=== PATIENT | male | born 1955 | race Caucasian/White ===

== ENCOUNTER → 2018-10-06 | Outpatient (CLI) | payer BC ==
--- NOTE | 2018-10-08 13:00 | PE ---
EXAMINATION TYPE: PET CT fusion skull to thigh DATE OF EXAM: 10/06/2018 COMPARISON: CT abdomen pelvis 09/27/2013 Prior PET/CT: None HISTORY: Solitary pulmonary nodule TECHNIQUE: Following the intravenous administration of 11.68 mCi of F-18 FDG, whole body images are performed from the skull base to the midthigh. Images are reviewed on the computer in the coronal, a xial, and sagittal planes. Reconstructed rotating images are created on independent workstation and reviewed on the computer. A localization and attenuation correction CT is performed in conjunction with the PET scan. DLP: 488.75 mGycm SCAN: Initial Blood glucose: 111 mg/dL Average Mediastinum SUV: 1.28 Average Liver SUV: 1.9 FINDINGS: NECK: There is some mild uptake within a suspected lymph node within the right parotid gland. This h as an SUV value of 2.19. This is nonspecific. Remainder the neck has normal radiotracer distribution. THORAX: No suspicious uptake. No discrete nodules are identified. Emphysematous changes are evident. Uptake throughout the thyroid appears normal ABDOMEN: No abnormal uptake. No suspicious uptake within the liver hypodense lesions. PELVIS: No abnormal uptake OSSEOUS STRUCTURES: No suspicious uptake LOCALIZATION CT: Degenerative changes with some foraminal narrowing and endplate spurring to the cerv ical spine are present. On the left lobe thyroid is prominent. This could be further evaluated with u ltrasound. This may has some tracheal deviation towards the right. The ascending thoracic aorta at th e level the main pulmonary artery measures 3.9 cm. The main pulmonary bifurcation measures 3.1 cm. Th ere is a 1.2 cm hypodensity at the superior right lobe liver not identified previously. COMPARISON: Abnormality within the liver is not identified previously. IMPRESSION: 1. There is some increased signal within the right parotid gland could be a abnormal lymph node. Cons ider MRI neck with contrast for additional evaluation. 2. Suspicious uptake within the chest is not identified. 3. Emphysema. 4. Enlarged left lobe thyroid may have mass effect on the trachea. No abnormal uptake within the thyr oid.
== END | disposition home or self-care (01) ==
LOC: RADPETMAIN 07:24
PROVIDERS: ATTEND Nurse Practitioner
DX: J43.9 Emphysema, unspecified (principal); E04.9 Nontoxic goiter, unspecified; K11.8 Other diseases of salivary glands
CPT/HCPCS: 78815; A9552

== ENCOUNTER → 2018-10-16 | Outpatient (CLI) | payer BC | END | disposition home or self-care (01) | LOC: RADMRIMAIN 19:59 | PROVIDERS: ATTEND Family Medicine | DX: Z53.9 Procedure and treatment not carried out, unspecified reason (principal) ==

== ENCOUNTER → 2018-10-19 | Outpatient (CLI) | payer BC ==
--- NOTE | 2018-10-22 03:07 | MR ---
MR scan of the neck. History abnormal PET scan. Abnormal right parotid gland on PET CT scan October 06, 2018. TECHNIQUE: Multiplanar multiecho imaging of the neck was performed without and with IV contrast. The contrast wa s linear and 7.5 mL. FINDINGS: There is fairly uniform signal pattern of the parotid glands bilaterally. I see no discrete parotid m ass. I see no significant enlarged cervical lymph nodes. The submandibular salivary glands are symmet philip. There is no evidence of pharyngeal mass. I see no pathologic enhancement. There is asymmetric en largement of the left thyroid lobe compared to the right. No discrete thyroid mass seen. I see no sup erior mediastinal adenopathy. IMPRESSION: Asymmetric goiter. This appears unchanged compared to recent PET CT scan. No demonstrated abnormality of the parotid glands. There is increased uptake in the inferior right pa rotid gland on the recent PET/CT scan that shows no focal abnormality on the MR scan.
== END ==
LOC: RADMRIMAIN 20:07
PROVIDERS: ATTEND Family Medicine
DX: E04.9 Nontoxic goiter, unspecified (principal); D11.0 Benign neoplasm of parotid gland
CPT/HCPCS: 70543; A9585

== ENCOUNTER → 2018-10-22 | Outpatient (CLI) | payer BC ==
--- NOTE | 2018-10-22 22:28 | US ---
EXAMINATION TYPE: US thyroid st tissue head/neck DATE OF EXAM: 10/22/2018 COMPARISON: MR of the neck from 3 days ago. PET/CT from 2 weeks ago. CLINICAL HISTORY: E07.9 Disorder of thyroid Z13.29 Screening for end. Enlarged thyroid GLAND SIZE: Right Lobe: 6.3 x 1.6 x 2.1 cm Overall Parenchyma: heterogenous Left Lobe: 6.3 x 3.0 x 3.5 cm Overall Parenchyma: heterogeneous Isthmus Thickness: 0.4 cm NODULES RIGHT: # of nodules measured on right: 3 1. 1.3 X 1.1 x 1.1 cm hypoechoic mixed nodule at the lower pole with well-defined margins; present with microcalcifications. This nodule is wider than tall and shows intranodular vascularity. Prior size: no previous 2. 1.1 X 1.1 x 0.8 cm hypoechoic solid nodule at the mid pole with well-defined margins. This nodule is taller than wide and shows intranodular vascularity. Prior size: no previous 3. 1.0 X 0.9 x 1.0 cm hypoechoic solid nodule at the mid pole with well-defined margins. This nodule is wider than tall and shows intranodular vascularity. Prior size: no previous LEFT: # of nodules measured on left: 1 1. 4.8 X 2.9 x 3.8 cm hypoechoic mixed nodule at the mid pole with well-defined margins. This nodul e is wider than tall and shows intranodular vascularity. Prior size: no previous ISTHMUS: # of nodules measured in the isthmus: 0 Bilateral neck scanned, no evidence of lymphadenopathy. There is heterogeneous enlarged thyroid gland, left greater than right, with multiple scattered nodul es identified including large dominant nodule occupying left thyroid lobe. IMPRESSION: Heterogeneous enlarged thyroid with large mixed left-sided nodule. Findings correlated with recent MR I and PET/CT.
== END ==
LOC: RADUSWWP 16:05
PROVIDERS: ATTEND Family Medicine
DX: E04.1 Nontoxic single thyroid nodule (principal)
CPT/HCPCS: 76536

== ENCOUNTER 2018-11-09 09:19 | Day surgery (SDC) | payer BC ==
[~2018-11-09 09:19] MED LIST: ALPRAZolam 0.5 MG TAB PO STA
[2018-11-09 10:29] VITALS: RESP 16; TEMP 97.7
[2018-11-09 10:36] LABS: Mean Platelet Volume 7.2; Platelet Count 128 k/uL (150-450)
[2018-11-09 10:44] LABS: INR 1.1 (<1.2); Prothrombin Time 11.7 sec (9.0-12.0)
[2018-11-09 11:15] LABS: Ionized Calcium 5.1 mg/dL (4.5-5.3)
[2018-11-09 11:30] VITALS: BP 140/83; PULSE 67
[2018-11-09 11:43] LABS: T4, Free (Free Thyroxine) 1.29 ng/dL (0.78-2.19)
--- NOTE | 2018-11-09 13:13 | US ---
ULTRASOUND GUIDED FNA THYROID BIOPSY: CLINICAL HISTORY: 3 right-sided thyroid nodules and one large left-sided thyroid nodule requested for biopsy FINDINGS: The procedure was explained to the patient. The risks, complications, benefits and alternatives were discussed and any questions were answered. Informed consent was obtained. Patient was placed supin e on the ultrasound table and prepped and draped in the usual sterile fashion. Utilizing a 25 gauge needle, five passes were made into the four requested thyroid nodules. Patient was stable throughout the procedure. Pathology is pending. All elements of maximal barrier technique were utilized. IMPRESSION: 1. Successful ultrasound guided FNA thyroid biopsy.
== END 2018-11-09 11:35 | disposition home or self-care (01) ==
LOC: RADPROMAIN 09:19
PROVIDERS: ATTEND Otolaryngology
DX: E04.1 Nontoxic single thyroid nodule (principal)
CPT/HCPCS: 10005; 10006; 36415; 76942; 82330; 84439; 84443; 85049; 85610; 86376; 88173; 88305

== ENCOUNTER → 2019-08-05 | Outpatient (CLI) | payer BC ==
--- NOTE | 2019-08-05 15:55 | US ---
EXAMINATION TYPE: US thyroid st tissue head/neck DATE OF EXAM: 08/05/2019 COMPARISON: 11/09/2018 and 10/22/2018 CLINICAL HISTORY: E04.1 thyroid nodule. GLAND SIZE: Right Lobe: 5.0 x 1.7 x 2.1 cm Overall Parenchyma: heterogenous Left Lobe: 5.8 x 3.0 x 3.1 cm Overall Parenchyma: heterogeneous Isthmus Thickness: 0.3 cm NODULES RIGHT: # of nodules measured on right: 3 1. 1.0 X 0.7 x 0.9 cm hypoechoic solid nodule at the mid pole with well-defined margins . This nod ule is wider than tall and shows intranodular vascularity. Prior size: 1.3 x 1.1 x 1.1 cm 2. 1.2 X 0.9 x 0.8 cm hypoechoic solid nodule at the med pole with well-defined margins . This nodu le is wider than tall and shows intranodular vascularity. Prior size: 1.1 x 1.1 x 0.8 cm 3. 0.9 X 0.7 x 1.1 cm hypoechoic solid nodule at the mid pole with well-defined margins. This nodul e is wider than tall and shows intranodular vascularity. Prior size: 1.0 x 0.9 x 1.0 cm LEFT: # of nodules measured on left: 1. 4.1 X 2.7 x 3.6 cm isoechoic solid nodule at the mid pole with well-defined margins . This nodu le is wider than tall and shows intranodular vascularity. Prior size: 4.8 x 2.9 x 3.8 cm ISTHMUS: # of nodules measured in the isthmus: 0 Bilateral neck scanned, no evidence of lymphadenopathy. IMPRESSION: Thyromegaly and multinodular goiter. Bilateral thyroid ultrasounds are similar size to th e prior. Fine-needle aspiration has been performed to for thyroid nodules on 11/09/2018.
== END ==
LOC: RADUSWWP 14:12
PROVIDERS: ATTEND Otolaryngology
DX: E04.2 Nontoxic multinodular goiter (principal)
CPT/HCPCS: 76536

== ENCOUNTER → 2020-09-18 | Outpatient (CLI) | payer BC ==
--- NOTE | 2020-09-18 11:03 | US ---
EXAMINATION TYPE: US thyroid st tissue head/neck DATE OF EXAM: 09/18/2020 COMPARISON: NONE CLINICAL HISTORY: E04.1 thyroid nodule. GLAND SIZE: Right Lobe: 6.0 x 1.7 x 2.2 cm Overall Parenchyma: heterogenous Left Lobe: 6.5 x 3.2 x 2.5 cm Overall Parenchyma: heterogeneous Isthmus Thickness: 0.4 cm NODULES RIGHT: # of nodules measured on right: 3 1. 1.0 X 0.7 x 0.8 cm solid or almost completely solid, anechoic nodule, which is wider than tall, with smooth margins, without echogenic foci. Prior size:1.0 X 0.7 x 0.9 cm 2. 1.1 X 0.9 x 0.7 cm solid or almost completely solid, hypoechoic nodule, which is taller than wid e, with smooth margins, without echogenic foci. Prior size: 1.2 X 0.9 x 0.8cm 3. 1.1 X 0.9 x 1.1 cm spongiform, hypoechoic nodule, which is wider than tall, with smooth margins , with echogenic foci. Prior size: 0.9 X 0.7 x 1.1cm LEFT: # of nodules measured on left: 1. 4.3 x 3.2 x 4.1 cm solid or almost completely solid, isoechoic nodule, which is wider than tall, with lobulated or irregular margins, without echogenic foci. Prior size: 4.1 X 2.7 x 3.6cm ISTHMUS: # of nodules measured in the isthmus: 0 Bilateral neck scanned, no evidence of lymphadenopathy. IMPRESSION: Bilateral thyroid nodules are stable. Characteristics of the right thyroid nodule measuring 1.1 cm me et the criteria for FNA. Correlate with prior biopsy pathology. 2017 ACR TI-RADS LEVEL: TI-RADS 5 - Highly Suspicious: Follow if > 0.5 cm, FNA if > 1.0 cm *Highest TI-RADS level nodule reported
== END | disposition home or self-care (01) ==
LOC: RADUSWWP 09:57
PROVIDERS: ATTEND Otolaryngology
DX: E04.2 Nontoxic multinodular goiter (principal)
CPT/HCPCS: 76536

== ENCOUNTER 2020-10-15 12:15 | Day surgery (SDC) | payer BC ==
[2020-10-15 12:46] LABS: Platelet Count 145 k/uL (150-450)
[2020-10-15 12:51] VITALS: RESP 16; TEMP 98
[2020-10-15] MEDS ORDERED: ALPRAZolam 0.5 MG TAB PO STA (12:51)
[2020-10-15 12:53] LABS: INR 1.1 (<1.2); Prothrombin Time 11.8 sec (9.0-12.0)
[2020-10-15 14:43] VITALS: BP 117/73; PULSE 68
--- NOTE | 2020-10-15 21:59 | US ---
ULTRASOUND GUIDED FNA THYROID BIOPSY: CLINICAL HISTORY: Request for biopsy of 4 thyroid nodules FINDINGS: The procedure was explained to the patient. The risks, complications, benefits and alternatives were discussed and any questions were answered. Informed consent was obtained. Patient was placed supin e on the ultrasound table and prepped and draped in the usual sterile fashion. Utilizing a 25 gauge needle, five passes were made into the requested 3 right-sided and a single left-sided thyroid nodule . Patient was stable throughout the procedure. Pathology is pending. All elements of maximal barrier technique were utilized. IMPRESSION: 1. Successful ultrasound guided FNA thyroid biopsy.
== END 2020-10-15 14:35 | disposition home or self-care (01) ==
LOC: RADPROMAIN 12:15
PROVIDERS: ATTEND Otolaryngology
DX: E04.1 Nontoxic single thyroid nodule (principal); Z79.01 Long term (current) use of anticoagulants
CPT/HCPCS: 10005; 10006; 85049; 85610; 88173; 88305

== ENCOUNTER 2021-01-08 16:09 | Emergency (ER) | payer MEDICARE, BC ==
[2021-01-08 16:30] VITALS: RESP 18; TEMP 98.6
[2021-01-08] MEDS ORDERED: LIDOCAINE 1% INJ 10MG/ML (20 ML MDV) SQ ONE (16:47)
[2021-01-08] MEDS ORDERED: DIPH,PERTUS(ACELL)TETVAC-LF 0.5 ML VIAL IM ONE (16:47)
[2021-01-08] MEDS ORDERED: MORPHINE SULFATE 2 MG/ML SYRINGE IM STA (16:48)
--- NOTE | 2021-01-08 17:10 | XR ---
EXAMINATION TYPE: XR hand complete LT DATE OF EXAM: 01/08/2021 COMPARISON: NONE HISTORY: Pain TECHNIQUE: 3 views FINDINGS: There is some soft tissue swelling on the dorsum of the hand. Metacarpals are intact. I see no fracture nor dislocation. There is some narrowing of the third MP joint space. IMPRESSION: No fracture. Soft tissue swelling.
--- NOTE | 2021-01-08 17:18 | ED ---
Animal Bite HPI - General Chief Complaint: Animal Bite Stated Complaint: Dog bite Time Seen by Provider: 01/08/21 16:32 Source: patient Mode of arrival: ambulatory Limitations: no limitations - History of Present Illness Initial Comments: Patient is a 65-year-old male presenting to the emergency Department with complaints of a dog bite to his left hand. Patient states a neighbor was walking his dog when he put out his hand for the dog to sniff it and the dog bit down on his left hand. He has a few puncture wounds and lacerations to his left hand. He states the product owner stated that the dog's rabies vaccine is up-to-date, his other vaccines are also up-to-date. Patient states his tetanus vaccine is not up-to-date. He is on a blood thinner, he takes Coumadin for clotting disorder. There are no further complaints at this time. - Related Data Home Medications Medication Instructions Recorded Confirmed Ascorbic Acid [Vitamin C] 1,000 mg PO DAILY 11/01/18 10/15/20 Atorvastatin [Lipitor] 40 mg PO DAILY 11/01/18 10/15/20 Clopidogrel [Plavix] 75 mg PO DAILY 11/01/18 10/15/20 Multivitamins, Thera [Multivitamin 1 tab PO DAILY 11/01/18 10/15/20 (formulary)] Warfarin [Coumadin] 7 mg PO DAILY 11/01/18 10/15/20 Enoxaparin [Lovenox] 100 mg SQ Q12H 11/02/18 10/15/20 Cholecalciferol [Vitamin D3 (25 25 mcg PO DAILY 09/29/20 10/15/20 Mcg = 1000 Iu)] Non Formulary Drug 1 each PO ONCE 09/29/20 10/15/20 Previous Rx's Medication Instructions Recorded Amoxicillin/Potassium Clav 1 tab PO BID 7 Days #14 tab 01/08/21 [Augmentin 875-125 Tablet] Allergies Allergy/AdvReac Type Severity Reaction Status Date / Time No Known Allergies Allergy Verified 01/08/21 16:27 Review of Systems ROS Statement: Those systems with pertinent positive or pertinent negative responses have been documented in the HPI. ROS Other: All systems not noted in ROS Statement are negative. Past Medical History Past Medical History: Deep Vein Thrombosis (DVT), Hyperlipidemia, Vascular Disorder Additional Past Medical History / Comment(s): states "doesn't have the proteins in my blood to prevent it from clotting is why I am taking warfarin"managed by Dr Angel Sanchez Physician [phone], (Factor V Leiden mutation) thyroid nodules History of Any Multi-Drug Resistant Organisms: None Reported Additional Past Surgical History / Comment(s): stent rt groin Aug 2018,aortogram, thyroid biopsy 2019 Past Anesthesia/Blood Transfusion Reactions: No Reported Reaction Past Psychological History: No Psychological Hx Reported Smoking Status: Current every day smoker Past Alcohol Use History: None Reported Past Drug Use History: None Reported - Past Family History Mother Family Medical History: No Reported History Sister(s) Family Medical History: Deep Vein Thrombosis (DVT) Father Family Medical History: Deep Vein Thrombosis (DVT) General Exam - General Exam Comments Initial Comments: GENERAL: Patient is well-developed and well-nourished. Patient is nontoxic and in mild distress. HEAD: Atraumatic, normocephalic. EYES: Pupils equal round and reactive to light, extraocular movements intact, sclera anicteric, conjunctiva are normal. Eyelids were unremarkable. ENT: Nares patent, oropharynx clear without exudates. Moist mucous membranes. NECK: Normal range of motion, supple without lymphadenopathy or JVD. LUNGS: Unlabored respirations. Breath sounds clear to auscultation bilaterally and equal. No wheezes rales or rhonchi. HEART: Regular rate and rhythm without murmurs, rubs or gallops. ABDOMEN: Soft, nontender, normoactive bowel sounds. No guarding, no rebound. No masses appreciated. : Deferred MUSCULOSKELETAL: Patient has multiple dog bite wounds to the left hand, is get some mild swelling noted to the dorsal aspect of the hand. He is able to fully extend and flex all his fingers. He has neurovascular intact. NEUROLOGICAL: Patient is alert and oriented x 3. Motor and sensory are also intact. Cranial nerves II through XII grossly intact. Symmetrical smile. Normal speech, normal gait. PSYCH: Normal mood, normal affect. SKIN: Warm, Dry, normal turgor, no rashes. Patient has multiple small puncture wounds noted to the dorsal aspect of the left hand. He has a larger laceration, 1cm, noted to the dorsal aspect of the left hand over the second metacarpal area. Patient also has an L-shaped, 1cm, laceration to the proximal portion of the left middle finger, dorsal aspect. All bleeding is controlled at this time. Limitations: no limitations Course Vital Signs 01/08/21 01/08/21 16:28 19:12 Temperature 98.6 F Pulse Rate 91 88 Respiratory 18 18 Rate Blood Pressure 152/81 142/88 O2 Sat by Pulse 95 99 Oximetry Procedures - Laceration Laceration #1 Consent Obtained: verbal consent Indication: laceration Site: hand (Left hand dorsal aspect) Size (cm): 1 Description: irregular Anesthetic Used: lidocaine 1% Anesthesia Technique: local infiltration Amount (mls): 2 Pre-repair: irrigated extensively Type of Sutures: nylon Size of Sutures: 5-0 Number of Sutures: 2 Technique: simple, interrupted Patient Tolerated Procedure: well Laceration #2 Consent Obtained: verbal consent Indication: laceration Site: hand (Left hand dorsal aspect, near proximal portion of left middle finger) Size (cm): 1 Description: flap, irregular Depth: simple, single layer Anesthetic Used: lidocaine 1% Anesthesia Technique: local infiltration Amount (mls): 2 Pre-repair: irrigated extensively Type of Sutures: nylon Size of Sutures: 5-0 Number of Sutures: 4 Technique: simple, interrupted Patient Tolerated Procedure: well Medical Decision Making - Medical Decision Making Patient is 65-year-old male here for Doppler wounds to his left hand. He had multiple small puncture wounds, he also had 2 larger 1 cm lacerations to the hand as well. The dog was up-to-date with its vaccines including rabies. The patient's tetanus vaccine was updated today. Hand x-ray reveals no acute bony abnormalities. Patient's wounds were cleaned, the 2 larger lacerations were loosely closed, wrapped in bandages. Patient will be started on antibiotics. Of note, patient was worried about being late on his Coumadin, did order that for him today. He is stable for discharge. He will keep wounds clean and dry, take antibiotic as directed. He'll sutures removed in 7-10 days. Case discussed with Dr. Brown. Disposition Clinical Impression: Dog bite of left hand Disposition: HOME SELF-CARE Condition: Stable Instructions (If sedation given, give patient instructions): Animal Bite (ED) Additional Instructions: Please return to the Emergency Department if symptoms worsen or any other concerns. Take antibiotics as prescribed. Your tetanus vaccine was updated today. Apply ice to the area, keep wounds clean and dry. Stitches need to be removed in 7-10 days. Prescriptions: Amoxicillin/Potassium Clav [Augmentin 875-125 Tablet] 1 tab PO BID 7 Days #14 tab Is patient prescribed a controlled substance at d/c from ED?: No Referrals: Genia Bartlett MD [Primary Care Provider] - 1-2 days Time of Disposition: 19:06
[2021-01-08] MEDS ORDERED: WARFARIN 3 MG TAB PO STA (18:16)
[2021-01-08] MEDS ORDERED: WARFARIN 1 MG TAB PO STA (18:17)
[2021-01-08] MEDS ORDERED: ACET/COD 300 MG/30 MG STARTER PACK 6 TAB BTL PO STA (19:06)
[2021-01-08 19:12] VITALS: BP 142/88; PULSE 88
== END 2021-01-08 19:12 | disposition home or self-care (01) ==
LOC: EC 16:09
DX: S61.452A Open bite of left hand, initial encounter (principal); E78.5 Hyperlipidemia, unspecified; D68.51 Activated protein C resistance; F17.200 Nicotine dependence, unspecified, uncomplicated; Z86.718 Personal history of other venous thrombosis and embolism; Z79.01 Long term (current) use of anticoagulants; Z79.02 Long term (current) use of antithrombotics/antiplatelets; W54.0XXA Bitten by dog, initial encounter
CPT/HCPCS: 73130; 90715; 99283; 96372; 90471; 12001; J2001; J2270

== ENCOUNTER 2021-01-15 12:18 | Emergency (ER) | payer MEDICARE, BC ==
[2021-01-15 12:37] VITALS: BP 122/78; PULSE 79; RESP 18; TEMP 98.2
--- NOTE | 2021-01-15 14:25 | ED ---
Recheck HPI - General Chief Complaint: Recheck/Abnormal Lab/Rx Stated Complaint: revisit dog bite/swelling hand/stitches removal Time Seen by Provider: 01/15/21 13:09 Source: patient Mode of arrival: ambulatory Limitations: no limitations - History of Present Illness Initial Comments: Patient is a 65-year-old male presenting to the emergency department for a recheck of a wound on his left hand. The patient was seen here one week ago for a dog bite, received some sutures. He states he wanted somebody to look at it as he felt like the swelling was still present and there was a tiny bit of redness around one of the wounds, he also needs his sutures removed. Patient denies any fevers or chills. He has been taking his antibiotics as prescribed, he has one day left. His tetanus vaccine was updated last week. He denies any nausea or vomiting. He states the redness has not increased. He has no further complaints at this time. - Related Data Home Medications Medication Instructions Recorded Confirmed Ascorbic Acid [Vitamin C] 1,000 mg PO DAILY 11/01/18 10/15/20 Atorvastatin [Lipitor] 40 mg PO DAILY 11/01/18 10/15/20 Clopidogrel [Plavix] 75 mg PO DAILY 11/01/18 10/15/20 Multivitamins, Thera [Multivitamin 1 tab PO DAILY 11/01/18 10/15/20 (formulary)] Warfarin [Coumadin] 7 mg PO DAILY 11/01/18 10/15/20 Enoxaparin [Lovenox] 100 mg SQ Q12H 11/02/18 10/15/20 Cholecalciferol [Vitamin D3 (25 25 mcg PO DAILY 09/29/20 10/15/20 Mcg = 1000 Iu)] Non Formulary Drug 1 each PO ONCE 09/29/20 10/15/20 Previous Rx's Medication Instructions Recorded Amoxicillin/Potassium Clav 1 tab PO BID 7 Days #14 tab 01/08/21 [Augmentin 875-125 Tablet] Amoxicillin/Potassium Clav 1 tab PO BID 3 Days #6 tab 01/15/21 [Augmentin 875-125 Tablet] Allergies Allergy/AdvReac Type Severity Reaction Status Date / Time No Known Allergies Allergy Verified 01/15/21 12:37 Review of Systems ROS Statement: Those systems with pertinent positive or pertinent negative responses have been documented in the HPI. ROS Other: All systems not noted in ROS Statement are negative. Past Medical History Past Medical History: Deep Vein Thrombosis (DVT), Hyperlipidemia, Vascular Disorder Additional Past Medical History / Comment(s): states "doesn't have the proteins in my blood to prevent it from clotting is why I am taking warfarin"managed by Dr Angel Sanchez Physician [phone], (Factor V Leiden mutation) thyroid nodules History of Any Multi-Drug Resistant Organisms: None Reported Additional Past Surgical History / Comment(s): stent rt groin Aug 2018,aortogram, thyroid biopsy 2019 Past Anesthesia/Blood Transfusion Reactions: No Reported Reaction Past Psychological History: No Psychological Hx Reported Smoking Status: Current every day smoker Past Alcohol Use History: None Reported Past Drug Use History: None Reported - Past Family History Mother Family Medical History: No Reported History Sister(s) Family Medical History: Deep Vein Thrombosis (DVT) Father Family Medical History: Deep Vein Thrombosis (DVT) General Exam - General Exam Comments Initial Comments: GENERAL: Patient is well-developed and well-nourished. Patient is nontoxic and in no acute distress. HEAD: Atraumatic, normocephalic. EYES: Pupils equal round and reactive to light, extraocular movements intact, sclera anicteric, conjunctiva are normal. Eyelids were unremarkable. ENT: Nares patent, oropharynx clear without exudates. Moist mucous membranes. NECK: Normal range of motion, supple without lymphadenopathy or JVD. LUNGS: Unlabored respirations. Breath sounds clear to auscultation bilaterally and equal. No wheezes rales or rhonchi. HEART: Regular rate and rhythm without murmurs, rubs or gallops. ABDOMEN: Soft, nontender, normoactive bowel sounds. No guarding, no rebound. No masses appreciated. : Deferred MUSCULOSKELETAL: Patient has some mild swelling of his left hand, he has normal range of motion of his hand and fingers, neurovascular intact. No clubbing or cyanosis. NEUROLOGICAL: Patient is alert and oriented x 3. Motor and sensory are also intact. Cranial nerves II through XII grossly intact. Symmetrical smile. Normal speech, normal gait. PSYCH: Normal mood, normal affect. SKIN: Warm, Dry, normal turgor, no rashes. Patient has healing wounds on his left hand from a dog bite injury last week. Sutures were removed today, the wounds look clean, dry and intact, no signs of infection. There is some very mild erythema of the wound near his thumb but it is not spreading, there is no warmth or drainage. Limitations: no limitations Course Vital Signs 01/15/21 12:34 Temperature 98.2 F Pulse Rate 79 Respiratory 18 Rate Blood Pressure 122/78 O2 Sat by Pulse 96 Oximetry Procedures - Procedures Initial comment: I removed 6 sutures from his left hand, patient tolerated procedure well. Medical Decision Making - Medical Decision Making Patient is a 65-year-old male here for recheck of wounds on his left hand he sustained from a dog bite last week. He is also needing his sutures removed. He has had no fevers. He is on day 6 of Augmentin. Patient does have some mild swelling present of his left hand but no increase in pain. I did remove all 6 sutures without difficulty. The wound next to his thumb appears to be very mildly erythematous, it is not worsening, no drainage. I will extend his antibiotic for another 3 days, for a total of 10 days. Patient states he has not been cleaning his wounds very good since he is worried about washing his hand. We discuss washing his hands with mild soap and water twice daily. He will elevate his hand above his heart level to help with the swelling. He can follow up with his PCP. He is in agreement with this plan of care and is stable for discharge. Disposition Clinical Impression: Encounter for removal of sutures, Encounter for re-check of laceration wound, Swelling of left hand Disposition: HOME SELF-CARE Condition: Stable Instructions (If sedation given, give patient instructions): Acute Wound Care (ED) Additional Instructions: Please return to the Emergency Department if symptoms worsen or any other concerns. These wash hands with mild soap and water twice daily. Elevate the hand above the heart level, may use ice on it for swelling. Finish antibiotics as discussed. Prescriptions: Amoxicillin/Potassium Clav [Augmentin 875-125 Tablet] 1 tab PO BID 3 Days #6 tab Is patient prescribed a controlled substance at d/c from ED?: No Referrals: Genia Bartlett MD [Primary Care Provider] - 1-2 days Time of Disposition: 14:24
== END 2021-01-15 14:39 | disposition home or self-care (01) ==
LOC: EC 12:18
DX: Z48.02 Encounter for removal of sutures (principal); M79.89 Other specified soft tissue disorders; E78.5 Hyperlipidemia, unspecified; F17.200 Nicotine dependence, unspecified, uncomplicated; Z86.718 Personal history of other venous thrombosis and embolism; Z79.01 Long term (current) use of anticoagulants; Z79.02 Long term (current) use of antithrombotics/antiplatelets
CPT/HCPCS: 99281

== ENCOUNTER → 2022-09-29 | Outpatient (CLI) | payer MEDICARE, BC ==
--- NOTE | 2022-09-29 09:59 | CTL ---
EXAMINATION TYPE: CT Low Dose Lung DATE OF EXAM ORDERED: 09/29/2022 HISTORY: . Lung cancer screening CT DLP: 77.[address] CTDI: 2.0 mGy Automated exposure control for dose reduction was used. SCREENING VISIT: COMPARISON: 02/27/2019. TECHNIQUE: Low dose computed tomography scan was performed through the chest at 1 mm thick sections a nd reconstructed images in multiple planes at 1 mm and [address] DIAGNOSTIC QUALITY: Satisfactory FINDINGS: Diffuse emphysematous changes seen. No sizable pneumothorax. No interstitial edema or pleural effusio n. No focal pneumonia. Areas of subsegmental consolidation are seen which are most likely atelectasis scarring. 2 mm nodule axial image 231 right lower lobe. There are additional less than 5 mm subpleural nodule b ilateral lung apices. Have a benign appearance. Atherosclerotic change of the aorta. There is coronary artery calcification. No pathologic adenopathy . Heart size normal. Hypertrophic degenerative changes. Low density lesions involving the liver too s mall to characterize but likely related to a small simple cyst. Stable prior exam. Small hiatal herni a. Thyroid gland remains enlarged and heterogeneous with areas of calcification. IMPRESSION: 1. Diffuse COPD with multiple sub-5 mm pulmonary nodules which have a benign appearance. 2. Stable hepatic cyst. 3. Thyromegaly correlate for thyroid multi nodularity. 4. Coronary artery calcification. CT LUNG RAD AND CT CHEST RECOMMENDATION: Lung-Rad 2 Benign Appearance or Behavior: Continue annual sc reening with LDCT in 12 months. S Modifier (other clinically significant findings):
== END | disposition home or self-care (01) ==
LOC: RADCTMAIN 08:54
PROVIDERS: ATTEND Family Medicine
DX: Z12.2 Encounter for screening for malignant neoplasm of respiratory organs (principal); I25.10 Atherosclerotic heart disease of native coronary artery without angina pectoris; J44.9 Chronic obstructive pulmonary disease, unspecified; K76.89 Other specified diseases of liver; R91.8 Other nonspecific abnormal finding of lung field; Z87.891 Personal history of nicotine dependence
CPT/HCPCS: 71271

== ENCOUNTER 2023-10-04 11:14 | Emergency (ER) | payer MEDICARE, BC ==
[2023-10-04 11:44] VITALS: RESP 18; TEMP 98.2
[2023-10-04] MEDS: ONDANSETRON 4 MG/2 ML VIAL IVP STA (12:00)
[2023-10-04] MEDS: HYDROmorphone 0.5 MG/0.5 ML SYRINGE IVP STA ×2 (12:01→13:09)
[2023-10-04 12:07] LABS: Basophils % (A) 0 %; Eosinophils # (A) 0.1 k/uL (0-0.7); Eosinophils % (A) 2 %; HCT 40.8 % (39.0-53.0); HGB 13.8 gm/dL (13.0-17.5); Lymphocytes # (A) 0.7 k/uL (1.0-4.8); Lymphocytes % (A) 16 %; MCH 32.2 pg (25.0-35.0); MCHC 33.9 g/dL (31.0-37.0); MCV 95.2 fL (80.0-100.0); Mean Platelet Volume 8.1; Monocytes # (A) 0.2 k/uL (0-1.0); Monocytes % (A) 5 %; Neutrophils # (A) 3.3 k/uL (1.3-7.7); Neutrophils % (A) 75 %; Platelet Count 177 k/uL (150-450); RBC 4.29 m/uL (4.30-5.90); RDW 13.7 % (11.5-15.5); WBC 4.4 k/uL (3.8-10.6)
[2023-10-04 12:24] LABS: INR 2.5 (<1.2); Partial Thromboplastin Time 56.3 sec (22.0-30.0)
[2023-10-04 12:35] LABS: ALT 28 U/L (4-49); AST 29 U/L (17-59); African American GFR (CKD) >90 (>60 ml/min/1.73 sqM); Albumin 3.9 g/dL (3.5-5.0); Alkaline Phosphatase 84 U/L (38-126); Anion Gap 7 mmol/L; Blood Urea Nitrogen 13 mg/dL (9-20); Calcium 8.9 mg/dL (8.4-10.2); Carbon Dioxide 24 mmol/L (22-30); Chloride 107 mmol/L (98-107); Glucose 143 mg/dL (74-99); Non-African American GFR(CKD) >90 (>60 ml/min/1.73 sqM); Sodium 138 mmol/L (137-145); Total Bilirubin 0.6 mg/dL (0.2-1.3); Total Protein 6.9 g/dL (6.3-8.2)
--- NOTE | 2023-10-04 12:53 | XR ---
EXAMINATION TYPE: XR toes RT DATE OF EXAM: 10/04/2023 COMPARISON: NONE HISTORY: Pain TECHNIQUE: 3 views of the right sided toes are submitted. FINDINGS: There is amputation of the fifth toe. No evidence for acute fracture or dislocation. No bon y destructive process seen. IMPRESSION: As above
--- NOTE | 2023-10-04 13:31 | ED ---
Lower Extremity Injury HPI - General Chief Complaint: Extremity Injury, Lower Stated Complaint: Pain in right foot Time Seen by Provider: 10/04/23 11:31 Source: patient, RN notes reviewed Mode of arrival: ambulatory Limitations: no limitations - History of Present Illness Initial Comments: 67-year-old male presents emergency department complaint of toe pain. Patient states he has underlying vascular issue in which he is on Coumadin. Patient states that he had a prior amputation of his right foot fifth digit. Patient states that he bumped his toes 3 weeks ago and states he is having creasing pain, tissue color change. - Related Data Home Medications Medication Instructions Recorded Confirmed Ascorbic Acid [Vitamin C] 1,000 mg PO DAILY 11/01/18 10/15/20 Atorvastatin [Lipitor] 40 mg PO DAILY 11/01/18 10/15/20 Clopidogrel [Plavix] 75 mg PO DAILY 11/01/18 10/15/20 Multivitamins, Thera [Multivitamin 1 tab PO DAILY 11/01/18 10/15/20 (formulary)] Warfarin [Coumadin] 7 mg PO DAILY 11/01/18 10/15/20 Enoxaparin [Lovenox] 100 mg SQ Q12H 11/02/18 10/15/20 Cholecalciferol [Vitamin D3 (25 25 mcg PO DAILY 09/29/20 10/15/20 Mcg = 1000 Iu)] Non Formulary Drug 1 each PO ONCE 09/29/20 10/15/20 Previous Rx's Medication Instructions Recorded Amoxicillin/Potassium Clav 1 tab PO BID 7 Days #14 tab 01/08/21 [Augmentin 875-125 Tablet] Amoxicillin/Potassium Clav 1 tab PO BID 3 Days #6 tab 01/15/21 [Augmentin 875-125 Tablet] Cephalexin [Keflex] 500 mg PO Q6HR #40 cap 10/04/23 HYDROcodone/APAP 5-325MG [[place] 5] 1 each PO Q6HR PRN #12 tab 10/04/23 Allergies Allergy/AdvReac Type Severity Reaction Status Date / Time No Known Allergies Allergy Verified 10/04/23 11:28 Review of Systems ROS Statement: Those systems with pertinent positive or pertinent negative responses have been documented in the HPI. ROS Other: All systems not noted in ROS Statement are negative. Past Medical History Past Medical History: Deep Vein Thrombosis (DVT), Hyperlipidemia, Vascular Disorder Additional Past Medical History / Comment(s): states "doesn't have the proteins in my blood to prevent it from clotting is why I am taking warfarin"managed by Dr Angel Sanchez Physician [phone], (Factor V Leiden mutation) thyroid nodules History of Any Multi-Drug Resistant Organisms: None Reported Additional Past Surgical History / Comment(s): stent rt groin Aug 2018,aortogram, thyroid biopsy 2018 Past Anesthesia/Blood Transfusion Reactions: No Reported Reaction Past Psychological History: No Psychological Hx Reported Smoking Status: Former smoker Past Alcohol Use History: None Reported Past Drug Use History: None Reported - Past Family History Mother Family Medical History: No Reported History Sister(s) Family Medical History: Deep Vein Thrombosis (DVT) Father Family Medical History: Deep Vein Thrombosis (DVT) General Exam Limitations: no limitations General appearance: alert, in no apparent distress Head exam: Present: atraumatic, normocephalic, normal inspection Respiratory exam: Present: normal lung sounds bilaterally. Absent: respiratory distress, wheezes, rales, rhonchi, stridor Cardiovascular Exam: Present: regular rate, normal rhythm, normal heart sounds. Absent: systolic murmur, diastolic murmur, rubs, gallop, clicks Extremities exam: Present: other (Right foot fifth digit prior amputation, there is a dry gangrene changes of the third and fourth) Course Vital Signs 10/04/23 10/04/23 11:24 13:47 Temperature 98.2 F Pulse Rate 99 89 Respiratory 18 18 Rate Blood Pressure 144/80 134/85 O2 Sat by Pulse 96 97 Oximetry Medical Decision Making - Medical Decision Making Was pt. sent in by a medical professional or institution (, PA, RN DISCHARGE, urgent care, hospital, or [facility]...) When possible be specific @ -No Did you speak to anyone other than the patient for history (EMS, parent, family, police, friend...)? What history was obtained from this source @ -No Did you review nursing and triage notes (agree or disagree)? Why? @ -I reviewed and agree with nursing and triage notes Were old charts reviewed (outside hosp., previous admission, EMS record, old EKG, old radiological studies, urgent care reports/EKG's, [facility] records)? Report findings @ -No old charts were reviewed Differential Diagnosis (chest pain, altered mental status, abdominal pain women, abdominal pain men, vaginal bleeding, weakness, fever, dyspnea, syncope, headache, dizziness, GI bleed, back pain, seizure, CVA, palpatations, mental health, musculoskeletal)? @ -Cellulitis, gangrene, osteomyelitis EKG interpreted by me (3pts min.). @ -[None X-rays interpreted by me (1pt min.). @ -X-ray right toes no acute osteomyelitis CT interpreted by me (1pt min.). @ -[None done U/S interpreted by me (1pt. min.). @ -None done What testing was considered but not performed or refused? (CT, X-rays, U/S, labs)? Why? @ -None What meds were considered but not given or refused? Why? @ -None Did you discuss the management of the patient with other professionals (professionals i.e. , PA, RN DISCHARGE, lab, RT, psych nurse, social service agency director, concrete block plant supervisor, teacher, police officer booking, casey saw operator)? Give summary @ -No Was smoking cessation discussed for >3mins.? @ -No Was critical care preformed (if so, how long)? @ -No Were there social determinants of health that impacted care today? How? (Homelessness, low income, unemployed, alcoholism, drug addiction, transportation, low edu. Level, literacy, decrease access to med. care, nursing home, rehab)? @ -No Was there de-escalation of care discussed even if they declined (Discuss DNR or withdrawal of care, Hospice)? DNR status @ -No What co-morbidities impacted this encounter? (DM, HTN, Smoking, COPD, CAD, Cancer, CVA, ARF, Chemo, Hep., AIDS, mental health diagnosis, sleep apnea, m orbid obesity)? @ -[Smoking, vascular disease Was patient admitted / discharged? Hospital course, mention meds given and route, prescriptions, significant lab abnormalities, going to OR and other pert inent info. @ -Discharge patient presented for right foot toe pain there is notable dry gangrene, cellulitic changes. There is no evidence of osteomyelitis laboratory studies unremarkable patient provided analgesics. He does have pulses which are faint. He is advised he needs to have close follow-up with vascular surgery or podiatry for debridement patient understands Undiagnosed new problem with uncertain prognosis? @ -[No Drug Therapy requiring intensive monitoring for toxicity (Heparin, Nitro, Insulin, Cardizem)? @ -No Were any procedures done? @ -No Diagnosis/symptom? @ -Cellulitis dry gangrene Acute, or Chronic, or Acute on Chronic? @ -[acute Uncomplicated (without systemic symptoms) or Complicated (systemic symptoms)? @ -Uncomplicated Side effects of treatment? @ -[No Exacerbation, Progression, or Severe Exacerbation? @ -No Poses a threat to life or bodily function? How? (Chest pain, [place], [place], pneumonia, PE, COPD, DKA, ARF, appy, cholecystitis, CVA, Diverticulitis, Homicidal, S uicidal, threat to staff... and all critical care pts) @ -No - Lab Data Result diagrams: 10/04/23 11:56 10/04/23 11:56 Lab Results 10/04/23 10/04/23 10/04/23 Range/Units 11:56 11:56 11:56 WBC 4.4 (3.8-10.6) k/uL RBC 4.29 L (4.30-5.90) m/uL Hgb 13.8 (13.0-17.5) gm/dL Hct 40.8 (39.0-53.0) % MCV 95.2 (80.0-100.0) fL MCH 32.2 (25.0-35.0) pg MCHC 33.9 (31.0-37.0) g/dL RDW 13.7 (11.5-15.5) % Plt Count 177 (150-450) k/uL MPV 8.1 Neutrophils % 75 % Lymphocytes % 16 % Monocytes % 5 % Eosinophils % 2 % Basophils % 0 % Neutrophils # 3.3 (1.3-7.7) k/uL Lymphocytes # 0.7 L (1.0-4.8) k/uL Monocytes # 0.2 (0-1.0) k/uL Eosinophils # 0.1 (0-0.7) k/uL Basophils # 0.0 (0-0.2) k/uL PT 25.0 H (10.0-12.5) sec INR 2.5 H (<1.2) APTT 56.3 H (22.0-30.0) sec Sodium 138 (137-145) mmol/L Potassium 4.0 (3.5-5.1) mmol/L Chloride 107 (98-107) mmol/L Carbon Dioxide 24 (22-30) mmol/L Anion Gap 7 mmol/L BUN 13 (9-20) mg/dL Creatinine 0.77 (0.66-1.25) mg/dL Est GFR (CKD-EPI)AfAm >90 (>60 ml/min/1.73 sqM) Est GFR (CKD-EPI)NonAf >90 (>60 ml/min/1.73 sqM) Glucose 143 H (74-99) mg/dL Plasma Lactic Acid Cesar (0.7-2.0) mmol/L Calcium 8.9 (8.4-10.2) mg/dL Total Bilirubin 0.6 (0.2-1.3) mg/dL AST 29 (17-59) U/L ALT 28 (4-49) U/L Alkaline Phosphatase 84 (38-126) U/L C-Reactive Protein 1.0 H (<1.0) mg/dL Total Protein 6.9 (6.3-8.2) g/dL Albumin 3.9 (3.5-5.0) g/dL 10/04/23 Range/Units 11:56 WBC (3.8-10.6) k/uL RBC (4.30-5.90) m/uL Hgb (13.0-17.5) gm/dL Hct (39.0-53.0) % MCV (80.0-100.0) fL MCH (25.0-35.0) pg MCHC (31.0-37.0) g/dL RDW (11.5-15.5) % Plt Count (150-450) k/uL MPV Neutrophils % % Lymphocytes % % Monocytes % % Eosinophils % % Basophils % % Neutrophils # (1.3-7.7) k/uL Lymphocytes # (1.0-4.8) k/uL Monocytes # (0-1.0) k/uL Eosinophils # (0-0.7) k/uL Basophils # (0-0.2) k/uL PT (10.0-12.5) sec INR (<1.2) APTT (22.0-30.0) sec Sodium (137-145) mmol/L Potassium (3.5-5.1) mmol/L Chloride (98-107) mmol/L Carbon Dioxide (22-30) mmol/L Anion Gap mmol/L BUN (9-20) mg/dL Creatinine (0.66-1.25) mg/dL Est GFR (CKD-EPI)AfAm (>60 ml/min/1.73 sqM) Est GFR (CKD-EPI)NonAf (>60 ml/min/1.73 sqM) Glucose (74-99) mg/dL Plasma Lactic Acid Cesar 1.1 (0.7-2.0) mmol/L Calcium (8.4-10.2) mg/dL Total Bilirubin (0.2-1.3) mg/dL AST (17-59) U/L ALT (4-49) U/L Alkaline Phosphatase (38-126) U/L C-Reactive Protein (<1.0) mg/dL Total Protein (6.3-8.2) g/dL Albumin (3.5-5.0) g/dL Disposition Clinical Impression: Dry gangrene, Toe pain, Vascular disorder, Cellulitis Disposition: HOME SELF-CARE Condition: Stable Instructions (If sedation given, give patient instructions): Cellulitis (ED) Additional Instructions: Please return to the Emergency Department if symptoms worsen or any other concerns. Prescriptions: Cephalexin [Keflex] 500 mg PO Q6HR #40 cap HYDROcodone/APAP 5-325MG [[place] 5] 1 each PO Q6HR PRN #12 tab PRN Reason: Pain Is patient prescribed a controlled substance at d/c from ED?: No Referrals: Genia Bartlett MD [Primary Care Provider] - 1-2 days Time of Disposition: 13:31
[2023-10-04 14:14] VITALS: BP 134/85; PULSE 89
[2023-10-04 15:57] LABS: Erythrocyte Sedimentation Rate 31 mm/Hr (0-20)
== END 2023-10-04 13:51 | disposition home or self-care (01) ==
LOC: EC 11:14
DX: L03.115 Cellulitis of right lower limb (principal); I96 Gangrene, not elsewhere classified; I73.9 Peripheral vascular disease, unspecified; Z87.891 Personal history of nicotine dependence
CPT/HCPCS: 36415; 80053; 85652; 83605; 85025; 85610; 85730; 86140; 73660; 99284; 96374; 96375; 96376; J2405; J1170

== ENCOUNTER 2023-10-14 10:35 | Inpatient (IN) | payer MEDICARE, BC ==
--- NOTE | 2023-10-14 11:26 | ED ---
General Adult HPI - General Chief complaint: Recheck/Abnormal Lab/Rx Stated complaint: R foot infection Time Seen by Provider: 10/14/23 11:02 Source: patient, RN notes reviewed Mode of arrival: wheelchair Limitations: no limitations - History of Present Illness Initial comments: Patient is a pleasant 67-year-old male present to the emergency department with concern for right foot infection. Symptoms have been present for several weeks. Patient did strike his toes while on vacation around a month ago. Patient was here around 10 days ago and prescribed antibiotics and recommended follow-up. Symptoms have worsened. Patient is having some redness of the distal foot now. Patient states discomfort is increasing. No fever. Patient does have history of previous fifth toe amputation on the same foot secondary to vascular problems. Patient is on anticoagulation orally. - Related Data Home Medications Medication Instructions Recorded Confirmed Ascorbic Acid [Vitamin C] 1,000 mg PO DAILY 11/01/18 10/15/20 Atorvastatin [Lipitor] 40 mg PO DAILY 11/01/18 10/15/20 Clopidogrel [Plavix] 75 mg PO DAILY 11/01/18 10/15/20 Multivitamins, Thera [Multivitamin 1 tab PO DAILY 11/01/18 10/15/20 (formulary)] Warfarin [Coumadin] 7 mg PO DAILY 11/01/18 10/15/20 Enoxaparin [Lovenox] 100 mg SQ Q12H 11/02/18 10/15/20 Cholecalciferol [Vitamin D3 (25 25 mcg PO DAILY 09/29/20 10/15/20 Mcg = 1000 Iu)] Non Formulary Drug 1 each PO ONCE 09/29/20 10/15/20 Previous Rx's Medication Instructions Recorded Amoxicillin/Potassium Clav 1 tab PO BID 7 Days #14 tab 01/08/21 [Augmentin 875-125 Tablet] Amoxicillin/Potassium Clav 1 tab PO BID 3 Days #6 tab 01/15/21 [Augmentin 875-125 Tablet] Cephalexin [Keflex] 500 mg PO Q6HR #40 cap 10/04/23 HYDROcodone/APAP 5-325MG [[place] 5] 1 each PO Q6HR PRN #12 tab 10/04/23 Allergies Allergy/AdvReac Type Severity Reaction Status Date / Time No Known Allergies Allergy Verified 10/14/23 10:41 Review of Systems ROS Statement: Those systems with pertinent positive or pertinent negative responses have been documented in the HPI. ROS Other: All systems not noted in ROS Statement are negative. Constitutional: Denies: fever Eyes: Denies: eye pain ENT: Denies: ear pain Skin: Reports: as per HPI, change in color Past Medical History Past Medical History: Deep Vein Thrombosis (DVT), Hyperlipidemia, Vascular Disorder Additional Past Medical History / Comment(s): states "doesn't have the proteins in my blood to prevent it from clotting is why I am taking warfarin"managed by Dr Angel Sanchez Physician [phone], (Factor V Leiden mutation) thyroid nodules History of Any Multi-Drug Resistant Organisms: None Reported Additional Past Surgical History / Comment(s): stent rt groin Aug 2018,aortogram , thyroid biopsy 2018 Past Anesthesia/Blood Transfusion Reactions: No Reported Reaction Past Psychological History: No Psychological Hx Reported Smoking Status: Former smoker Past Alcohol Use History: None Reported Past Drug Use History: None Reported - Past Family History Mother Family Medical History: No Reported History Sister(s) Family Medical History: Deep Vein Thrombosis (DVT) Father Family Medical History: Deep Vein Thrombosis (DVT) General Exam Limitations: no limitations General appearance: alert Head exam: Present: atraumatic Eye exam: Present: normal appearance Respiratory exam: Present: normal lung sounds bilaterally Cardiovascular Exam: Present: regular rate, normal rhythm Expanded Peripheral pulses: 2+: Posterior Tibialis (R), Dorsalis Pedis (R) GI/Abdominal exam: Present: soft. Absent: tenderness Extremities exam: Present: other (Right third toe with black discoloration. Distal right fourth toe with black discoloration. Fifth toe absent. There is swelling of the foot and some mild erythema of the distal foot) Neurological exam: Present: alert Psychiatric exam: Present: normal affect, normal mood Skin exam: Present: erythema Course Vital Signs 10/14/23 10:38 Temperature 98.7 F Pulse Rate 92 Respiratory 22 Rate Blood Pressure 159/79 O2 Sat by Pulse 99 Oximetry EKG Findings - EKG Results: EKG: interpreted by ERMD (Left axis), sinus rhythm, normal QRS, normal ST/T Medical Decision Making - Medical Decision Making Was pt. sent in by a medical professional or institution (, PA, INTERNATIONAL NURSE, urgent care, hospital, or usp...) When possible be specific @ -No Did you speak to anyone other than the patient for history (EMS, parent, family, police, friend...)? What history was obtained from this source @ - is present and helps confirm history including onset Did you review nursing and triage notes (agree or disagree)? Why? @ -I reviewed and agree with nursing and triage notes Were old charts reviewed (outside hosp., previous admission, EMS record, old EKG, old radiological studies, urgent care reports/EKG's, usp records)? Report findings @ -Previous chart and x-ray and labs reviewed Differential Diagnosis (chest pain, altered mental status, abdominal pain women, abdominal pain men, vaginal bleeding, weakness, fever, dyspnea, syncope, headache, dizziness, GI bleed, back pain, seizure, CVA, palpatations, mental health, musculoskeletal)? @ -Differential Fever: Pneumonia, viral URI, endocarditis, myocarditis, pericarditis, otitis, sinusitis, peritonsillar Abscess, retropharyngeal Abscess, epiglottitis, peritonitis, appendicitis, Pam cystitis, diverticulitis, hepatitis, colitis, UTI, PID, TOA, pyelonephritis, prostatitis, epididymitis, meningitis, encephalitis, pulmonary embolism, CVA, thyroid storm, pancreatitis, adrenal crisis, cavernous sinus thrombosis, this is not meant to be an all-inclusive list. EKG interpreted by me (3pts min.). @ -As above X-rays interpreted by me (1pt min.). @ -X-ray right foot shows no evidence of osteomyelitis CT interpreted by me (1pt min.). @ -None done U/S interpreted by me (1pt. min.). @ -None done What testing was considered but not performed or refused? (CT, X-rays, U/S, labs)? Why? @ -None What meds were considered but not given or refused? Why? @ -None Did you discuss the management of the patient with other professionals (professionals i.e. , PA, INTERNATIONAL NURSE, lab, RT, psych nurse, high school social science teacher, advertising consultant, teacher, licensed loan officer, case filler)? Give summary @ -Case was discussed with Dr. Tubbs who will admit covering Dr. Calzada with consults with vascular and infectious disease Was smoking cessation discussed for >3mins.? @ -No Was critical care preformed (if so, how long)? @ -No Were there social determinants of health that impacted care today? How? (Homelessness, low income, unemployed, alcoholism, drug addiction, transportation, low edu. Level, literacy, decrease access to med. care, long-term, rehab)? @ -No Was there de-escalation of care discussed even if they declined (Discuss DNR or withdrawal of care, Hospice)? DNR status @ -No What co-morbidities impacted this encounter? (DM, HTN, Smoking, COPD, CAD, Cancer, CVA, ARF, Chemo, Hep., AIDS, mental health diagnosis, sleep apnea, morbid obesity)? @ -None Was patient admitted / discharged? Hospital course, mention meds given and route, prescriptions, significant lab abnormalities, going to OR and other pertinent info. @ -Patient and family are made aware of plan. Patient will be admitted with consults and IV antibiotics. Admission orders written. Undiagnosed new problem with uncertain prognosis? @ -No Drug Therapy requiring intensive monitoring for toxicity (Heparin, Nitro, Insulin, Cardizem)? @ -No Were any procedures done? @ -No Diagnosis/symptom? @ -Gangrene right third and fourth toe Acute, or Chronic, or Acute on Chronic? @ -Acute Uncomplicated (without systemic symptoms) or Complicated (systemic symptoms)? @ -Complicated with early cellulitis t Side effects of treatment? @ -No Exacerbation, Progression, or Severe Exacerbation? @ -No Poses a threat to life or bodily function? How? (Chest pain, [place], [place], pneumonia, PE, COPD, DKA, ARF, appy, cholecystitis, CVA, Diverticulitis, Homicidal, Suicidal, threat to staff... and all critical care pts) @ -No - Lab Data Result diagrams: 10/14/23 11:27 10/14/23 11:27 Lab Results 10/14/23 10/14/23 10/14/23 Range/Units 11:27 11: 11: WBC 5.6 (3.8-10.6) k/uL RBC 4.50 (4.30-5.90) m/uL Hgb 13.9 (13.0-17.5) gm/dL Hct 43.2 (39.0-53.0) % MCV 96.0 (80.0-100.0) fL MCH 31.0 (25.0-35.0) pg MCHC 32.3 (31.0-37.0) g/dL RDW 13.6 (11.5-15.5) % Plt Count 154 (150-450) k/uL MPV 7.8 Neutrophils % 80 % Lymphocytes % 12 % Monocytes % 5 % Eosinophils % 2 % Basophils % 0 % Neutrophils # 4.5 (1.3-7.7) k/uL Lymphocytes # 0.7 L (1.0-4.8) k/uL Monocytes # 0.3 (0-1.0) k/uL Eosinophils # 0.1 (0-0.7) k/uL Basophils # 0.0 (0-0.2) k/uL PT 36.8 H (10.0-12.5) sec INR 3.8 H (<1.2) APTT 64.7 H (22.0-30.0) sec Sodium 137 (137-145) mmol/L Potassium 4.2 (3.5-5.1) mmol/L Chloride 105 (98-107) mmol/L Carbon Dioxide 24 (22-30) mmol/L Anion Gap 8 mmol/L BUN 14 (9-20) mg/dL Creatinine 0.69 (0.66-1.25) mg/dL Est GFR (CKD-EPI)AfAm >90 (>60 ml/min/1.73 sqM) Est GFR (CKD-EPI)NonAf >90 (>60 ml/min/1.73 sqM) Glucose 150 H (74-99) mg/dL Plasma Lactic Acid Cesar (0.7-2.0) mmol/L Calcium 9.4 (8.4-10.2) mg/dL Total Bilirubin 0.7 (0.2-1.3) mg/dL AST 34 (17-59) U/L ALT 44 (4-49) U/L Alkaline Phosphatase 79 (38-126) U/L Total Protein 7.4 (6.3-8.2) g/dL Albumin 4.2 (3.5-5.0) g/dL 10/14/23 Range/Units 11:27 WBC (3.8-10.6) k/uL RBC (4.30-5.90) m/uL Hgb (13.0-17.5) gm/dL Hct (39.0-53.0) % MCV (80.0-100.0) fL MCH (25.0-35.0) pg MCHC (31.0-37.0) g/dL RDW (11.5-15.5) % Plt Count (150-450) k/uL MPV Neutrophils % % Lymphocytes % % Monocytes % % Eosinophils % % Basophils % % Neutrophils # (1.3-7.7) k/uL Lymphocytes # (1.0-4.8) k/uL Monocytes # (0-1.0) k/uL Eosinophils # (0-0.7) k/uL Basophils # (0-0.2) k/uL PT (10.0-12.5) sec INR (<1.2) APTT (22.0-30.0) sec Sodium (137-145) mmol/L Potassium (3.5-5.1) mmol/L Chloride (98-107) mmol/L Carbon Dioxide (22-30) mmol/L Anion Gap mmol/L BUN (9-20) mg/dL Creatinine (0.66-1.25) mg/dL Est GFR (CKD-EPI)AfAm (>60 ml/min/1.73 sqM) Est GFR (CKD-EPI)NonAf (>60 ml/min/1.73 sqM) Glucose (74-99) mg/dL Plasma Lactic Acid Cesar 1.8 (0.7-2.0) mmol/L Calcium (8.4-10.2) mg/dL Total Bilirubin (0.2-1.3) mg/dL AST (17-59) U/L ALT (4-49) U/L Alkaline Phosphatase (38-126) U/L Total Protein (6.3-8.2) g/dL Albumin (3.5-5.0) g/dL Disposition Clinical Impression: Gangrene of toe of right foot Disposition: ADMITTED IP TO THIS HOSP Is patient prescribed a controlled substance at d/c from ED?: No Referrals: Genia Bartlett MD [Primary Care Provider] - 1-2 days Time of Disposition: 13:25
--- NOTE | 2023-10-14 11:42 | XR ---
EXAMINATION TYPE: XR foot complete RT DATE OF EXAM: 10/14/2023 CLINICAL HISTORY: infection TECHNIQUE: Frontal, lateral, and oblique images of the right foot are obtained. COMPARISON: Right toe x-ray 10 days earlier FINDINGS: Osseous structures redemonstrated demineralized. Amputation defect in the fifth toe is agai n seen. No new bony destruction is evident. No acute displaced fracture. Joint spaces are preserved. Overlying soft tissue is unremarkable. IMPRESSION: There is no convincing radiographic evidence for acute osteomyelitis.
[2023-10-14 11:47] LABS: Basophils % (A) 0 %; Eosinophils # (A) 0.1 k/uL (0-0.7); Eosinophils % (A) 2 %; HCT 43.2 % (39.0-53.0); HGB 13.9 gm/dL (13.0-17.5); Lymphocytes # (A) 0.7 k/uL (1.0-4.8); Lymphocytes % (A) 12 %; MCHC 32.3 g/dL (31.0-37.0); Mean Platelet Volume 7.8; Monocytes # (A) 0.3 k/uL (0-1.0); Monocytes % (A) 5 %; Neutrophils # (A) 4.5 k/uL (1.3-7.7); Neutrophils % (A) 80 %; Platelet Count 154 k/uL (150-450); RDW 13.6 % (11.5-15.5); WBC 5.6 k/uL (3.8-10.6)
[2023-10-14] MEDS: CLINDAMYCIN 600 MG in DEXTROSE 5% IN WATER 50 ML IVPB SCH (11:51)
[2023-10-14] MEDS: HYDROmorphone 1 MG/ML 1 ML SYRINGE IVP STA ×2 (12:06→13:45)
[2023-10-14 12:10] LABS: ALT 44 U/L (4-49); AST 34 U/L (17-59); African American GFR (CKD) >90 (>60 ml/min/1.73 sqM); Albumin 4.2 g/dL (3.5-5.0); Alkaline Phosphatase 79 U/L (38-126); Anion Gap 8 mmol/L; Blood Urea Nitrogen 14 mg/dL (9-20); Calcium 9.4 mg/dL (8.4-10.2); Carbon Dioxide 24 mmol/L (22-30); Chloride 105 mmol/L (98-107); Glucose 150 mg/dL (74-99); Non-African American GFR(CKD) >90 (>60 ml/min/1.73 sqM); Potassium 4.2 mmol/L (3.5-5.1); Sodium 137 mmol/L (137-145); Total Bilirubin 0.7 mg/dL (0.2-1.3); Total Protein 7.4 g/dL (6.3-8.2)
[2023-10-14 12:18] LABS: INR 3.8 (<1.2); Prothrombin Time 36.8 sec (10.0-12.5)
[2023-10-14 12:41] LABS: Partial Thromboplastin Time 64.7 sec (22.0-30.0)
[2023-10-14] MEDS ORDERED: ACETAMINOPHEN TAB 325 MG TAB PO PRN (13:26)
[2023-10-14] MEDS ORDERED: NALOXONE 0.4 MG/ML 1 ML VIAL IV PRN (13:26)
[2023-10-14] MEDS: SODIUM CHLORIDE 0.9% 1,000 ML IV SCH (13:46)
[2023-10-14] MEDS: HYDROcodone/APAP 5-325MG 1 EACH TAB PO PRN (16:35)
[2023-10-14] MEDS: HYDROmorphone 0.5 MG/0.5 ML SYRINGE IVP PRN (18:44)
[2023-10-14] MEDS: HYDROmorphone 1 MG/ML 1 ML SYRINGE IVP PRN (22:10)
[2023-10-15] MEDS: ATORVASTATIN 40 MG TAB PO SCH (01:17)
[2023-10-15] MEDS: Acetaminophen-Codeine 300-30mg TAB PO PRN (01:21)
[2023-10-15] MEDS: CHOLECALCIFEROL 25 MCG (1000 IU) TABLET PO SCH (08:44)
[2023-10-15] MEDS: CLOPIDOGREL 75 MG TAB PO SCH (08:44)
[2023-10-15] MEDS: MULTIVITAMINS, THERA 1 EACH TAB PO SCH (08:44)
[2023-10-15] MEDS: ASCORBIC ACID 500 MG TAB PO SCH (08:44)
--- NOTE | 2023-10-15 09:31 | P.HPIM ---
History of Present Illness H&P Date: 10/15/23 This is a 67-year-old male patient of Dr. Bartlett who presented with worsening infection to right toes after injury approximately 1 month ago. Patient had been started on outpatient by mouth antibiotics without improvement was instructed to come the ER if symptoms worse. 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 Patient also is required previous amputation approximately 14 years ago to right pinky toe. Patient does have a history including DVT, hyperlipidemia and ex- smoker. Foot x-ray was completed showing no convincing radiographic evidence of acute osteomyelitis. Lab work revealing white blood cell 5.6, lactic acid 1.8. INR supratherapeutic at 3.8 Upon exam significant gangrene noted to 4 toe on right foot moderate amount of gangrene noted to third toe. At this time infectious disease and vascular service is consulted patient has been started on clindamycin. At this time patient is complaining of pain to right right foot. Patient is maintained on pain medications Dilaudid and [place]. Patient denies chest pain or shortness of breath. Patient denies nausea vomiting or diarrhea. Patient may denies any urinary burning or frequency. Current vital signs temp 97.6, heart rate 67, respiratory rate 18, blood pressure 149/74 and pulse ox 93% on room air Review of Systems Please refer to HPI otherwise unremarkable Past Medical History Past Medical History: Deep Vein Thrombosis (DVT), Hyperlipidemia, Vascular Disorder Additional Past Medical History / Comment(s): states "doesn't have the proteins in my blood to prevent it from clotting is why I am taking warfarin"[facility] [phone], (Factor V Leiden mutation) thyroid nodules History of Any Multi-Drug Resistant Organisms: None Reported Additional Past Surgical History / Comment(s): stent rt groin Aug 2018,aortogram, thyroid biopsy 2018 Past Anesthesia/Blood Transfusion Reactions: No Reported Reaction Past Psychological History: No Psychological Hx Reported Smoking Status: Former smoker Past Alcohol Use History: None Reported Additional Past Alcohol Use History / Comment(s): quit smoking Aug 2023,smoked since age 18,1ppd, smoking 1/2 pack a day 09/2020 Past Drug Use History: None Reported - Past Family History Mother Family Medical History: No Reported History Sister(s) Family Medical History: Deep Vein Thrombosis (DVT) Father Family Medical History: Deep Vein Thrombosis (DVT) Medications and Allergies Home Medications Medication Instructions Recorded Confirmed Type Ascorbic Acid [Vitamin C] 1,000 mg PO DAILY 11/01/18 10/14/23 History Atorvastatin [Lipitor] 40 mg PO HS 11/01/18 10/14/23 History Clopidogrel [Plavix] 75 mg PO DAILY 11/01/18 10/14/23 History Multivitamins, Thera [Multivitamin 1 tab PO DAILY 11/01/18 10/14/23 History (formulary)] Cholecalciferol [Vitamin D3 (25 25 mcg PO DAILY 09/29/20 10/14/23 History Mcg = 1000 Iu)] Amoxicillin/Potassium Clav 1 tab PO BID 3 Days #6 tab 01/15/21 10/14/23 Rx [Augmentin 875-125 Tablet] Acetaminophen-Codeine 300-30mg 1 tab PO BID PRN 10/14/23 10/14/23 History [Tylenol w/codeine #3] Sildenafil Citrate [Viagra] 100 mg PO DAILY PRN 10/14/23 10/14/23 History Warfarin [Coumadin] 2 mg PO DAILY@1700 10/14/23 10/14/23 History Warfarin [Coumadin] 5 mg PO DAILY@1700 10/14/23 10/14/23 History Allergies Allergy/AdvReac Type Severity Reaction Status Date / Time No Known Allergies Allergy Verified 10/14/23 16:10 Physical Exam Vitals: Vital Signs Temp Pulse Pulse Resp BP BP Pulse Ox 10/15/23 07:25 97.6 F 67 16 149/74 93 L 10/15/23 01:25 97.4 F L 66 20 157/66 10/14/23 20:03 98.0 F 67 18 142/73 92 L 10/14/23 17:05 97.6 F 77 18 140/74 97 10/14/23 16:29 68 18 138/83 94 L 10/14/23 13:42 71 18 142/89 95 10/14/23 10:38 98.7 F 92 22 159/79 99 Intake and Output 10/14/23 10/15/23 10/15/23 22:59 06:59 14:59 Intake Total 130 Balance 130 Intake: Intake, IV Titration 130 Amount Sodium Chloride 0.9% 1, 130 000 ml @ 130 mls/hr IV . Q7H42M [facility] Rx#:[id number] Other: # Voids 1 Head normocephalic Neck supple Lungs clear to auscultation bilaterally no wheezing or crackles Heart regular rate and rhythm S1-S2, no rub or gallop Abdomen is soft nontender nondistended positive bowel sounds no hepatosplenomegaly Extremities gangrenous blackened to third toe on right foot and fourth toe right foot Neuro alert and orientated to 3 Results CBC & Chem 7: 10/14/23 11:27 10/14/23 11:27 Labs: Abnormal Lab Results - Last 24 Hours (Table) 10/14/23 10/14/23 10/14/23 Range/Units 11: 11: 11: Lymphocytes # 0.7 L (1.0-4.8) k/uL PT 36.8 H (10.0-12.5) sec INR 3.8 H (<1.2) APTT 64.7 H (22.0-30.0) sec Glucose 150 H (74-99) mg/dL Assessment and Plan Assessment: 1. Gangrene to right toes with failed outpatient management 2. History of factor V disorder maintained on Coumadin 3. History of peripheral vascular disease with previous amputation of right pinky toe 4. Ex-smoker patient quit in August 2023 5. History of hyperlipidemia DVT prophylaxis Coumadin. GI prophylaxis Protonix started on IV clindamycin Infectious disease and vascular surgery consulted Repeat labs ordered Time with Patient: Greater than 30 (Greater than 60% of the total time spent in counseling and coordination of care)
[2023-10-15 13:17] LABS: INR 3.09 sec (0.93-1.11)
[2023-10-15] MEDS ORDERED: WARFARIN 5 MG TAB PO SCH (17:00)
[2023-10-15] MEDS ORDERED: WARFARIN 1 MG TAB PO SCH (17:00)
[2023-10-15] MEDS: WARFARIN 1 MG TAB PO SCH (17:30)
--- NOTE | 2023-10-15 22:30 | P.CONS ---
History of Present Illness - Reason for Consult Consult date: 10/15/23 Gangrene right toes Requesting physician: Spike Singer - Chief Complaint Right foot toe discoloration swelling and pain x days - History of Present Illness Patient is a 67-year-old male with a past medical history significant for hyperlipidemia DVT previous history of right fifth toe amputation presenting to the hospital for evaluation of discoloration of the right third and fourth toe apparently patient did strike the toes 1 on vacation about a month ago in [facility] and apparently patient was seen in the ER 10 days ago before this admission with the patient was prescribed some oral antibiotic however the patient is presenting back to the hospital with discoloration of his right third and fourth toe with associated swelling redness and pain patient describing the pain to be more of a dull aching to throbbing mild to moderate intensity without any radiation with associated swelling and some redness but denies having any drainage and no high-grade fever with the symptoms the patient has been evaluated on presentation to the hospital the patient was afebrile and no fever have recorded subsequently patient did have white count of 5.6 creatinine 0.69 electrolytes are normal liver enzymes are normal patient did have a x-ray of the foot no convincing radiographic evidence for acute osteomyelitis patient was started on clindamycin infectious disease was consulted for further management of antibiotic therapy Review of Systems Positive point and negatives has been mentioned in the HPI, complete review of systems was performed and all other systems are negative Past Medical History Past Medical History: Deep Vein Thrombosis (DVT), Hyperlipidemia, Vascular Disorder Additional Past Medical History / Comment(s): states "doesn't have the proteins in my blood to prevent it from clotting is why I am taking warfarin"[facility] [phone], (Factor V Leiden mutation) thyroid nodules History of Any Multi-Drug Resistant Organisms: None Reported Additional Past Surgical History / Comment(s): stent rt groin Aug 2018,aortogram, thyroid biopsy 2018 Past Anesthesia/Blood Transfusion Reactions: No Reported Reaction Past Psychological History: No Psychological Hx Reported Smoking Status: Former smoker Past Alcohol Use History: None Reported Additional Past Alcohol Use History / Comment(s): quit smoking Aug 2023,smoked since age 18,1ppd, smoking 1/2 pack a day 09/2020 Past Drug Use History: None Reported - Past Family History Mother Family Medical History: No Reported History Sister(s) Family Medical History: Deep Vein Thrombosis (DVT) Father Family Medical History: Deep Vein Thrombosis (DVT) Medications and Allergies Home Medications Medication Instructions Recorded Confirmed Type Ascorbic Acid [Vitamin C] 1,000 mg PO DAILY 11/01/18 10/14/23 History Clopidogrel [Plavix] 75 mg PO DAILY 11/01/18 10/14/23 History Multivitamins, Thera [Multivitamin 1 tab PO DAILY 11/01/18 10/14/23 History (formulary)] Cholecalciferol [Vitamin D3 (25 25 mcg PO DAILY 09/29/20 10/14/23 History Mcg = 1000 Iu)] Acetaminophen-Codeine 300-30mg 1 tab PO BID PRN 10/14/23 10/14/23 History [Tylenol w/codeine #3] Sildenafil Citrate [Viagra] 100 mg PO DAILY PRN 10/14/23 10/14/23 History Warfarin [Coumadin] 2 mg PO DAILY@1700 10/14/23 10/14/23 History Warfarin [Coumadin] 5 mg PO DAILY@1700 10/14/23 10/14/23 History Amoxic-Pot Clav 875-125Mg 1 tab PO Q12HR 10 Days #20 tab 10/18/23 Rx [Augmentin 875-125] Allergies Allergy/AdvReac Type Severity Reaction Status Date / Time No Known Allergies Allergy Verified 10/14/23 16:10 Physical Exam Vitals: Vital Signs Temp Pulse Pulse Resp BP BP Pulse Ox 10/15/23 07:25 97.6 F 67 16 149/74 93 L 10/15/23 01:25 97.4 F L 66 20 157/66 10/14/23 20:03 98.0 F 67 18 142/73 92 L 10/14/23 17:05 97.6 F 77 18 140/74 97 10/14/23 16:29 68 18 138/83 94 L 10/14/23 13:42 71 18 142/89 95 Intake and Output 10/14/23 10/15/23 10/15/23 22:59 06:59 14:59 Intake Total 130 Balance 130 Intake: Intake, IV Titration 130 Amount Sodium Chloride 0.9% 1, 130 000 ml @ 130 mls/hr IV . Q7H42M [facility] Rx#:[id number] Other: # Voids 1 GENERAL DESCRIPTION: Elderly male lying in bed, no distress. No tachypnea or accessory muscle of respiration use. HEENT: Shows Pallor , no scleral icterus. Oral mucous membrane is dry. No pharyngeal erythema or thrush NECK: Trachea central, no thyromegaly. LUNGS: Unlabored breathing. Clear to auscultation anteriorly. No wheeze or crackle. HEART: S1, S2, regular rate and rhythm. No loud murmur ABDOMEN: Soft, no tenderness , guarding or rigidity, no organomegaly EXTREMITIES: Discoloration of the right third and fourth toe with some swelling redness on the dorsum aspect of the right foot SKIN: No rash, no masses palpable. NEUROLOGICAL: The patient is awake, alert, oriented x3, mood and affect normal. Results CBC & Chem 7: 10/18/23 06:55 10/18/23 06:55 Labs: Abnormal Lab Results - Last 24 Hours (Table) 10/14/23 10/14/23 10/14/23 Range/Units 11:27 11:27 11:27 Lymphocytes # 0.7 L (1.0-4.8) k/uL PT 36.8 H (10.0-12.5) sec INR 3.8 H (<1.2) APTT 64.7 H (22.0-30.0) sec Glucose 150 H (74-99) mg/dL Assessment and Plan (1) Cellulitis of right foot Status: Acute Code(s): L03.115 - CELLULITIS OF RIGHT LOWER LIMB SNOMED Code(s): 07121351500197669 (2) Gangrene of toe of right foot Status: Acute Code(s): I96 - GANGRENE, NOT ELSEWHERE CLASSIFIED SNOMED Code(s): 91646339854149896 Plan: 1patient presented to hospital with discoloration of right third and the fourth toe with concerning for gangrene especially involving the third toe and surrounding cellulitis failing outpatient oral antibiotic therapy concern is mostly for underlying ischemia 2-discontinue clindamycin 3-await vascular surgery evaluation for possible amputation and deep culture 4-we will empirically start patient on Unasyn 3 g every 6 hours We will follow on clinical condition and cultures to further adjust medication if needed Thank you for this consultation we will follow the patient along with you Dictation was produced using dragon dictation software. please excuse any grammatical, word or spelling errors. Time with Patient: Greater than 30
[2023-10-16] MEDS: AMPICILLIN-SULBACTAM 3 GM in SODIUM CHLORIDE 0.9% 100 ML IVPB SCH (00:49)
--- NOTE | 2023-10-16 07:26 | P.GSCN ---
History of Present Illness Consult date: 10/16/23 Reason for Consult: right 3rd and 4th toe ischemia History of present illness: 67 year old gentleman with history of factor V Leiden on Coumadin for 14 years, previous right lower extremity revascularization with stenting in his "groin", and previous fifth toe amputation due to trauma presented to the hospital secondary to worsening infection in his right third and fourth toes. He states roughly a month ago he injured his toe in [place] and has noticed increased discoloration at the distal tip. He also has been experiencing some swelling in the right foot which is more than normal. He does usually wear compression stockings and over the last couple weeks he has been seen by his terra cotta mold maker who has been wrapping his toes. He does follow with a windows software developer down in [facility] who placed his stent but has not seen him in roughly 1 year. He has had some arterial Dopplers at Dr. Palmer's office with the most recent in June which he thinks was normal. Over the last week or 2 he has not been able to ambulate normally. He states prior to injuring his toe he could walk without pain for an extended period of time without stopping. He denies any fevers, chills, chest pain or shortness of breath. He has been started on clindamycin per infectious disease. Review of Systems All systems: negative (What is mentioned in the HPI or past medical history) Past Medical History Past Medical History: Deep Vein Thrombosis (DVT), Hyperlipidemia, Vascular Disorder Additional Past Medical History / Comment(s): states "doesn't have the proteins in my blood to prevent it from clotting is why I am taking warfarin"managed by Bulmaro Ortiz [facility] Physician [phone], (Factor V Leiden mutation) thyroid nodules History of Any Multi-Drug Resistant Organisms: None Reported Additional Past Surgical History / Comment(s): stent rt groin Aug 2018,aortogram, thyroid biopsy 2019 Past Anesthesia/Blood Transfusion Reactions: No Reported Reaction Past Psychological History: No Psychological Hx Reported Smoking Status: Former smoker Past Alcohol Use History: None Reported Additional Past Alcohol Use History / Comment(s): quit smoking Aug 2023,smoked since age 18,1ppd, smoking 1/2 pack a day 09/2020 Past Drug Use History: None Reported - Past Family History Mother Family Medical History: No Reported History Sister(s) Family Medical History: Deep Vein Thrombosis (DVT) Father Family Medical History: Deep Vein Thrombosis (DVT) Medications and Allergies Home Medications Medication Instructions Recorded Confirmed Type Ascorbic Acid [Vitamin C] 1,000 mg PO DAILY 11/01/18 10/14/23 History Atorvastatin [Lipitor] 40 mg PO HS 11/01/18 10/14/23 History Clopidogrel [Plavix] 75 mg PO DAILY 11/01/18 10/14/23 History Multivitamins, Thera [Multivitamin 1 tab PO DAILY 11/01/18 10/14/23 History (formulary)] Cholecalciferol [Vitamin D3 (25 25 mcg PO DAILY 09/29/20 10/14/23 History Mcg = 1000 Iu)] Amoxicillin/Potassium Clav 1 tab PO BID 3 Days #6 tab 01/15/21 10/14/23 Rx [Augmentin 875-125 Tablet] Acetaminophen-Codeine 300-30mg 1 tab PO BID PRN 10/14/23 10/14/23 History [Tylenol w/codeine #3] Sildenafil Citrate [Viagra] 100 mg PO DAILY PRN 10/14/23 10/14/23 History Warfarin [Coumadin] 2 mg PO DAILY@1700 10/14/23 10/14/23 History Warfarin [Coumadin] 5 mg PO DAILY@1700 10/14/23 10/14/23 History Allergies Allergy/AdvReac Type Severity Reaction Status Date / Time No Known Allergies Allergy Verified 10/14/23 16:10 Surgical - Exam Vital Signs Temp Pulse Resp BP Pulse Ox 98.7 F 92 22 159/79 99 10/14/23 10:38 10/14/23 10:38 10/14/23 10:38 10/14/23 10:38 10/14/23 10:38 Patient Seen Date: 10/16/23 Patient Seen Time: 07:00 - General well developed, well nourished, no distress - Eyes PERRL, normal ocular movement - ENT normal pinna, normal nares - Neck no masses - Respiratory normal expansion, normal respiratory effort - Cardiovascular Rhythm: regular - Abdomen Abdomen: soft, non tender - Integumentary no rash, no growths - Neurologic normal coordination, no normal sensation - Psychiatric oriented to time, oriented to person, oriented to place, speech is normal Palpable femoral, popliteal pulses bilaterally Nonpalpable DP pulses bilaterally Diminished PT pulse on the left and questionable PT pulse on the right Third and fourth toe with distal ischemic changes 2+ edema at the foot with tenderness to palpation at the toes. Results Foot x-ray demonstrates no evidence of osteomyelitis - Labs 10/14/23 11:27 10/14/23 11:27 Abnormal Lab Results - Last 24 Hours (Table) 10/15/23 Range/Units 05:27 PT 31.0 H (9.9-11.9) sec INR 3.09 H (0.93-1.11) sec Microbiology - Last 24 Hours (Table) 10/14/23 11:10 Blood Culture - Preliminary Blood 10/14/23 11:25 Blood Culture - Preliminary Blood Assessment and Plan Assessment: Right third and fourth toe distal ischemia secondary to trauma History of lower extremity peripheral arterial disease with previous right-sided stenting Factor V Leiden currently on Coumadin History of right fifth toe amputation Plan: Will obtain records from Dr. Palmer's office from recent arterial Doppler. Recommend lower extremity arterial Doppler with toe pressures to compare. No surgical intervention at this time. Will await further workup. Agree with current management, IV antibiotics and IV pain control. Thank you for the consultation. We will follow with you.
[2023-10-16 08:07] LABS: INR 3.7 (<1.2); Prothrombin Time 36.3 sec (10.0-12.5)
[2023-10-16] MEDS: PANTOPRAZOLE 40 MG TABLET PO SCH (08:25)
--- NOTE | 2023-10-16 08:42 | US ---
EXAMINATION TYPE: US arterial LE multi level DATE OF EXAM: 10/16/2023 8:21 AM CLINICAL INDICATION: Male, 67 years old with history of right toe ischemia; History of: Smoker: Previous Hypertension: no Diabetic: no Hyperlipidemia: no TIA/CVA: no Previous Vascular Surgery: yes CAD: no MO: no Vascular Ulcers: no Claudication: no Gangrene: no Doppler Waveforms: Right: Biphasic Left: Biphasic Ankle-Brachial Indices: Right: 0.91 Left: 1.18 Toe Brachial Indices: Right: 0.46 Left: 0.43 IMPRESSION: Ankle brachial indices within normal limits bilaterally. Toe brachial indices suggestive of severe disease.
[2023-10-16 10:58] LABS: Basophils # (A) 0.02 X 10*3/uL (0.00-0.10); Basophils % (A) 0.7 %; Eosinophils # (A) 0.13 X 10*3/uL (0.04-0.35); Eosinophils % (A) 4.4 %; HCT 38.1 % (39.6-50.0); HGB 12.2 g/dL (13.0-17.0); Immature Grans, Automated 0 %; Lymphocytes # (A) 0.62 X 10*3/uL (0.90-5.00); Lymphocytes % (A) 20.9 %; MCH 31.2 pg (27.0-32.0); MCV 97.4 FL (80.0-97.0); Mean Platelet Volume 10.4 FL (9.5-12.2); Monocytes % (A) 6.8 %; NRBC Per 100 WBC 0 X 10*3/uL (0.00-0.01); Neutrophils # (A) 1.99 X 10*3/uL (1.80-7.70); Neutrophils % (A) 67.2 %; Platelet Count 130 X 10*3/uL (140-440); RBC 3.91 X 10*6/uL (4.40-5.60); WBC 2.96 X 10*3/uL (4.50-10.00)
[2023-10-16 11:41] LABS: ALT 78 U/L (10-49); AST 54 U/L (14-35); Albumin 3.6 g/dL (3.8-4.9); Albumin/Globulin Ratio 1.57 Ratio (1.60-3.17); Alkaline Phosphatase 70 U/L (41-126); BUN/Creat Ratio 12.88 Ratio (12.00-20.00); Blood Urea Nitrogen 10.3 mg/dL (9.0-27.0); Calcium 8.6 mg/dL (8.7-10.3); Carbon Dioxide 26.4 mmol/L (21.6-31.8); Chloride 105 mmol/L (96-109); Globulin 2.3 g/dL (1.6-3.3); Glucose 93 mg/dL (70-110); Potassium 4.3 mmol/L (3.5-5.5); Sodium 140 mmol/L (135-145); Total Bilirubin 0.5 mg/dL (0.3-1.2); Total Protein 5.9 g/dL (6.2-8.2)
[2023-10-16] MEDS: WARFARIN 0.5 MG TAB PO ONE (17:48)
--- NOTE | 2023-10-16 17:55 | P.PN ---
Subjective Progress Note Date: 10/16/23 This is a 67-year-old male patient of Dr. Bartlett who presented with worsening infection to right toes after injury approximately 1 month ago. Patient had been started on outpatient by mouth antibiotics without improvement was instructed to come the ER if symptoms worse. 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 Patient also is required previous amputation approximately 14 years ago to right pinky toe. Patient does have a history including DVT, hyperlipidemia and ex- smoker. Foot x-ray was completed showing no convincing radiographic evidence of acute osteomyelitis. Lab work revealing white blood cell 5.6, lactic acid 1.8. INR supratherapeutic at 3.8 Upon exam significant gangrene noted to 4 toe on right foot moderate amount of gangrene noted to third toe. At this time infectious disease and vascular service is consulted patient has been started on clindamycin. At this time patient is complaining of pain to right right foot. Patient is maintained on pain medications Dilaudid and [place]. Patient denies chest pain or shortness of breath. Patient denies nausea vomiting or diarrhea. Patient may denies any urinary burning or frequency. Current vital signs temp 97.6, heart rate 67, respiratory rate 18, blood pressure 149/74 and pulse ox 93% on room air On 10/16/2023 patient was seen and examined on the medical floor he is alert and oriented 3 in no apparent distress he is complaining of pain in the right foot otherwise he denies any complaints there is no fever or chills no headache or dizziness no chest pain no shortness of breath no cough no nausea or vomiting no abdominal pain no diarrhea and no urinary symptoms antibiotics were adjusted by infectious disease input from vascular surgery and infectious disease reviewed. Will follow in a.m.. Objective - Vital Signs Vital signs: Vital Signs Temp 98.1 F 10/16/23 07:17 Pulse 79 10/16/23 07:17 Resp 18 10/16/23 07:17 BP 153/66 10/16/23 07:17 Pulse Ox 92 L 10/16/23 07:17 FiO2 Intake & Output 10/15/23 10/16/23 10/16/23 18:59 06:59 18:59 Other: Voiding Method Toilet # Voids 3 3 - Exam Head normocephalic Neck supple Lungs clear to auscultation bilaterally no wheezing or crackles Heart regular rate and rhythm S1-S2, no rub or gallop Abdomen is soft nontender nondistended positive bowel sounds no hepatosplenomegaly Extremities gangrenous blackened to third toe on right foot and fourth toe right foot Neuro alert and orientated to 3 - Labs CBC & Chem 7: 10/16/23 07:05 10/16/23 07:05 Labs: Abnormal Lab Results - Last 24 Hours (Table) 10/15/23 Range/Units 05:27 PT 31.0 H (9.9-11.9) sec INR 3.09 H (0.93-1.11) sec Microbiology - Last 24 Hours (Table) 10/14/23 11:10 Blood Culture - Preliminary Blood 10/14/23 11:25 Blood Culture - Preliminary Blood Assessment and Plan Plan: 1. Gangrene to right toes with failed outpatient management 2. History of factor V disorder maintained on Coumadin 3. History of peripheral vascular disease with previous amputation of right pinky toe 4. Ex-smoker patient quit in August 2023 5. History of hyperlipidemia DVT prophylaxis Coumadin. GI prophylaxis Protonix started on IV clindamycin Infectious disease and vascular surgery consulted Repeat labs ordered
[2023-10-17 05:17] LABS: INR 1.9 (<1.2); Prothrombin Time 19.2 sec (10.0-12.5)
[2023-10-17 08:44] LABS: Basophils # (A) 0.03 X 10*3/uL (0.00-0.10); Basophils % (A) 0.8 %; Eosinophils # (A) 0.15 X 10*3/uL (0.04-0.35); HCT 36.3 % (39.6-50.0); HGB 11.6 g/dL (13.0-17.0); Lymphocytes # (A) 0.89 X 10*3/uL (0.90-5.00); Lymphocytes % (A) 23.7 %; MCH 30.9 pg (27.0-32.0); MCV 96.5 FL (80.0-97.0); Mean Platelet Volume 10.4 FL (9.5-12.2); Monocytes # (A) 0.35 X 10*3/uL (0.20-1.00); Monocytes % (A) 9.3 %; NRBC Per 100 WBC 0 X 10*3/uL (0.00-0.01); Neutrophils # (A) 2.32 X 10*3/uL (1.80-7.70); Neutrophils % (A) 61.9 %; Platelet Count 144 X 10*3/uL (140-440); RBC 3.76 X 10*6/uL (4.40-5.60); RDW 13.8 % (11.5-14.5); WBC 3.75 X 10*3/uL (4.50-10.00)
--- NOTE | 2023-10-17 08:54 | P.PN ---
Subjective Progress Note Date: 10/17/23 Principal diagnosis: Right third and fourth toe ischemia Patient was seen and examined today as a follow-up. States he does have some pain in the toes. No fevers or chills. No drainage. Does have some right foot swelling. Underwent ABIs yesterday which were normal bilaterally, toe brachial indices suggestive of severe disease. Objective - Vital Signs Vital signs: Vital Signs Temp 98.1 F 10/17/23 02:00 Pulse 54 L 10/17/23 02:00 Resp 16 10/17/23 02:00 BP 128/73 10/17/23 02:00 Pulse Ox 94 L 10/17/23 02:00 FiO2 Intake & Output 10/16/23 10/17/23 10/17/23 18:59 06:59 18:59 Other: Voiding Method Toilet # Voids 2 3 - Exam General appearance: The patient is alert, oriented, appears in no acute distress. HET: Head is normocephalic and atraumatic. Pupils are equal and reactive. Neck: Supple. Abdomen: Soft, nondistended. Extremities: Right foot previous fifth toe amputation. Third and fourth toe with distal ischemic changes. +2 edema right foot tenderness to palpation at the toes. Neurological: No focal deficits. Strength and sensation are grossly intact. - Labs CBC & Chem 7: 10/16/23 07:05 10/16/23 07:05 Labs: Abnormal Lab Results - Last 24 Hours (Table) 10/16/23 10/16/23 10/16/23 Range/Units 07:05 07:05 07:05 WBC 2.96 L (4.50-10.00) X 10*3/uL RBC 3.91 L (4.40-5.60) X 10*6/uL Hgb 12.2 L (13.0-17.0) g/dL Hct 38.1 L (39.6-50.0) % MCV 97.4 H (80.0-97.0) FL Plt Count 130 L (140-440) X 10*3/uL Lymphocytes # 0.62 L (0.90-5.00) X 10*3/uL PT 36.3 H (10.0-12.5) sec INR 3.7 H (<1.2) Calcium 8.6 L (8.7-10.3) mg/dL AST 54 H (14-35) U/L ALT 78 H (10-49) U/L Total Protein 5.9 L (6.2-8.2) g/dL Albumin 3.6 L (3.8-4.9) g/dL Albumin/Globulin Ratio 1.57 L (1.60-3.17) Ratio 10/17/23 Range/Units 04:14 WBC (4.50-10.00) X 10*3/uL RBC (4.40-5.60) X 10*6/uL Hgb (13.0-17.0) g/dL Hct (39.6-50.0) % MCV (80.0-97.0) FL Plt Count (140-440) X 10*3/uL Lymphocytes # (0.90-5.00) X 10*3/uL PT 19.2 H (10.0-12.5) sec INR 1.9 H (<1.2) Calcium (8.7-10.3) mg/dL AST (14-35) U/L ALT (10-49) U/L Total Protein (6.2-8.2) g/dL Albumin (3.8-4.9) g/dL Albumin/Globulin Ratio (1.60-3.17) Ratio Microbiology - Last 24 Hours (Table) 10/14/23 11:10 Blood Culture - Preliminary Blood 10/14/23 11:25 Blood Culture - Preliminary Blood Assessment and Plan Assessment: 1. Right third and fourth toe distal ischemia secondary to trauma 2. History of lower extremity peripheral arterial disease with previous right- sided stenting 3. 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 History of right fifth toe amputation Plan: 1. Arterial duplex ordered and reviewed, ABIs normal with toe brachial indices suggestive of severe disease 2. No surgical intervention at this time. Will allow for further demarcation and have patient follow-up in the office. 3. Continue current management 4. Knee-high SUNDEEP hose to right lower extremity Thank you for this consultation, patient is cleared from vascular surgery for discharge. The impression and plan of care has been dictated as directed. I performed a history and examination of this patient, discussed the same with the dictator. I agree with the dictator's note ,documented as a scribe. Any additional findings or plans will be noted.
[2023-10-17 08:59] LABS: ALT 147 U/L (10-49); AST 79 U/L (14-35); Albumin 3.6 g/dL (3.8-4.9); Albumin/Globulin Ratio 1.71 Ratio (1.60-3.17); Alkaline Phosphatase 68 U/L (41-126); BUN/Creat Ratio 14.78 Ratio (12.00-20.00); Blood Urea Nitrogen 13.3 mg/dL (9.0-27.0); Calcium 8.7 mg/dL (8.7-10.3); Carbon Dioxide 27.9 mmol/L (21.6-31.8); Chloride 106 mmol/L (96-109); Globulin 2.1 g/dL (1.6-3.3); Glucose 101 mg/dL (70-110); Potassium 4.6 mmol/L (3.5-5.5); Sodium 141 mmol/L (135-145); Total Bilirubin 0.5 mg/dL (0.3-1.2); Total Protein 5.7 g/dL (6.2-8.2)
--- NOTE | 2023-10-17 09:18 | P.PN ---
Subjective Progress Note Date: 10/17/23 This is a 67-year-old male patient of Dr. Bartlett who presented with worsening infection to right toes after injury approximately 1 month ago. Patient had been started on outpatient by mouth antibiotics without improvement was instructed to come the ER if symptoms worse. 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 Patient also is required previous amputation approximately 14 years ago to right pinky toe. Patient does have a history including DVT, hyperlipidemia and ex- smoker. Foot x-ray was completed showing no convincing radiographic evidence of acute osteomyelitis. Lab work revealing white blood cell 5.6, lactic acid 1.8. INR supratherapeutic at 3.8 Upon exam significant gangrene noted to 4 toe on right foot moderate amount of gangrene noted to third toe. At this time infectious disease and vascular service is consulted patient has been started on clindamycin. At this time patient is complaining of pain to right right foot. Patient is maintained on pain medications Dilaudid and [place]. Patient denies chest pain or shortness of breath. Patient denies nausea vomiting or diarrhea. Patient may denies any urinary burning or frequency. Current vital signs temp 97.6, heart rate 67, respiratory rate 18, blood pressure 149/74 and pulse ox 93% on room air On 10/16/2023 patient was seen and examined on the medical floor he is alert and oriented 3 in no apparent distress he is complaining of pain in the right foot otherwise he denies any complaints there is no fever or chills no headache or dizziness no chest pain no shortness of breath no cough no nausea or vomiting no abdominal pain no diarrhea and no urinary symptoms antibiotics were adjusted by infectious disease input from vascular surgery and infectious disease reviewed. Will follow in a.m.. On 10/17/2023 patient is alert and oriented 3. Patient reports improvement with right foot pain. Patient remains on IV Unasyn. Per vascular surgery no surgical intervention at this time. Current vital signs temp 98.1, heart rate 54, respiratory rate 16 blood pressure 173 with a pulse ox of 95% on room air Objective - Vital Signs Vital signs: Vital Signs Temp 98.3 F 10/17/23 07:59 Pulse 52 L 10/17/23 07:59 Resp 16 10/17/23 07:59 BP 162/79 10/17/23 07:59 Pulse Ox 95 10/17/23 07:59 FiO2 Intake & Output 10/16/23 10/17/23 10/17/23 18:59 06:59 18:59 Other: Voiding Method Toilet # Voids 2 3 - Exam Head normocephalic Neck supple Lungs clear to auscultation bilaterally no wheezing or crackles Heart regular rate and rhythm S1-S2, no rub or gallop Abdomen is soft nontender nondistended positive bowel sounds no hepatosplenomegaly Extremities gangrenous blackened to third toe on right foot and fourth toe right foot Neuro alert and orientated to 3 - Labs CBC & Chem 7: 10/17/23 04:14 10/17/23 04:14 Labs: Abnormal Lab Results - Last 24 Hours (Table) 10/16/23 10/16/23 10/17/23 Range/Units 07:05 07:05 04:14 WBC 2.96 L 3.75 L (4.50-10.00) X 10*3/uL RBC 3.91 L 3.76 L (4.40-5.60) X 10*6/uL Hgb 12.2 L 11.6 L (13.0-17.0) g/dL Hct 38.1 L 36.3 L (39.6-50.0) % MCV 97.4 H (80.0-97.0) FL Plt Count 130 L (140-440) X 10*3/uL Lymphocytes # 0.62 L 0.89 L (0.90-5.00) X 10*3/uL PT (10.0-12.5) sec INR (<1.2) Calcium 8.6 L (8.7-10.3) mg/dL AST 54 H (14-35) U/L ALT 78 H (10-49) U/L Total Protein 5.9 L (6.2-8.2) g/dL Albumin 3.6 L (3.8-4.9) g/dL Albumin/Globulin Ratio 1.57 L (1.60-3.17) Ratio 10/17/23 10/17/23 Range/Units 04:14 04:14 WBC (4.50-10.00) X 10*3/uL RBC (4.40-5.60) X 10*6/uL Hgb (13.0-17.0) g/dL Hct (39.6-50.0) % MCV (80.0-97.0) FL Plt Count (140-440) X 10*3/uL Lymphocytes # (0.90-5.00) X 10*3/uL PT 19.2 H (10.0-12.5) sec INR 1.9 H (<1.2) Calcium (8.7-10.3) mg/dL AST 79 H (14-35) U/L ALT 147 H (10-49) U/L Total Protein 5.7 L (6.2-8.2) g/dL Albumin 3.6 L (3.8-4.9) g/dL Albumin/Globulin Ratio (1.60-3.17) Ratio Microbiology - Last 24 Hours (Table) 10/14/23 11:10 Blood Culture - Preliminary Blood 10/14/23 11:25 Blood Culture - Preliminary Blood Assessment and Plan Plan: 1. Gangrene to right toes with failed outpatient management 2. History of factor V disorder maintained on Coumadin 3. History of peripheral vascular disease with previous amputation of right pinky toe 4. Ex-smoker patient quit in August 2023 5. History of hyperlipidemia DVT prophylaxis Coumadin. GI prophylaxis Protonix Maintained on IV Unasyn per infectious disease Infectious disease and vascular surgery consulted No surgical intervention planned per vascular surgery Repeat labs ordered
--- NOTE | 2023-10-17 12:25 | P.PN ---
Subjective Progress Note Date: 10/16/23 Principal diagnosis: Reason for follow-up is right third and fourth toe gangrene with cellulitis Patient is a 67-year-old male with a past medical history significant for hyperlipidemia DVT previous history of right fifth toe amputation presenting to the hospital for evaluation of discoloration of the right third and fourth toe that started with an injury about a month ago. On today's evaluation that is 10/16/2023,the patient remains to be afebrile, patient is on room air not requiring supplemental oxygen and denies any shortness of breath no chest pain or cough.Patient denies having any nausea or vomiting, no abdominal pain and no diarrhea has been reported, patient mention slight decrease in the pain and redness to the right foot dorsum area. Patient white count is 2.96, creatinine 0.8 liver enzymes mildly elevated blood cultures pending Objective - Vital Signs Vital signs: Vital Signs Temp 98.1 F 10/16/23 07:17 Pulse 79 10/16/23 07:17 Resp 18 10/16/23 07:17 BP 153/66 10/16/23 07:17 Pulse Ox 92 L 10/16/23 07:17 FiO2 Intake & Output 10/15/23 10/16/23 10/16/23 18:59 06:59 18:59 Other: Voiding Method Toilet # Voids 3 1 # Bowel Movements 1 - Exam GENERAL DESCRIPTION: An elderly male up in the chair in no distress RESPIRATORY SYSTEM: Unlabored breathing , decreased breath sounds at bases HEART: S1 S2 regular rate and rhythm , ABDOMEN: Soft , no tenderness EXTREMITIES: Patient did have a blackish discoloration of his right third toe and some discoloration of the fourth toe with redness on the dorsum of the foot - Labs CBC & Chem 7: 10/17/23 04:14 10/17/23 04:14 Labs: Abnormal Lab Results - Last 24 Hours (Table) 10/15/23 10/16/23 10/16/23 Range/Units 05:27 07:05 07:05 WBC 2.96 L (4.50-10.00) X 10*3/uL RBC 3.91 L (4.40-5.60) X 10*6/uL Hgb 12.2 L (13.0-17.0) g/dL Hct 38.1 L (39.6-50.0) % MCV 97.4 H (80.0-97.0) FL Plt Count 130 L (140-440) X 10*3/uL Lymphocytes # 0.62 L (0.90-5.00) X 10*3/uL PT 31.0 H 36.3 H (9.9-11.9) sec INR 3.09 H 3.7 H (0.93-1.11) sec Calcium (8.7-10.3) mg/dL AST (14-35) U/L ALT (10-49) U/L Total Protein (6.2-8.2) g/dL Albumin (3.8-4.9) g/dL Albumin/Globulin Ratio (1.60-3.17) Ratio 10/16/23 Range/Units 07:05 WBC (4.50-10.00) X 10*3/uL RBC (4.40-5.60) X 10*6/uL Hgb (13.0-17.0) g/dL Hct (39.6-50.0) % MCV (80.0-97.0) FL Plt Count (140-440) X 10*3/uL Lymphocytes # (0.90-5.00) X 10*3/uL PT (9.9-11.9) sec INR (0.93-1.11) sec Calcium 8.6 L (8.7-10.3) mg/dL AST 54 H (14-35) U/L ALT 78 H (10-49) U/L Total Protein 5.9 L (6.2-8.2) g/dL Albumin 3.6 L (3.8-4.9) g/dL Albumin/Globulin Ratio 1.57 L (1.60-3.17) Ratio Microbiology - Last 24 Hours (Table) 10/14/23 11:10 Blood Culture - Preliminary Blood 10/14/23 11:25 Blood Culture - Preliminary Blood Assessment and Plan (1) Gangrene of toe of right foot Current Visit: Yes Status: Acute Code(s): I96 - GANGRENE, NOT ELSEWHERE CLASSIFIED SNOMED Code(s): 99224127313529900 (2) Cellulitis Current Visit: No Status: Acute Code(s): L03.90 - CELLULITIS, UNSPECIFIED SNOMED Code(s): 748256461 Plan: 1patient presented to hospital with discoloration of right third and the fourth toe with concerning for gangrene especially involving the third toe and surrounding cellulitis failing outpatient oral antibiotic therapy concern is mostly for underlying ischemia 2-patient did have a lower extremity ultrasound JESSICA within normal limits bilaterally however toe brachial index is suggestive of severe disease 4-patient to continue with Unasyn 3 g every 6 hours for underlying cellulitis Dictation was produced using [employer] dictation software. please excuse any grammatical, word or spelling errors. Time with Patient: Less than 30
--- NOTE | 2023-10-17 12:29 | P.PN ---
Subjective Progress Note Date: 10/17/23 Principal diagnosis: Reason for follow-up is right third and fourth toe gangrene with cellulitis Patient is a 67-year-old male with a past medical history significant for hyperlipidemia DVT previous history of right fifth toe amputation presenting to the hospital for evaluation of discoloration of the right third and fourth toe that started with an injury about a month ago. On today's evaluation that is 10/17/2023, the patient continues to be afebrile, the patient is on room air and breathing comfortably, The patient denies having any chest pain or cough, the patient denies having any abdominal pain no vomiting or any diarrhea has been reported by the nursing staff, the patient pain and redness to the right foot dorsum area has slightly decreased in intensity. Patient white count is 3.75, creatinine 0.9 liver enzymes mildly elevated blood cultures pending Objective - Vital Signs Vital signs: Vital Signs Temp 98.3 F 10/17/23 07:59 Pulse 52 L 10/17/23 07:59 Resp 16 10/17/23 07:59 BP 162/79 10/17/23 07:59 Pulse Ox 95 10/17/23 07:59 FiO2 Intake & Output 10/16/23 10/17/23 10/17/23 18:59 06:59 18:59 Other: Voiding Method Toilet Toilet # Voids 2 3 - Exam GENERAL DESCRIPTION: An elderly male up in the chair in no distress RESPIRATORY SYSTEM: Unlabored breathing , decreased breath sounds at bases HEART: S1 S2 regular rate and rhythm , ABDOMEN: Soft , no tenderness EXTREMITIES: Patient did have a blackish discoloration of his right third toe and some discoloration of the fourth toe with redness on the dorsum of the foot - Labs CBC & Chem 7: 10/17/23 04:14 10/17/23 04:14 Labs: Abnormal Lab Results - Last 24 Hours (Table) 10/17/23 10/17/23 10/17/23 Range/Units 04:14 04:14 04:14 WBC 3.75 L (4.50-10.00) X 10*3/uL RBC 3.76 L (4.40-5.60) X 10*6/uL Hgb 11.6 L (13.0-17.0) g/dL Hct 36.3 L (39.6-50.0) % Lymphocytes # 0.89 L (0.90-5.00) X 10*3/uL PT 19.2 H (10.0-12.5) sec INR 1.9 H (<1.2) AST 79 H (14-35) U/L ALT 147 H (10-49) U/L Total Protein 5.7 L (6.2-8.2) g/dL Albumin 3.6 L (3.8-4.9) g/dL Microbiology - Last 24 Hours (Table) 10/14/23 11:10 Blood Culture - Preliminary Blood 10/14/23 11:25 Blood Culture - Preliminary Blood Assessment and Plan (1) Gangrene of toe of right foot Current Visit: Yes Status: Acute Code(s): I96 - GANGRENE, NOT ELSEWHERE CLASSIFIED SNOMED Code(s): 06578748746373948 (2) Cellulitis Current Visit: No Status: Acute Code(s): L03.90 - CELLULITIS, UNSPECIFIED SNOMED Code(s): 562946183 Plan: 1patient presented to hospital with discoloration of right third and the fourth toe with concerning for gangrene especially involving the third toe and surrounding cellulitis failing outpatient oral antibiotic therapy concern is mostly for underlying ischemia 2-patient did have a lower extremity ultrasound JESSICA within normal limits bilaterally however toe brachial index is suggestive of severe disease, vascular surgery following the patient waiting for demarcation before any amputation 4-patient currently treated with Unasyn 3 g every 6 hours for underlying cellulitis, patient noticed to have slight worsening of his liver enzymes questionably medication effect will be monitored closely for any further worsening we will adjust antibiotic for now continue with Unasyn will check hepatitis panel as well Dictation was produced using [employer] dictation software. please excuse any grammatical, word or spelling errors. Time with Patient: Less than 30
[2023-10-17] MEDS: WARFARIN 1 MG TAB PO ONE (17:40)
[2023-10-18 07:41] LABS: INR 1.8 (<1.2)
[2023-10-18 08:55] VITALS: RESP 16
[2023-10-18 11:00] LABS: Basophils # (A) 0.02 X 10*3/uL (0.00-0.10); Basophils % (A) 0.5 %; Eosinophils # (A) 0.13 X 10*3/uL (0.04-0.35); Eosinophils % (A) 3.2 %; HCT 41.1 % (39.6-50.0); HGB 13.2 g/dL (13.0-17.0); Lymphocytes % (A) 17.3 %; MCH 31.1 pg (27.0-32.0); MCHC 32.1 g/dL (32.0-37.0); MCV 96.9 FL (80.0-97.0); Mean Platelet Volume 10.2 FL (9.5-12.2); Monocytes % (A) 7.4 %; NRBC Per 100 WBC 0 X 10*3/uL (0.00-0.01); Neutrophils # (A) 2.88 X 10*3/uL (1.80-7.70); Neutrophils % (A) 71.4 %; Platelet Count 152 X 10*3/uL (140-440); RBC 4.24 X 10*6/uL (4.40-5.60); RDW 13.8 % (11.5-14.5); WBC 4.04 X 10*3/uL (4.50-10.00)
[2023-10-18 11:47] LABS: ALT 123 U/L (10-49); AST 48 U/L (14-35); Albumin 4.1 g/dL (3.8-4.9); Albumin/Globulin Ratio 1.58 Ratio (1.60-3.17); Alkaline Phosphatase 79 U/L (41-126); BUN/Creat Ratio 10.56 Ratio (12.00-20.00); Blood Urea Nitrogen 9.5 mg/dL (9.0-27.0); Calcium 9.4 mg/dL (8.7-10.3); Carbon Dioxide 27.6 mmol/L (21.6-31.8); Chloride 106 mmol/L (96-109); Globulin 2.6 g/dL (1.6-3.3); Glucose 100 mg/dL (70-110); Sodium 143 mmol/L (135-145); Total Bilirubin 0.8 mg/dL (0.3-1.2); Total Protein 6.7 g/dL (6.2-8.2)
[2023-10-18 12:21] LABS: Hepatitis A Antibody IgM Nonreactive; Hepatitis B Core IgM Nonreactive; Hepatitis B Surface Antigen Nonreactive; Hepatitis C IgG Antibody Nonreactive
--- NOTE | 2023-10-18 12:26 | P.PN ---
Subjective Progress Note Date: 10/18/23 Principal diagnosis: Reason for follow-up is right third and fourth toe gangrene with cellulitis Patient is a 67-year-old male with a past medical history significant for hyperlipidemia DVT previous history of right fifth toe amputation presenting to the hospital for evaluation of discoloration of the right third and fourth toe that started with an injury about a month ago. On today's evaluation that is 10/18/2023, Patient is afebrile patient is currently on room air and denies having any shortness of breath, the patient denies any chest pain or cough, the patient denies any nausea vomiting did not have any abdominal pain and no diarrheaPatient did have a white count of 4.04 , Pain to the right foot is currently controlled and has decreased in intensity Creatinine 0.9 liver enzymes mildly improved hepatitis panel negative Objective - Vital Signs Vital signs: Vital Signs Temp 97.4 F L 10/18/23 07:32 Pulse 94 10/18/23 07:32 Resp 16 10/18/23 07:32 BP 148/72 10/18/23 07:32 Pulse Ox 94 L 10/18/23 07:32 FiO2 Intake & Output 10/17/23 10/18/23 10/18/23 18:59 06:59 18:59 Intake Total 118 Balance 118 Intake: Oral 118 Other: Voiding Method Toilet Toilet # Voids 1 - Exam GENERAL DESCRIPTION: An elderly male up in the chair in no distress RESPIRATORY SYSTEM: Unlabored breathing , decreased breath sounds at bases HEART: S1 S2 regular rate and rhythm , ABDOMEN: Soft , no tenderness EXTREMITIES: Patient did have a blackish discoloration of his right third toe and some discoloration of the fourth toe with redness on the dorsum of the foot - Labs CBC & Chem 7: 10/18/23 06:55 10/18/23 06:55 Labs: Abnormal Lab Results - Last 24 Hours (Table) 10/18/23 Range/Units 06:55 PT 18.0 H (10.0-12.5) sec INR 1.8 H (<1.2) Microbiology - Last 24 Hours (Table) 10/14/23 11:10 Blood Culture - Preliminary Blood 10/14/23 11:25 Blood Culture - Preliminary Blood Assessment and Plan (1) Gangrene of toe of right foot Current Visit: Yes Status: Acute Code(s): I96 - GANGRENE, NOT ELSEWHERE CLASSIFIED SNOMED Code(s): 44646419219651007 (2) Cellulitis Current Visit: No Status: Acute Code(s): L03.90 - CELLULITIS, UNSPECIFIED SNOMED Code(s): 355668969 Plan: 1patient presented to hospital with discoloration of right third and the fourth toe with concerning for gangrene especially involving the third toe and surrounding cellulitis failing outpatient oral antibiotic therapy concern is mostly for underlying ischemia 2-patient did have a lower extremity ultrasound JESSICA within normal limits bilaterally however toe brachial index is suggestive of severe disease, vascular surgery following the patient waiting for demarcation before any amputation 4-patient to continue with Unasyn 3 g every 6 hours for underlying cellulitis,with a plan to finish therapy with oral Augmentin x 10 days discussed with the GENERAL DISTILLERY WORKER for admitting team 5-liver enzymes are trending down hepatitis panel negative Dictation was produced using [employer] dictation software. please excuse any grammatical, word or spelling errors. Time with Patient: Less than 30
[2023-10-18 13:08] VITALS: BP 146/74; PULSE 64; TEMP 97.7
--- NOTE | 2023-10-18 13:20 | P.DS ---
Providers Date of admission: 10/14/23 13:28 Expected date of discharge: 10/18/23 Attending physician: Linda Tubbs Consults: 10/14/23 13:26 Consult Physician Routine Consulting Provider: Alhaji Darden Consult Reason/Comments: gangrene r toes Do you want consulting provider notified?: Yes Consult Physician Routine Consulting Provider: Nora Saldivar Consult Reason/Comments: gangrene r toes Do you want consulting provider notified?: Yes Primary care physician: Genia Bartlett Hospital Course: Discharge diagnosis 1. Gangrene to right toes with failed outpatient management 2. History of factor V disorder maintained on Coumadin 3. History of peripheral vascular disease with previous amputation of right pinky toe 4. Ex-smoker patient quit in August 2023 5. History of hyperlipidemia 6. Elevated liver enzymes. These are trending down Lipitor held upon discharge patient to follow-up with his PCP for further management and initiation of Lipitor Hospital course This is a 67-year-old male patient of Dr. Bartlett who presented with worsening infection to right toes after injury approximately 1 month ago. Patient had been started on outpatient by mouth antibiotics without improvement was instructed to come the ER if symptoms worse. 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 Patient also is required previous amputation approximately 14 years ago to right pinky toe. Patient does have a history including DVT, hyperlipidemia and ex-s moker. Foot x-ray was completed showing no convincing radiographic evidence of acute osteomyelitis. Lab work revealing white blood cell 5.6, lactic acid 1.8. INR supratherapeutic at 3.8 Upon exam significant gangrene noted to 4 toe on right foot moderate amount of gangrene noted to third toe. At this time infectious disease and vascular service is consulted patient has been started on clindamycin. At this time patient is complaining of pain to right right foot. Patient is maintained on pain medications Dilaudid and [place]. Patient denies chest pain or shortness of breath. Patient denies nausea vomiting or diarrhea. Patient may denies any urinary burning or frequency. Current vital signs temp 97.6, heart rate 67, respiratory rate 18, blood pressure 149/74 and pulse ox 93% on room air On 10/16/2023 patient was seen and examined on the medical floor he is alert and oriented 3 in no apparent distress he is complaining of pain in the right foot otherwise he denies any complaints there is no fever or chills no headache or dizziness no chest pain no shortness of breath no cough no nausea or vomiting no abdominal pain no diarrhea and no urinary symptoms antibiotics were adjusted by infectious disease input from vascular surgery and infectious disease reviewed. Will follow in a.m.. On 10/17/2023 patient is alert and oriented 3. Patient reports improvement with right foot pain. Patient remains on IV Unasyn. Per vascular surgery no surgical intervention at this time. Current vital signs temp 98.1, heart rate 54, respiratory rate 16 blood pressure 173 with a pulse ox of 95% on room air On 221 09/16/2023 patient is alert and oriented x 3. Patient is eager to be DC'd home. Discussed case with infectious disease patient will be DC'd home on Augmentin for 10 days. Patient did have mildly elevated liver enzymes these are trending down but patient's Lipitor will be held upon discharge. Patient to follow-up with PCP for further management Patient Condition at Discharge: Stable Plan - Discharge Summary Discharge Rx Participant: Yes New Discharge Prescriptions: New Amoxic-Pot Clav 875-125Mg [Augmentin 875-125] 1 tab PO Q12HR 10 Days #20 tab Continue Multivitamins, Thera [Multivitamin (formulary)] 1 tab PO DAILY Clopidogrel [Plavix] 75 mg PO DAILY Ascorbic Acid [Vitamin C] 1,000 mg PO DAILY Cholecalciferol [Vitamin D3 (25 Mcg = 1000 Iu)] 25 mcg PO DAILY Sildenafil Citrate [Viagra] 100 mg PO DAILY PRN PRN Reason: e.d. Acetaminophen-Codeine 300-30mg [Tylenol w/codeine #3] 1 tab PO BID PRN PRN Reason: Pain Warfarin [Coumadin] 5 mg PO DAILY@1700 Warfarin [Coumadin] 2 mg PO DAILY@1700 Discontinued Atorvastatin [Lipitor] 40 mg PO HS Amoxicillin/Potassium Clav [Augmentin 875-125 Tablet] 1 tab PO BID 3 Days #6 tab Discharge Medication List Ascorbic Acid [Vitamin C] 1,000 mg PO DAILY 11/01/18 [History] Clopidogrel [Plavix] 75 mg PO DAILY 11/01/18 [History] Multivitamins, Thera [Multivitamin (formulary)] 1 tab PO DAILY 03/07/19 [History] Cholecalciferol [Vitamin D3 (25 Mcg = 1000 Iu)] 25 mcg PO DAILY 09/29/20 [History] Acetaminophen-Codeine 300-30mg [Tylenol w/codeine #3] 1 tab PO BID PRN 10/14/23 [History] Sildenafil Citrate [Viagra] 100 mg PO DAILY PRN 10/14/23 [History] Warfarin [Coumadin] 2 mg PO DAILY@169910/14/23 [History] Warfarin [Coumadin] 5 mg PO DAILY@169910/14/23 [History] Amoxic-Pot Clav 875-125Mg [Augmentin 875-125] 1 tab PO Q12HR 10 Days #20 tab 10/18/23 [Rx] Follow up Appointment(s)/Referral(s): Genia Bartlett MD [Primary Care Provider] - 1-2 days Alhaji Darden DO [STAFF PHYSICIAN] - 1 Week
[2023-10-18] MEDS ORDERED: WARFARIN 1.5 MG TAB PO ONE (18:00)
== END 2023-10-18 15:12 | disposition home or self-care (01) | DRG 300 ==
LOC: EC 10:35 → 5NMEDONC 13:28
PROVIDERS: ADMIT Internal Medicine; ATTEND Internal Medicine
DX: I70.268 Atherosclerosis of native arteries of extremities with gangrene, other extremity (principal); D68.51 Activated protein C resistance; L03.115 Cellulitis of right lower limb; E78.5 Hyperlipidemia, unspecified; M79.89 Other specified soft tissue disorders; Z89.421 Acquired absence of other right toe(s); Z95.820 Peripheral vascular angioplasty status with implants and grafts; Z79.01 Long term (current) use of anticoagulants; Z87.891 Personal history of nicotine dependence; Z28.311 Partially vaccinated for COVID-19; Z79.899 Other long term (current) drug therapy; Z79.02 Long term (current) use of antithrombotics/antiplatelets; Z86.718 Personal history of other venous thrombosis and embolism
CPT/HCPCS: 36415; 80053; 80074; 83605; 85025; 85610; 85730; 86140; 87040; 93005; 93923; 96365; 96366; 96375; 96376; 99285

== ENCOUNTER 2023-10-27 08:13 | Inpatient (IN) | payer MEDICARE, BC ==
[2023-10-27] MEDS ORDERED: VANCOMYCIN IV PER PHARMACY 1 EACH MISC MISCELLANE PRN (08:35)
[2023-10-27] MEDS: PIPERACILLIN-TAZOBACTAM 3.375 GM in SODIUM CHLORIDE 0.9% 100 ML IVPB SCH (09:10)
[2023-10-27] MEDS: HYDROmorphone 0.5 MG/0.5 ML SYRINGE IVP STA ×2 (09:17→10:39)
[2023-10-27] MEDS: ONDANSETRON 4 MG/2 ML VIAL IVP STA (09:17)
[2023-10-27 09:22] LABS: Basophils % (A) 0 %; Eosinophils # (A) 0.1 k/uL (0-0.7); Eosinophils % (A) 2 %; HCT 42.2 % (39.0-53.0); HGB 14.4 gm/dL (13.0-17.5); Lymphocytes # (A) 0.6 k/uL (1.0-4.8); Lymphocytes % (A) 9 %; MCH 32.8 pg (25.0-35.0); MCV 96.3 fL (80.0-100.0); Mean Platelet Volume 8.5; Monocytes # (A) 0.4 k/uL (0-1.0); Monocytes % (A) 6 %; Neutrophils # (A) 5.2 k/uL (1.3-7.7); Neutrophils % (A) 81 %; Platelet Count 173 k/uL (150-450); RBC 4.38 m/uL (4.30-5.90); RDW 14.1 % (11.5-15.5); WBC 6.5 k/uL (3.8-10.6)
[2023-10-27 09:51] LABS: ALT 41 U/L (4-49); AST 30 U/L (17-59); African American GFR (CKD) >90 (>60 ml/min/1.73 sqM); Albumin 4.1 g/dL (3.5-5.0); Alkaline Phosphatase 79 U/L (38-126); Anion Gap 5 mmol/L; Blood Urea Nitrogen 12 mg/dL (9-20); C Reactive Protein 0.7 mg/dL (<1.0); Calcium 9.2 mg/dL (8.4-10.2); Carbon Dioxide 26 mmol/L (22-30); Chloride 107 mmol/L (98-107); Glucose 119 mg/dL (74-99); Non-African American GFR(CKD) >90 (>60 ml/min/1.73 sqM); Sodium 138 mmol/L (137-145); Total Bilirubin 0.5 mg/dL (0.2-1.3); Total Protein 7.1 g/dL (6.3-8.2)
--- NOTE | 2023-10-27 11:07 | XR ---
EXAMINATION TYPE: XR foot complete RT DATE OF EXAM: 10/27/2023 COMPARISON: NONE HISTORY: 67-year-old male pain, swelling, infection and right foot TECHNIQUE: 3 views FINDINGS: Generalized soft tissue swelling. Previous amputation of the fifth toe. Soft tissue swellin g has increased from prior exam. No discrete lytic destruction is identified. Vascular calcifications . IMPRESSION: Increasing generalized soft tissue swelling. Correlate for cellulitis. Previous fifth toe amputation. No radiographic evidence for osteomyelitis at this time.
[2023-10-27] MEDS ORDERED: ONDANSETRON 4 MG/2 ML VIAL IVP PRN (11:10)
[2023-10-27] MEDS ORDERED: NALOXONE 0.4 MG/ML 1 ML VIAL IV PRN (11:10)
--- NOTE | 2023-10-27 11:10 | ED ---
Lower Extremity Injury HPI - General Chief Complaint: Extremity Injury, Lower Stated Complaint: Pain in right foot Time Seen by Provider: 10/27/23 08:24 Source: patient, RN notes reviewed Mode of arrival: ambulatory Limitations: no limitations - History of Present Illness Initial Comments: 67-year-old male presents emergency department chief complaint of right foot pain. Patient states that he has gangrene of his third and fourth digit. Patient states that he is his vascular surgeon Dr. Darden recently was told to come emergency room to worsen. Patient states pain is worsening, worsening discoloration. Patient states he has underlying vascular she had a prior amputation. Patient states he cannot tolerate the pain. - Related Data Home Medications Medication Instructions Recorded Confirmed Ascorbic Acid [Vitamin C] 1,000 mg PO DAILY 11/01/18 10/14/23 Clopidogrel [Plavix] 75 mg PO DAILY 11/01/18 10/14/23 Multivitamins, Thera [Multivitamin 1 tab PO DAILY 11/01/18 10/14/23 (formulary)] Cholecalciferol [Vitamin D3 (25 25 mcg PO DAILY 09/29/20 10/14/23 Mcg = 1000 Iu)] Acetaminophen-Codeine 300-30mg 1 tab PO BID PRN 10/14/23 10/14/23 [Tylenol w/codeine #3] Sildenafil Citrate [Viagra] 100 mg PO DAILY PRN 10/14/23 10/14/23 Warfarin [Coumadin] 2 mg PO DAILY@1700 10/14/23 10/14/23 Warfarin [Coumadin] 5 mg PO DAILY@1700 10/14/23 10/14/23 Previous Rx's Medication Instructions Recorded Amoxic-Pot Clav 875-125Mg 1 tab PO Q12HR 10 Days #20 tab 10/18/23 [Augmentin 875-125] Allergies Allergy/AdvReac Type Severity Reaction Status Date / Time No Known Allergies Allergy Verified 10/27/23 08:23 Review of Systems ROS Statement: Those systems with pertinent positive or pertinent negative responses have been documented in the HPI. ROS Other: All systems not noted in ROS Statement are negative. Past Medical History Past Medical History: Deep Vein Thrombosis (DVT), Hyperlipidemia, Vascular Disorder Additional Past Medical History / Comment(s): states "doesn't have the proteins in my blood to prevent it from clotting is why I am taking warfarin"managed by Dr Angel Sanchez Physician [phone], (Factor V Leiden mutation) thyroid nodules History of Any Multi-Drug Resistant Organisms: None Reported Additional Past Surgical History / Comment(s): stent rt groin Aug 2018,aortogram, thyroid biopsy 2018 Past Anesthesia/Blood Transfusion Reactions: No Reported Reaction Past Psychological History: No Psychological Hx Reported Smoking Status: Former smoker Past Alcohol Use History: None Reported Past Drug Use History: None Reported - Past Family History Mother Family Medical History: No Reported History Sister(s) Family Medical History: Deep Vein Thrombosis (DVT) Father Family Medical History: Deep Vein Thrombosis (DVT) General Exam Limitations: no limitations General appearance: alert, in no apparent distress Head exam: Present: atraumatic, normocephalic, normal inspection Respiratory exam: Present: normal lung sounds bilaterally. Absent: respiratory distress, wheezes, rales, rhonchi, stridor Cardiovascular Exam: Present: regular rate, normal rhythm, normal heart sounds. Absent: systolic murmur, diastolic murmur, rubs, gallop, clicks Extremities exam: Present: other (Right foot significant swelling there is gangrene changes of the third and fourth digit there is no calf tenderness there is mild surrounding distal foot erythema) Course Vital Signs 10/27/23 08:21 Temperature 98.5 F Pulse Rate 83 Respiratory 20 Rate Blood Pressure 129/75 O2 Sat by Pulse 96 Oximetry Medical Decision Making - Medical Decision Making Was pt. sent in by a medical professional or institution (, PA, MAINTAINER [employer]TRAL [employer], urgent care, hospital, or correction...) When possible be specific @ -Vascular surgeon Did you speak to anyone other than the patient for history (EMS, parent, family, police, friend...)? What history was obtained from this source @ -No Did you review nursing and triage notes (agree or disagree)? Why? @ -I reviewed and agree with nursing and triage notes Were old charts reviewed (outside hosp., previous admission, EMS record, old EKG, old radiological studies, urgent care reports/EKG's, correction records)? Report findings @ -No old charts were reviewed Differential Diagnosis (chest pain, altered mental status, abdominal pain women, abdominal pain men, vaginal bleeding, weakness, fever, dyspnea, syncope, headache, dizziness, GI bleed, back pain, seizure, CVA, palpatations, mental health, musculoskeletal)? @ -[Osteomyelitis, cellulitis, gangrene EKG interpreted by me (3pts min.). @ -None X-rays interpreted by me (1pt min.). @ -[X-ray right foot shows no evidence of osteomyelitis CT interpreted by me (1pt min.). @ -[None done U/S interpreted by me (1pt. min.). @ -None done What testing was considered but not performed or refused? (CT, X-rays, U/S, labs)? Why? @ -None What meds were considered but not given or refused? Why? @ -None Did you discuss the management of the patient with other professionals (professionals i.e. , PA, MAINTAINER [employer] OFF[employer], lab, RT, psych nurse, social insurance administrator, ornamental iron erector, teacher, artillery officer, immigration case worker)? Give summary @ -[I did discuss the case with Dr. Tubbs for admission and Mallorie on-call for vascular surgery who came and evaluate the patient discussed with Dr. Darden Was smoking cessation discussed for >3mins.? @ -No Was critical care preformed (if so, how long)? @ -No Were there social determinants of health that impacted care today? How? (Homelessness, low income, unemployed, alcoholism, drug addiction, transportatio n, low edu. Level, literacy, decrease access to med. care, [facility], rehab)? @ -No Was there de-escalation of care discussed even if they declined (Discuss DNR or withdrawal of care, Hospice)? DNR status @ -No What co-morbidities impacted this encounter? (DM, HTN, Smoking, COPD, CAD, Cancer, CVA, ARF, Chemo, Hep., AIDS, mental health diagnosis, sleep apnea, morbid obesity)? @ -Vascular disease Was patient admitted / discharged? Hospital course, mention meds given and route, prescriptions, significant lab abnormalities, going to OR and other pertinent info. @ -[Admitted patient will be admitted for gangrene, cellulitis of the right foot will be evaluated by vascular surgery was started on Zosyn, and Comycin. Undiagnosed new problem with uncertain prognosis? @ -No Drug Therapy requiring intensive monitoring for toxicity (Heparin, Nitro, Insulin, Cardizem)? @ -No Were any procedures done? @ -No Diagnosis/symptom? @ -[Gangrene right foot, cellulitis Acute, or Chronic, or Acute on Chronic? @ -Acute Uncomplicated (without systemic symptoms) or Complicated (systemic symptoms)? @ -[Complicated Side effects of treatment? @ -[No Exacerbation, Progression, or Severe Exacerbation? @ -No Poses a threat to life or bodily function? How? (Chest pain, [place], [place], pneumonia, PE, COPD, DKA, ARF, appy, cholecystitis, CVA, Diverticulitis, Homicidal, Suicidal, threat to staff... and all critical care pts) @ -[Yes possible sepsis - Lab Data Result diagrams: 10/27/23 08:58 10/27/23 08:58 Lab Results 10/27/23 10/27/23 10/27/23 Range/Units 08:58 08:58 08:58 WBC 6.5 (3.8-10.6) k/uL RBC 4.38 (4.30-5.90) m/uL Hgb 14.4 (13.0-17.5) gm/dL Hct 42.2 (39.0-53.0) % MCV 96.3 (80.0-100.0) fL MCH 32.8 (25.0-35.0) pg MCHC 34.0 (31.0-37.0) g/dL RDW 14.1 (11.5-15.5) % Plt Count 173 (150-450) k/uL MPV 8.5 Neutrophils % 81 % Lymphocytes % 9 % Monocytes % 6 % Eosinophils % 2 % Basophils % 0 % Neutrophils # 5.2 (1.3-7.7) k/uL Lymphocytes # 0.6 L (1.0-4.8) k/uL Monocytes # 0.4 (0-1.0) k/uL Eosinophils # 0.1 (0-0.7) k/uL Basophils # 0.0 (0-0.2) k/uL Sodium 138 (137-145) mmol/L Potassium 4.0 (3.5-5.1) mmol/L Chloride 107 (98-107) mmol/L Carbon Dioxide 26 (22-30) mmol/L Anion Gap 5 mmol/L BUN 12 (9-20) mg/dL Creatinine 0.72 (0.66-1.25) mg/dL Est GFR (CKD-EPI)AfAm >90 (>60 ml/min/1.73 sqM) Est GFR (CKD-EPI)NonAf >90 (>60 ml/min/1.73 sqM) Glucose 119 H (74-99) mg/dL Plasma Lactic Acid Cesar 1.1 (0.7-2.0) mmol/L Calcium 9.2 (8.4-10.2) mg/dL Total Bilirubin 0.5 (0.2-1.3) mg/dL AST 30 (17-59) U/L ALT 41 (4-49) U/L Alkaline Phosphatase 79 (38-126) U/L C-Reactive Protein 0.7 (<1.0) mg/dL Total Protein 7.1 (6.3-8.2) g/dL Albumin 4.1 (3.5-5.0) g/dL Disposition Clinical Impression: Gangrene of toe of right foot, Cellulitis of right foot, Vascular disorder Disposition: ADMITTED IP TO THIS HOSP Condition: Fair Referrals: Genia Bartlett MD [Primary Care Provider] - 1-2 days Time of Disposition: 10:45
--- NOTE | 2023-10-27 11:49 | P.GSCN ---
History of Present Illness Consult date: 10/27/23 Reason for Consult: Gangrene toes Requesting physician: Bunny Farias History of present illness: 67-year-old male with a history of factor V Leyden on Coumadin for 14 years, deep vein thrombosis, hyperlipidemia and previous right lower extremity revascularization with stenting in his groin and previous fifth toe amputation due to trauma came into the hospital for concerns of gangrene toes. Patient was seen here in the hospital last week for third and fourth toe ischemia. He was sent home for dry gangrene and told to follow-up in the office. He was seen by Dr. Darden on Monday in the office and was told if symptoms worsened he was to come to the emergency department. Patient presented today to the emergency department for concerns of worsening pain and concerns for infected toes. He states he did not take his Coumadin yesterday or today, he is on Plavix but did not take it today. Patient currently denies any shortness of breath, chest pain, abdominal pain, nausea or vomiting. No fevers or chills. He does state worsening pain in the right foot difficult to walk. Review of Systems A 14 point review systems was completed all pertinent positives and negatives as stated in the HPI. Past Medical History Past Medical History: Deep Vein Thrombosis (DVT), Hyperlipidemia, Vascular Disorder Additional Past Medical History / Comment(s): states "doesn't have the proteins in my blood to prevent it from clotting is why I am taking warfarin"managed by Dr Angel Sanchez Physician [phone], (Factor V Leiden mutation) thyroid nodules History of Any Multi-Drug Resistant Organisms: None Reported Additional Past Surgical History / Comment(s): stent rt groin Aug 2018,aortogram, thyroid biopsy 2019 Past Anesthesia/Blood Transfusion Reactions: No Reported Reaction Past Psychological History: No Psychological Hx Reported Smoking Status: Former smoker Past Alcohol Use History: None Reported Past Drug Use History: None Reported - Past Family History Mother Family Medical History: No Reported History Sister(s) Family Medical History: Deep Vein Thrombosis (DVT) Father Family Medical History: Deep Vein Thrombosis (DVT) Medications and Allergies Home Medications Medication Instructions Recorded Confirmed Type Ascorbic Acid [Vitamin C] 1,000 mg PO DAILY 11/01/18 10/14/23 History Clopidogrel [Plavix] 75 mg PO DAILY 11/01/18 10/14/23 History Multivitamins, Thera [Multivitamin 1 tab PO DAILY 11/01/18 10/14/23 History (formulary)] Cholecalciferol [Vitamin D3 (25 25 mcg PO DAILY 09/29/20 10/14/23 History Mcg = 1000 Iu)] Acetaminophen-Codeine 300-30mg 1 tab PO BID PRN 10/14/23 10/14/23 History [Tylenol w/codeine #3] Sildenafil Citrate [Viagra] 100 mg PO DAILY PRN 10/14/23 10/14/23 History Warfarin [Coumadin] 2 mg PO DAILY@1700 10/14/23 10/14/23 History Warfarin [Coumadin] 5 mg PO DAILY@1700 10/14/23 10/14/23 History Amoxic-Pot Clav 875-125Mg 1 tab PO Q12HR 10 Days #20 tab 10/18/23 Rx [Augmentin 875-125] Allergies Allergy/AdvReac Type Severity Reaction Status Date / Time No Known Allergies Allergy Verified 10/27/23 08:23 Surgical - Exam Vital Signs Temp Pulse Resp BP Pulse Ox 98.5 F 83 20 129/75 96 10/27/23 08:21 10/27/23 08:21 10/27/23 08:21 10/27/23 08:21 10/27/23 08:21 General appearance: The patient is alert, oriented, appears in no acute distress. HET: Head is normocephalic and atraumatic. Pupils are equal and reactive. Neck: Supple. Heart: Regular. Lungs: Equal expansion, normal respiratory effort. Abdomen: Soft, nontender, nondistended. Extremities: Right foot with swelling, erythema on dorsal aspect. Previous fifth toe amputation. Gangrene third and fourth toes. Neurological: No focal deficits. Strength and sensation are grossly intact. Results - Labs 10/27/23 08:58 10/27/23 08:58 Abnormal Lab Results - Last 24 Hours (Table) 10/27/23 10/27/23 Range/Units 08:58 08:58 Lymphocytes # 0.6 L (1.0-4.8) k/uL Glucose 119 H (74-99) mg/dL Diabetes panel 10/27/23 Range/Units 08:58 Sodium 138 (137-145) mmol/L Potassium 4.0 (3.5-5.1) mmol/L Chloride 107 (98-107) mmol/L Carbon Dioxide 26 (22-30) mmol/L BUN 12 (9-20) mg/dL Creatinine 0.72 (0.66-1.25) mg/dL Glucose 119 H (74-99) mg/dL Calcium 9.2 (8.4-10.2) mg/dL AST 30 (17-59) U/L ALT 41 (4-49) U/L Alkaline Phosphatase 79 (38-126) U/L Total Protein 7.1 (6.3-8.2) g/dL Albumin 4.1 (3.5-5.0) g/dL Calcium panel 10/27/23 Range/Units 08:58 Calcium 9.2 (8.4-10.2) mg/dL Albumin 4.1 (3.5-5.0) g/dL Pituitary panel 10/27/23 Range/Units 08:58 Sodium 138 (137-145) mmol/L Potassium 4.0 (3.5-5.1) mmol/L Chloride 107 (98-107) mmol/L Carbon Dioxide 26 (22-30) mmol/L BUN 12 (9-20) mg/dL Creatinine 0.72 (0.66-1.25) mg/dL Glucose 119 H (74-99) mg/dL Calcium 9.2 (8.4-10.2) mg/dL Adrenal panel 10/27/23 Range/Units 08:58 Sodium 138 (137-145) mmol/L Potassium 4.0 (3.5-5.1) mmol/L Chloride 107 (98-107) mmol/L Carbon Dioxide 26 (22-30) mmol/L BUN 12 (9-20) mg/dL Creatinine 0.72 (0.66-1.25) mg/dL Glucose 119 H (74-99) mg/dL Calcium 9.2 (8.4-10.2) mg/dL Total Bilirubin 0.5 (0.2-1.3) mg/dL AST 30 (17-59) U/L ALT 41 (4-49) U/L Alkaline Phosphatase 79 (38-126) U/L Total Protein 7.1 (6.3-8.2) g/dL Albumin 4.1 (3.5-5.0) g/dL - Imaging Comments: Right foot x-ray: Increasing generalized soft tissue swelling. Correlate for cellulitis. Previous fifth toe amputation. No radiographic evidence for osteomyelitis at this time. Assessment and Plan Assessment: 1. Gangrene right third and fourth toes 2. History of factor V Leiden on Coumadin 3. Previous fifth toe amputation Plan: 1. Hold Coumadin and Plavix 2. Keep n.p.o. 3. Stat INR 4. Tentative plan for right third and fourth toe amputation today Thank you for this consultation, we will continue to follow. The impression and plan of care has been dictated as directed. I performed a history and examination of this patient, discussed the same with the dictator. I agree with the dictator's note ,documented as a scribe. Any additional findings or plans will be noted.
[2023-10-27] MEDS: HYDROmorphone 1 MG/ML 1 ML SYRINGE IVP PRN (12:41)
[2023-10-27 12:53] LABS: INR 3.4 (<1.2); Partial Thromboplastin Time 66.4 sec (22.0-30.0); Prothrombin Time 33.4 sec (10.0-12.5)
[2023-10-27] MEDS: VANCOMYCIN 1,500 MG in SODIUM CHLORIDE 0.9% 500 ML 500 ML IVPB STA (12:54)
[2023-10-27] MEDS: SODIUM CHLORIDE 0.9% 1,000 ML IV SCH (12:59)
[2023-10-27] MEDS ORDERED: NON FORMULARY DRUG (Sildenafil Citrate [Viagra] 100 MG Tablet) PO PRN (13:29)
[2023-10-27] MEDS: PHYTONADIONE ORAL 5 MG/5 ML ORAL.SYRG PO STA (14:24)
[2023-10-27] MEDS: HYDROcodone/APAP 5-325MG 1 EACH TAB PO PRN (14:29)
--- NOTE | 2023-10-27 14:35 | P.HPIM ---
History of Present Illness H&P Date: 10/27/23 Femi Case, is a 67-year-old male who presented to [facility] emergency room with a chief complaint of right foot swelling pain and erythema patient was recently discharged from [facility], he was admitted with similar symptoms and what was diagnosed with gangrene to the right dose, patient received IV antibiotic and was discharged home however he continued to have worsening pain, and swelling he was reevaluated by vascular surgery and decision was made to proceed with toe amputation, he was sent to emergency room for admission. 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 On review of systems patient is complaining of severe pain in the right foot otherwise he denies any complaints there is no fever or chills no headache or dizziness no chest pain no shortness of breath no cough no nausea or vomiting no abdominal pain no diarrhea and no urinary symptoms. Past Medical History Past Medical History: Deep Vein Thrombosis (DVT), Hyperlipidemia, Vascular Disorder Additional Past Medical History / Comment(s): states "doesn't have the proteins in my blood to prevent it from clotting is why I am taking warfarin"[facility] [phone], (Factor V Leiden mutation) thyroid nodules History of Any Multi-Drug Resistant Organisms: None Reported Additional Past Surgical History / Comment(s): stent rt groin Aug 2018,aortogram, thyroid biopsy 2018 Past Anesthesia/Blood Transfusion Reactions: No Reported Reaction Past Psychological History: No Psychological Hx Reported Smoking Status: Former smoker Past Alcohol Use History: None Reported Past Drug Use History: None Reported - Past Family History Mother Family Medical History: No Reported History Sister(s) Family Medical History: Deep Vein Thrombosis (DVT) Father Family Medical History: Deep Vein Thrombosis (DVT) Medications and Allergies Home Medications Medication Instructions Recorded Confirmed Type Ascorbic Acid [Vitamin C] 1,000 mg PO DAILY 11/01/18 10/27/23 History Clopidogrel [Plavix] 75 mg PO DAILY 11/01/18 10/27/23 History Multivitamins, Thera [Multivitamin 1 tab PO DAILY 11/01/18 10/27/23 History (formulary)] Cholecalciferol [Vitamin D3 (25 25 mcg PO DAILY 09/29/20 10/27/23 History Mcg = 1000 Iu)] Acetaminophen-Codeine 300-30mg 1 tab PO BID PRN 10/14/23 10/27/23 History [Tylenol w/codeine #3] Sildenafil Citrate [Viagra] 100 mg PO DAILY PRN 10/14/23 10/27/23 History Warfarin [Coumadin] 2 mg PO DAILY@1700 10/14/23 10/27/23 History Warfarin [Coumadin] 5 mg PO DAILY@1700 10/14/23 10/27/23 History Amoxic-Pot Clav 875-125Mg 1 tab PO Q12HR 10 Days #20 tab 10/18/23 10/27/23 Rx [Augmentin 875-125] HYDROcodone/APAP 5-325MG [[place] 1 tab PO Q4H PRN 10/27/23 10/27/23 History 5-325] Allergies Allergy/AdvReac Type Severity Reaction Status Date / Time No Known Allergies Allergy Verified 10/27/23 12:46 Physical Exam Vitals: Vital Signs Temp Pulse Resp BP Pulse Ox 10/27/23 08:21 98.5 F 83 20 129/75 96 Intake and Output 10/26/23 10/27/23 10/27/23 22:59 06:59 14:59 Other: Weight 75.296 kg In general patient is alert and oriented x 3 in no distress HEENT head normocephalic and atraumatic Neck is supple no JVD no goiter no lymphadenopathy no carotid bruit Chest examination is clear to auscultation no crackles no wheezing Cardiac exam reveals regular heart sounds S1 and S2 no gallops no murmurs Abdomen is soft nontender no organomegaly with normal bowel sounds Extremity exam reveals no edema no cyanosis or clubbing Neurological examination reveals no gross focal deficits Results CBC & Chem 7: 10/27/23 08:58 10/27/23 08:58 Labs: Abnormal Lab Results - Last 24 Hours (Table) 10/27/23 10/27/23 Range/Units 08:58 08:58 Lymphocytes # 0.6 L (1.0-4.8) k/uL Glucose 119 H (74-99) mg/dL Assessment and Plan Plan: Right foot gangrene Underlying history of peripheral vascular disease Underlying 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
[2023-10-27 16:17] LABS: Erythrocyte Sedimentation Rate 28 mm/Hr (0-20)
[2023-10-27] MEDS: Acetaminophen-Codeine 300-30mg TAB PO PRN (16:29)
[2023-10-27] MEDS: VANCOMYCIN 1,500 MG in SODIUM CHLORIDE 0.9% 500 ML 500 ML IVPB SCH (23:23)
[2023-10-28] MEDS: AMPICILLIN-SULBACTAM 3 GM in SODIUM CHLORIDE 0.9% 100 ML IVPB SCH (00:12)
[2023-10-28 06:30] LABS: African American GFR (CKD) >90 (>60 ml/min/1.73 sqM); Non-African American GFR(CKD) >90 (>60 ml/min/1.73 sqM)
[2023-10-28] MEDS: ASCORBIC ACID 500 MG TAB PO SCH (08:13)
[2023-10-28] MEDS: MULTIVITAMINS, THERA 1 EACH TAB PO SCH (08:13)
[2023-10-28] MEDS: CHOLECALCIFEROL 25 MCG (1000 IU) TABLET PO SCH (08:13)
--- NOTE | 2023-10-28 08:14 | P.CONS ---
History of Present Illness - Reason for Consult Consult date: 10/27/23 - History of Present Illness Patient is a 67-year-old male with a past medical history significant for DVT hyperlipidemia, history of previous right fifth toe amputation because of trauma patient was recently admitted at this facility with the right third and fourth toe ischemia and concerning for secondary cellulitis patient was treated with IV antibiotics obtain discharged on oral Augmentin and the patient was to follow-up with vascular surgeon with possible vascular revascularization patient presenting to the ER concerning for increasing pain swelling and redness to the right third and fourth toe patient denies any history of any trauma describing the pain to be sharp moderate to severe intensity without any radiation with associated swelling and redness denies any foul-smelling drainage or high-grade fever on presentation to the hospital patient was afebrile and no fever has been called subsequently patient was not tachycardic hypotensive or hypoxic patient did have white count 6.5 creatinine 0.79 electrolytes are normal liver enzymes are normal patient did have x-ray of the foot increase generalized soft tissue swelling correlate for cellulitis patient was started on vancomycin and Zosyn infectious disease consulted for further management of antibiotic therapy patient has been evaluated by vascular surgery planning for amputation of the toes in the a.m. Past Medical History Past Medical History: Deep Vein Thrombosis (DVT), Hyperlipidemia, Vascular Disorder Additional Past Medical History / Comment(s): states "doesn't have the proteins in my blood to prevent it from clotting is why I am taking warfarin"managed by Dr Angel Sanchez Physician [phone], (Factor V Leiden mutation) thyroid nodules History of Any Multi-Drug Resistant Organisms: None Reported Additional Past Surgical History / Comment(s): stent rt groin Aug 2018,aortogram, thyroid biopsy 2019 Past Anesthesia/Blood Transfusion Reactions: No Reported Reaction Past Psychological History: No Psychological Hx Reported Smoking Status: Former smoker Past Alcohol Use History: None Reported Past Drug Use History: None Reported - Past Family History Mother Family Medical History: No Reported History Sister(s) Family Medical History: Deep Vein Thrombosis (DVT) Father Family Medical History: Deep Vein Thrombosis (DVT) Medications and Allergies Home Medications Medication Instructions Recorded Confirmed Type Ascorbic Acid [Vitamin C] 1,000 mg PO DAILY 11/01/18 10/27/23 History Clopidogrel [Plavix] 75 mg PO DAILY 11/01/18 10/27/23 History Multivitamins, Thera [Multivitamin 1 tab PO DAILY 11/01/18 10/27/23 History (formulary)] Cholecalciferol [Vitamin D3 (25 25 mcg PO DAILY 09/29/20 10/27/23 History Mcg = 1000 Iu)] Acetaminophen-Codeine 300-30mg 1 tab PO BID PRN 10/14/23 10/27/23 History [Tylenol w/codeine #3] Sildenafil Citrate [Viagra] 100 mg PO DAILY PRN 10/14/23 10/27/23 History Warfarin [Coumadin] 2 mg PO DAILY@1700 10/14/23 10/27/23 History Warfarin [Coumadin] 5 mg PO DAILY@1700 10/14/23 10/27/23 History Amoxic-Pot Clav 875-125Mg 1 tab PO Q12HR 10 Days #20 tab 10/18/23 10/27/23 Rx [Augmentin 875-125] HYDROcodone/APAP 5-325MG [[place] 1 tab PO Q4H PRN 10/27/23 10/27/23 History 5-325] Allergies Allergy/AdvReac Type Severity Reaction Status Date / Time No Known Allergies Allergy Verified 10/27/23 12:46 Physical Exam Vitals: Vital Signs Temp Pulse Resp BP Pulse Ox 10/27/23 12:41 97.8 F 65 18 114/76 96 10/27/23 08:21 98.5 F 83 20 129/75 96 Intake and Output 10/26/23 10/27/23 10/27/23 22:59 06:59 14:59 Other: Weight 75.296 kg Results CBC & Chem 7: 10/27/23 08:58 10/28/23 05:47 Labs: Abnormal Lab Results - Last 24 Hours (Table) 10/27/23 10/27/23 10/27/23 Range/Units 08:58 08:58 12:35 Lymphocytes # 0.6 L (1.0-4.8) k/uL PT 33.4 H (10.0-12.5) sec INR 3.4 H (<1.2) APTT 66.4 H (22.0-30.0) sec Glucose 119 H (74-99) mg/dL Assessment and Plan Plan: 1patient presented to hospital with increasing pain swelling redness and some discoloration to the right third and fourth toe concerning for gangrene and cellulitis, recently has been on oral Augmentin failing outpatient oral antibiotic therapy 2patient to continue the vancomycin however switch Zosyn to Unasyn to decrease risk of nephrotoxicity We will follow on clinical condition and cultures to further adjust medication if needed Thank you for this consultation we will follow the patient along with you Dictation was produced using [employer] dictation software. please excuse any gr ammatical, word or spelling errors.
--- NOTE | 2023-10-28 12:34 | P.PN ---
Subjective Progress Note Date: 10/28/23 Femi Case, is a 67-year-old male who presented to [facility] emergency room with a chief complaint of right foot swelling pain and erythema patient was recently discharged from [facility], he was admitted with similar symptoms and what was diagnosed with gangrene to the right dose, patient received IV antibiotic and was discharged home however he continued to have worsening pain, and swelling he was reevaluated by vascular surgery and decision was made to proceed with toe amputation, he was sent to emergency room for admission. 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 On review of systems patient is complaining of severe pain in the right foot otherwise he denies any complaints there is no fever or chills no headache or dizziness no chest pain no shortness of breath no cough no nausea or vomiting no abdominal pain no diarrhea and no urinary symptoms. On 10/28/2023 patient was seen and examined on the medical floor he is alert and oriented 3 in no apparent distress he is still complaining of pain in his right foot otherwise he denies any complaints he is scheduled for toe amputation this morning. Patient denies any fever or chills no headache or dizziness no chest pain no shortness of breath no cough no nausea or vomiting no abdominal pain no diarrhea and no urinary symptoms Objective - Vital Signs Vital signs: Vital Signs Temp 97.7 F 10/28/23 06:50 Pulse 70 10/28/23 06:50 Resp 17 10/28/23 06:50 BP 143/63 10/28/23 06:50 Pulse Ox 96 10/28/23 06:50 FiO2 Intake & Output 10/27/23 10/28/23 10/28/23 18:59 06:59 18:59 Weight 75.296 kg 75.296 kg Other: # Voids 2 - Exam In general patient is alert and oriented x 3 in no distress HEENT head normocephalic and atraumatic Neck is supple no JVD no goiter no lymphadenopathy no carotid bruit Chest examination is clear to auscultation no crackles no wheezing Cardiac exam reveals regular heart sounds S1 and S2 no gallops no murmurs Abdomen is soft nontender no organomegaly with normal bowel sounds Extremity exam reveals no edema no cyanosis or clubbing Neurological examination reveals no gross focal deficits - Labs CBC & Chem 7: 10/27/23 08:58 10/28/23 05:47 Labs: Abnormal Lab Results - Last 24 Hours (Table) 10/27/23 10/27/23 Range/Units 08:58 12:35 ESR 28 H (0-20) mm/Hr PT 33.4 H (10.0-12.5) sec INR 3.4 H (<1.2) APTT 66.4 H (22.0-30.0) sec Assessment and Plan Plan: Right foot gangrene Underlying history of peripheral vascular disease Underlying 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
[2023-10-28 12:55] VITALS: BMI 23.8
--- NOTE | 2023-10-28 13:47 | P.PN ---
Subjective Progress Note Date: 10/28/23 Principal diagnosis: Right second and third toe gangrene and cellulitis Patient is a 67-year-old male with a past medical history significant for DVT hyperlipidemia, history of previous right fifth toe amputation because of trauma, presenting to the hospital with worsening pain and discomfort to his right second and third toe ischemia with cellulitis. On today's visit that is 10/28/2023,the patient remains to be afebrile, patient is on room air not requiring supplemental oxygen and denies any shortness of breath no chest pain or cough.Patient denies having any nausea or vomiting, no abdominal pain and no diarrhea has been reported, still complaining of pain to the right second and third toe minimally decreased no drainage. Patient did have a creatinine 0.79 Objective - Vital Signs Vital signs: Vital Signs Temp 97.7 F 10/28/23 06:50 Pulse 70 10/28/23 06:50 Resp 17 10/28/23 06:50 BP 143/63 10/28/23 06:50 Pulse Ox 96 10/28/23 06:50 FiO2 Intake & Output 10/27/23 10/28/23 10/28/23 18:59 06:59 18:59 Weight 75.296 kg 75.296 kg 75.296 kg Other: # Voids 2 - Exam GENERAL DESCRIPTION: An elderly male lying in bed in no distress RESPIRATORY SYSTEM: Unlabored breathing , decreased breath sounds at bases HEART: S1 S2 regular rate and rhythm , ABDOMEN: Soft , no tenderness EXTREMITIES: Right second and third toe with necrotic changes redness to the foot slightly decreased no drainage - Labs CBC & Chem 7: 10/27/23 08:58 10/28/23 05:47 Labs: Abnormal Lab Results - Last 24 Hours (Table) 10/27/23 Range/Units 08:58 ESR 28 H (0-20) mm/Hr Assessment and Plan (1) Cellulitis of right foot Current Visit: Yes Status: Acute Code(s): L03.115 - CELLULITIS OF RIGHT LOWER LIMB SNOMED Code(s): 68567684282335169 (2) Gangrene of toe of right foot Current Visit: Yes Status: Acute Code(s): I96 - GANGRENE, NOT ELSEWHERE CLASSIFIED SNOMED Code(s): 50409520315795577 Plan: 1patient presented to hospital with increasing pain swelling redness and some discoloration to the right third and fourth toe concerning for gangrene and cellulitis, recently has been on oral Augmentin failing outpatient oral antibiotic therapy 2patient currently waiting for amputation of his right second and third toe, patient to continue the vancomycin and Unasyn, monitor clinical course closely Dictation was produced using [employer] dictation software. please excuse any grammatical, word or spelling errors. Time with Patient: Less than 30
--- NOTE | 2023-10-28 14:22 | P.PN ---
Subjective Progress Note Date: 10/28/23 Principal diagnosis: Gangrene fourth and third toes right foot. Patient was scheduled for surgery today Objective - Vital Signs Vital signs: Vital Signs Temp 97.7 F 10/28/23 06:50 Pulse 70 10/28/23 06:50 Resp 17 10/28/23 06:50 BP 143/63 10/28/23 06:50 Pulse Ox 96 10/28/23 06:50 FiO2 Intake & Output 10/27/23 10/28/23 10/28/23 18:59 06:59 18:59 Weight 75.296 kg 75.296 kg 75.296 kg Other: # Voids 2 - Labs CBC & Chem 7: 10/27/23 08:58 10/28/23 05:47 Labs: Abnormal Lab Results - Last 24 Hours (Table) 10/27/23 Range/Units 08:58 ESR 28 H (0-20) mm/Hr Assessment and Plan Assessment: Gangrene fourth and third toes right foot. Plan: Due to unavailability of the operating room patient's surgery has been postponed until tomorrow October 28. Patient and family informed. All questions were answered. Time with Patient: Less than 30
[2023-10-28 17:29] LABS: INR 1.57 sec (0.93-1.11); Prothrombin Time 16.5 sec (9.9-11.9)
[2023-10-29] MEDS ORDERED: ePHEDrine 50 MG/ML 1 ML VIAL ONE (07:00)
[2023-10-29] MEDS ORDERED: fentaNYL (PF) 50 MCG/ML 2 ML AMP ONE (07:00)
[2023-10-29] MEDS ORDERED: PROPOFOL 10 MG/ML 20 ML VIAL IV ONE (07:00)
[2023-10-29] MEDS ORDERED: ONDANSETRON 4 MG/2 ML VIAL ONE (07:00)
[2023-10-29] MEDS ORDERED: LIDOCAINE 1% INJ 10MG/ML (20 ML MDV) ONE (07:00)
[2023-10-29] MEDS: IV FLUID CONTINUATION 200 ML IV ONE (07:00)
[2023-10-29] MEDS: LIDOCAINE 1% INJ 10MG/ML (20 ML MDV) SQ ONE ×2 (07:20)
[2023-10-29] MEDS: LACTATED RINGERS 1,000 ML IV ONE (07:42)
--- NOTE | 2023-10-29 07:55 | P.OP ---
Date of Procedure: 10/29/23 Preoperative Diagnosis: Gangrene third and fourth toes right foot. Postoperative Diagnosis: Same. Procedure(s) Performed: Amputation third and fourth toes right foot. Anesthesia: GETA (VM LMA with 1% Xylocaine additionally administered at the surgical site.) Surgeon: Shaan York Estimated Blood Loss (ml): 2 Urine output (ml): 0 Pathology: other (Amputated third and fourth toes right foot) Condition: stable Disposition: no change Indications for Procedure: Patient is a 67-year-old male who presented with reversible ischemic changes of the third and fourth toe right foot. Patient has normal arterial perfusion of the right foot and is felt the wounds would heal without any need for revascularization. Description of Procedure: Patient was brought to the operating placed in the supine position administered general inhalational anesthesia administered by the department of anesthesiology. Patient's right foot was sterilely prepped and draped in usual manner. 1% Xylocaine was utilized for local anesthesia of the tissues about the base of the third and fourth toes of the right foot. A cup incision was made near the base of the fourth toe. Incision was deepened through the subcutaneous tissues. The bone was then transected with a bone cutter and a rongeur was utilized to take the bone more proximally. A similar procedure was performed on the third toe. Both wounds were then irrigated with saline solution and closed with 4-0 nylon placed in vertical mattress form. Appropriate dressing was then applied. Patient tolerated the procedure well and was taken to the recovery area in satisfactory and stable condition.
--- NOTE | 2023-10-29 09:27 | P.PN ---
Subjective Progress Note Date: 10/29/23 Femi Case, is a 67-year-old male who presented to [facility] emergency room with a chief complaint of right foot swelling pain and erythema patient was recently discharged from [facility], he was admitted with similar symptoms and what was diagnosed with gangrene to the right dose, patient received IV antibiotic and was discharged home however he continued to have worsening pain, and swelling he was reevaluated by vascular surgery and decision was made to proceed with toe amputation, he was sent to emergency room for admission. 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 On review of systems patient is complaining of severe pain in the right foot otherwise he denies any complaints there is no fever or chills no headache or dizziness no chest pain no shortness of breath no cough no nausea or vomiting no abdominal pain no diarrhea and no urinary symptoms. On 10/28/2023 patient was seen and examined on the medical floor he is alert and oriented 3 in no apparent distress he is still complaining of pain in his right foot otherwise he denies any complaints he is scheduled for toe amputation this morning. Patient denies any fever or chills no headache or dizziness no chest pain no shortness of breath no cough no nausea or vomiting no abdominal pain no diarrhea and no urinary symptoms On 10/29/2023 patient was seen and examined on the medical floor he is alert and oriented 3 in no apparent distress there is no fever or chills no headache or dizziness no chest pain no shortness of breath no cough no nausea or vomiting no abdominal pain no diarrhea and no urinary symptoms, patient is scheduled for surgery today, will resume Coumadin, and Plavix post surgery. Objective - Vital Signs Vital signs: Vital Signs Temp 98.4 F 10/29/23 02:42 Pulse 50 L 10/29/23 02:42 Resp 20 10/29/23 02:42 BP 128/64 10/29/23 02:42 Pulse Ox 94 L 10/29/23 02:42 FiO2 Intake & Output 10/28/23 10/29/23 10/29/23 18:59 06:59 18:59 Intake Total 900 Balance 900 Weight 75.296 kg Intake: Oral 900 Other: Voiding Method Toilet # Voids 3 4 - Exam In general patient is alert and oriented x 3 in no distress HEENT head normocephalic and atraumatic Neck is supple no JVD no goiter no lymphadenopathy no carotid bruit Chest examination is clear to auscultation no crackles no wheezing Cardiac exam reveals regular heart sounds S1 and S2 no gallops no murmurs Abdomen is soft nontender no organomegaly with normal bowel sounds Extremity exam reveals no edema no cyanosis or clubbing Neurological examination reveals no gross focal deficits - Labs CBC & Chem 7: 10/27/23 08:58 10/28/23 05:47 Labs: Abnormal Lab Results - Last 24 Hours (Table) 10/28/23 Range/Units 05:47 PT 16.5 H (9.9-11.9) sec INR 1.57 H (0.93-1.11) sec Microbiology - Last 24 Hours (Table) 10/27/23 08:50 Blood Culture - Preliminary Blood 10/27/23 09:05 Blood Culture - Preliminary Blood Assessment and Plan Plan: Right foot gangrene Underlying history of peripheral vascular disease Underlying 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
[2023-10-29] MEDS: ENOXAPARIN 40 MG/0.4 ML SYRINGE SQ STA (11:28)
[2023-10-29] MEDS: CLOPIDOGREL 75 MG TAB PO SCH (11:28)
--- NOTE | 2023-10-29 12:06 | P.PN ---
Subjective Progress Note Date: 10/29/23 Principal diagnosis: Right second and third toe gangrene and cellulitis Patient is a 67-year-old male with a past medical history significant for DVT hyperlipidemia, history of previous right fifth toe amputation because of trauma, presenting to the hospital with worsening pain and discomfort to his right second and third toe ischemia with cellulitis.Patient is status post amputation of the right third and fourth toe completed on 10/29/2023. On today's evaluation that is 10/29/2023, the patient continues to be afebrile, the patient is on room air and breathing comfortably, the Pt denies having any chest pain or cough, the patient denies having any abdominal pain no vomiting or any diarrhea has been reported by the nursing staff, pain to the right foot slightly decreased in intensity. No new labs has been repeated today blood cultures pending Objective - Vital Signs Vital signs: Vital Signs Temp 97.6 F 10/29/23 07:45 Pulse 76 10/29/23 08:15 Resp 16 10/29/23 08:15 BP 117/50 10/29/23 08:15 Pulse Ox 94 L 10/29/23 08:15 FiO2 Intake & Output 10/28/23 10/29/23 10/29/23 18:59 06:59 18:59 Intake Total 900 350 Output Total 5 Balance 900 345 Weight 75.296 kg Intake: IV 350 Oral 900 Output: Estimated Blood Loss 5 Other: Voiding Method Toilet # Voids 3 4 - Exam GENERAL DESCRIPTION: An elderly male lying in bed in no distress RESPIRATORY SYSTEM: Unlabored breathing , decreased breath sounds at bases HEART: S1 S2 regular rate and rhythm , ABDOMEN: Soft , no tenderness EXTREMITIES: Right foot is currently dressed in OR dressing - Labs CBC & Chem 7: 10/27/23 08:58 10/28/23 05:47 Labs: Abnormal Lab Results - Last 24 Hours (Table) 10/28/23 Range/Units 05:47 PT 16.5 H (9.9-11.9) sec INR 1.57 H (0.93-1.11) sec Microbiology - Last 24 Hours (Table) 10/27/23 08:50 Blood Culture - Preliminary Blood 10/27/23 09:05 Blood Culture - Preliminary Blood Assessment and Plan (1) Cellulitis of right foot Current Visit: Yes Status: Acute Code(s): L03.115 - CELLULITIS OF RIGHT LOWER LIMB SNOMED Code(s): 82072072358859973 (2) Gangrene of toe of right foot Current Visit: Yes Status: Acute Code(s): I96 - GANGRENE, NOT ELSEWHERE CLASSIFIED SNOMED Code(s): 06557015803662545 Plan: 1patient presented to hospital with increasing pain swelling redness and some discoloration to the right third and fourth toe concerning for gangrene and cellulitis, recently has been on oral Augmentin failing outpatient oral antibiotic therapy 2patient is status post amputation of his right second and third toe, patient to continue the vancomycin and Unasyn, and continue supportive care Dictation was produced using [employer] dictation software. please excuse any gr ammatical, word or spelling errors. Time with Patient: Less than 30
[2023-10-29 12:44] LABS: Basophils % (A) 0 %; Eosinophils # (A) 0.2 k/uL (0-0.7); Eosinophils % (A) 4 %; HCT 37.5 % (39.0-53.0); HGB 12.4 gm/dL (13.0-17.5); Lymphocytes # (A) 0.7 k/uL (1.0-4.8); Lymphocytes % (A) 14 %; MCH 32.6 pg (25.0-35.0); MCV 98.7 fL (80.0-100.0); Mean Platelet Volume 8.2; Monocytes # (A) 0.3 k/uL (0-1.0); Monocytes % (A) 5 %; Neutrophils # (A) 4.2 k/uL (1.3-7.7); Neutrophils % (A) 77 %; Platelet Count 147 k/uL (150-450); RDW 13.7 % (11.5-15.5); WBC 5.4 k/uL (3.8-10.6)
[2023-10-29] MEDS: VANCOMYCIN TROUGH DUE 1 EACH MISC MISCELLANE ONE (13:03)
[2023-10-29 13:11] LABS: ALT 31 U/L (4-49); AST 29 U/L (17-59); African American GFR (CKD) >90 (>60 ml/min/1.73 sqM); Albumin 3.2 g/dL (3.5-5.0); Albumin/Globulin Ratio 1.2; Alkaline Phosphatase 57 U/L (38-126); Anion Gap 2 mmol/L; Blood Urea Nitrogen 12 mg/dL (9-20); Calcium 8.4 mg/dL (8.4-10.2); Carbon Dioxide 26 mmol/L (22-30); Chloride 109 mmol/L (98-107); Globulin 2.6 g/dL; Glucose 104 mg/dL (74-99); Non-African American GFR(CKD) >90 (>60 ml/min/1.73 sqM); Potassium 4.2 mmol/L (3.5-5.1); Sodium 137 mmol/L (137-145); Total Bilirubin 0.5 mg/dL (0.2-1.3); Total Protein 5.8 g/dL (6.3-8.2)
[2023-10-29] MEDS: WARFARIN 2 MG TAB PO SCH (18:34)
[2023-10-29] MEDS: WARFARIN 5 MG TAB PO SCH (18:38)
[2023-10-30 07:48] LABS: INR 1.3 (<1.2); Prothrombin Time 13.9 sec (10.0-12.5)
[2023-10-30 08:05] LABS: African American GFR (CKD) >90 (>60 ml/min/1.73 sqM); Non-African American GFR(CKD) >90 (>60 ml/min/1.73 sqM)
[2023-10-30] MEDS: HYDROmorphone 0.5 MG/0.5 ML SYRINGE IVP PRN (09:33)
[2023-10-30] MEDS: ENOXAPARIN 80 MG/0.8 ML SYRINGE SQ SCH (11:28)
--- NOTE | 2023-10-30 11:57 | P.PN ---
Subjective Progress Note Date: 10/30/23 Principal diagnosis: Gangrene toes Patient is postop day #1 for amputation of third and fourth toes on right foot. Patient states pain has been well-managed. He denies any fevers or chills. Infectious disease was consulted by primary medical team and is currently on IV vancomycin. He has been afebrile. Objective - Vital Signs Vital signs: Vital Signs Temp 98.1 F 10/30/23 07:44 Pulse 68 10/30/23 07:44 Resp 18 10/30/23 07:44 BP 145/72 10/30/23 07:44 Pulse Ox 91 L 10/30/23 07:44 FiO2 Intake & Output 10/29/23 10/30/23 10/30/23 18:59 06:59 18:59 Intake Total 350 1200 Output Total 605 Balance -255 1200 Intake: IV 350 Oral 1200 Output: Urine 600 Estimated Blood Loss 5 Other: Voiding Method Toilet # Voids 3,500 - Exam General appearance: The patient is alert, oriented, appears in no acute distress. HET: Head is normocephalic and atraumatic. Pupils are equal and reactive. Neck: Supple. Heart: Regular. Lungs: Equal expansion, normal respiratory effort. Abdomen: Soft, nontender, nondistended. Extremities: Right foot cellulitis improved, third and fourth toe amputation site well-approximated with sutures. Dressings changed with Adaptic 4 x 4 and Kerlix. Neurological: No focal deficits. Strength and sensation are grossly intact. - Labs CBC & Chem 7: 10/29/23 12:22 10/30/23 06:36 Labs: Abnormal Lab Results - Last 24 Hours (Table) 10/29/23 10/29/23 10/30/23 Range/Units 12:22 12:22 06:36 RBC 3.80 L (4.30-5.90) m/uL Hgb 12.4 L (13.0-17.5) gm/dL Hct 37.5 L (39.0-53.0) % Plt Count 147 L (150-450) k/uL Lymphocytes # 0.7 L (1.0-4.8) k/uL PT 13.9 H (10.0-12.5) sec INR 1.3 H (<1.2) Chloride 109 H (98-107) mmol/L Glucose 104 H (74-99) mg/dL Total Protein 5.8 L (6.3-8.2) g/dL Albumin 3.2 L (3.5-5.0) g/dL Microbiology - Last 24 Hours (Table) 10/27/23 08:50 Blood Culture - Preliminary Blood 10/27/23 09:05 Blood Culture - Preliminary Blood Assessment and Plan Assessment: 1. Gangrene right third and fourth toes status post amputation 2. History of factor V Leiden on Coumadin 3. Previous fifth toe amputation Plan: 1. May resume Coumadin and Plavix 2. Daily dressing change with Adaptic, 4 x 4 and wrapped with Kerlix secured by tape 3. Postop shoe ordered, heel walk only on right foot. Offload weight to forefoot. 4. Physical therapy on consult 5. Patient is cleared from vascular surgery for discharge. Follow-up with Dr. York. Thank you for this consultation, we will continue to follow. The impression and plan of care has been dictated as directed. I performed a history and examination of this patient, discussed the same with the dictator. I agree with the dictator's note ,documented as a scribe. Any additional findings or plans will be noted.
--- NOTE | 2023-10-30 15:58 | P.PN ---
Subjective Progress Note Date: 10/30/23 Femi Case, is a 67-year-old male who presented to [facility] emergency room with a chief complaint of right foot swelling pain and erythema patient was recently discharged from [facility], he was admitted with similar symptoms and what was diagnosed with gangrene to the right dose, patient received IV antibiotic and was discharged home however he continued to have worsening pain, and swelling he was reevaluated by vascular surgery and decision was made to proceed with toe amputation, he was sent to emergency room for admission. 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 On review of systems patient is complaining of severe pain in the right foot otherwise he denies any complaints there is no fever or chills no headache or dizziness no chest pain no shortness of breath no cough no nausea or vomiting no abdominal pain no diarrhea and no urinary symptoms. On 10/28/2023 patient was seen and examined on the medical floor he is alert and oriented 3 in no apparent distress he is still complaining of pain in his right foot otherwise he denies any complaints he is scheduled for toe amputation this morning. Patient denies any fever or chills no headache or dizziness no chest pain no shortness of breath no cough no nausea or vomiting no abdominal pain no diarrhea and no urinary symptoms On 10/29/2023 patient was seen and examined on the medical floor he is alert and oriented 3 in no apparent distress there is no fever or chills no headache or dizziness no chest pain no shortness of breath no cough no nausea or vomiting no abdominal pain no diarrhea and no urinary symptoms, patient is scheduled for surgery today, will resume Coumadin, and Plavix post surgery. On 10/30/2023 patient was seen and examined on the medical floor, he is alert and oriented 3 in no apparent distress, he is still complaining of severe pain in his foot otherwise he denies any complaints, there is no fever or chills no headache or dizziness, no chest pain no shortness of breath no cough, no nausea or vomiting no abdominal pain no diarrhea and no urinary symptoms his INR is lower today at 1.3, he received Coumadin 7 mg yesterday, will continue was Coumadin 7 mg daily, will add Lovenox 80 mg subcu twice a day until his INR is therapeutic. Objective - Vital Signs Vital signs: Vital Signs Temp 97.9 F 10/30/23 02:46 Pulse 65 10/30/23 02:46 Resp 20 10/30/23 02:46 BP 122/59 10/30/23 02:46 Pulse Ox 96 10/30/23 02:46 FiO2 Intake & Output 10/29/23 10/30/23 10/30/23 18:59 06:59 18:59 Intake Total 350 1200 Output Total 605 Balance -255 1200 Intake: IV 350 Oral 1200 Output: Urine 600 Estimated Blood Loss 5 Other: Voiding Method Toilet # Voids 3,500 - Exam In general patient is alert and oriented x 3 in no distress HEENT head normocephalic and atraumatic Neck is supple no JVD no goiter no lymphadenopathy no carotid bruit Chest examination is clear to auscultation no crackles no wheezing Cardiac exam reveals regular heart sounds S1 and S2 no gallops no murmurs Abdomen is soft nontender no organomegaly with normal bowel sounds Extremity exam reveals no edema no cyanosis or clubbing Neurological examination reveals no gross focal deficits - Labs CBC & Chem 7: 10/29/23 12:22 10/30/23 06:36 Labs: Abnormal Lab Results - Last 24 Hours (Table) 10/29/23 10/29/23 Range/Units 12:22 12:22 RBC 3.80 L (4.30-5.90) m/uL Hgb 12.4 L (13.0-17.5) gm/dL Hct 37.5 L (39.0-53.0) % Plt Count 147 L (150-450) k/uL Lymphocytes # 0.7 L (1.0-4.8) k/uL Chloride 109 H (98-107) mmol/L Glucose 104 H (74-99) mg/dL Total Protein 5.8 L (6.3-8.2) g/dL Albumin 3.2 L (3.5-5.0) g/dL Microbiology - Last 24 Hours (Table) 10/27/23 08:50 Blood Culture - Preliminary Blood 10/27/23 09:05 Blood Culture - Preliminary Blood Assessment and Plan Plan: Right foot gangrene Underlying history of peripheral vascular disease Underlying 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
[2023-10-31 06:38] LABS: INR 1.3 (<1.2); Prothrombin Time 13.6 sec (10.0-12.5)
[2023-10-31 08:47] LABS: HCT 36.8 % (39.6-50.0); HGB 12.1 g/dL (13.0-17.0); MCH 31.7 pg (27.0-32.0); MCHC 32.9 g/dL (32.0-37.0); MCV 96.3 FL (80.0-97.0); Mean Platelet Volume 10.9 FL (9.5-12.2); NRBC Per 100 WBC 0 X 10*3/uL (0.00-0.01); Platelet Count 150 X 10*3/uL (140-440); RBC 3.82 X 10*6/uL (4.40-5.60); RDW 13.8 % (11.5-14.5); WBC 3.31 X 10*3/uL (4.50-10.00)
[2023-10-31 08:48] LABS: Basophils # (A) 0.02 X 10*3/uL (0.00-0.10); Basophils % (A) 0.6 %; Eosinophils # (A) 0.27 X 10*3/uL (0.04-0.35); Eosinophils % (A) 8.2 %; Lymphocytes % (A) 24.2 %; Monocytes # (A) 0.27 X 10*3/uL (0.20-1.00); Monocytes % (A) 8.2 %; Neutrophils # (A) 1.94 X 10*3/uL (1.80-7.70); Neutrophils % (A) 58.5 %
[2023-10-31 09:09] LABS: ALT 25 U/L (10-49); AST 20 U/L (14-35); Albumin 3.6 g/dL (3.8-4.9); Albumin/Globulin Ratio 1.57 Ratio (1.60-3.17); Alkaline Phosphatase 62 U/L (41-126); Blood Urea Nitrogen 8.4 mg/dL (9.0-27.0); Calcium 8.5 mg/dL (8.7-10.3); Carbon Dioxide 24.9 mmol/L (21.6-31.8); Chloride 108 mmol/L (96-109); Globulin 2.3 g/dL (1.6-3.3); Glucose 101 mg/dL (70-110); Potassium 3.6 mmol/L (3.5-5.5); Sodium 142 mmol/L (135-145); Total Bilirubin 0.4 mg/dL (0.3-1.2); Total Protein 5.9 g/dL (6.2-8.2)
--- NOTE | 2023-10-31 09:25 | P.PN ---
Subjective Progress Note Date: 10/31/23 Principal diagnosis: Gangrene toes Patient is seen and examined today as a follow-up. States still has pain in his foot and toes, comes and goes. It is well-controlled with pain medication. He has been up and ambulating. Postop shoe was ordered yesterday along with physical therapy. No acute changes through the night. He is afebrile. Blood cultures with no growth. Objective - Vital Signs Vital signs: Vital Signs Temp 98.0 F 10/30/23 21:10 Pulse 60 10/31/23 02:29 Resp 13 10/30/23 21:10 BP 135/65 10/31/23 02:29 Pulse Ox 98 10/31/23 02:29 FiO2 Intake & Output 10/30/23 10/31/23 10/31/23 18:59 06:59 18:59 Other: # Voids 7 4 # Bowel Movements 1 - Exam General appearance: The patient is alert, oriented, appears in no acute distress. HET: Head is normocephalic and atraumatic. Pupils are equal and reactive. Neck: Supple. Extremities: Right foot with dressing clean dry and intact. Neurological: No focal deficits. Strength and sensation are grossly intact. - Labs CBC & Chem 7: 10/31/23 05:16 10/31/23 05:16 Labs: Abnormal Lab Results - Last 24 Hours (Table) 10/31/23 Range/Units 05:16 PT 13.6 H (10.0-12.5) sec INR 1.3 H (<1.2) Microbiology - Last 24 Hours (Table) 10/27/23 08:50 Blood Culture - Preliminary Blood 10/27/23 09:05 Blood Culture - Preliminary Blood Assessment and Plan Assessment: 1. Gangrene right third and fourth toes status post amputation 2. History of factor V Leiden on Coumadin 3. Previous fifth toe amputation Plan: 1. May resume Coumadin and Plavix 2. Daily dressing change with Adaptic, 4 x 4 and wrapped with Kerlix secured by tape 3. Postop shoe ordered, heel walk only on right foot. Offload weight to forefoot. 4. Physical therapy on consult 5. Patient is cleared from vascular surgery for discharge. Follow-up with Dr. York. Thank you for this consultation, we will sign off at this time. The impression and plan of care has been dictated as directed. I performed a history and examination of this patient, discussed the same with the dictator. I agree with the dictator's note ,documented as a scribe. Any additional findings or plans will be noted.
--- NOTE | 2023-10-31 09:26 | P.PN ---
Subjective Progress Note Date: 10/31/23 Femi Case, is a 67-year-old male who presented to [facility] emergency room with a chief complaint of right foot swelling pain and erythema patient was recently discharged from [facility], he was admitted with similar symptoms and what was diagnosed with gangrene to the right dose, patient received IV antibiotic and was discharged home however he continued to have worsening pain, and swelling he was reevaluated by vascular surgery and decision was made to proceed with toe amputation, he was sent to emergency room for admission. 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 On review of systems patient is complaining of severe pain in the right foot otherwise he denies any complaints there is no fever or chills no headache or dizziness no chest pain no shortness of breath no cough no nausea or vomiting no abdominal pain no diarrhea and no urinary symptoms. On 10/28/2023 patient was seen and examined on the medical floor he is alert and oriented 3 in no apparent distress he is still complaining of pain in his right foot otherwise he denies any complaints he is scheduled for toe amputation this morning. Patient denies any fever or chills no headache or dizziness no chest pain no shortness of breath no cough no nausea or vomiting no abdominal pain no diarrhea and no urinary symptoms On 10/29/2023 patient was seen and examined on the medical floor he is alert and oriented 3 in no apparent distress there is no fever or chills no headache or dizziness no chest pain no shortness of breath no cough no nausea or vomiting no abdominal pain no diarrhea and no urinary symptoms, patient is scheduled for surgery today, will resume Coumadin, and Plavix post surgery. On 10/30/2023 patient was seen and examined on the medical floor, he is alert and oriented 3 in no apparent distress, he is still complaining of severe pain in his foot otherwise he denies any complaints, there is no fever or chills no headache or dizziness, no chest pain no shortness of breath no cough, no nausea or vomiting no abdominal pain no diarrhea and no urinary symptoms his INR is lower today at 1.3, he received Coumadin 7 mg yesterday, will continue was Coumadin 7 mg daily, will add Lovenox 80 mg subcu twice a day until his INR is therapeutic. On 10/31/2023 patient's alert and oriented 3. Patient has been complaining of some nerve discomfort to right foot. INR remains low at 1.3 patient remains on bridging Lovenox. Patient remains on IV antibiotics vancomycin and Unasyn. Current vital signs temp 97.9, heart rate 60, blood pressure 135/65 pulse is 90% on room air Objective - Vital Signs Vital signs: Vital Signs Temp 97.9 F 10/31/23 08:00 Pulse 50 L 10/31/23 08:00 Resp 16 10/31/23 08:00 BP 162/68 10/31/23 08:00 Pulse Ox 96 10/31/23 08:00 FiO2 Intake & Output 10/30/23 10/31/23 10/31/23 18:59 06:59 18:59 Other: # Voids 7 4 # Bowel Movements 1 - Exam In general patient is alert and oriented x 3 in no distress HEENT head normocephalic and atraumatic Neck is supple no JVD no goiter no lymphadenopathy no carotid bruit Chest examination is clear to auscultation no crackles no wheezing Cardiac exam reveals regular heart sounds S1 and S2 no gallops no murmurs Abdomen is soft nontender no organomegaly with normal bowel sounds Extremity exam reveals no edema no cyanosis or clubbing Neurological examination reveals no gross focal deficits - Labs CBC & Chem 7: 10/31/23 05:16 10/31/23 05:16 Labs: Abnormal Lab Results - Last 24 Hours (Table) 10/31/23 10/31/23 10/31/23 Range/Units 05:16 05:16 05:16 WBC 3.31 L (4.50-10.00) X 10*3/uL RBC 3.82 L (4.40-5.60) X 10*6/uL Hgb 12.1 L (13.0-17.0) g/dL Hct 36.8 L (39.6-50.0) % Lymphocytes # 0.80 L (0.90-5.00) X 10*3/uL PT 13.6 H (10.0-12.5) sec INR 1.3 H (<1.2) BUN 8.4 L (9.0-27.0) mg/dL Calcium 8.5 L (8.7-10.3) mg/dL Total Protein 5.9 L (6.2-8.2) g/dL Albumin 3.6 L (3.8-4.9) g/dL Albumin/Globulin Ratio 1.57 L (1.60-3.17) Ratio Microbiology - Last 24 Hours (Table) 10/27/23 08:50 Blood Culture - Preliminary Blood 10/27/23 09:05 Blood Culture - Preliminary Blood Assessment and Plan Plan: Right foot gangrene Underlying history of peripheral vascular disease Underlying 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
[2023-10-31] MEDS: VANCOMYCIN TROUGH DUE 1 EACH MISC MISCELLANE ONE (11:59)
--- NOTE | 2023-10-31 15:08 | P.PN ---
Subjective Progress Note Date: 10/30/23 Principal diagnosis: Right second and third toe gangrene and cellulitis Patient is a 67-year-old male with a past medical history significant for DVT hyperlipidemia, history of previous right fifth toe amputation because of trauma, presenting to the hospital with worsening pain and discomfort to his right second and third toe ischemia with cellulitis.Patient is status post amputation of the right third and fourth toe completed on 10/29/2023. On today's evaluation that is 10/30/2023, Patient is afebrile patient is currently on room air and denies having any shortness of breath, the patient denies any chest pain or cough, the patient denies any nausea vomiting did not have any abdominal pain and no diarrhea, pain to the right foot to amputation site controlled with the pain medication. Patient did have INR 1.3, creatinine 0.68 blood culture negative Objective - Vital Signs Vital signs: Vital Signs Temp 98.1 F 10/30/23 07:44 Pulse 68 10/30/23 07:44 Resp 18 10/30/23 07:44 BP 145/72 10/30/23 07:44 Pulse Ox 91 L 10/30/23 07:44 FiO2 Intake & Output 10/29/23 10/30/23 10/30/23 18:59 06:59 18:59 Intake Total 350 1200 Output Total 605 Balance -255 1200 Intake: IV 350 Oral 1200 Output: Urine 600 Estimated Blood Loss 5 Other: Voiding Method Toilet # Voids 3,500 - Exam GENERAL DESCRIPTION: An elderly male lying in bed in no distress RESPIRATORY SYSTEM: Unlabored breathing , decreased breath sounds at bases HEART: S1 S2 regular rate and rhythm , ABDOMEN: Soft , no tenderness EXTREMITIES: Right foot is currently dressed in OR dressing - Labs CBC & Chem 7: 10/31/23 05:16 10/31/23 05:16 Labs: Abnormal Lab Results - Last 24 Hours (Table) 10/29/23 10/29/23 10/30/23 Range/Units 12:22 12:22 06:36 RBC 3.80 L (4.30-5.90) m/uL Hgb 12.4 L (13.0-17.5) gm/dL Hct 37.5 L (39.0-53.0) % Plt Count 147 L (150-450) k/uL Lymphocytes # 0.7 L (1.0-4.8) k/uL PT 13.9 H (10.0-12.5) sec INR 1.3 H (<1.2) Chloride 109 H (98-107) mmol/L Glucose 104 H (74-99) mg/dL Total Protein 5.8 L (6.3-8.2) g/dL Albumin 3.2 L (3.5-5.0) g/dL Microbiology - Last 24 Hours (Table) 10/27/23 08:50 Blood Culture - Preliminary Blood 10/27/23 09:05 Blood Culture - Preliminary Blood Assessment and Plan (1) Cellulitis of right foot Current Visit: Yes Status: Acute Code(s): L03.115 - CELLULITIS OF RIGHT LOWER LIMB SNOMED Code(s): 16028881006849679 (2) Gangrene of toe of right foot Current Visit: Yes Status: Acute Code(s): I96 - GANGRENE, NOT ELSEWHERE CLASSIFIED SNOMED Code(s): 06970581895677961 Plan: 1patient presented to hospital with increasing pain swelling redness and some discoloration to the right third and fourth toe concerning for gangrene and cellulitis, recently has been on oral Augmentin failing outpatient oral antibiotic therapy 2patient is status post amputation of his right second and third toe, patient to continue the vancomycin and Unasyn, and plan is for oral antibiotics on discharge Dictation was produced using [employer] dictation software. please excuse any grammatical, word or spelling errors. Time with Patient: Less than 30
--- NOTE | 2023-10-31 15:09 | P.PN ---
Subjective Progress Note Date: 10/31/23 Principal diagnosis: Right second and third toe gangrene and cellulitis Patient is a 67-year-old male with a past medical history significant for DVT hyperlipidemia, history of previous right fifth toe amputation because of trauma, presenting to the hospital with worsening pain and discomfort to his right second and third toe ischemia with cellulitis.Patient is status post amputation of the right third and fourth toe completed on 10/29/2023. On today's evaluation that is 10/31/2023,the patient denies any fever or any chills, patient is breathing comfortably on room air, the patient denies chest pain shortness of breath and no significant cough, patient denies abdominal pain, no nausea vomiting or diarrhea, the patient pain to the right foot to amputation site has decreased in intensity. Patient did have white count of 3.31, INR is 1.3 creatinine 0.7 Vanco trough low at 11.8 Objective - Vital Signs Vital signs: Vital Signs Temp 97.6 F 10/31/23 13:59 Pulse 67 10/31/23 13:59 Resp 18 10/31/23 13:59 BP 158/62 10/31/23 13:59 Pulse Ox 97 10/31/23 13:59 FiO2 Intake & Output 10/30/23 10/31/23 10/31/23 18:59 06:59 18:59 Other: # Voids 7 4 # Bowel Movements 1 - Exam GENERAL DESCRIPTION: An elderly male lying in bed in no distress RESPIRATORY SYSTEM: Unlabored breathing , decreased breath sounds at bases HEART: S1 S2 regular rate and rhythm , ABDOMEN: Soft , no tenderness EXTREMITIES: Right foot is currently dressed in OR dressing - Labs CBC & Chem 7: 10/31/23 05:16 10/31/23 05:16 Labs: Abnormal Lab Results - Last 24 Hours (Table) 10/31/23 10/31/23 10/31/23 Range/Units 05:16 05:16 05:16 WBC 3.31 L (4.50-10.00) X 10*3/uL RBC 3.82 L (4.40-5.60) X 10*6/uL Hgb 12.1 L (13.0-17.0) g/dL Hct 36.8 L (39.6-50.0) % Lymphocytes # 0.80 L (0.90-5.00) X 10*3/uL PT 13.6 H (10.0-12.5) sec INR 1.3 H (<1.2) BUN 8.4 L (9.0-27.0) mg/dL Calcium 8.5 L (8.7-10.3) mg/dL Total Protein 5.9 L (6.2-8.2) g/dL Albumin 3.6 L (3.8-4.9) g/dL Albumin/Globulin Ratio 1.57 L (1.60-3.17) Ratio Microbiology - Last 24 Hours (Table) 10/27/23 08:50 Blood Culture - Preliminary Blood 10/27/23 09:05 Blood Culture - Preliminary Blood Assessment and Plan (1) Cellulitis of right foot Current Visit: Yes Status: Acute Code(s): L03.115 - CELLULITIS OF RIGHT LOWER LIMB SNOMED Code(s): 03750822399558240 (2) Gangrene of toe of right foot Current Visit: Yes Status: Acute Code(s): I96 - GANGRENE, NOT ELSEWHERE CLASSIFIED SNOMED Code(s): 17523024374987582 Plan: 1patient presented to hospital with increasing pain swelling redness and some discoloration to the right third and fourth toe concerning for gangrene and cellulitis, recently has been on oral Augmentin failing outpatient oral antibiotic therapy 2patient is status post amputation of his right second and third toe, no local cultures were done and blood culture negative 3- we will continue patient on Unasyn however discontinue vancomycin as her trough has been low and will consider oral Augmentin on discharge Dictation was produced using [employer] dictation software. please excuse any grammatical, word or spelling errors. Time with Patient: Less than 30
[2023-10-31] MEDS: WARFARIN 10 MG TAB PO ONE (17:00)
[2023-10-31] MEDS ORDERED: WARFARIN 7.5 MG TAB PO SCH (18:00)
[2023-11-01 06:08] LABS: INR 1.8 (<1.2); Prothrombin Time 18.2 sec (10.0-12.5)
[2023-11-01 08:04] VITALS: BP 145/69; PULSE 56; RESP 17; TEMP 98
[2023-11-01 08:33] LABS: Basophils # (A) 0.02 X 10*3/uL (0.00-0.10); Basophils % (A) 0.5 %; Eosinophils # (A) 0.25 X 10*3/uL (0.04-0.35); Eosinophils % (A) 6.3 %; HCT 36.9 % (39.6-50.0); HGB 12.1 g/dL (13.0-17.0); Lymphocytes # (A) 0.74 X 10*3/uL (0.90-5.00); Lymphocytes % (A) 18.7 %; MCH 31.4 pg (27.0-32.0); MCHC 32.8 g/dL (32.0-37.0); MCV 95.8 FL (80.0-97.0); Mean Platelet Volume 10.7 FL (9.5-12.2); Monocytes # (A) 0.31 X 10*3/uL (0.20-1.00); Monocytes % (A) 7.8 %; NRBC Per 100 WBC 0 X 10*3/uL (0.00-0.01); Neutrophils # (A) 2.63 X 10*3/uL (1.80-7.70); Neutrophils % (A) 66.4 %; Platelet Count 151 X 10*3/uL (140-440); RBC 3.85 X 10*6/uL (4.40-5.60); RDW 13.5 % (11.5-14.5); WBC 3.96 X 10*3/uL (4.50-10.00)
[2023-11-01 08:56] LABS: ALT 25 U/L (10-49); AST 19 U/L (14-35); Albumin 3.5 g/dL (3.8-4.9); Albumin/Globulin Ratio 1.59 Ratio (1.60-3.17); Alkaline Phosphatase 60 U/L (41-126); BUN/Creat Ratio 14.38 Ratio (12.00-20.00); Blood Urea Nitrogen 11.5 mg/dL (9.0-27.0); Calcium 8.8 mg/dL (8.7-10.3); Carbon Dioxide 25.4 mmol/L (21.6-31.8); Chloride 105 mmol/L (96-109); Globulin 2.2 g/dL (1.6-3.3); Glucose 105 mg/dL (70-110); Potassium 3.7 mmol/L (3.5-5.5); Sodium 140 mmol/L (135-145); Total Bilirubin 0.4 mg/dL (0.3-1.2); Total Protein 5.7 g/dL (6.2-8.2)
[2023-11-01] MEDS: GABAPENTIN 300 MG CAP PO SCH (10:45)
--- NOTE | 2023-11-01 10:53 | P.DS ---
Providers Date of admission: 10/27/23 11:14 Expected date of discharge: 11/01/23 Attending physician: Linda Tubbs Consults: 10/27/23 10:21 Consult Physician Urgent Consulting Provider: Alhaji Darden Consult Reason/Comments: Gangrene right foot Do you want consulting provider notified?: Yes 10/27/23 13:32 Consult Physician Routine Consulting Provider: Nora Saldivar Consult Reason/Comments: toe gangrene Do you want consulting provider notified?: Yes Primary care physician: Genia Bartlett [place] Course: Discharge diagnosis Right foot gangrene Underlying history of peripheral vascular disease Underlying 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 Underlying history of hyperlipidemia Previous history of smoking Hospital course Femi Case, is a 67-year-old male who presented to [facility] emergency room with a chief complaint of right foot swelling pain and erythema patient was recently discharged from [facility], he was admitted with similar symptoms and what was diagnosed with gangrene to the right dose, patient received IV antibiotic and was discharged home however he continued to have worsening pain, and swelling he was reevaluated by vascular surgery and decision was made to proceed with toe amputation, he was sent to emergency room for admission. 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 On review of systems patient is complaining of severe pain in the right foot otherwise he denies any complaints there is no fever or chills no headache or dizziness no chest pain no shortness of breath no cough no nausea or vomiting no abdominal pain no diarrhea and no urinary symptoms. On 10/28/2023 patient was seen and examined on the medical floor he is alert and oriented 3 in no apparent distress he is still complaining of pain in his right foot otherwise he denies any complaints he is scheduled for toe amputation this morning. Patient denies any fever or chills no headache or dizziness no chest p ain no shortness of breath no cough no nausea or vomiting no abdominal pain no diarrhea and no urinary symptoms On 10/29/2023 patient was seen and examined on the medical floor he is alert and oriented 3 in no apparent distress there is no fever or chills no headache or dizziness no chest pain no shortness of breath no cough no nausea or vomiting no abdominal pain no diarrhea and no urinary symptoms, patient is scheduled for surgery today, will resume Coumadin, and Plavix post surgery. On 10/30/2023 patient was seen and examined on the medical floor, he is alert and oriented 3 in no apparent distress, he is still complaining of severe pain in his foot otherwise he denies any complaints, there is no fever or chills no headache or dizziness, no chest pain no shortness of breath no cough, no nausea or vomiting no abdominal pain no diarrhea and no urinary symptoms his INR is lower today at 1.3, he received Coumadin 7 mg yesterday, will continue was Coumadin 7 mg daily, will add Lovenox 80 mg subcu twice a day until his INR is therapeutic. On 10/31/2023 patient's alert and oriented 3. Patient has been complaining of some nerve discomfort to right foot. INR remains low at 1.3 patient remains on bridging Lovenox. Patient remains on IV antibiotics vancomycin and Unasyn. Current vital signs temp 97.9, heart rate 60, blood pressure 135/65 pulse is 90% on room air On 11/01/2023 patient's alert and oriented 3. Patient has been cleared for discharge from vascular and infectious disease standpoint. Patient will be DC'd on Tamiflu for 10 days. Patient's INR today 1.8. Patient to get dose of Coumadin 10 mg prior to discharge and bridging Lovenox. Then patient can resume home Coumadin dose no need for bridging Lovenox at home patient self monitors INR will check tomorrow. At this time patient denies chest pain or shortness of breath. Patient denies nausea vomiting or diarrhea. Patient denies any urinary burning or frequency Patient Condition at Discharge: Stable Plan - Discharge Summary Discharge Rx Participant: Yes New Discharge Prescriptions: New HYDROcodone/APAP 5-325MG [[place] 5-325] 1 each PO Q6H PRN 3 Days #12 tab PRN Reason: Pain Gabapentin [Neurontin] 300 mg PO TID 14 Days #42 cap Amoxic-Pot Clav 875-125Mg [Augmentin 875-125] 1 tab PO Q12HR 10 Days #20 tab Continue Multivitamins, Thera [Multivitamin (formulary)] 1 tab PO DAILY Clopidogrel [Plavix] 75 mg PO DAILY Ascorbic Acid [Vitamin C] 1,000 mg PO DAILY Cholecalciferol [Vitamin D3 (25 Mcg = 1000 Iu)] 25 mcg PO DAILY Sildenafil Citrate [Viagra] 100 mg PO DAILY PRN PRN Reason: e.d. Warfarin [Coumadin] 5 mg PO DAILY@1700 Warfarin [Coumadin] 2 mg PO DAILY@1700 Discontinued Acetaminophen-Codeine 300-30mg [Tylenol w/codeine #3] 1 tab PO BID PRN PRN Reason: Pain Amoxic-Pot Clav 875-125Mg [Augmentin 875-125] 1 tab PO Q12HR 10 Days #20 tab HYDROcodone/APAP 5-325MG [[place] 5-325] 1 tab PO Q4H PRN PRN Reason: Pain Discharge Medication List Ascorbic Acid [Vitamin C] 1,000 mg PO DAILY 11/01/18 [History] Clopidogrel [Plavix] 75 mg PO DAILY 11/01/18 [History] Multivitamins, Thera [Multivitamin (formulary)] 1 tab PO DAILY 11/01/18 [History] Cholecalciferol [Vitamin D3 (25 Mcg = 1000 Iu)] 25 mcg PO DAILY 09/29/20 [History] Sildenafil Citrate [Viagra] 100 mg PO DAILY PRN 10/14/23 [History] Warfarin [Coumadin] 2 mg PO DAILY@169910/14/23 [History] Warfarin [Coumadin] 5 mg PO DAILY@169910/14/23 [History] HYDROcodone/APAP 5-325MG [[place] 5-325] 1 each PO Q6H PRN 3 Days #12 tab 10/31/23 [Rx] Amoxic-Pot Clav 875-125Mg [Augmentin 875-125] 1 tab PO Q12HR 10 Days #20 tab 11/01/23 [Rx] Gabapentin [Neurontin] 300 mg PO TID 14 Days #42 cap 11/01/23 [Rx] Follow up Appointment(s)/Referral(s): Genia Bartlett MD [Primary Care Provider] - 1-2 days Shaan York DO [Doctor of Osteopathic Medicine] - 11/09/23 9:30 am (post op appointment toe amputation) Activity/Diet/Wound Care/Special Instructions: Offload weight to right forefoot, heel walk only. Wear postop shoe when ambulating Dressing change daily or as needed Adaptic, 4 x 4 and Kerlix. Discharge Disposition: HOME SELF-CARE
--- NOTE | 2023-11-01 11:25 | P.PN ---
Subjective Progress Note Date: 11/01/23 Principal diagnosis: Gangrene toes Patient seen and examined today as a follow-up. No acute changes through the night. Pain has been well-managed. Medical team following INR. Patient is eager to be discharged. Objective - Vital Signs Vital signs: Vital Signs Temp 98.0 F 11/01/23 07:47 Pulse 56 L 11/01/23 07:47 Resp 17 11/01/23 07:47 BP 145/69 11/01/23 07:47 Pulse Ox 95 11/01/23 07:47 FiO2 Intake & Output 10/31/23 11/01/23 11/01/23 18:59 06:59 18:59 Other: Voiding Method Toilet Urinal # Voids 5 4 - Exam General appearance: The patient is alert, oriented, appears in no acute distress. HET: Head is normocephalic and atraumatic. Pupils are equal and reactive. Neck: Supple. Extremities: Right foot with dressing clean dry and intact. No swelling, warm to the touch with good capillary refill. Neurological: No focal deficits. Strength and sensation are grossly intact. - Labs CBC & Chem 7: 11/01/23 05:30 11/01/23 05:30 Labs: Abnormal Lab Results - Last 24 Hours (Table) 11/01/23 11/01/23 11/01/23 Range/Units 05:30 05:30 05:30 WBC 3.96 L (4.50-10.00) X 10*3/uL RBC 3.85 L (4.40-5.60) X 10*6/uL Hgb 12.1 L (13.0-17.0) g/dL Hct 36.9 L (39.6-50.0) % Lymphocytes # 0.74 L (0.90-5.00) X 10*3/uL PT 18.2 H (10.0-12.5) sec INR 1.8 H (<1.2) Total Protein 5.7 L (6.2-8.2) g/dL Albumin 3.5 L (3.8-4.9) g/dL Albumin/Globulin Ratio 1.59 L (1.60-3.17) Ratio Assessment and Plan Assessment: 1. Gangrene right third and fourth toes status post amputation 2. History of factor V Leiden on Coumadin 3. Previous fifth toe amputation Plan: 1. May resume Coumadin and Plavix 2. Daily dressing change with Adaptic, 4 x 4 and wrapped with Kerlix secured by tape 3. Postop shoe ordered, heel walk only on right foot. Offload weight to forefoot. 4. Physical therapy on consult 5. Gabapentin added 6. Patient is cleared from vascular surgery for discharge. Follow-up with Dr. York. Thank you for this consultation, we will sign off at this time. The impression and plan of care has been dictated as directed. Dr. Smith I performed a history and examination of this patient, discussed the same with the dictator. I agree with the dictator's note ,documented as a scribe. Any additional findings or plans will be noted.
[2023-11-01] MEDS: WARFARIN 10 MG TAB PO ONE (11:37)
[2023-11-01] MEDS ORDERED: WARFARIN 3 MG TAB PO ONE (18:00)
[2023-11-01] MEDS ORDERED: WARFARIN 5 MG TAB PO ONE (18:00)
--- NOTE | 2023-11-02 16:11 | P.PN ---
Subjective Progress Note Date: 11/01/23 Principal diagnosis: Right second and third toe gangrene and cellulitis Patient is a 67-year-old male with a past medical history significant for DVT hyperlipidemia, history of previous right fifth toe amputation because of trauma, presenting to the hospital with worsening pain and discomfort to his right second and third toe ischemia with cellulitis.Patient is status post amputation of the right third and fourth toe completed on 10/29/2023. On today's evaluation that is 11/01/2023,the patient remains to be afebrile, patient is on room air not requiring supplemental oxygen and denies any shortness of breath no chest pain or cough.Patient denies having any nausea or vomiting, no abdominal pain and no diarrhea has been reported, the patient pain to the right foot toes amputation site decreased in intensity Patient did have white count of 3.96, creatinine 0.8 Objective - Vital Signs Vital signs: Vital Signs Temp 98.0 F 11/01/23 07:47 Pulse 56 L 11/01/23 07:47 Resp 17 11/01/23 07:47 BP 145/69 11/01/23 07:47 Pulse Ox 95 11/01/23 07:47 FiO2 Intake & Output 10/31/23 11/01/23 11/01/23 18:59 06:59 18:59 Other: Voiding Method Toilet Urinal # Voids 5 4 - Exam GENERAL DESCRIPTION: An elderly male lying in bed in no distress RESPIRATORY SYSTEM: Unlabored breathing , decreased breath sounds at bases HEART: S1 S2 regular rate and rhythm , ABDOMEN: Soft , no tenderness EXTREMITIES: Right foot is currently dressed in OR dressing - Labs CBC & Chem 7: 11/01/23 05:30 11/01/23 05:30 Labs: Abnormal Lab Results - Last 24 Hours (Table) 11/01/23 11/01/23 11/01/23 Range/Units 05:30 05:30 05:30 WBC 3.96 L (4.50-10.00) X 10*3/uL RBC 3.85 L (4.40-5.60) X 10*6/uL Hgb 12.1 L (13.0-17.0) g/dL Hct 36.9 L (39.6-50.0) % Lymphocytes # 0.74 L (0.90-5.00) X 10*3/uL PT 18.2 H (10.0-12.5) sec INR 1.8 H (<1.2) Total Protein 5.7 L (6.2-8.2) g/dL Albumin 3.5 L (3.8-4.9) g/dL Albumin/Globulin Ratio 1.59 L (1.60-3.17) Ratio Assessment and Plan (1) Cellulitis of right foot Status: Acute Code(s): L03.115 - CELLULITIS OF RIGHT LOWER LIMB SNOMED Code(s): 96456497444793669 (2) Gangrene of toe of right foot Status: Acute Code(s): I96 - GANGRENE, NOT ELSEWHERE CLASSIFIED SNOMED Code(s): 02094634738170701 Plan: 1patient presented to hospital with increasing pain swelling redness and some discoloration to the right third and fourth toe concerning for gangrene and cellulitis, recently has been on oral Augmentin failing outpatient oral antibiotic therapy 2patient is status post amputation of his right second and third toe, no local cultures were done and blood culture negative 3-patient slowly clinical improving and he will be able to finish therapy with a short course of oral Augmentin on discharge, discussed with [facility]OVAL[facility] for admitting team Dictation was produced using [employer] dictation software. please excuse any grammatical, word or spelling errors. Time with Patient: Less than 30
== END 2023-11-01 12:25 | disposition home or self-care (01) | DRG 256 ==
LOC: EC 08:13 → 4SSUR 11:14
PROVIDERS: ADMIT Internal Medicine; ATTEND Internal Medicine
PROC: 0Y6V0Z0 Detachment at Right 4th Toe, Complete, Open Approach (ICD-10-PCS; 2023-10-29)
PROC: 0Y6T0Z0 Detachment at Right 3rd Toe, Complete, Open Approach (ICD-10-PCS; principal; 2023-10-29 07:00)
DX: E11.52 Type 2 diabetes mellitus with diabetic peripheral angiopathy with gangrene (principal); D68.51 Activated protein C resistance; L03.115 Cellulitis of right lower limb; E78.5 Hyperlipidemia, unspecified; I10 Essential (primary) hypertension; I25.10 Atherosclerotic heart disease of native coronary artery without angina pectoris; Z79.02 Long term (current) use of antithrombotics/antiplatelets; Z79.01 Long term (current) use of anticoagulants; Z86.718 Personal history of other venous thrombosis and embolism; Z87.891 Personal history of nicotine dependence; Z89.421 Acquired absence of other right toe(s)
CPT/HCPCS: 36415; 80053; 80202; 82565; 83605; 85025; 85610; 85652; 85730; 86140; 87040; 88305; 96365; 96366; 96367; 96375; 96376; 99285

== ENCOUNTER → 2023-12-11 | Outpatient (CLI) | payer MEDICARE, BC ==
[2023-12-11 15:54] LABS: African American GFR (CKD) >90 (>60 ml/min/1.73 sqM); Blood Urea Nitrogen 16 mg/dL (9-20); Non-African American GFR(CKD) >90 (>60 ml/min/1.73 sqM)
--- NOTE | 2023-12-11 18:02 | CT ---
EXAMINATION TYPE: CT angio tho/abd W Run Off CT DLP: 2508.4 mGycm, Automated exposure control for dose reduction was used. DATE OF EXAM: 12/11/2023 5:28 PM COMPARISON: 09/29/2022. CLINICAL INDICATION:Male, 67 years old with history of I71.0 ATHEROSCLEROSIS OF AORTA; PHH, Aortic at herosclerosis, abdominal aortic repair x 3 years ago. 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 H istory of emboli. TECHNIQUE: Dissection protocol: Multiple axial CT images of the chest, abdomen, and pelvis were obtai mayank prior and to the administration of IV contrast. 3-D reformats and maximum intensity projection fo rmat were performed on a separate workstation. Contrast used:100 mL of Isovue 370 without and with IV Contrast, Oral contrast used: 1 FINDINGS: ARTERIAL VASCULATURE: Ascending thoracic aorta and descending thoracic aorta are within normal limits for size. There is no evidence for intramural hematoma within the aorta on noncontrast imaging. Ther e is scattered atherosclerotic plaque throughout the arterial vasculature. Postcontrast imaging demon strates no evidence for dissection. The major vessels of the aortic arch are patent. There are 2 mauricio l arteries bilaterally. The major vessels of the abdominal aorta are patent. Infrarenal abdominal aor tic fusiform aneurysm measuring up to 35 x 30 mm extending approximately 6.2 cm in length. Right comm on iliac artery stent graft appears patent. Saccular dilation of the internal/external iliac artery o n the left measuring up to 13 mm. PULMONARY ARTERIAL VASCULATURE: Normal caliber. No evidence of filling defect to suggest pulmonary em bolus. VENOUS SYSTEM: Unremarkable. CTA Lower extremities: Right: The common femoral and superficial femoral arteries are patent. The popliteal artery is patent . Anterior and posterior tibial arteries as well as the peroneal artery are patent. Anterior and post erior tibial arteries cross the ankle. Left: The common femoral and superficial femoral arteries are patent. The popliteal artery is patent. Anterior and posterior tibial arteries as well as the peroneal artery are patent. Anterior and poste rior tibial arteries cross the ankle. Lungs/pleura: No evidence for focal consolidation, pneumothorax or pleural effusion. There is moderat e paraseptal and centrilobular emphysema changes. Heart: Within normal limits. Mediastinum: No gross evidence of adenopathy. Lower Neck: Heterogenous multinodular goiter in the left thyroid gland. Abdomen: Liver: Simple appearing low density probable cyst. Suspected shunt phenomenon versus/filling hemangio ma near the dome in the subcapsular region of series 6 image 147. Segment 8. Gallbladder and Bile ducts: Unremarkable. Pancreas: Unremarkable. Spleen: Unremarkable. Adrenal glands: Unremarkable. Kidneys and Ureters: Bilateral simple appearing renal cysts. No hydronephrosis. Bladder: Unremarkable. Reproductive: Unremarkable. Stomach and Bowel: No evidence of bowel obstruction. Peritoneum: No evidence of pneumoperitoneum, free fluid, or adenopathy. Musculoskeletal: The osseous structures appear intact. Lymph nodes: No evidence of lymphadenopathy. Abdominal wall/soft tissues: Unremarkable. IMPRESSION: 1. No evidence for thoracic aortic dissection or occlusion. 2. Infrarenal abdominal aortic fusiform aneurysm measuring up to 35 x 30 mm extending approximately 6.2 cm in length. 3. Saccular dilation of the bifurcation of the internal and external iliac artery on the left. 4. The anterior posterior tibial arteries cross the ankle bilaterally. 5. Moderate scattered atherosclerotic disease.
== END | disposition home or self-care (01) ==
LOC: RADCTMAIN 15:03
PROVIDERS: ATTEND Internal Medicine Interventional Cardiology
DX: I71.43 Infrarenal abdominal aortic aneurysm, without rupture (principal); I70.0 Atherosclerosis of aorta; I72.3 Aneurysm of iliac artery; I70.213 Atherosclerosis of native arteries of extremities with intermittent claudication, bilateral legs; Z89.429 Acquired absence of other toe(s), unspecified side; Z98.890 Other specified postprocedural states
CPT/HCPCS: 82565; 84520; 75635; 71275; 36415; Q9967

== ENCOUNTER 2024-01-31 12:34 | Emergency (ER) | payer MEDICARE, BC ==
[2024-01-31 13:36] VITALS: RESP 18; TEMP 98.8
--- NOTE | 2024-01-31 14:02 | ED ---
Extremity Problem HPI - General Source: patient, RN notes reviewed, old records reviewed Mode of arrival: ambulatory Limitations: no limitations <Bowen Cox - Last Filed: 01/31/24 14:00> - General Source: RN notes reviewed <Melissa Jacome - Last Filed: 01/31/24 18:50> - General Chief complaint: Extremity Problem,Nontraumatic Stated complaint: Infection in R foot Time Seen by Provider: 01/31/24 17:30 - History of Present Illness Initial comments: 68 male to the ED sent by his PCP for evaluation of right foot pain and gangrene, paint and decreased blood flow. Patient has prior surgery by Dr moore, and sent by manager document Dr French. (Bowen Cox) 68-year-old male presenting to the ER with chief complaint of right foot pain. Reports he was sent by his manager document Dr. French today for concern of infection and gangrene of right foot. States he has toe 2 months ago and increasing pain right second digit since then. He reports his toe is discolored and he does not have sensation. States 4 months ago he had 2 toes amputated from same foot due to gangrene. 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 He takes warfarin 6 mg daily. Denies fever or chills (Melissa Jacome) - Related Data Home Medications Medication Instructions Recorded Confirmed Ascorbic Acid [Vitamin C] 1,000 mg PO DAILY 11/01/18 10/27/23 Clopidogrel [Plavix] 75 mg PO DAILY 11/01/18 10/27/23 Multivitamins, Thera [Multivitamin 1 tab PO DAILY 11/01/18 10/27/23 (formulary)] Cholecalciferol [Vitamin D3 (25 25 mcg PO DAILY 09/29/20 10/27/23 Mcg = 1000 Iu)] Sildenafil Citrate [Viagra] 100 mg PO DAILY PRN 10/14/23 10/27/23 Warfarin [Coumadin] 2 mg PO DAILY@1700 10/14/23 10/27/23 Warfarin [Coumadin] 5 mg PO DAILY@1700 10/14/23 10/27/23 Previous Rx's Medication Instructions Recorded HYDROcodone/APAP 5-325MG [P[place] 1 each PO Q6H PRN 3 Days #12 tab 10/31/23 5-325] Amoxic-Pot Clav 875-125Mg 1 tab PO Q12HR 10 Days #20 tab 11/01/23 [Augmentin 875-125] Gabapentin [Neurontin] 300 mg PO TID 14 Days #42 cap 11/01/23 Cephalexin [Keflex] 500 mg PO Q12HR 7 Days #14 cap 01/31/24 Allergies Allergy/AdvReac Type Severity Reaction Status Date / Time No Known Allergies Allergy Verified 10/27/23 12:46 Review of Systems ROS Other: All systems not noted in ROS Statement are negative. <Bowen Cox - Last Filed: 01/31/24 14:00> ROS Other: All systems not noted in ROS Statement are negative. <Melissa Jacome - Last Filed: 01/31/24 18:50> ROS Statement: Those systems with pertinent positive or pertinent negative responses have been documented in the HPI. Past Medical History Past Medical History: Deep Vein Thrombosis (DVT), Hyperlipidemia, Vascular Disorder Additional Past Medical History / Comment(s): states "doesn't have the proteins in my blood to prevent it from clotting is why I am taking warfarin"managed by Dr Angel Sanchez Physician [phone], (Factor V Leiden mutation) thyroid nodules History of Any Multi-Drug Resistant Organisms: None Reported Additional Past Surgical History / Comment(s): stent rt groin Aug 2018, aortogram, thyroid biopsy 2018 Past Anesthesia/Blood Transfusion Reactions: No Reported Reaction Past Psychological History: No Psychological Hx Reported Smoking Status: Former smoker Past Alcohol Use History: None Reported Past Drug Use History: None Reported - Past Family History Mother Family Medical History: No Reported History Sister(s) Family Medical History: Deep Vein Thrombosis (DVT) Father Family Medical History: Deep Vein Thrombosis (DVT) <Bowen Cox - Last Filed: 01/31/24 14:00> General Exam General appearance: alert, in no apparent distress Head exam: Present: atraumatic, normocephalic, normal inspection Eye exam: Present: normal appearance, PERRL, EOMI. Absent: scleral icterus, conjunctival injection, periorbital swelling ENT exam: Present: normal exam, mucous membranes moist Neck exam: Present: normal inspection. Absent: tenderness, meningismus, lymphad enopathy Respiratory exam: Present: normal lung sounds bilaterally. Absent: respiratory distress, wheezes, rales, rhonchi, stridor Cardiovascular Exam: Present: regular rate, normal rhythm, normal heart sounds. Absent: systolic murmur, diastolic murmur, rubs, gallop, clicks GI/Abdominal exam: Present: soft, normal bowel sounds. Absent: distended, tenderness, guarding, rebound, rigid Extremities exam: Present: normal inspection, full ROM, normal capillary refill. Absent: tenderness, pedal edema, joint swelling, calf tenderness Back exam: Present: normal inspection Neurological exam: Present: alert, oriented X3, CN II-XII intact Psychiatric exam: Present: normal affect, normal mood Skin exam: Present: warm, dry, intact, normal color. Absent: rash <Bowen Cox - Last Filed: 01/31/24 14:00> General appearance: alert, in no apparent distress Head exam: Present: atraumatic, normocephalic, normal inspection Eye exam: Present: normal appearance, PERRL, EOMI. Absent: scleral icterus, conjunctival injection, periorbital swelling ENT exam: Present: normal exam, mucous membranes moist Respiratory exam: Present: normal lung sounds bilaterally. Absent: respiratory distress, wheezes, rales, rhonchi, stridor Cardiovascular Exam: Present: regular rate, normal rhythm, normal heart sounds. Absent: systolic murmur, diastolic murmur, rubs, gallop, clicks Right Lower Leg exam: Present: full ROM, tenderness, swelling. Absent: normal inspection (Lower leg and ankle diffusely erythematous, warm, and ttp. mild edema present. ) Ankle exam: Present: full ROM, tenderness, swelling. Absent: normal inspection Foot/Toe exam: Present: full ROM, tenderness, swelling. Absent: normal inspection (Right second digit is necrotic with purulent drainage. sensation is not intact. Minimal range of motion. Right great toe is ttp and minimally nec rotic on distal aspect. sensation intact on great toe), deformity Neurovascular tendon exam: Present: sensory deficit. Absent: no vascular compromise Psychiatric exam: Present: normal affect, normal mood Skin exam: Present: warm, dry, intact, normal color <Melissa Jacome - Last Filed: 01/31/24 18:50> Course <Bowen Cox - Last Filed: 01/31/24 14:00> Vital Signs 01/31/24 13:30 Temperature 98.8 F Pulse Rate 84 Respiratory 18 Rate Blood Pressure 124/74 O2 Sat by Pulse 92 L Oximetry - Reevaluation(s) Reevaluation #1: 01/31/24 14:02 QN completed by myself Dr Cox (Bowen Cox) Medical Decision Making - Lab Data Result diagrams: 01/31/24 17:42 01/31/24 17:42 <Melissa Jacome - Last Filed: 01/31/24 18:50> - Medical Decision Making Was pt. sent in by a medical professional or institution (, PA, COLD HEADER, urgent ca re, hospital, or custodial...) When possible be specific @ -No Did you speak to anyone other than the patient for history (EMS, parent, family, police, friend...)? What history was obtained from this source @ -No Did you review nursing and triage notes (agree or disagree)? Why? @ -I reviewed and agree with nursing and triage notes Were old charts reviewed (outside hosp., previous admission, EMS record, old EKG, old radiological studies, urgent care reports/EKG's, custodial records)? Report findings @ -No old charts were reviewed Differential Diagnosis (chest pain, altered mental status, abdominal pain women, abdominal pain men, vaginal bleeding, weakness, fever, dyspnea, syncope, he adache, dizziness, GI bleed, back pain, seizure, CVA, palpatations, mental health, musculoskeletal)? @ -Differential Musculoskeletal Gangrene necrotizing fasciitis, osteomyelitis , muscular strain, contusion, ligament sprain, fracture, arthritis, septic arthritis, bursitis, cellulitis, muscle spasm, nerve compression, DVT, arterial occlusion, herpes zoster, electrolyte abnormality, tumor.... This is not meant to be in all inclusive list EKG interpreted by me (3pts min.). @ -None X-rays interpreted by me (1pt min.). @ -X-ray of right foot reveals diffuse soft tissue swelling with postsurgical changes to third through fifth digits, edema limits evaluation for avulsion, however no obvious erosion visualized. Multifocal degenerative changes throughout joint CT interpreted by me (1pt min.). @ -None done U/S interpreted by me (1pt. min.). @ -None done What testing was considered but not performed or refused? (CT, X-rays, U/S, labs)? Why? @ -None What meds were considered but not given or refused? Why? @ -None Did you discuss the management of the patient with other professionals (marion warren i.e. , PA, COLD HEADER, lab, RT, psych nurse, social group worker, floor technician, teacher, fare enforcement officer, case making machine operator)? Give summary @ -Case discussed with Dr. Smith who recommended outpatient follow-up in her office tomorrow. Was smoking cessation discussed for >3mins.? @ -No Was critical care preformed (if so, how long)? @ -No Were there social determinants of health that impacted care today? How? (Homele ssness, low income, unemployed, alcoholism, drug addiction, transportation, low edu. Level, literacy, decrease access to med. care, group home, rehab)? @ -No Was there de-escalation of care discussed even if they declined (Discuss DNR or withdrawal of care, Hospice)? DNR status @ -No What co-morbidities impacted this encounter? (DM, HTN, Smoking, COPD, CAD, Cancer, CVA, ARF, Chemo, Hep., AIDS, mental health diagnosis, sleep apnea, morbid obesity)? @ -None Was patient admitted / discharged? Hospital course, mention meds given and route, prescriptions, significant lab abnormalities, going to OR and other pertinent info. @ -Patient was discharged. Patient was seen and evaluated for discoloration of right 2nd toe x 2 months. Patient is afebrile, vitals are stable. Physical examination remarkable for necrotic second toe with no sensation. Lab work remarkable for INR of 3.3. White blood cell count is normal. X-ray of right foot negative for osteomyelitis. Discussed case with Dr. Smiht who recommended outpatient follow-up in her office tomorrow. Prescribed Keflex for antibiotic prophylaxis. Instructed patient to hold warfarin dose today, follow-up with PCP in 1 to 3 days. Given Tylenol threes for pain. Advised strict return/alarm symptoms with patient and he shows understanding and agrees with plan. Case discussed with my ER attending Dr. Gay. Patient discharged in stable co ndition Undiagnosed new problem with uncertain prognosis? @ -No Drug Therapy requiring intensive monitoring for toxicity (Heparin, Nitro, Insulin, Cardizem)? @ -No Were any procedures done? @ -No Diagnosis/symptom? @ -Gangrene of right second digit of foot Acute, or Chronic, or Acute on Chronic? @ -Acute Uncomplicated (without systemic symptoms) or Complicated (systemic symptoms)? @ -Uncomplicated Side effects of treatment? @ -No Exacerbation, Progression, or Severe Exacerbation? @ -No Poses a threat to life or bodily function? How? (Chest pain, USA, IA, pneumonia, PE, COPD, DKA, ARF, appy, cholecystitis, CVA, Diverticulitis, Homicidal, Suicidal, threat to staff... and all critical care pts) @ -Low likelihood (Melissa Jacome) - Lab Data Lab Results 01/31/24 01/31/24 01/31/24 Range/Units 17:42 17:42 17:42 WBC 5.6 (3.8-10.6) k/uL RBC 4.55 (4.30-5.90) m/uL Hgb 14.2 (13.0-17.5) gm/dL Hct 43.3 (39.0-53.0) % MCV 95.1 (80.0-100.0) fL MCH 31.3 (25.0-35.0) pg MCHC 32.9 (31.0-37.0) g/dL RDW 13.6 (11.5-15.5) % Plt Count 168 (150-450) k/uL MPV 8.3 Neutrophils % 78 % Lymphocytes % 11 % Monocytes % 7 % Eosinophils % 2 % Basophils % 1 % Neutrophils # 4.3 (1.3-7.7) k/uL Lymphocytes # 0.6 L (1.0-4.8) k/uL Monocytes # 0.4 (0-1.0) k/uL Eosinophils # 0.1 (0-0.7) k/uL Basophils # 0.0 (0-0.2) k/uL PT 32.6 H (10.0-12.5) sec INR 3.3 H (<1.2) APTT 74.6 H (22.0-30.0) sec Sodium 136 L (137-145) mmol/L Potassium 3.9 (3.5-5.1) mmol/L Chloride 103 (98-107) mmol/L Carbon Dioxide 26 (22-30) mmol/L Anion Gap 7 mmol/L BUN 12 (9-20) mg/dL Creatinine 0.67 (0.66-1.25) mg/dL Est GFR (CKD-EPI)AfAm >90 (>60 ml/min/1.73 sqM) Est GFR (CKD-EPI)NonAf >90 (>60 ml/min/1.73 sqM) Glucose 86 (74-99) mg/dL Plasma Lactic Acid Cesar (0.7-2.0) mmol/L Calcium 9.1 (8.4-10.2) mg/dL Total Bilirubin 1.0 (0.2-1.3) mg/dL AST 32 (17-59) U/L ALT 37 (4-49) U/L Alkaline Phosphatase 84 (38-126) U/L Total Protein 8.0 (6.3-8.2) g/dL Albumin 4.5 (3.5-5.0) g/dL 01/31/24 Range/Units 17:42 WBC (3.8-10.6) k/uL RBC (4.30-5.90) m/uL Hgb (13.0-17.5) gm/dL Hct (39.0-53.0) % MCV (80.0-100.0) fL MCH (25.0-35.0) pg MCHC (31.0-37.0) g/dL RDW (11.5-15.5) % Plt Count (150-450) k/uL MPV Neutrophils % % Lymphocytes % % Monocytes % % Eosinophils % % Basophils % % Neutrophils # (1.3-7.7) k/uL Lymphocytes # (1.0-4.8) k/uL Monocytes # (0-1.0) k/uL Eosinophils # (0-0.7) k/uL Basophils # (0-0.2) k/uL PT (10.0-12.5) sec INR (<1.2) APTT (22.0-30.0) sec Sodium (137-145) mmol/L Potassium (3.5-5.1) mmol/L Chloride (98-107) mmol/L Carbon Dioxide (22-30) mmol/L Anion Gap mmol/L BUN (9-20) mg/dL Creatinine (0.66-1.25) mg/dL Est GFR (CKD-EPI)AfAm (>60 ml/min/1.73 sqM) Est GFR (CKD-EPI)NonAf (>60 ml/min/1.73 sqM) Glucose (74-99) mg/dL Plasma Lactic Acid Cesar 0.8 (0.7-2.0) mmol/L Calcium (8.4-10.2) mg/dL Total Bilirubin (0.2-1.3) mg/dL AST (17-59) U/L ALT (4-49) U/L Alkaline Phosphatase (38-126) U/L Total Protein (6.3-8.2) g/dL Albumin (3.5-5.0) g/dL Disposition <Bowen Cox - Last Filed: 01/31/24 14:00> Is patient prescribed a controlled substance at d/c from ED?: No Time of Disposition: 18:43 <Melissa Jacome - Last Filed: 01/31/24 18:50> Clinical Impression: Gangrene of toe of right foot Disposition: HOME SELF-CARE Condition: Stable Instructions (If sedation given, give patient instructions): Gangrene (DC) Additional Instructions: Please follow-up with Dr. Smith tomorrow. Please return to the Emergency Department if symptoms worsen or any other concerns. Prescriptions: Cephalexin [Keflex] 500 mg PO Q12HR 7 Days #14 cap Referrals: Genia Bartlett MD [Primary Care Provider] - 1-2 days Lexi Smith DO [STAFF PHYSICIAN] - 1-2 days
[2024-01-31 17:53] LABS: Basophils % (A) 1 %; Eosinophils # (A) 0.1 k/uL (0-0.7); Eosinophils % (A) 2 %; HCT 43.3 % (39.0-53.0); HGB 14.2 gm/dL (13.0-17.5); Lymphocytes # (A) 0.6 k/uL (1.0-4.8); Lymphocytes % (A) 11 %; MCH 31.3 pg (25.0-35.0); MCHC 32.9 g/dL (31.0-37.0); MCV 95.1 fL (80.0-100.0); Mean Platelet Volume 8.3; Monocytes # (A) 0.4 k/uL (0-1.0); Monocytes % (A) 7 %; Neutrophils # (A) 4.3 k/uL (1.3-7.7); Neutrophils % (A) 78 %; Platelet Count 168 k/uL (150-450); RBC 4.55 m/uL (4.30-5.90); RDW 13.6 % (11.5-15.5); WBC 5.6 k/uL (3.8-10.6)
[2024-01-31 18:02] LABS: ALT 37 U/L (4-49); AST 32 U/L (17-59); African American GFR (CKD) >90 (>60 ml/min/1.73 sqM); Albumin 4.5 g/dL (3.5-5.0); Alkaline Phosphatase 84 U/L (38-126); Anion Gap 7 mmol/L; Blood Urea Nitrogen 12 mg/dL (9-20); Calcium 9.1 mg/dL (8.4-10.2); Carbon Dioxide 26 mmol/L (22-30); Chloride 103 mmol/L (98-107); Glucose 86 mg/dL (74-99); Non-African American GFR(CKD) >90 (>60 ml/min/1.73 sqM); Potassium 3.9 mmol/L (3.5-5.1); Sodium 136 mmol/L (137-145)
--- NOTE | 2024-01-31 18:05 | XR ---
EXAMINATION TYPE: XR foot complete RT DATE OF EXAM: 01/31/2024 5:52 PM CLINICAL INDICATION:Male, 68 years old with history of right foot pain; [facility] COMPARISON: 10/27/2023 TECHNIQUE: XR foot complete RT examined in the AP, oblique, and lateral projections. FINDINGS/IMPRESSION: * Diffuse soft tissue swelling with postsurgical changes to the third through fifth digits. Edema li mits evaluation for erosion no obvious erosion visualized. Consider evaluation MRIs are concerning fo r a osteomyelitis. * Interval postsurgical changes to the third fourth digits with proximal phalanx amputation. There r emains amputation of the fifth digit at the metatarsophalangeal joint. * Multifocal degeneration changes throughout the joints of the foot.
[2024-01-31 18:07] LABS: INR 3.3 (<1.2); Prothrombin Time 32.6 sec (10.0-12.5)
[2024-01-31 18:23] LABS: Partial Thromboplastin Time 74.6 sec (22.0-30.0)
[2024-01-31] MEDS: ACET/COD 300 MG/30 MG STARTER PACK 6 TAB BTL PO STA (18:50)
[2024-01-31 19:02] VITALS: BP 127/84; PULSE 82
== END 2024-01-31 19:01 | disposition home or self-care (01) ==
LOC: EC 12:34
DX: I70.261 Atherosclerosis of native arteries of extremities with gangrene, right leg (principal); Z87.891 Personal history of nicotine dependence
CPT/HCPCS: 36415; 80053; 83605; 85025; 85610; 85730; 87040; 99283

== ENCOUNTER 2024-02-09 13:06 | Inpatient (IN) | payer MEDICARE, BC ==
--- NOTE | 2024-02-09 15:25 | ED ---
General Adult HPI - General Chief complaint: Extremity Problem,Nontraumatic Stated complaint: Foot pain Time Seen by Provider: 02/09/24 14:44 Source: patient, RN notes reviewed Mode of arrival: ambulatory Limitations: no limitations - History of Present Illness Initial comments: Patient is a 68-year-old male present to the emergency department with concerns of foot pain. Patient does have history of chronic problems. Patient has had previous amputation of the fifth toe and partial imitation to the third and fourth toes. Patient over the past several weeks has had increased discomfort of the distal toes, more laterally. There is dark discoloration and odor associated with this. Patient stopped his Coumadin yesterday in anticipation for surgery on Monday - Related Data Home Medications Medication Instructions Recorded Confirmed Ascorbic Acid [Vitamin C] 1,000 mg PO DAILY 11/01/18 02/09/24 Clopidogrel [Plavix] 75 mg PO DAILY 11/01/18 02/09/24 Multivitamins, Thera [Multivitamin 1 tab PO DAILY 11/01/18 02/09/24 (formulary)] Cholecalciferol [Vitamin D3 (25 25 mcg PO DAILY 09/29/20 02/09/24 Mcg = 1000 Iu)] Warfarin [Coumadin] 1 mg PO HS@1700 10/14/23 02/09/24 Warfarin [Coumadin] 5 mg PO HS@1700 10/14/23 02/09/24 Atorvastatin [Lipitor] 40 mg PO HS 02/09/24 02/09/24 Enoxaparin [Lovenox] 80 mg SQ DIRECTED 02/09/24 02/09/24 Gabapentin [Neurontin] 300 mg PO TID PRN 02/09/24 02/09/24 HYDROcodone/APAP 7.5-325MG [[place] 1 tab PO DIRECTED PRN 02/09/24 02/09/24 7.5-325] Allergies Allergy/AdvReac Type Severity Reaction Status Date / Time No Known Allergies Allergy Verified 02/09/24 16:16 Review of Systems ROS Statement: Those systems with pertinent positive or pertinent negative responses have been documented in the HPI. ROS Other: All systems not noted in ROS Statement are negative. Constitutional: Denies: fever Eyes: Denies: eye pain ENT: Denies: ear pain Respiratory: Denies: cough Cardiovascular: Denies: chest pain Endocrine: Denies: fatigue Gastrointestinal: Denies: abdominal pain Genitourinary: Denies: dysuria Musculoskeletal: Denies: back pain Skin: Reports: as per HPI Past Medical History Past Medical History: Deep Vein Thrombosis (DVT), Hyperlipidemia, Vascular Disorder Additional Past Medical History / Comment(s): states "doesn't have the proteins in my blood to prevent it from clotting is why I am taking warfarin"managed by Dr Angel Sanchez Physician [phone], (Factor V Leiden mutation) thyroid nodules History of Any Multi-Drug Resistant Organisms: None Reported Additional Past Surgical History / Comment(s): stent rt groin Aug 2018,aortogram, thyroid biopsy 2018 Past Anesthesia/Blood Transfusion Reactions: No Reported Reaction Past Psychological History: No Psychological Hx Reported Smoking Status: Former smoker Past Alcohol Use History: None Reported Past Drug Use History: None Reported - Past Family History Mother Family Medical History: No Reported History Sister(s) Family Medical History: Deep Vein Thrombosis (DVT) Father Family Medical History: Deep Vein Thrombosis (DVT) General Exam Limitations: no limitations General appearance: alert Head exam: Present: normocephalic Eye exam: Present: normal appearance Neck exam: Present: normal inspection Respiratory exam: Present: normal lung sounds bilaterally Cardiovascular Exam: Present: regular rate, normal rhythm, other (Unable to obtain pedal pulses bilateral) GI/Abdominal exam: Present: soft. Absent: tenderness Extremities exam: Present: other (Right foot with partial amputation of lateral toes. There is gangrenous changes of the toes, more laterally. Cap refill proximal to the gangrenous region 2 to 3 seconds. Unable to obtain pedal pulses. Bilateral. There is foul odor associated) Neurological exam: Present: alert Psychiatric exam: Present: normal affect, normal mood Skin exam: Present: other (Dry gangrene right foot) Course Vital Signs 02/09/24 02/09/24 02/09/24 13:39 15:23 17:13 Temperature 97.5 F L 98.6 F Pulse Rate 96 86 75 Respiratory 16 20 18 Rate Blood Pressure 124/64 129/79 153/88 O2 Sat by Pulse 92 L 96 96 Oximetry - Reevaluation(s) Reevaluation #1: 02/09/24 17:56 There is concern for possible sepsis diagnosed at 1745. Blood culture lactic acid and IV antibiotics have all been ordered EKG Findings - EKG Results: EKG: interpreted by ERMD (Left axis.), sinus rhythm, normal QRS, normal ST/T Medical Decision Making - Medical Decision Making Was pt. sent in by a medical professional or institution ([facility], CONTACT CENTER PROFESSIONAL, urgent care, hospital, or halfway...) When possible be specific @ -Patient was sent in by his podiatry Did you speak to anyone other than the patient for history (EMS, parent, family, police, friend...)? What history was obtained from this source @ -[No] Did you review nursing and triage notes (agree or disagree)? Why? @ -[I reviewed and agree with nursing and triage notes] Were old charts reviewed (outside hosp., previous admission, EMS record, old EKG, old radiological studies, urgent care reports/EKG's, halfway records)? Report findings @ -Ultrasound report reviewed. Previous angiogram reviewed Differential Diagnosis (chest pain, altered mental status, abdominal pain women, abdominal pain men, vaginal bleeding, weakness, fever, dyspnea, syncope, headache, dizziness, GI bleed, back pain, seizure, CVA, palpatations, mental health, musculoskeletal)? @ -Differential Musculoskeletal Muscular strain, contusion, ligament sprain, fracture, arthritis, septic arthritis, bursitis, cellulitis, muscle spasm, nerve compression, DVT, arterial occlusion, herpes zoster, electrolyte abnormality, tumor.... This is not meant to be in all inclusive list EKG interpreted by me (3pts min.). @ -[As above] X-rays interpreted by me (1pt min.). @ -X-ray shows soft tissue changes, previous amputation CT interpreted by me (1pt min.). @ -[None done] U/S interpreted by me (1pt. min.). @ -[None done] What testing was considered but not performed or refused? (CT, X-rays, U/S, labs)? Why? @ -[None] What meds were considered but not given or refused? Why? @ -[None] Did you discuss the management of the patient with other professionals (pro fessionals i.e. CANDIDA Fernandez, CONTACT CENTER PROFESSIONAL, lab, RT, psych nurse, criminal justice social worker, primary special educator, teacher, foreign service officer, rn case manager hospice)? Give summary @ -Discussed case with Dr. Tubbs who will admit covering Dr. Chapin. I did also discuss case with Dr. moore who has previously seen the patient and does not feel he needs to see the patient again. He states patient has chosen to go with podiatry. He is aware of patient's vascular status. Was smoking cessation discussed for >3mins.? @ -[No] Was critical care preformed (if so, how long)? @ -[No] Were there social determinants of health that impacted care today? How? (Homelessness, low income, unemployed, alcoholism, drug addiction, transportation, low edu. Level, literacy, decrease access to med. care, [facility], rehab)? @ -[No] Was there de-escalation of care discussed even if they declined (Discuss DNR or withdrawal of care, Hospice)? DNR status @ -[No] What co-morbidities impacted this encounter? (DM, HTN, Smoking, COPD, CAD, Cancer, CVA, ARF, Chemo, Hep., AIDS, mental health diagnosis, sleep apnea, morbid obesity)? @ -[None] Was patient admitted / discharged? Hospital course, mention meds given and route, prescriptions, significant lab abnormalities, going to OR and other pertinent info. @ -Patient reevaluated and updated. Patient will be admitted with orthopedic consultation. Admission orders written Undiagnosed new problem with uncertain prognosis? @ -[No] Drug Therapy requiring intensive monitoring for toxicity (Heparin, Nitro, Insu tono, Cardizem)? @ -[No] Were any procedures done? @ -[No] Diagnosis/symptom? @ -Gangrene right foot Acute, or Chronic, or Acute on Chronic? @ -Acute Uncomplicated (without systemic symptoms) or Complicated (systemic symptoms)? @ -[default] Side effects of treatment? @ -[No] Exacerbation, Progression, or Severe Exacerbation? @ -[No] Poses a threat to life or bodily function? How? (Chest pain, [place], [place], pneumonia, PE, COPD, DKA, ARF, appy, cholecystitis, CVA, Diverticulitis, Homicidal, Suici christ, threat to staff... and all critical care pts) @ -[No] - Lab Data Result diagrams: 02/09/24 14:54 02/09/24 14:54 Lab Results 02/09/24 02/09/2424 Range/Units 14:54 14:54 14:54 WBC 13.0 H (3.8-10.6) k/uL RBC 3.96 L (4.30-5.90) m/uL Hgb 12.1 L (13.0-17.5) gm/dL Hct 37.2 L (39.0-53.0) % MCV 93.9 (80.0-100.0) fL MCH 30.5 (25.0-35.0) pg MCHC 32.5 (31.0-37.0) g/dL RDW 13.5 (11.5-15.5) % Plt Count 155 (150-450) k/uL MPV 8.4 Neutrophils % 87 % Lymphocytes % 6 % Monocytes % 5 % Eosinophils % 1 % Basophils % 0 % Neutrophils # 11.3 H (1.3-7.7) k/uL Lymphocytes # 0.8 L (1.0-4.8) k/uL Monocytes # 0.6 (0-1.0) k/uL Eosinophils # 0.1 (0-0.7) k/uL Basophils # 0.0 (0-0.2) k/uL Poikilocytosis Slight PT 41.3 H (10.0-12.5) sec INR 4.2 H (<1.2) APTT 63.7 H (22.0-30.0) sec Sodium 133 L (137-145) mmol/L Potassium 4.3 (3.5-5.1) mmol/L Chloride 105 (98-107) mmol/L Carbon Dioxide 23 (22-30) mmol/L Anion Gap 5 mmol/L BUN 11 (9-20) mg/dL Creatinine 0.59 L (0.66-1.25) mg/dL Est GFR (CKD-EPI)AfAm >90 (>60 ml/min/1.73 sqM) Est GFR (CKD-EPI)NonAf >90 (>60 ml/min/1.73 sqM) Glucose 103 H (74-99) mg/dL Plasma Lactic Acid Cesar (0.7-2.0) mmol/L Calcium 8.8 (8.4-10.2) mg/dL Total Bilirubin 0.9 (0.2-1.3) mg/dL AST 55 (17-59) U/L ALT 56 H (4-49) U/L Alkaline Phosphatase 79 (38-126) U/L Total Protein 6.5 (6.3-8.2) g/dL Albumin 3.6 (3.5-5.0) g/dL 02/09/24 Range/Units 14:54 WBC (3.8-10.6) k/uL RBC (4.30-5.90) m/uL Hgb (13.0-17.5) gm/dL Hct (39.0-53.0) % MCV (80.0-100.0) fL MCH (25.0-35.0) pg MCHC (31.0-37.0) g/dL RDW (11.5-15.5) % Plt Count (150-450) k/uL MPV Neutrophils % % Lymphocytes % % Monocytes % % Eosinophils % % Basophils % % Neutrophils # (1.3-7.7) k/uL Lymphocytes # (1.0-4.8) k/uL Monocytes # (0-1.0) k/uL Eosinophils # (0-0.7) k/uL Basophils # (0-0.2) k/uL Poikilocytosis PT (10.0-12.5) sec INR (<1.2) APTT (22.0-30.0) sec Sodium (137-145) mmol/L Potassium (3.5-5.1) mmol/L Chloride (98-107) mmol/L Carbon Dioxide (22-30) mmol/L Anion Gap mmol/L BUN (9-20) mg/dL Creatinine (0.66-1.25) mg/dL Est GFR (CKD-EPI)AfAm (>60 ml/min/1.73 sqM) Est GFR (CKD-EPI)NonAf (>60 ml/min/1.73 sqM) Glucose (74-99) mg/dL Plasma Lactic Acid Cesar 1.0 (0.7-2.0) mmol/L Calcium (8.4-10.2) mg/dL Total Bilirubin (0.2-1.3) mg/dL AST (17-59) U/L ALT (4-49) U/L Alkaline Phosphatase (38-126) U/L Total Protein (6.3-8.2) g/dL Albumin (3.5-5.0) g/dL Disposition Clinical Impression: Gangrene of toe of right foot Disposition: ADMITTED IP TO THIS [facility] Condition: Serious Is patient prescribed a controlled substance at d/c from ED?: No Referrals: Elpidio French DPM [REFERRING] - 1-2 days Time of Disposition: 17:56
[2024-02-09] MEDS: SODIUM CHLORIDE 0.9% 1,000 ML IV SCH ×2 (15:37→18:14)
[2024-02-09] MEDS: HYDROmorphone 1 MG/ML 1 ML SYRINGE IVP STA ×2 (15:37→16:09)
[2024-02-09 15:59] LABS: Basophils % (A) 0 %; Eosinophils # (A) 0.1 k/uL (0-0.7); Eosinophils % (A) 1 %; HCT 37.2 % (39.0-53.0); HGB 12.1 gm/dL (13.0-17.5); INR 4.2 (<1.2); Lymphocytes # (A) 0.8 k/uL (1.0-4.8); Lymphocytes % (A) 6 %; MCH 30.5 pg (25.0-35.0); MCHC 32.5 g/dL (31.0-37.0); MCV 93.9 fL (80.0-100.0); Mean Platelet Volume 8.4; Monocytes # (A) 0.6 k/uL (0-1.0); Monocytes % (A) 5 %; Neutrophils # (A) 11.3 k/uL (1.3-7.7); Neutrophils % (A) 87 %; Platelet Count 155 k/uL (150-450); Poikilocytosis Slight; Prothrombin Time 41.3 sec (10.0-12.5); RBC 3.96 m/uL (4.30-5.90); RDW 13.5 % (11.5-15.5)
[2024-02-09 16:06] LABS: Partial Thromboplastin Time 63.7 sec (22.0-30.0)
[2024-02-09 16:39] LABS: ALT 56 U/L (4-49); AST 55 U/L (17-59); African American GFR (CKD) >90 (>60 ml/min/1.73 sqM); Albumin 3.6 g/dL (3.5-5.0); Alkaline Phosphatase 79 U/L (38-126); Anion Gap 5 mmol/L; Blood Urea Nitrogen 11 mg/dL (9-20); Calcium 8.8 mg/dL (8.4-10.2); Carbon Dioxide 23 mmol/L (22-30); Chloride 105 mmol/L (98-107); Glucose 103 mg/dL (74-99); Non-African American GFR(CKD) >90 (>60 ml/min/1.73 sqM); Potassium 4.3 mmol/L (3.5-5.1); Sodium 133 mmol/L (137-145); Total Bilirubin 0.9 mg/dL (0.2-1.3); Total Protein 6.5 g/dL (6.3-8.2)
--- NOTE | 2024-02-09 17:06 | XR ---
EXAMINATION TYPE: XR foot complete RT DATE OF EXAM: 02/09/2024 3:21 PM CLINICAL INDICATION:Male, 68 years old with history of Gangrene; [facility] COMPARISON: X-ray 01/31/2024 TECHNIQUE: Three views left foot were obtained. FINDINGS: * There is generalized osteopenia again noted. * Stable postoperative appearance of the foot with the remaining truncated stumps of the third and f ourth proximal phalanges and the distal end of the fifth of metatarsal remaining stable. * No clear evidence of osseous destructive process to suggest osteomyelitis. * There is soft tissue irregularity overlying the distal ends of the third and fourth digits which m ay represent postoperative changes and/or superimposed infection/gangrene. I see no acute fracture, d islocation, or osseous erosion. IMPRESSION: No significant interval change, with findings as above.
[2024-02-09] MEDS ORDERED: NALOXONE 0.4 MG/ML 1 ML VIAL IV PRN (18:05)
[2024-02-09] MEDS: CLINDAMYCIN 600 MG in DEXTROSE 5% IN WATER 50 ML IVPB SCH (18:37)
[2024-02-09] MEDS: HYDROmorphone 1 MG/ML 1 ML SYRINGE IVP PRN (19:57)
--- NOTE | 2024-02-09 21:09 | P.CNOR ---
History of Present Illness - [facility] Consult date: 02/09/24 History of present illness: the patient is a very pleasant 60-year-old male with multiple medical problems was admitted to internal medicine with gangrenous changes in his foot. Briefly the patient is well-known to the vascular surgery service at this facility. He previously underwent amputation of his right third, fourth, and fifth toes by Dr. Solano in October of this year. He was also recently seen at the beginning of this month with a foot infection. Per the ER note the patient was staffed with Dr. Smith who agreed to see the patient in the office. The patient also follows with a local wildland fire operations specialist, Dr. French who is been also assisting in the care of his foot. The patient states that he was scheduled to have a procedure this coming week but due to a blood clot had to be postponed. He had worsening pain and drainage from his foot so he presented to the emergency department and was admitted to internal medicine. Past Medical History Past Medical History: Deep Vein Thrombosis (DVT), Hyperlipidemia, Vascular Disorder Additional Past Medical History / Comment(s): states "doesn't have the proteins in my blood to prevent it from clotting is why I am taking warfarin"managed by Dr Angel Sanchez Physician [phone], (Factor V Leiden mutation) thyroid nodules History of Any Multi-Drug Resistant Organisms: None Reported Additional Past Surgical History / Comment(s): stent rt groin Aug 2018,aortogram , thyroid biopsy 2018 Past Anesthesia/Blood Transfusion Reactions: No Reported Reaction Past Psychological History: No Psychological Hx Reported Smoking Status: Former smoker Past Alcohol Use History: None Reported Past Drug Use History: None Reported - Past Family History Mother Family Medical History: No Reported History Sister(s) Family Medical History: Deep Vein Thrombosis (DVT) Father Family Medical History: Deep Vein Thrombosis (DVT) Medications and Allergies Home Medications Medication Instructions Recorded Confirmed Type Ascorbic Acid [Vitamin C] 1,000 mg PO DAILY 11/01/18 02/09/24 History Clopidogrel [Plavix] 75 mg PO DAILY 11/01/18 02/09/24 History Multivitamins, Thera [Multivitamin 1 tab PO DAILY 11/01/18 02/09/24 History (formulary)] Cholecalciferol [Vitamin D3 (25 25 mcg PO DAILY 09/29/20 02/09/24 History Mcg = 1000 Iu)] Warfarin [Coumadin] 1 mg PO HS@1700 10/14/23 02/09/24 History Warfarin [Coumadin] 5 mg PO HS@1700 10/14/23 02/09/24 History Atorvastatin [Lipitor] 40 mg PO HS 02/09/24 02/09/24 History Enoxaparin [Lovenox] 80 mg SQ DIRECTED 02/09/24 02/09/24 History Gabapentin [Neurontin] 300 mg PO TID PRN 02/09/24 02/09/24 History HYDROcodone/APAP 7.5-325MG [[place] 1 tab PO DIRECTED PRN 02/09/24 02/09/24 History 7.5-325] Allergies Allergy/AdvReac Type Severity Reaction Status Date / Time No Known Allergies Allergy Verified 02/09/24 16:16 Physical Examination the patient is alert and able to answer questions. He is in no apparent distress. A focused exam of the right foot was conducted. On inspection of her been prior amputations of the second, third, and fourth toes. There are gangrenous changes throughout the forefoot and open draining wound. The foot is diffusely swollen. Results x-rays of the right foot show prior amputations of the second, third, and fourth toes. - Labs Labs: Abnormal Lab Results - Last 24 Hours (Table) 02/09/24 02/09/24 02/09/24 Range/Units 14:54 14:54 14:54 WBC 13.0 H (3.8-10.6) k/uL RBC 3.96 L (4.30-5.90) m/uL Hgb 12.1 L (13.0-17.5) gm/dL Hct 37.2 L (39.0-53.0) % Neutrophils # 11.3 H (1.3-7.7) k/uL Lymphocytes # 0.8 L (1.0-4.8) k/uL PT 41.3 H (10.0-12.5) sec INR 4.2 H (<1.2) APTT 63.7 H (22.0-30.0) sec Sodium 133 L (137-145) mmol/L Creatinine 0.59 L (0.66-1.25) mg/dL Glucose 103 H (74-99) mg/dL ALT 56 H (4-49) U/L H & H 02/09/24 Range/Units 14:54 Hgb 12.1 L (13.0-17.5) gm/dL Hct 37.2 L (39.0-53.0) % Coagulation 02/09/24 Range/Units 14:54 INR 4.2 H (<1.2) Result Diagrams: 02/09/24 14:54 02/09/24 14:54 Assessment and Plan Assessment: left foot wound Prior left 3rd, 4th and 5th toes by Dr. Solano Left leg DVT Plan: The patient does not appear to have any acute orthopedic issues. I discussed with the patient and his nurse that both vascular and diabetic foot wounds and amputations are managed by the vascular service at this facility. Since the patient is an established patient and well known to the vascular surgery service (Dr. Solano performed surgery on the affected foot in October of this year) I recommend a formal vascular surgery consultation for further management. I have no plans for intervention will sign off at this time.
[2024-02-09] MEDS: FAMOTIDINE 20 MG TAB PO SCH (22:54)
[2024-02-10] MEDS: HYDROcodone/APAP 10-325MG 1 EACH TAB PO PRN (00:26)
[2024-02-10 07:59] LABS: INR 4.2 (<1.2); Prothrombin Time 41.4 sec (10.0-12.5)
[2024-02-10] MEDS: CLOPIDOGREL 75 MG TAB PO SCH (09:24)
[2024-02-10] MEDS: MULTIVITAMINS, THERA 1 EACH TAB PO SCH (09:25)
[2024-02-10] MEDS: ASCORBIC ACID 500 MG TAB PO SCH (09:25)
[2024-02-10] MEDS: CHOLECALCIFEROL 25 MCG (1000 IU) TABLET PO SCH (09:26)
[2024-02-10 10:34] LABS: Basophils # (A) 0.02 X 10*3/uL (0.00-0.10); Basophils % (A) 0.2 %; Eosinophils # (A) 0.16 X 10*3/uL (0.04-0.35); Eosinophils % (A) 1.6 %; HGB 10.8 g/dL (13.0-17.0); Lymphocytes # (A) 0.87 X 10*3/uL (0.90-5.00); Lymphocytes % (A) 8.6 %; MCH 31.2 pg (27.0-32.0); MCHC 32.7 g/dL (32.0-37.0); MCV 95.4 FL (80.0-97.0); Mean Platelet Volume 10.4 FL (9.5-12.2); Monocytes # (A) 0.88 X 10*3/uL (0.20-1.00); Monocytes % (A) 8.7 %; NRBC Per 100 WBC 0 X 10*3/uL (0.00-0.01); Neutrophils # (A) 8.18 X 10*3/uL (1.80-7.70); Neutrophils % (A) 80.4 %; Platelet Count 114 X 10*3/uL (140-440); RBC 3.46 X 10*6/uL (4.40-5.60); RDW 13.6 % (11.5-14.5); WBC 10.16 X 10*3/uL (4.50-10.00)
[2024-02-10 10:38] LABS: ALT 57 U/L (10-49); AST 47 U/L (14-35); Albumin 3.6 g/dL (3.8-4.9); Alkaline Phosphatase 63 U/L (41-126); BUN/Creat Ratio 15.71 Ratio (12.00-20.00); Calcium 8.2 mg/dL (8.7-10.3); Carbon Dioxide 21.1 mmol/L (21.6-31.8); Chloride 102 mmol/L (96-109); Globulin 2.4 g/dL (1.6-3.3); Glucose 91 mg/dL (70-110); Potassium 4.2 mmol/L (3.5-5.5); Sodium 135 mmol/L (135-145); Total Bilirubin 0.5 mg/dL (0.3-1.2)
--- NOTE | 2024-02-10 10:39 | P.HPIM ---
History of Present Illness H&P Date: 02/10/24 This is a 68-year-old male patient who presented with concerns of increased pain to right foot. Patient has a past medical history of gangrene and has been following with vascular services. Patient previously underwent amputation of his right third fourth and fifth toe by Dr. Solano in October. Patient also follows with podiatry. Patient also has a past medical history of recent DVT and vascular disorder. patient also ex-smoker. foot x-ray completed showing no significant interval change. Laboratory feeling wBC 13.0, Hemoglobin 12.1, creatinine 0.59, bun 11. Current vital signs temp 98.2, heart rate 76, respiratory rate 18, blood pressure 123/46 pulse ox of 91% on 2 L. Patient admitted patient started on IV clindamycin. Patient also on Lovenox 80 mg twice a day while Coumadin on hold. Patient also requiring increased oxygen. Will order chest x-ray and consult pulmonary services Review of Systems Please refer to HPI otherwise unremarkable Past Medical History Past Medical History: Deep Vein Thrombosis (DVT), Hyperlipidemia, Vascular Disorder Additional Past Medical History / Comment(s): states "doesn't have the proteins in my blood to prevent it from clotting is why I am taking warfarin"managed by Dr Ortiz [facility] Physician [phone], (Factor V Leiden mutation) thyroid nodules History of Any Multi-Drug Resistant Organisms: None Reported Additional Past Surgical History / Comment(s): stent rt groin Aug 2018,aortogram, thyroid biopsy 2018 Past Anesthesia/Blood Transfusion Reactions: No Reported Reaction Past Psychological History: No Psychological Hx Reported Smoking Status: Former smoker Past Alcohol Use History: None Reported Past Drug Use History: None Reported - Past Family History Mother Family Medical History: No Reported History Sister(s) Family Medical History: Deep Vein Thrombosis (DVT) Father Family Medical History: Deep Vein Thrombosis (DVT) Medications and Allergies Home Medications Medication Instructions Recorded Confirmed Type Ascorbic Acid [Vitamin C] 1,000 mg PO DAILY 11/01/18 02/09/24 History Clopidogrel [Plavix] 75 mg PO DAILY 11/01/18 02/09/24 History Multivitamins, Thera [Multivitamin 1 tab PO DAILY 11/01/18 02/09/24 History (formulary)] Cholecalciferol [Vitamin D3 (25 25 mcg PO DAILY 09/29/20 02/09/24 History Mcg = 1000 Iu)] Warfarin [Coumadin] 1 mg PO HS@1700 10/14/23 02/09/24 History Warfarin [Coumadin] 5 mg PO HS@1700 10/14/23 02/09/24 History Atorvastatin [Lipitor] 40 mg PO HS 02/09/24 02/09/24 History Enoxaparin [Lovenox] 80 mg SQ DIRECTED 02/09/24 02/09/24 History Gabapentin [Neurontin] 300 mg PO TID PRN 02/09/24 02/09/24 History HYDROcodone/APAP 7.5-325MG [[place] 1 tab PO DIRECTED PRN 02/09/24 02/09/24 History 7.5-325] Allergies Allergy/AdvReac Type Severity Reaction Status Date / Time No Known Allergies Allergy Verified 02/09/24 16:16 Physical Exam Vitals: Vital Signs Temp Pulse Pulse Resp BP BP Pulse Ox 02/10/24 07:20 98.2 F 76 18 123/46 91 L 02/10/24 02:34 98.1 F 96 19 149/71 92 L 02/09/24 21:00 73 17 02/09/24 20:42 97.9 F 73 17 137/57 94 L 02/09/24 19:52 80 18 143/75 95 02/09/24 17:13 75 18 153/88 96 02/09/24 15:23 98.6 F 86 20 129/79 96 02/09/24 13:39 97.5 F L 96 16 124/64 92 L Intake and Output 02/09/24 02/10/24 02/10/24 22:59 06:59 14:59 Intake Total 540 Balance 540 Intake: Oral 540 Other: # Voids 2 Weight 74.3 kg Head normocephalic Neck supple Lungs clear to auscultation bilaterally no wheezing or crackles Heart regular rate and rhythm S1-S2, no rub or gallop Abdomen is soft nontender nondistended positive bowel sounds no hepatosplenomegaly Extremities Previous amputation of right second third and fourth toes open wound with drainage and diffuse swelling Neuro alert and orientated to 3 Results CBC & Chem 7: 02/09/24 14:54 02/09/24 14:54 Labs: Abnormal Lab Results - Last 24 Hours (Table) 02/09/24 02/09/24 02/09/24 Range/Units 14:54 14:54 14:54 WBC 13.0 H (3.8-10.6) k/uL RBC 3.96 L (4.30-5.90) m/uL Hgb 12.1 L (13.0-17.5) gm/dL Hct 37.2 L (39.0-53.0) % Neutrophils # 11.3 H (1.3-7.7) k/uL Lymphocytes # 0.8 L (1.0-4.8) k/uL PT 41.3 H (10.0-12.5) sec INR 4.2 H (<1.2) APTT 63.7 H (22.0-30.0) sec Sodium 133 L (137-145) mmol/L Creatinine 0.59 L (0.66-1.25) mg/dL Glucose 103 H (74-99) mg/dL ALT 56 H (4-49) U/L 02/10/24 Range/Units 07:19 WBC (3.8-10.6) k/uL RBC (4.30-5.90) m/uL Hgb (13.0-17.5) gm/dL Hct (39.0-53.0) % Neutrophils # (1.3-7.7) k/uL Lymphocytes # (1.0-4.8) k/uL PT 41.4 H (10.0-12.5) sec INR 4.2 H (<1.2) APTT (22.0-30.0) sec Sodium (137-145) mmol/L Creatinine (0.66-1.25) mg/dL Glucose (74-99) mg/dL ALT (4-49) U/L Thrombosis Risk Factor Assmnt - Choose All That Apply Any of the Below Risk Factors Present?: Yes Other Risk Factors: Yes Each Risk Factor Represents 2 Points: Age 61-74 years Each Risk Factor Represents 3 Points: Positive Factor V Leiden, Family history of DVT/PE, History of DVT/PE Thrombosis Risk Factor Assessment Total Risk Factor Score: 11 Thrombosis Risk Factor Assessment Level: High Risk Assessment and Plan Assessment: Right foot gangrene. Patient started on IV clindamycin vascular service is consulted Acute hypoxic respiratory failure. Chest x-ray ordered pulmonary service is consulted history of DVT. Patient currently on Lovenox 80 mg twice a day History of peripheral vascular disease History of factor V disorder maintained on Coumadin History of hyperlipidemia History of ex-smoker At this time patient will be admitted Vascular service is consulted Pulmonary service is consulted Chest x-ray ordered Patient started on IV antibiotics Blood culture ordered Repeat labs ordered Time with Patient: Greater than 30 (Greater than 60% of the total time spent in counseling and coordination of care)
--- NOTE | 2024-02-10 13:54 | XR ---
EXAMINATION TYPE: XR chest 2V DATE OF EXAM: 02/10/2024 COMPARISON: 09/29/2022 TECHNIQUE: PA and lateral views submitted. HISTORY: Hypoxia FINDINGS: Coarsened interstitial pattern with the pleural thickening or tiny right pleural effusion. No pneumot horax.. Heart size normal and no overt failure. Osseous structures demonstrate hypertrophic and dege nerative changes of the spine. Emphysematous changes. IMPRESSION: 1. Coarsened interstitial pattern most typical of chronic interstitial lung disease and pulmonary fib rosis. Superimposed pneumonitis not excluded.
[2024-02-10] MEDS: WARFARIN 0.5 MG TAB PO ONE (16:41)
[2024-02-10] MEDS ORDERED: WARFARIN 5 MG TAB PO SCH (17:00)
[2024-02-10] MEDS ORDERED: WARFARIN 1 MG TAB PO SCH (17:00)
[2024-02-10] MEDS: ATORVASTATIN 40 MG TAB PO SCH (20:58)
[2024-02-10] MEDS: GABAPENTIN 300 MG CAP PO PRN (22:21)
[2024-02-11 06:17] LABS: Prothrombin Time 29.1 sec (10.0-12.5)
[2024-02-11] MEDS: ENOXAPARIN 80 MG/0.8 ML SYRINGE SQ SCH (08:46)
--- NOTE | 2024-02-11 09:17 | P.GSCN ---
History of Present Illness Consult date: 02/11/24 Reason for Consult: Arterial insufficiency of the right lower extremity. History of present illness: Patient is a 68-year-old male who I originally had seen in hospital consultation in late September of this year. He was status post right fifth toe amputation and developed ischemic changes of the fourth and third toes of the right foot. At that time a transmetatarsal amputation was recommended however the patient insisted on amputation of only the third and fourth toes. This wound healed and the patient was to be seen on an outpatient/as needed basis. He apparently had begun experiencing additional issues. He was seen by a canceling and cutting control clerk in [facility] who performed an angiogram. I was able to review these images. This demonstrated normal arterial perfusion to the distal foot/digit level and the patient was referred to his speeder frame tender. He was seen twice in my office in the past 2 weeks with ischemic changes of the remaining 2 toes. Because of his previous relationship and recent referral to his speeder frame tender he was referred back to his speeder frame tender for a toe amputation. The patient was referred for a venous duplex over concern of deep venous thrombosis. The patient does have a documented history of deep venous thrombosis and venous duplex imaging demonstrated deep venous thrombosis of "indeterminate age". The speeder frame tender then canceled any surgical plans and the patient presented to the hospital and was subsequently admitted. Patient has a history of factor V Leyden. He was maintained on oral anticoagulation. Review of Systems - Integumentary Reports darkening of skin (First and second toes right foot) - Hematologic/Lymphatic Reports thrombophilia (Patient has a history of factor V Leyden deficiency.) Past Medical History Past Medical History: Deep Vein Thrombosis (DVT), Hyperlipidemia, Vascular Disorder Additional Past Medical History / Comment(s): states "doesn't have the proteins in my blood to prevent it from clotting is why I am taking warfarin"managed by Dr Angel Sanchez Physician [phone], (Factor V Leiden mutation) thyroid nodules History of Any Multi-Drug Resistant Organisms: None Reported Additional Past Surgical History / Comment(s): stent rt groin Aug 2018,aortogram, thyroid biopsy 2018 Past Anesthesia/Blood Transfusion Reactions: No Reported Reaction Past Psychological History: No Psychological Hx Reported Smoking Status: Former smoker Past Alcohol Use History: None Reported Past Drug Use History: None Reported - Past Family History Mother Family Medical History: No Reported History Sister(s) Family Medical History: Deep Vein Thrombosis (DVT) Father Family Medical History: Deep Vein Thrombosis (DVT) Medications and Allergies Home Medications Medication Instructions Recorded Confirmed Type Ascorbic Acid [Vitamin C] 1,000 mg PO DAILY 11/01/18 02/09/24 History Clopidogrel [Plavix] 75 mg PO DAILY 11/01/18 02/09/24 History Multivitamins, Thera [Multivitamin 1 tab PO DAILY 11/01/18 02/09/24 History (formulary)] Cholecalciferol [Vitamin D3 (25 25 mcg PO DAILY 09/29/20 02/09/24 History Mcg = 1000 Iu)] Warfarin [Coumadin] 1 mg PO HS@1700 10/14/23 02/09/24 History Warfarin [Coumadin] 5 mg PO HS@1700 10/14/23 02/09/24 History Atorvastatin [Lipitor] 40 mg PO HS 02/09/24 02/09/24 History Enoxaparin [Lovenox] 80 mg SQ DIRECTED 02/09/24 02/09/24 History Gabapentin [Neurontin] 300 mg PO TID PRN 02/09/24 02/09/24 History HYDROcodone/APAP 7.5-325MG [[place] 1 tab PO DIRECTED PRN 02/09/24 02/09/24 History 7.5-325] Allergies Allergy/AdvReac Type Severity Reaction Status Date / Time No Known Allergies Allergy Verified 02/09/24 16:16 Surgical - Exam Osteopathic Statement: *. No significant issues noted on an osteopathic structural exam other than those noted in the History and Physical/Consult. Vital Signs Temp Pulse Resp BP Pulse Ox 97.5 F L 96 16 124/64 92 L 02/09/24 13:39 02/09/24 13:39 02/09/24 13:39 02/09/24 13:39 02/09/24 13:39 Patient Seen Date: 02/11/24 Patient Seen Time: 09:20 The right leg is somewhat edematous at the foot and ankle area. The patient is been constantly keeping his foot in dependent position. Ischemia of the first and second toe and now of the previously healed wound from the third and fourth toe amputation is now present. The plantar surface demonstrates splotchy areas of ischemia although this is not significantly tender for the patient. The dorsum of the foot appears well-perfused. I had a long discussion with the patient in reference to his current clinical situation. I expressed my concerns over the probability of wound healing from a transmetatarsal amputation and that I felt more comfortable offering a below the knee amputation as I believe this will heal. The patient indicates that he has "accepted" the need for a below the knee amputation. As such this will be scheduled to be performed during his hospital stay. Results - Labs 02/10/24 04:13 02/10/24 04:13 Abnormal Lab Results - Last 24 Hours (Table) 02/10/24 02/10/24 02/11/24 Range/Units 04:13 04:13 04:54 WBC 10.16 H (4.50-10.00) X 10*3/uL RBC 3.46 L (4.40-5.60) X 10*6/uL Hgb 10.8 L (13.0-17.0) g/dL Hct 33.0 L (39.6-50.0) % Plt Count 114 L (140-440) X 10*3/uL Immature Gran # 0.05 H (0.00-0.04) X 10*3/uL Neutrophils # 8.18 H (1.80-7.70) X 10*3/uL Lymphocytes # 0.87 L (0.90-5.00) X 10*3/uL PT 29.1 H (10.0-12.5) sec INR 3.0 H (<1.2) Carbon Dioxide 21.1 L (21.6-31.8) mmol/L Calcium 8.2 L (8.7-10.3) mg/dL AST 47 H (14-35) U/L ALT 57 H (10-49) U/L Total Protein 6.0 L (6.2-8.2) g/dL Albumin 3.6 L (3.8-4.9) g/dL Albumin/Globulin Ratio 1.50 L (1.60-3.17) Ratio Microbiology - Last 24 Hours (Table) 02/09/24 14:54 Blood Culture - Preliminary Blood 02/09/24 15:09 Blood Culture - Preliminary Blood Diabetes panel 02/10/24 Range/Units 04:13 Sodium 135 (135-145) mmol/L Potassium 4.2 (3.5-5.5) mmol/L Chloride 102 (96-109) mmol/L Carbon Dioxide 21.1 L (21.6-31.8) mmol/L BUN 11.0 (9.0-27.0) mg/dL Creatinine 0.7 (0.6-1.5) mg/dL Glucose 91 (70-110) mg/dL Calcium 8.2 L (8.7-10.3) mg/dL AST 47 H (14-35) U/L ALT 57 H (10-49) U/L Alkaline Phosphatase 63 (41-126) U/L Total Protein 6.0 L (6.2-8.2) g/dL Albumin 3.6 L (3.8-4.9) g/dL Calcium panel 02/10/24 Range/Units 04:13 Calcium 8.2 L (8.7-10.3) mg/dL Albumin 3.6 L (3.8-4.9) g/dL Pituitary panel 02/10/24 Range/Units 04:13 Sodium 135 (135-145) mmol/L Potassium 4.2 (3.5-5.5) mmol/L Chloride 102 (96-109) mmol/L Carbon Dioxide 21.1 L (21.6-31.8) mmol/L BUN 11.0 (9.0-27.0) mg/dL Creatinine 0.7 (0.6-1.5) mg/dL Glucose 91 (70-110) mg/dL Calcium 8.2 L (8.7-10.3) mg/dL Adrenal panel 02/10/24 Range/Units 04:13 Sodium 135 (135-145) mmol/L Potassium 4.2 (3.5-5.5) mmol/L Chloride 102 (96-109) mmol/L Carbon Dioxide 21.1 L (21.6-31.8) mmol/L BUN 11.0 (9.0-27.0) mg/dL Creatinine 0.7 (0.6-1.5) mg/dL Glucose 91 (70-110) mg/dL Calcium 8.2 L (8.7-10.3) mg/dL Total Bilirubin 0.5 (0.3-1.2) mg/dL AST 47 H (14-35) U/L ALT 57 H (10-49) U/L Alkaline Phosphatase 63 (41-126) U/L Total Protein 6.0 L (6.2-8.2) g/dL Albumin 3.6 L (3.8-4.9) g/dL - Imaging Additional studies: Previous angiogram from outside facility was reviewed. Venous duplex left lower extremity demonstrates chronic post thrombotic changes without evidence of acute change. Assessment and Plan Assessment: Hypercoagulable syndrome with ischemia of the forefoot right lower extremity with need for amputation. History of tobacco abuse although the patient did stop smoking 7 years prior. History of left lower extremity deep venous thrombosis in the past. Plan: Will schedule patient for right below the knee amputation. Time with Patient: Greater than 30
--- NOTE | 2024-02-11 12:44 | P.PN ---
Subjective Progress Note Date: 02/11/24 Femi Case, is a 68-year-old male patient who presented with concerns of increased pain to right foot. Patient has a past medical history of gangrene and has been following with vascular services. Patient previously underwent amputation of his right third fourth and fifth toe by Dr. Solano in October. Patient also follows with podiatry. Patient also has a past medical history of recent DVT and vascular disorder. patient also ex-smoker. foot x-ray completed showing no significant interval change. Laboratory feeling wBC 13.0, Hemoglobin 12.1, creatinine 0.59, bun 11. Current vital signs temp 98.2, heart rate 76, respiratory rate 18, blood pressure 123/46 pulse ox of 91% on 2 L. Patient ad mitted patient started on IV clindamycin. Patient also on Lovenox 80 mg twice a day while Coumadin on hold. Patient also requiring increased oxygen. Will order chest x-ray and consult pulmonary services On 02/11/2024 patient was seen and examined on the medical floor, he is alert and oriented x 3 in no apparent distress, there is no fever or chills no headache or dizziness no chest pain no shortness of breath no cough, no nausea or vomiting no abdominal pain no diarrhea and no urinary symptoms. He was evaluated by vascular surgery and is scheduled for right below-knee amputation. Objective - Vital Signs Vital signs: Vital Signs Temp 98.1 F 02/11/24 11:44 Pulse 69 02/11/24 11:44 Resp 18 02/11/24 11:44 BP 128/55 02/11/24 11:44 Pulse Ox 92 L 02/11/24 11:44 FiO2 Intake & Output 02/10/24 02/11/24 02/11/24 18:59 06:59 18:59 Intake Total 1480 Balance 1480 Weight 76 kg Intake: Intake, IV Titration 1480 Amount Clindamycin 600 mg In 50 Dextrose 5% in Water 50 ml @ 50 mls/hr IVPB Q8HR YOSSI Rx#:[id number] Sodium Chloride 0.9% 1, 1430 000 ml @ 130 mls/hr IV . [id number] YOSSI Rx#:[id number] Other: # Voids 1 - Exam Head normocephalic Neck supple Lungs clear to auscultation bilaterally no wheezing or crackles Heart regular rate and rhythm S1-S2, no rub or gallop Abdomen is soft nontender nondistended positive bowel sounds no hepatosplenomegaly Extremities Previous amputation of right second third and fourth toes open wound with drainage and diffuse swelling Neuro alert and orientated to 3 - Labs CBC & Chem 7: 02/10/24 04:13 02/10/24 04:13 Labs: Abnormal Lab Results - Last 24 Hours (Table) 02/11/24 Range/Units 04:54 PT 29.1 H (10.0-12.5) sec INR 3.0 H (<1.2) Microbiology - Last 24 Hours (Table) 02/09/24 14:54 Blood Culture - Preliminary Blood 02/09/24 15:09 Blood Culture - Preliminary Blood Assessment and Plan Assessment: Right foot gangrene. Patient started on IV clindamycin vascular service is consulted Acute hypoxic respiratory failure. Chest x-ray ordered pulmonary service is consulted history of DVT. Patient currently on Lovenox 80 mg twice a day History of peripheral vascular disease History of factor V disorder maintained on Coumadin History of hyperlipidemia History of ex-smoker At this time patient will be admitted Vascular service is consulted Pulmonary service is consulted Chest x-ray ordered Patient started on IV antibiotics Blood culture ordered Repeat labs ordered
--- NOTE | 2024-02-11 13:19 | P.CNPUL ---
History of Present Illness Consult date: 02/10/24 Reason for consult: COPD History of present illness: [address], [place] [address] Pulmonology - Consult Note Patient Name: Femi Case Date of : 1955 Patient Status: Clinical Attending Provider: Elpidio French Date: 02/10/24 20:33 Initialization Date: 02/10/24 20:33 History of Present Illness Consult date: 02/10/24 Reason for consult: COPD History of present illness: I was asked to evaluate this patient regarding COPD and some hypoxemia. The patient reports chronic exertional dyspnea. He has some chronic cough and congestion. He seems to have had a recent flulike illness and chest congestion that occurred approximately 2 to 3 weeks ago. His chest x-ray shows some coarse interstitial pattern bilaterally along with COPD and emphysematous changes. No hemoptysis. No pleurisy. No chest pain. The patient is currently in the hospital having difficulties with his right foot. The patient is currently under the care of vascular surgery in our facility. The patient has undergone previous amputation of the right third fourth and fifth toes by vascular surgery. He was hospitalized for right foot infection. The patient also has increased swelling in the right lower extremity and a Doppler of the right lower extremity that was done on 02/09/2024 also showed presence of a thrombus in the right popliteal vein. The patient is known to have a hypercoagulable state and he has had a previous right lower extremity DVT approximately 15 years ago. He is also known to have peripheral vascular disease. Recent angiography that was done in November 2023 showed no evidence of any thoracic aortic dissection or occlusion. There was infrarenal abdominal aortic fusiform aneurysm measuring 35 x 30 mm in size, secondary dilatation of the bifurcation of the internal and external iliac on the left, and there is moderate scattered atherosclerotic changes. At this point in time, the patient is on IV clindamycin. The x-ray of the foot that was obtained on 02/09/2024 showed no gas. There is generalized osteopenia. Stable postop changes involving the right foot without evidence of any osseous destruction or osteomyelitis. White cell count is at 10 hemoglobin is at 10.8 and a platelet count of 114. His current INR is at 4.20 patient has been anticoagulated with warfarin dose being adjusted by pharmacy. BUN 11 with a creatinine of 0.7 and sodium is at 135. No signs of any pulmonary embolism. No pleurisy or hemoptysis. No chest pain. He is known to have factor V Leiden mutation/hypercoagulability with a remote history of right lower extremity DVT. Review of Systems Constitutional: Denies chills, Denies fever Eyes: denies as per HPI, denies blurred vision, denies bulging eye, denies decreased vision, denies diplopia, denies discharge, denies dry eye, denies irritation, denies itching, denies pain, denies photophobia, denies loss of peripheral vision, denies loss of vision, denies tunnel vision/blind spots Ears: deny: decreased hearing, ear discharge, earache, tinnitus Ears, nose, mouth and throat: Reports as per HPI Breasts: absent: as per HPI, gynecomastia Cardiovascular: Reports claudication, Reports decreased exercise tolerance Respiratory: Reports dyspnea Gastrointestinal: Reports as per HPI Genitourinary: Reports as per HPI Musculoskeletal: Reports leg numbness/tingling, Reports shooting leg pain Musculoskeletal: right: ankle swelling, absent: ankle pain, ankle stiffness Integumentary: Reports wounds Neurological: Reports as per HPI Psychiatric: Reports as per HPI Endocrine: Reports as per HPI, Reports fatigue Hematologic/Lymphatic: Reports as per HPI Allergic/Immunologic: Reports as per HPI Past Medical History Past Medical History: Deep Vein Thrombosis (DVT), Hyperlipidemia, Vascular Disorder Additional Past Medical History / Comment(s): states "doesn't have the proteins in my blood to prevent it from clotting is why I am taking warfarin"[facility] [phone], (Factor V Leiden mutation) thyroid nodules History of Any Multi-Drug Resistant Organisms: None Reported Additional Past Surgical History / Comment(s): stent rt groin Aug 2018,aortogram, thyroid biopsy 2019 Past Anesthesia/Blood Transfusion Reactions: No Reported Reaction Past Psychological History: No Psychological Hx Reported Smoking Status: Former smoker Past Alcohol Use History: None Reported Past Drug Use History: None Reported - Past Family History Mother Family Medical History: No Reported History Sister(s) Family Medical History: Deep Vein Thrombosis (DVT) Father Family Medical History: Deep Vein Thrombosis (DVT) Medications and Allergies Home Medications Medication Instructions Recorded Confirmed Type Ascorbic Acid [Vitamin C] 1,000 mg PO DAILY 11/01/18 02/09/24 History Clopidogrel [Plavix] 75 mg PO DAILY 11/01/18 02/09/24 History Multivitamins, Thera [Multivitamin 1 tab PO DAILY 11/01/18 02/09/24 History (formulary)] Cholecalciferol [Vitamin D3 (25 25 mcg PO DAILY 09/29/20 02/09/24 History Mcg = 1000 Iu)] Warfarin [Coumadin] 1 mg PO HS@1700 10/14/23 02/09/24 History Warfarin [Coumadin] 5 mg PO HS@1700 10/14/23 02/09/24 History Atorvastatin [Lipitor] 40 mg PO HS 02/09/24 02/09/24 History Enoxaparin [Lovenox] 80 mg SQ DIRECTED 02/09/24 02/09/24 History Gabapentin [Neurontin] 300 mg PO TID PRN 02/09/24 02/09/24 History HYDROcodone/APAP 7.5-325MG [[place] 1 tab PO DIRECTED PRN 02/09/24 02/09/24 History 7.5-325] Allergies Allergy/AdvReac Type Severity Reaction Status Date / Time No Known Allergies Allergy Verified 02/09/24 16:16 Physical Exam Calm and comfortable, no acute distress Head exam was generally normal. There was no scleral icterus or corneal arcus. Mucous membranes were moist. Neck was supple and without jugular venous distension, thyromegaly, or carotid bruits. Carotids were easily palpable bilaterally. There was no adenopathy. Lungs Are showing diminished breath sounds bilaterally. Expiratory wheeze. Cardiac exam revealed the PMI to be normally situated and sized. The rhythm was regular and no extrasystoles were noted during several minutes of auscultation. The first and second heart sounds were normal and physiologic splitting of the second heart sound was noted. There were no murmurs, rubs, clicks, or gallops.. Abdominal exam revealed normal bowel sounds. The abdomen was soft, non-tender, and without masses, organomegaly, or appreciable enlargement of the abdominal aorta. Extremities reveal prior amputations of the second, third, and fourth toes. There are gangrenous changes throughout the forefoot and open draining wound. The foot is diffusely swollen. Right lower extremity is also swollen and tender. Neurologically, the patient is awake and alert and the patient does not have any focal neurological deficit. Cranial nerves are essentially intact. Results - Diagnostic Findings Chest x-ray: image reviewed Assessment and Plan Plan: Right foot infection/wound with a previous amputation involving the right third fourth and fifth toes by vascular surgery. Currently the patient is on IV clindamycin.. Noted the patient had traumatic injury to the right foot with secondary gangrenous toes requiring amputation that was completed on 10/29/2023. Right lower extremity popliteal DVT, recurrent last episode was more than 15 years ago Factor V Leiden/hypercoagulability the patient is maintained on long-term anticoagulation with warfarin and INR is currently at 4.2 COPD currently inactive and stable, no clear clinical manifestation of pulm embolism Peripheral vascular disease Hyperlipidemia Plan Pulmonary status is stable. Supplemental oxygen if needed. Put the patient on DuoNeb treatments [id number] Continue anticoagulation with warfarin on outpatient basis. The patient has been transitioned to Lovenox therapeutic doses. No clinical signs or symptoms to indicate pulmonary embolism at this point in time. ID consult Vascular surgery consult Orthopedic consult Continue IV clindamycin Pain control with Dilaudid IV fluids Will continue to follow. Past Medical History Past Medical History: Deep Vein Thrombosis (DVT), Hyperlipidemia, Vascular Disorder Additional Past Medical History / Comment(s): states "doesn't have the proteins in my blood to prevent it from clotting is why I am taking warfarin"managed by Dr Angel Sanchez Physician [phone], (Factor V Leiden mutation) thyroid nodules History of Any Multi-Drug Resistant Organisms: None Reported Additional Past Surgical History / Comment(s): stent rt groin Aug 2018,aortogram, thyroid biopsy 2019 Past Anesthesia/Blood Transfusion Reactions: No Reported Reaction Past Psychological History: No Psychological Hx Reported Smoking Status: Former smoker Past Alcohol Use History: None Reported Past Drug Use History: None Reported - Past Family History Mother Family Medical History: No Reported History Sister(s) Family Medical History: Deep Vein Thrombosis (DVT) Father Family Medical History: Deep Vein Thrombosis (DVT) Medications and Allergies Home Medications Medication Instructions Recorded Confirmed Type Ascorbic Acid [Vitamin C] 1,000 mg PO DAILY 11/01/18 02/09/24 History Clopidogrel [Plavix] 75 mg PO DAILY 11/01/18 02/09/24 History Multivitamins, Thera [Multivitamin 1 tab PO DAILY 11/01/18 02/09/24 History (formulary)] Cholecalciferol [Vitamin D3 (25 25 mcg PO DAILY 09/29/20 02/09/24 History Mcg = 1000 Iu)] Warfarin [Coumadin] 1 mg PO HS@1700 10/14/23 02/09/24 History Warfarin [Coumadin] 5 mg PO HS@1700 10/14/23 02/09/24 History Atorvastatin [Lipitor] 40 mg PO HS 02/09/24 02/09/24 History Enoxaparin [Lovenox] 80 mg SQ DIRECTED 02/09/24 02/09/24 History Gabapentin [Neurontin] 300 mg PO TID PRN 02/09/24 02/09/24 History HYDROcodone/APAP 7.5-325MG [[place] 1 tab PO DIRECTED PRN 02/09/24 02/09/24 History 7.5-325] Allergies Allergy/AdvReac Type Severity Reaction Status Date / Time No Known Allergies Allergy Verified 02/09/24 16:16 Physical Exam Vitals: Vital Signs Temp Pulse Resp BP Pulse Ox 02/11/24 11:44 98.1 F 69 18 128/55 92 L 02/11/24 08:00 78 18 02/11/24 07:05 97.9 F 78 18 134/62 93 L 02/11/24 00:52 98.1 F 81 18 149/71 94 L 02/10/24 20:07 98.0 F 76 16 127/64 95 02/10/24 20:00 81 18 Intake and Output 02/10/24 02/11/24 02/11/24 22:59 06:59 14:59 Intake Total 1480 Balance 1480 Intake: Intake, IV Titration 1480 Amount Clindamycin 600 mg In 50 Dextrose 5% in Water 50 ml @ 50 mls/hr IVPB Q8HR [facility] Rx#:[id number] Sodium Chloride 0.9% 1, 1430 000 ml @ 130 mls/hr IV . Q7H42M [facility] Rx#:[id number] Other: # Voids 1 Weight 76 kg Results - Laboratory Findings CBC and BMP: 02/10/24 04:13 02/10/24 04:13 PT/INR, D-dimer PT 29.1 sec (10.0-12.5) H 02/11/24 04:54 INR 3.0 (<1.2) H 02/11/24 04:54 Abnormal lab findings: Abnormal Labs 02/09/24 02/09/24 02/09/24 14:54 14:54 14:54 WBC 13.0 H RBC 3.96 L Hgb 12.1 L Hct 37.2 L Plt Count Immature Gran # Neutrophils # 11.3 H Lymphocytes # 0.8 L PT 41.3 H INR 4.2 H APTT 63.7 H Sodium 133 L Carbon Dioxide Creatinine 0.59 L Glucose 103 H Calcium AST ALT 56 H Total Protein Albumin Albumin/Globulin Ratio 02/10/24 02/10/24 02/10/24 04:13 04:13 07:19 WBC 10.16 H RBC 3.46 L Hgb 10.8 L Hct 33.0 L Plt Count 114 L Immature Gran # 0.05 H Neutrophils # 8.18 H Lymphocytes # 0.87 L PT 41.4 H INR 4.2 H APTT Sodium Carbon Dioxide 21.1 L Creatinine Glucose Calcium 8.2 L AST 47 H ALT 57 H Total Protein 6.0 L Albumin 3.6 L Albumin/Globulin Ratio 1.50 L 02/11/24 04:54 WBC RBC Hgb Hct Plt Count Immature Gran # Neutrophils # Lymphocytes # PT 29.1 H INR 3.0 H APTT Sodium Carbon Dioxide Creatinine Glucose Calcium AST ALT Total Protein Albumin Albumin/Globulin Ratio
--- NOTE | 2024-02-11 13:47 | P.PN ---
Subjective Progress Note Date: 02/11/24 I was asked to evaluate this patient regarding COPD and some hypoxemia. The patient reports chronic exertional dyspnea. He has some chronic cough and congestion. He seems to have had a recent flulike illness and chest congestion that occurred approximately 2 to 3 weeks ago. His chest x-ray shows some coarse interstitial pattern bilaterally along with COPD and emphysematous changes. No hemoptysis. No pleurisy. No chest pain. The patient is currently in the hospital having difficulties with his right foot. The patient is currently under the care of vascular surgery in our facility. The patient has undergone previous amputation of the right third fourth and fifth toes by vascular surgery . He was hospitalized for right foot infection. The patient also has increased swelling in the right lower extremity and a Doppler of the right lower extremity that was done on 02/09/2024 also showed presence of a thrombus in the right popliteal vein. The patient is known to have a hypercoagulable state and he has had a previous right lower extremity DVT approximately 15 years ago. He is also known to have peripheral vascular disease. Recent angiography that was done in November 2023 showed no evidence of any thoracic aortic dissection or occlusion. There was infrarenal abdominal aortic fusiform aneurysm measuring 35 x 30 mm in size, secondary dilatation of the bifurcation of the internal and external iliac on the left, and there is moderate scattered atherosclerotic changes. At this point in time, the patient is on IV clindamycin. The x-ray of the foot that was obtained on 02/09/2024 showed no gas. There is generalized osteopenia. Stable postop changes involving the right foot without evidence of any osseous destruction or osteomyelitis. White cell count is at 10 hemoglobin is at 10.8 and a platelet count of 114. His current INR is at 4.20 patient has been anticoagulated with warfarin dose being adjusted by pharmacy. BUN 11 with a creatinine of 0.7 and sodium is at 135. No signs of any pulmonary embolism. No pleurisy or hemoptysis. No chest pain. He is known to have factor V Leiden mutation/hypercoagulability with a remote history of right lower extremity DVT. On 02/11/2024, patient is being seen for a follow-up. No signs of respiratory distress. The patient is being evaluated vascular surgery, amputation being considered. He is currently on fluids of oxygen by nasal cannula with a pulse ox of 92%. Will be started on bronchodilators. Remains on therapeutic dose of Lovenox regarding the lower extremity DVT and currently on 80 mg of Lovenox every 12 hours. The INR today is at 3.0. Objective - Vital Signs Vital signs: Vital Signs Temp 98.1 F 02/11/24 11:44 Pulse 69 02/11/24 11:44 Resp 18 02/11/24 11:44 BP 128/55 02/11/24 11:44 Pulse Ox 92 L 02/11/24 11:44 FiO2 Intake & Output 02/10/24 02/11/24 02/11/24 18:59 06:59 18:59 Intake Total 1480 Balance 1480 Weight 76 kg Intake: Intake, IV Titration 1480 Amount Clindamycin 600 mg In 50 Dextrose 5% in Water 50 ml @ 50 mls/hr IVPB Q8HR [facility] Rx#:[id number] Sodium Chloride 0.9% 1, 1430 000 ml @ 130 mls/hr IV . Q7H42M [facility] Rx#:[id number] Other: # Voids 1 - Exam Calm and comfortable, no acute distress Head exam was generally normal. There was no scleral icterus or corneal arcus. Mucous membranes were moist. Neck was supple and without jugular venous distension, thyromegaly, or carotid bruits. Carotids were easily palpable bilaterally. There was no adenopathy. Lungs Are showing diminished breath sounds bilaterally. Expiratory wheeze. Cardiac exam revealed the PMI to be normally situated and sized. The rhythm was regular and no extrasystoles were noted during several minutes of auscultation. The first and second heart sounds were normal and physiologic splitting of the second heart sound was noted. There were no murmurs, rubs, clicks, or gallops.. Abdominal exam revealed normal bowel sounds. The abdomen was soft, non-tender, and without masses, organomegaly, or appreciable enlargement of the abdominal aorta. Extremities reveal prior amputations of the second, third, and fourth toes. There are gangrenous changes throughout the forefoot and open draining wound. The foot is diffusely swollen. Right lower extremity is also swollen and tender. Neurologically, the patient is awake and alert and the patient does not have any focal neurological deficit. Cranial nerves are essentially intact. - Labs CBC & Chem 7: 02/10/24 04:13 02/10/24 04:13 Labs: Abnormal Lab Results - Last 24 Hours (Table) 02/11/24 Range/Units 04:54 PT 29.1 H (10.0-12.5) sec INR 3.0 H (<1.2) Microbiology - Last 24 Hours (Table) 02/09/24 14:54 Blood Culture - Preliminary Blood 02/09/24 15:09 Blood Culture - Preliminary Blood Assessment and Plan Plan: Right foot infection/wound with a previous amputation involving the right third fourth and fifth toes by vascular surgery. Currently the patient is on IV clindamycin.. Noted the patient had traumatic injury to the right foot with secondary gangrenous toes requiring amputation that was completed on 10/29/2023. Right lower extremity popliteal DVT, recurrent last episode was more than 15 years ago Factor V Leiden/hypercoagulability the patient is maintained on long-term anticoagulation with warfarin and INR is currently at 4.2 COPD currently inactive and stable, no clear clinical manifestation of pulm embolism Peripheral vascular disease Hyperlipidemia Plan Pulmonary status is stable. Supplemental oxygen if needed. Put the patient on DuoNeb treatments [id number] Continue anticoagulation with warfarin on outpatient basis. The patient has been transitioned to Lovenox therapeutic doses. No clinical signs or symptoms to indicate pulmonary embolism at this point in time. ID consult Vascular surgery consult, possible amputation Orthopedic consult Continue IV clindamycin Pain control with Dilaudid IV fluids Will continue to follow.
[2024-02-11] MEDS: HYDROcodone/APAP 10-325MG 1 EACH TAB PO PRN (13:56)
[2024-02-11] MEDS: ALBUTEROL NEBULIZED 2.5 MG/3 ML INHALATION SCH (15:19)
[2024-02-11] MEDS ORDERED: VANCOMYCIN IV PER PHARMACY 1 EACH MISC MISCELLANE PRN (22:38)
[2024-02-12] MEDS: CEFEPIME 2 GM in SODIUM CHLORIDE 0.9% 100 ML IVPB SCH (00:34)
[2024-02-12] MEDS: VANCOMYCIN 1,500 MG in SODIUM CHLORIDE 0.9% 500 ML 500 ML IVPB ONE (00:37)
[2024-02-12 08:21] LABS: Basophils % (A) 0 %; Eosinophils # (A) 0.1 k/uL (0-0.7); Eosinophils % (A) 1 %; HCT 34.3 % (39.0-53.0); HGB 10.9 gm/dL (13.0-17.5); Hypochromasia Slight; INR 2.4 (<1.2); Lymphocytes # (A) 0.5 k/uL (1.0-4.8); Lymphocytes % (A) 5 %; MCH 30.9 pg (25.0-35.0); MCHC 31.7 g/dL (31.0-37.0); MCV 97.3 fL (80.0-100.0); Mean Platelet Volume 9.2; Monocytes # (A) 0.4 k/uL (0-1.0); Monocytes % (A) 4 %; Neutrophils # (A) 8.7 k/uL (1.3-7.7); Neutrophils % (A) 88 %; Platelet Count 120 k/uL (150-450); Poikilocytosis Slight; Prothrombin Time 23.5 sec (10.0-12.5); RBC 3.52 m/uL (4.30-5.90); RDW 13.5 % (11.5-15.5); WBC 9.9 k/uL (3.8-10.6)
[2024-02-12 08:33] LABS: ALT 52 U/L (4-49); AST 42 U/L (17-59); African American GFR (CKD) >90 (>60 ml/min/1.73 sqM); Albumin 3.2 g/dL (3.5-5.0); Albumin/Globulin Ratio 1.2; Alkaline Phosphatase 67 U/L (38-126); Anion Gap 5 mmol/L; Blood Urea Nitrogen 8 mg/dL (9-20); Calcium 8.4 mg/dL (8.4-10.2); Carbon Dioxide 25 mmol/L (22-30); Chloride 107 mmol/L (98-107); Globulin 2.7 g/dL; Glucose 100 mg/dL (74-99); Non-African American GFR(CKD) >90 (>60 ml/min/1.73 sqM); Sodium 137 mmol/L (137-145); Total Bilirubin 1.1 mg/dL (0.2-1.3); Total Protein 5.9 g/dL (6.3-8.2)
--- NOTE | 2024-02-12 08:41 | P.CONS ---
History of Present Illness - Reason for Consult Consult date: 02/11/24 Foot gangrene Requesting physician: Linda Tubbs - Chief Complaint Right foot pain and discoloration x days - History of Present Illness Patient is a 68-year-old male with a past medical history significant for hypertension DVT PAD in this patient who did have a previous history of right fifth toe gangrene in this patient who is status post right fourth and thi rd toe amputation subsequently noticed to having nonhealing of the wound to the right foot and also noticed to having some necrotic changes and increasing pain patient was describing the pain to be mostly dull aching to sharp moderate intensity without radiation with associated discoloration in order associated with it for the patient was brought into the hospital on arrival to the ER patient was afebrile and no fever have recorded subsequently patient was not tachycardic hypotensive or hypoxic he did have a white count of 13,000 on admission with a creatinine 0.59 patient was started on clindamycin infectious disease was consulted today for further management of antibiotic therapy patient did have x-ray of the foot no significant or will change reported by the radiologist chest x-ray coarse interstitial pattern typical of chronic interstitial lung disease Review of Systems Positive point and negatives has been mentioned in the HPI, complete review of systems was performed and all other systems are negative Past Medical History Past Medical History: Deep Vein Thrombosis (DVT), Hyperlipidemia, Vascular Disorder Additional Past Medical History / Comment(s): states "doesn't have the proteins in my blood to prevent it from clotting is why I am taking warfarin"managed by Dr Angel Sanchez Physician [phone], (Factor V Leiden mutation) thyroid nodules History of Any Multi-Drug Resistant Organisms: None Reported Additional Past Surgical History / Comment(s): stent rt groin Aug 2018,aortogram, thyroid biopsy 2018 Past Anesthesia/Blood Transfusion Reactions: No Reported Reaction Past Psychological History: No Psychological Hx Reported Smoking Status: Former smoker Past Alcohol Use History: None Reported Past Drug Use History: None Reported - Past Family History Mother Family Medical History: No Reported History Sister(s) Family Medical History: Deep Vein Thrombosis (DVT) Father Family Medical History: Deep Vein Thrombosis (DVT) Medications and Allergies Home Medications Medication Instructions Recorded Confirmed Type Ascorbic Acid [Vitamin C] 1,000 mg PO DAILY 11/01/18 02/09/24 History Clopidogrel [Plavix] 75 mg PO DAILY 11/01/18 02/09/24 History Multivitamins, Thera [Multivitamin 1 tab PO DAILY 11/01/18 02/09/24 History (formulary)] Cholecalciferol [Vitamin D3 (25 25 mcg PO DAILY 09/29/20 02/09/24 History Mcg = 1000 Iu)] Warfarin [Coumadin] 1 mg PO HS@1700 10/14/23 02/09/24 History Warfarin [Coumadin] 5 mg PO HS@1700 10/14/23 02/09/24 History Atorvastatin [Lipitor] 40 mg PO HS 02/09/24 02/09/24 History Enoxaparin [Lovenox] 80 mg SQ DIRECTED 02/09/24 02/09/24 History Gabapentin [Neurontin] 300 mg PO TID PRN 02/09/24 02/09/24 History HYDROcodone/APAP 7.5-325MG [[place] 1 tab PO DIRECTED PRN 02/09/24 02/09/24 History 7.5-325] Allergies Allergy/AdvReac Type Severity Reaction Status Date / Time No Known Allergies Allergy Verified 02/09/24 16:16 Physical Exam Vitals: Vital Signs Temp Pulse Resp BP Pulse Ox 02/11/24 07:05 97.9 F 78 18 134/62 93 L 02/11/24 00:52 98.1 F 81 18 149/71 94 L 02/10/24 20:07 98.0 F 76 16 127/64 95 02/10/24 20:00 81 18 02/10/24 11:54 97.8 F 67 16 123/61 93 L Intake and Output 02/10/24 02/11/24 02/11/24 22:59 06:59 14:59 Intake Total 1480 Balance 1480 Intake: Intake, IV Titration 1480 Amount Clindamycin 600 mg In 50 Dextrose 5% in Water 50 ml @ 50 mls/hr IVPB Q8HR [facility] Rx#:[id number] Sodium Chloride 0.9% 1, 1430 000 ml @ 130 mls/hr IV . Q7H42M [facility] Rx#:[id number] Other: # Voids 1 Weight 76 kg GENERAL DESCRIPTION: Elderly male lying in bed, no distress. No tachypnea or accessory muscle of respiration use. HEENT: Shows Pallor , no scleral icterus. Oral mucous membrane is dry. NECK: Trachea central, no thyromegaly. LUNGS: Unlabored breathing. Clear to auscultation anteriorly. No wheeze or crackle. HEART: S1, S2, regular rate and rhythm. No loud murmur ABDOMEN: Soft, no tenderness , guarding or rigidity, no organomegaly EXTREMITIES: Right foot close amputation site did have necrotic changes with associated swelling redness of the right foot and some drainage SKIN: No rash, no masses palpable. NEUROLOGICAL: The patient is awake, alert, oriented x3, mood and affect normal. Results CBC & Chem 7: 02/12/24 07:11 02/12/24 07:11 Labs: Abnormal Lab Results - Last 24 Hours (Table) 02/11/24 Range/Units 04:54 PT 29.1 H (10.0-12.5) sec INR 3.0 H (<1.2) Microbiology - Last 24 Hours (Table) 02/09/24 14:54 Blood Culture - Preliminary Blood 02/09/24 15:09 Blood Culture - Preliminary Blood Assessment and Plan (1) Gangrene of toe of right foot Current Visit: Yes Status: Acute Code(s): I96 - GANGRENE, NOT ELSEWHERE CLASSIFIED SNOMED Code(s): 28090112002914747 (2) Cellulitis of right foot Current Visit: No Status: Acute Code(s): L03.115 - CELLULITIS OF RIGHT LOWER LIMB SNOMED Code(s): 32275592294855637 Plan: 1patient presented to hospital with increasing pain discoloration to the right foot toes amputation site concerning for right gangrene with associated cellulitis of the right foot keeping in mind the patient has been around the hospital when you call for resistant gram-positive as well as gram-negative pathogen. 2discontinue clindamycin. 3we will start the patient on vancomycin pharmacy to dose and cefepime while waiting for the workup to be completed. We will follow on clinical condition and cultures to further adjust medication if needed Thank you for this consultation we will follow the patient along with you Dictation was produced using [employer] software. please excuse any grammatical, word or spelling errors. Time with Patient: Greater than 30
--- NOTE | 2024-02-12 12:51 | P.PN ---
Subjective Progress Note Date: 02/12/24 I was asked to evaluate this patient regarding COPD and some hypoxemia. The patient reports chronic exertional dyspnea. He has some chronic cough and congestion. He seems to have had a recent flulike illness and chest congestion that occurred approximately 2 to 3 weeks ago. His chest x-ray shows some coarse interstitial pattern bilaterally along with COPD and emphysematous changes. No hemoptysis. No pleurisy. No chest pain. The patient is currently in the hospital having difficulties with his right foot. The patient is currently under the care of vascular surgery in our facility. The patient has undergone previous amputation of the right third fourth and fifth toes by vascular surgery. He was hospitalized for right foot infection. The patient also has increased swelling in the right lower extremity and a Doppler of the right lower extremity that was done on 02/09/2024 also showed presence of a thrombus in the right popliteal vein. The patient is known to have a hypercoagulable state and he has had a previous right lower extremity DVT approximately 15 years ago. He is also known to have peripheral vascular disease. Recent angiography that was done in November 2023 showed no evidence of any thoracic aortic dissection or occlusion. There was infrarenal abdominal aortic fusiform aneurysm measuring 35 x 30 mm in size, secondary dilatation of the bifurcation of the internal and external iliac on the left, and there is moderate scattered atherosclerotic changes. At this point in time, the patient is on IV clindamycin. The x-ray of the foot that was obtained on 02/09/2024 showed no gas. There is generalized osteopenia. Stable postop changes involving the right foot without evidence of any osseous destruction or osteomyelitis. White cell count is at 10 hemoglobin is at 10.8 and a platelet count of 114. His current INR is at 4.20 patient has been anticoagulated with warfarin dose being adjusted by pharmacy. BUN 11 with a creatinine of 0.7 and sodium is at 135. No signs of any pulmonary embolism. No pleurisy or hemoptysis. No chest pain. He is known to have factor V Leiden mutation/hypercoagulability with a remote history of right lower extremity DVT. On 02/11/2024, patient is being seen for a follow-up. No signs of respiratory distress. The patient is being evaluated vascular surgery, amputation being considered. He is currently on fluids of oxygen by nasal cannula with a pulse ox of 92%. Will be started on bronchodilators. Remains on therapeutic dose of Lovenox regarding the lower extremity DVT and currently on 80 mg of Lovenox every 12 hours. The INR today is at 3.0. The patient is seen today February 12, 2024 in follow-up on the regular medical floor. He is currently up ambulating in his room. Awake and alert in no acute distress. Maintaining O2 saturations in the 90s on room air. He denies any worsening shortness of breath, cough or congestion. He is afebrile. Hemodynamically stable. He is still having ongoing issues with significant pain of his right foot. He previously had a right fifth toe amputation and subsequently a right third and fourth toe amputation. He has been followed by cardiology vascular surgery and the plan is for a right below the knee amputation possibly tomorrow. Blood cultures revealing no growth. White count 9.9. Hemoglobin 10.9. Platelets 120. INR 2.4. Sodium 137. Potassium 4.0. Bicarb 25. BUN 8. Creatinine 0.60. Glucose 100. He is continued on therapeutic Lovenox. Remains on antibiotics in the form of vancomycin and cefepime. Normal saline at KVO. Alternating Dilaudid and Geff for pain control. Objective - Vital Signs Vital signs: Vital Signs Temp 98 F 02/12/24 07:28 Pulse 72 02/12/24 12:35 Resp 18 02/12/24 07:28 BP 140/62 02/12/24 07:28 Pulse Ox 94 L 02/12/24 07:28 FiO2 Intake & Output 02/11/24 02/12/24 02/12/24 18:59 06:59 18:59 Intake Total 360 Balance 360 Weight 77.6 kg Intake: Oral 360 Other: # Voids 4 3 1 - Exam GENERAL EXAM: Alert, pleasant 68-year-old male, on room air, fairly comfortable in no apparent distress. HEAD: Normocephalic. EYES: Normal reaction of pupils, equal size. NOSE: Clear with pink turbinates. THROAT: No erythema or exudates. NECK: No masses, no JVD. CHEST: No chest wall deformity. LUNGS: Equal air entry with no crackles, wheeze, rhonchi or dullness. CVS: S1 and S2 normal with no audible murmur, regular rhythm. ABDOMEN: No hepatosplenomegaly, normal bowel sounds, no guarding or rigidity. SPINE: No scoliosis or deformity SKIN: No rashes CENTRAL NERVOUS SYSTEM: No focal deficits, tone is normal in all 4 extremities. EXTREMITIES: There are gangrenous changes of the right great and second toes. Previous amputations of the right third, fourth and fifth toes. - Labs CBC & Chem 7: 02/12/24 07:11 02/12/24 07:11 Labs: Abnormal Lab Results - Last 24 Hours (Table) 02/12/24 02/12/24 02/12/24 Range/Units 07:11 07:11 07:11 RBC 3.52 L (4.30-5.90) m/uL Hgb 10.9 L (13.0-17.5) gm/dL Hct 34.3 L (39.0-53.0) % Plt Count 120 L (150-450) k/uL Neutrophils # 8.7 H (1.3-7.7) k/uL Lymphocytes # 0.5 L (1.0-4.8) k/uL PT 23.5 H (10.0-12.5) sec INR 2.4 H (<1.2) BUN 8 L (9-20) mg/dL Creatinine 0.60 L (0.66-1.25) mg/dL Glucose 100 H (74-99) mg/dL ALT 52 H (4-49) U/L Total Protein 5.9 L (6.3-8.2) g/dL Albumin 3.2 L (3.5-5.0) g/dL Microbiology - Last 24 Hours (Table) 02/09/24 14:54 Blood Culture - Preliminary Blood 02/09/24 15:09 Blood Culture - Preliminary Blood Assessment and Plan Assessment: Right foot infection/wound with a previous amputation involving the right third fourth and fifth toes by vascular surgery. Currently the patient is on IV vancomycin and cefepime. Noted the patient had traumatic injury to the right foot with secondary gangrenous toes requiring amputation that was completed on . Plan is for right below the knee amputation on 02/13/2024. Warfarin on hold. Currently on therapeutic Lovenox. Right lower extremity popliteal DVT, recurrent last episode was more than 15 years ago Factor V Leiden/hypercoagulability the patient is maintained on long-term anticoagulation with warfarin and INR is currently at 2.4 COPD currently inactive and stable, no clear clinical manifestation of pulm embolism Peripheral vascular disease Hyperlipidemia Plan: The patient was seen and evaluated Labs and medications reviewed Remains on therapeutic Lovenox Plan is for possible right below the knee amputation tomorrow Currently stable and on room air Continue bronchodilators as needed This patient was seen independently by the pulmonary nurse practitioner addressing pulmonary issues I have personally seen and examined the patient, performed the documentation and the assessment and plan as written. Number of minutes spent on the visit: 24.
[2024-02-12] MEDS: VANCOMYCIN 1,250 MG in SODIUM CHLORIDE 0.9% 250 ML IVPB SCH (14:57)
--- NOTE | 2024-02-12 17:42 | P.PN ---
Subjective Progress Note Date: 02/12/24 Femi Case, is a 68-year-old male patient who presented with concerns of increased pain to right foot. Patient has a past medical history of gangrene and has been following with vascular services. Patient previously underwent amputation of his right third fourth and fifth toe by Dr. Solano in October. Patient also follows with podiatry. Patient also has a past medical history of recent DVT and vascular disorder. patient also ex-smoker. foot x-ray completed showing no significant interval change. Laboratory feeling wBC 13.0, Hemoglobin 12.1, creatinine 0.59, bun 11. Current vital signs temp 98.2, heart rate 76, respiratory rate 18, blood pressure 123/46 pulse ox of 91% on 2 L. Patient ad mitted patient started on IV clindamycin. Patient also on Lovenox 80 mg twice a day while Coumadin on hold. Patient also requiring increased oxygen. Will order chest x-ray and consult pulmonary services On 02/11/2024 patient was seen and examined on the medical floor, he is alert and oriented x 3 in no apparent distress, there is no fever or chills no headache or dizziness no chest pain no shortness of breath no cough, no nausea or vomiting no abdominal pain no diarrhea and no urinary symptoms. He was evaluated by vascular surgery and is scheduled for right below-knee amputation. On 02/12/2024 patient was seen and examined on the medical floor, he is alert and oriented x 3 in no apparent distress, he is complaining of severe pain in his right foot, and requesting increase in pain medications, although otherwise he denies any complaints there is no fever or chills no headache or dizziness no chest pain no shortness of breath no cough no nausea or vomiting no abdominal pain no diarrhea no urinary symptoms. Objective - Vital Signs Vital signs: Vital Signs Temp 97.4 F L 02/12/24 12:49 Pulse 68 02/12/24 12:49 Resp 18 02/12/24 12:49 BP 111/63 02/12/24 12:49 Pulse Ox 91 L 02/12/24 12:49 FiO2 Intake & Output 02/11/24 02/12/24 02/12/24 18:59 06:59 18:59 Intake Total 360 Balance 360 Weight 77.6 kg Intake: Oral 360 Other: # Voids 4 3 1 - Exam Head normocephalic Neck supple Lungs clear to auscultation bilaterally no wheezing or crackles Heart regular rate and rhythm S1-S2, no rub or gallop Abdomen is soft nontender nondistended positive bowel sounds no hepatosplenomegaly Extremities Previous amputation of right second third and fourth toes open wound with drainage and diffuse swelling Neuro alert and orientated to 3 - Labs CBC & Chem 7: 02/12/24 07:11 02/12/24 07:11 Labs: Abnormal Lab Results - Last 24 Hours (Table) 02/12/24 02/12/24 02/12/24 Range/Units 07:11 07:11 07:11 RBC 3.52 L (4.30-5.90) m/uL Hgb 10.9 L (13.0-17.5) gm/dL Hct 34.3 L (39.0-53.0) % Plt Count 120 L (150-450) k/uL Neutrophils # 8.7 H (1.3-7.7) k/uL Lymphocytes # 0.5 L (1.0-4.8) k/uL PT 23.5 H (10.0-12.5) sec INR 2.4 H (<1.2) BUN 8 L (9-20) mg/dL Creatinine 0.60 L (0.66-1.25) mg/dL Glucose 100 H (74-99) mg/dL ALT 52 H (4-49) U/L Total Protein 5.9 L (6.3-8.2) g/dL Albumin 3.2 L (3.5-5.0) g/dL Microbiology - Last 24 Hours (Table) 02/09/24 14:54 Blood Culture - Preliminary Blood 02/09/24 15:09 Blood Culture - Preliminary Blood Assessment and Plan Assessment: Right foot gangrene. Patient started on IV clindamycin vascular service is consulted Acute hypoxic respiratory failure. Chest x-ray ordered pulmonary service is consulted history of DVT. Patient currently on Lovenox 80 mg twice a day History of peripheral vascular disease History of factor V disorder maintained on Coumadin History of hyperlipidemia History of ex-smoker At this time patient will be admitted Vascular service is consulted Pulmonary service is consulted Chest x-ray ordered Patient started on IV antibiotics Blood culture ordered Repeat labs ordered
--- NOTE | 2024-02-12 17:50 | P.PN ---
Subjective Progress Note Date: 02/12/24 Principal diagnosis: Reason for follow-up is right foot gangrene and cellulitis Patient is a 68-year-old male with a past medical history significant for hypertension DVT PAD in this patient who did have a previous history of right fifth toe gangrene in this patient who is status post right fourth and third toe amputation subsequently noticed to having nonhealing of the wound to the right foot and also noticed to having some necrotic changes for the patient has been admitted to the hospital. On today's evaluation that is 02/12/2024, the patient continues to be afebrile, the patient is on room air and breathing comfortably, the Pt denies having any chest pain or cough, the patient denies having any abdominal pain no vomiting or any diarrhea, patient mention pain to the right foot is currently controlled with the pain medication and no worsening drainage. Patient white count normalized to 9.9, creatinine 0.60 blood cultures pending Objective - Vital Signs Vital signs: Vital Signs Temp 98 F 02/12/24 07:28 Pulse 72 02/12/24 12:35 Resp 18 02/12/24 07:28 BP 140/62 02/12/24 07:28 Pulse Ox 94 L 02/12/24 07:28 FiO2 Intake & Output 02/11/24 02/12/24 02/12/24 18:59 06:59 18:59 Intake Total 360 Balance 360 Weight 77.6 kg Intake: Oral 360 Other: # Voids 4 3 1 - Exam GENERAL DESCRIPTION: An elderly male up in the room in no distress RESPIRATORY SYSTEM: Unlabored breathing , decreased breath sounds at bases HEART: S1 S2 regular rate and rhythm , ABDOMEN: Soft , no tenderness EXTREMITIES: Right foot toes amputation site did have necrotic changes with some swelling redness foul-smelling drainage - Labs CBC & Chem 7: 02/12/24 07:11 02/12/24 07:11 Labs: Abnormal Lab Results - Last 24 Hours (Table) 02/12/24 02/12/24 02/12/24 Range/Units 07:11 07:11 07:11 RBC 3.52 L (4.30-5.90) m/uL Hgb 10.9 L (13.0-17.5) gm/dL Hct 34.3 L (39.0-53.0) % Plt Count 120 L (150-450) k/uL Neutrophils # 8.7 H (1.3-7.7) k/uL Lymphocytes # 0.5 L (1.0-4.8) k/uL PT 23.5 H (10.0-12.5) sec INR 2.4 H (<1.2) BUN 8 L (9-20) mg/dL Creatinine 0.60 L (0.66-1.25) mg/dL Glucose 100 H (74-99) mg/dL ALT 52 H (4-49) U/L Total Protein 5.9 L (6.3-8.2) g/dL Albumin 3.2 L (3.5-5.0) g/dL Microbiology - Last 24 Hours (Table) 02/09/24 14:54 Blood Culture - Preliminary Blood 02/09/24 15:09 Blood Culture - Preliminary Blood Assessment and Plan (1) Gangrene of toe of right foot Current Visit: Yes Status: Acute Code(s): I96 - GANGRENE, NOT ELSEWHERE CLASSIFIED SNOMED Code(s): 49577821140570648 (2) Cellulitis of right foot Current Visit: No Status: Acute Code(s): L03.115 - CELLULITIS OF RIGHT LOWER LIMB SNOMED Code(s): 16005797699396512 Plan: 1patient presented to hospital with increasing pain discoloration to the right foot toes amputation site concerning for right gangrene with associated cellulitis of the right foot keeping in mind the patient has been around the hospital when you call for resistant gram-positive as well as gram-negative pathogen. 2patient to continue with vancomycin pharmacy to dose and cefepime while waiting for the workup to be completed and monitor clinical course closely. Dictation was produced using resmioation software. please excuse any grammatical, word or spelling errors. Time with Patient: Less than 30
[2024-02-13 10:23] LABS: Basophils # (A) 0.03 X 10*3/uL (0.00-0.10); Basophils % (A) 0.4 %; Eosinophils # (A) 0.13 X 10*3/uL (0.04-0.35); Eosinophils % (A) 1.6 %; HCT 33.1 % (39.6-50.0); HGB 10.7 g/dL (13.0-17.0); Lymphocytes # (A) 0.46 X 10*3/uL (0.90-5.00); Lymphocytes % (A) 5.8 %; MCH 31.3 pg (27.0-32.0); MCHC 32.3 g/dL (32.0-37.0); MCV 96.8 FL (80.0-97.0); Mean Platelet Volume 10.6 FL (9.5-12.2); Monocytes # (A) 0.51 X 10*3/uL (0.20-1.00); Monocytes % (A) 6.4 %; NRBC Per 100 WBC 0 X 10*3/uL (0.00-0.01); Neutrophils # (A) 6.76 X 10*3/uL (1.80-7.70); Neutrophils % (A) 85.5 %; Platelet Count 111 X 10*3/uL (140-440); RBC 3.42 X 10*6/uL (4.40-5.60); RDW 13.4 % (11.5-14.5); WBC 7.91 X 10*3/uL (4.50-10.00)
[2024-02-13 10:45] LABS: ALT 47 U/L (10-49); AST 36 U/L (14-35); Albumin 3.5 g/dL (3.8-4.9); Alkaline Phosphatase 59 U/L (41-126); BUN/Creat Ratio 9.62 Ratio (12.00-20.00); Blood Urea Nitrogen 7.7 mg/dL (9.0-27.0); Calcium 8.7 mg/dL (8.7-10.3); Carbon Dioxide 23.8 mmol/L (21.6-31.8); Chloride 103 mmol/L (96-109); Globulin 2.5 g/dL (1.6-3.3); Glucose 100 mg/dL (70-110); Sodium 138 mmol/L (135-145)
[2024-02-13 10:51] LABS: INR 1.43 sec (0.93-1.11); Prothrombin Time 15.1 sec (9.9-11.9)
--- NOTE | 2024-02-13 10:53 | P.PN ---
Subjective Progress Note Date: 02/13/24 Femi Case, is a 68-year-old male patient who presented with concerns of increased pain to right foot. Patient has a past medical history of gangrene and has been following with vascular services. Patient previously underwent amputation of his right third fourth and fifth toe by Dr. Solano in October. Patient also follows with podiatry. Patient also has a past medical history of recent DVT and vascular disorder. patient also ex-smoker. foot x-ray completed showing no significant interval change. Laboratory feeling wBC 13.0, Hemoglobin 12.1, creatinine 0.59, bun 11. Current vital signs temp 98.2, heart rate 76, respiratory rate 18, blood pressure 123/46 pulse ox of 91% on 2 L. Patient ad mitted patient started on IV clindamycin. Patient also on Lovenox 80 mg twice a day while Coumadin on hold. Patient also requiring increased oxygen. Will order chest x-ray and consult pulmonary services On 02/11/2024 patient was seen and examined on the medical floor, he is alert and oriented x 3 in no apparent distress, there is no fever or chills no headache or dizziness no chest pain no shortness of breath no cough, no nausea or vomiting no abdominal pain no diarrhea and no urinary symptoms. He was evaluated by vascular surgery and is scheduled for right below-knee amputation. On 02/12/2024 patient was seen and examined on the medical floor, he is alert and oriented x 3 in no apparent distress, he is complaining of severe pain in his right foot, and requesting increase in pain medications, although otherwise he denies any complaints there is no fever or chills no headache or dizziness no chest pain no shortness of breath no cough no nausea or vomiting no abdominal pain no diarrhea no urinary symptoms. on 02/13/2024 patient is alert and oriented 3. Plans for amputation tomorrow 02/14/2024 patient remains on IV antibiotics infectious disease service is following. Current vital signs temp 98.1, heart rate 68, respiratory rate 20, blood pressure 133/52 with pulse ox of 1% on 2 L Objective - Vital Signs Vital signs: Vital Signs Temp 98.1 F 02/13/24 07:24 Pulse 68 02/13/24 07:24 Resp 20 02/13/24 07:24 BP 133/52 02/13/24 07:24 Pulse Ox 91 L 02/13/24 07:31 FiO2 Intake & Output 02/12/24 02/13/24 02/13/24 18:59 06:59 18:59 Weight 77.6 kg 78.9 kg Other: Voiding Method Toilet Urinal # Voids 1 3 - Exam Head normocephalic Neck supple Lungs clear to auscultation bilaterally no wheezing or crackles Heart regular rate and rhythm S1-S2, no rub or gallop Abdomen is soft nontender nondistended positive bowel sounds no hepatosplenomegaly Extremities Previous amputation of right second third and fourth toes open wound with drainage and diffuse swelling Neuro alert and orientated to 3 - Labs CBC & Chem 7: 02/13/24 07:28 02/13/24 07:28 Labs: Abnormal Lab Results - Last 24 Hours (Table) 02/13/24 02/13/24 02/13/24 Range/Units 07:28 07:28 07:28 RBC 3.42 L (4.40-5.60) X 10*6/uL Hgb 10.7 L (13.0-17.0) g/dL Hct 33.1 L (39.6-50.0) % Plt Count 111 L (140-440) X 10*3/uL Lymphocytes # 0.46 L (0.90-5.00) X 10*3/uL PT 15.1 H (9.9-11.9) sec INR 1.43 H (0.93-1.11) sec BUN 7.7 L (9.0-27.0) mg/dL BUN/Creatinine Ratio 9.62 L (12.00-20.00) Ratio AST 36 H (14-35) U/L Total Protein 6.0 L (6.2-8.2) g/dL Albumin 3.5 L (3.8-4.9) g/dL Albumin/Globulin Ratio 1.40 L (1.60-3.17) Ratio Microbiology - Last 24 Hours (Table) 02/09/24 15:09 Blood Culture - Preliminary Blood Assessment and Plan Assessment: Right foot gangrene. Patient started on IV clindamycin vascular service is consulted Acute hypoxic respiratory failure. Chest x-ray ordered pulmonary service is consulted history of DVT. 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
--- NOTE | 2024-02-13 11:02 | P.PN ---
Subjective Progress Note Date: 02/13/24 Principal diagnosis: Arterial insufficiency right lower extremity Patient is seen and examined today as a follow-up. Last INR was 2.4 and currently pending. Tentative plan was for her right BKA today however will be rescheduled for tomorrow. Patient continues to have pain in the right foot which she states is a burning sensation. It is been well controlled and managed with pain medications. He states however at bedtime pain is worse and keeps him up. He has been afebrile. Labs currently pending. Objective - Vital Signs Vital signs: Vital Signs Temp 98.1 F 02/13/24 07:24 Pulse 68 02/13/24 07:24 Resp 20 02/13/24 07:24 BP 133/52 02/13/24 07:24 Pulse Ox 91 L 02/13/24 07:31 FiO2 Intake & Output 02/12/24 02/13/24 02/13/24 18:59 06:59 18:59 Weight 77.6 kg 78.9 kg Other: Voiding Method Toilet Urinal # Voids 1 3 - Exam General appearance: The patient is alert, oriented, appears in no acute distress. HET: Head is normocephalic and atraumatic. Pupils are equal and reactive. Neck: Supple. Abdomen: Soft, nondistended. Extremities: Bilateral pedal edema, right foot with erythema. Ischemia of the first and second toe and now of the previously healed wound from the third and fourth toe amputation present. The plantar surface demonstrates splotchy areas of ischemia although this is not significantly tender for the patient. The dorsum of the foot appears well-perfused. Neurological: No focal deficits. Strength and sensation are grossly intact. - Labs CBC & Chem 7: 02/13/24 07:28 02/13/24 07:28 Labs: Microbiology - Last 24 Hours (Table) 02/09/24 15:09 Blood Culture - Preliminary Blood Assessment and Plan Assessment: 1. Hypercoagulable syndrome with ischemia of the forefoot right lower extremity with need for amputation. 2. History of tobacco abuse although the patient did stop smoking 7 years prior. 3. History of left lower extremity deep venous thrombosis in the past. Plan: 1. Daily PT/INR 2. Continue to hold Coumadin 3. Patient may have heart healthy diet, n.p.o. after midnight 4. Reschedule right lower extremity below the knee amputation for tomorrow 5. Will increase gabapentin to 600 mg at bedtime, continue with rest of pain medication as needed 6. Rest of medical management per primary medical team Thank you for this consultation, we will continue to follow. The impression and plan of care has been dictated as directed. I performed a history and examination of this patient, discussed the same with the dictator. I agree with the dictator's note ,documented as a scribe. Any additional findings or plans will be noted.
--- NOTE | 2024-02-13 11:39 | P.PN ---
Subjective Progress Note Date: 02/13/24 I was asked to evaluate this patient regarding COPD and some hypoxemia. The patient reports chronic exertional dyspnea. He has some chronic cough and congestion. He seems to have had a recent flulike illness and chest congestion that occurred approximately 2 to 3 weeks ago. His chest x-ray shows some coarse interstitial pattern bilaterally along with COPD and emphysematous changes. No hemoptysis. No pleurisy. No chest pain. The patient is currently in the hospital having difficulties with his right foot. The patient is currently under the care of vascular surgery in our facility. The patient has undergone previous amputation of the right third fourth and fifth toes by vascular surgery. He was hospitalized for right foot infection. The patient also has increased swelling in the right lower extremity and a Doppler of the right lower extremity that was done on 02/09/2024 also showed presence of a thrombus in the right popliteal vein. The patient is known to have a hypercoagulable state and he has had a previous right lower extremity DVT approximately 15 years ago. He is also known to have peripheral vascular disease. Recent angiography that was done in November 2023 showed no evidence of any thoracic aortic dissection or occlusion. There was infrarenal abdominal aortic fusiform aneurysm measuring 35 x 30 mm in size, secondary dilatation of the bifurcation of the internal and external iliac on the left, and there is moderate scattered atherosclerotic changes. At this point in time, the patient is on IV clindamycin. The x-ray of the foot that was obtained on 02/09/2024 showed no gas. There is generalized osteopenia. Stable postop changes involving the right foot without evidence of any osseous destruction or osteomyelitis. White cell count is at 10 hemoglobin is at 10.8 and a platelet count of 114. His current INR is at 4.20 patient has been anticoagulated with warfarin dose being adjusted by pharmacy. BUN 11 with a creatinine of 0.7 and sodium is at 135. No signs of any pulmonary embolism. No pleurisy or hemoptysis. No chest pain. He is known to have factor V Leiden mutation/hypercoagulability with a remote history of right lower extremity DVT. On 02/11/2024, patient is being seen for a follow-up. No signs of respiratory distress. The patient is being evaluated vascular surgery, amputation being considered. He is currently on fluids of oxygen by nasal cannula with a pulse ox of 92%. Will be started on bronchodilators. Remains on therapeutic dose of Lovenox regarding the lower extremity DVT and currently on 80 mg of Lovenox every 12 hours. The INR today is at 3.0. The patient is seen today February 12, 2024 in follow-up on the regular medical floor. He is currently up ambulating in his room. Awake and alert in no acute distress. Maintaining O2 saturations in the 90s on room air. He denies any worsening shortness of breath, cough or congestion. He is afebrile. Hemodynamically stable. He is still having ongoing issues with significant pain of his right foot. He previously had a right fifth toe amputation and subsequently a right third and fourth toe amputation. He has been followed by cardiology vascular surgery and the plan is for a right below the knee amputation possibly tomorrow. Blood cultures revealing no growth. White count 9.9. Hemoglobin 10.9. Platelets 120. INR 2.4. Sodium 137. Potassium 4.0. Bicarb 25. BUN 8. Creatinine 0.60. Glucose 100. He is continued on therapeutic Lovenox. Remains on antibiotics in the form of vancomycin and cefepime. Normal saline at KVO. Alternating Dilaudid and [place] for pain control. The patient is seen today February 13, 2024 in follow-up on the regular medical f rafiq. He is awake and alert in no acute distress. He is maintaining good O2 saturations in the 90s on 2 L/min per nasal cannula. He denies any worsening shortness of breath, cough or congestion. Remains on vancomycin and cefepime. The plan is for a right below the knee amputation today. He is continued on normal saline at 130 MLS per hour. White count 7.9. Hemoglobin 10.7. Platelets 111. INR 1.43. Sodium 138. Potassium 4.0. Bicarb 24. BUN 8. Creatinine 0.8. Glucose 100. Objective - Vital Signs Vital signs: Vital Signs Temp 98.1 F 02/13/24 07:24 Pulse 68 02/13/24 07:24 Resp 20 02/13/24 07:24 BP 133/52 02/13/24 07:24 Pulse Ox 91 L 02/13/24 07:31 FiO2 Intake & Output 02/12/24 02/13/24 02/13/24 18:59 06:59 18:59 Weight 77.6 kg 78.9 kg Other: Voiding Method Toilet Urinal # Voids 1 3 - Exam GENERAL EXAM: Alert, 68-year-old male, on 2 L nasal cannula, sitting up in a chair,, fairly comfortable in no apparent distress. HEAD: Normocephalic. EYES: Normal reaction of pupils, equal size. NOSE: Clear with pink turbinates. THROAT: No erythema or exudates. NECK: No masses, no JVD. CHEST: No chest wall deformity. LUNGS: Equal air entry with no crackles, wheeze, rhonchi or dullness. CVS: S1 and S2 normal with no audible murmur, regular rhythm. ABDOMEN: No hepatosplenomegaly, normal bowel sounds, no guarding or rigidity. SPINE: No scoliosis or deformity SKIN: No rashes CENTRAL NERVOUS SYSTEM: No focal deficits, tone is normal in all 4 extremities. EXTREMITIES: There are gangrenous changes of the right great and second toes. Previous amputations of the right third, fourth and fifth toes. - Labs CBC & Chem 7: 02/13/24 07:28 02/13/24 07:28 Labs: Abnormal Lab Results - Last 24 Hours (Table) 02/13/24 02/13/24 02/13/24 Range/Units 07:28 07:28 07:28 RBC 3.42 L (4.40-5.60) X 10*6/uL Hgb 10.7 L (13.0-17.0) g/dL Hct 33.1 L (39.6-50.0) % Plt Count 111 L (140-440) X 10*3/uL Lymphocytes # 0.46 L (0.90-5.00) X 10*3/uL PT 15.1 H (9.9-11.9) sec INR 1.43 H (0.93-1.11) sec BUN 7.7 L (9.0-27.0) mg/dL BUN/Creatinine Ratio 9.62 L (12.00-20.00) Ratio AST 36 H (14-35) U/L Total Protein 6.0 L (6.2-8.2) g/dL Albumin 3.5 L (3.8-4.9) g/dL Albumin/Globulin Ratio 1.40 L (1.60-3.17) Ratio Microbiology - Last 24 Hours (Table) 02/09/24 15:09 Blood Culture - Preliminary Blood Assessment and Plan Assessment: Right foot infection/wound with a previous amputation involving the right third fourth and fifth toes by vascular surgery. Currently the patient is on IV vancomycin and cefepime. Noted the patient had traumatic injury to the right foot with secondary gangrenous toes requiring amputation that was completed on 10/29/2023. Plan is for right below the knee amputation today 02/13/2024. Warfarin on hold. Right lower extremity popliteal DVT, recurrent last episode was more than 15 years ago Factor V Leiden/hypercoagulability the patient is maintained on long-term ant icoagulation with warfarin, currently on hold, INR is currently at 1.43 COPD currently inactive and stable, no clear clinical manifestation of pulmonary embolism Peripheral vascular disease Hyperlipidemia Plan: The patient was seen and evaluated Labs and medications reviewed Plan is for right below the knee amputation today His pulmonary status is stable currently Continue bronchodilators as needed Will follow-up postoperatively This patient was seen independently by the pulmonary nurse practitioner addressing pulmonary issues I have personally seen and examined the patient, performed the documentation and the assessment and plan as written. Number of minutes spent on the visit: 23.
[2024-02-13] MEDS: VANCOMYCIN TROUGH DUE 1 EACH MISC MISCELLANE ONE (12:08)
[2024-02-13] MEDS: GABAPENTIN 300 MG CAP PO SCH ×2 (17:23→21:28)
[2024-02-13] MEDS: ENOXAPARIN 80 MG/0.8 ML SYRINGE SQ STA (21:08)
[2024-02-14 06:42] LABS: ALT 45 U/L (4-49); AST 36 U/L (17-59); African American GFR (CKD) >90 (>60 ml/min/1.73 sqM); Albumin 3.1 g/dL (3.5-5.0); Albumin/Globulin Ratio 1.2; Alkaline Phosphatase 57 U/L (38-126); Anion Gap 6 mmol/L; Blood Urea Nitrogen 9 mg/dL (9-20); Calcium 8.3 mg/dL (8.4-10.2); Carbon Dioxide 24 mmol/L (22-30); Chloride 107 mmol/L (98-107); Globulin 2.6 g/dL; Glucose 95 mg/dL (74-99); Non-African American GFR(CKD) >90 (>60 ml/min/1.73 sqM); Sodium 137 mmol/L (137-145); Total Bilirubin 1.3 mg/dL (0.2-1.3); Total Protein 5.7 g/dL (6.3-8.2)
[2024-02-14 08:44] LABS: Basophils # (A) 0.02 X 10*3/uL (0.00-0.10); Basophils % (A) 0.3 %; Eosinophils # (A) 0.17 X 10*3/uL (0.04-0.35); Eosinophils % (A) 2.6 %; HCT 31.5 % (39.6-50.0); Lymphocytes # (A) 0.67 X 10*3/uL (0.90-5.00); Lymphocytes % (A) 10.3 %; MCH 30.3 pg (27.0-32.0); MCHC 31.7 g/dL (32.0-37.0); MCV 95.5 FL (80.0-97.0); Mean Platelet Volume 10.9 FL (9.5-12.2); Monocytes # (A) 0.49 X 10*3/uL (0.20-1.00); Monocytes % (A) 7.5 %; NRBC Per 100 WBC 0 X 10*3/uL (0.00-0.01); Neutrophils # (A) 5.14 X 10*3/uL (1.80-7.70); Platelet Count 103 X 10*3/uL (140-440); RDW 13.4 % (11.5-14.5); WBC 6.51 X 10*3/uL (4.50-10.00)
--- NOTE | 2024-02-14 09:58 | P.PN ---
Subjective Progress Note Date: 02/14/24 Femi Case, is a 68-year-old male patient who presented with concerns of increased pain to right foot. Patient has a past medical history of gangrene and has been following with vascular services. Patient previously underwent amputation of his right third fourth and fifth toe by Dr. Solano in October. Patient also follows with podiatry. Patient also has a past medical history of recent DVT and vascular disorder. patient also ex-smoker. foot x-ray completed showing no significant interval change. Laboratory feeling wBC 13.0, Hemoglobin 12.1, creatinine 0.59, bun 11. Current vital signs temp 98.2, heart rate 76, respiratory rate 18, blood pressure 123/46 pulse ox of 91% on 2 L. Patient ad mitted patient started on IV clindamycin. Patient also on Lovenox 80 mg twice a day while Coumadin on hold. Patient also requiring increased oxygen. Will order chest x-ray and consult pulmonary services On 02/11/2024 patient was seen and examined on the medical floor, he is alert and oriented x 3 in no apparent distress, there is no fever or chills no headache or dizziness no chest pain no shortness of breath no cough, no nausea or vomiting no abdominal pain no diarrhea and no urinary symptoms. He was evaluated by vascular surgery and is scheduled for right below-knee amputation. On 02/12/2024 patient was seen and examined on the medical floor, he is alert and oriented x 3 in no apparent distress, he is complaining of severe pain in his right foot, and requesting increase in pain medications, although otherwise he denies any complaints there is no fever or chills no headache or dizziness no chest pain no shortness of breath no cough no nausea or vomiting no abdominal pain no diarrhea no urinary symptoms. on 02/13/2024 patient is alert and oriented 3. Plans for amputation tomorrow 02/14/2024 patient remains on IV antibiotics infectious disease service is following. Current vital signs temp 98.1, heart rate 68, respiratory rate 20, blood pressure 133/52 with 02/14/2024 patient is alert and oriented 3. Patient to undergo right AKA today with vascular surgery. Patient shortness breath. Patient denies nausea vomiting or diarrhea. Denies any urinary burning or frequency. Current vital signs temp 98.5, respiratory rate 18, blood pressure 142/65Pulse ox 92% on 2 L Objective - Vital Signs Vital signs: Vital Signs Temp 98.5 F 02/14/24 07:03 Pulse 70 02/14/24 07:51 Resp 18 02/14/24 07:03 BP 142/65 02/14/24 07:03 Pulse Ox 92 L 02/14/24 02:05 FiO2 Intake & Output 02/13/24 02/14/24 02/14/24 18:59 06:59 18:59 Weight 79.8 kg Other: Voiding Method Toilet Urinal # Voids 4 - Exam Head normocephalic Neck supple Lungs clear to auscultation bilaterally no wheezing or crackles Heart regular rate and rhythm S1-S2, no rub or gallop Abdomen is soft nontender nondistended positive bowel sounds no hepatos plenomegaly Extremities Previous amputation of right second third and fourth toes open wound with drainage and diffuse swelling Neuro alert and orientated to 3 - Labs CBC & Chem 7: 02/14/24 05:59 02/14/24 05:59 Labs: Abnormal Lab Results - Last 24 Hours (Table) 02/13/24 02/13/24 02/13/24 Range/Units 07:28 07:28 07:28 RBC 3.42 L (4.40-5.60) X 10*6/uL Hgb 10.7 L (13.0-17.0) g/dL Hct 33.1 L (39.6-50.0) % MCHC (32.0-37.0) g/dL Plt Count 111 L (140-440) X 10*3/uL Lymphocytes # 0.46 L (0.90-5.00) X 10*3/uL PT 15.1 H (9.9-11.9) sec INR 1.43 H (0.93-1.11) sec BUN 7.7 L (9.0-27.0) mg/dL Creatinine (0.66-1.25) mg/dL BUN/Creatinine Ratio 9.62 L (12.00-20.00) Ratio Calcium (8.4-10.2) mg/dL AST 36 H (14-35) U/L Total Protein 6.0 L (6.2-8.2) g/dL Albumin 3.5 L (3.8-4.9) g/dL Albumin/Globulin Ratio 1.40 L (1.60-3.17) Ratio 02/14/24 02/14/24 Range/Units 05:59 05:59 RBC 3.30 L (4.40-5.60) X 10*6/uL Hgb 10.0 L (13.0-17.0) g/dL Hct 31.5 L (39.6-50.0) % MCHC 31.7 L (32.0-37.0) g/dL Plt Count 103 L (140-440) X 10*3/uL Lymphocytes # 0.67 L (0.90-5.00) X 10*3/uL PT (9.9-11.9) sec INR (0.93-1.11) sec BUN (9.0-27.0) mg/dL Creatinine 0.63 L (0.66-1.25) mg/dL BUN/Creatinine Ratio (12.00-20.00) Ratio Calcium 8.3 L (8.4-10.2) mg/dL AST (14-35) U/L Total Protein 5.7 L (6.2-8.2) g/dL Albumin 3.1 L (3.8-4.9) g/dL Albumin/Globulin Ratio (1.60-3.17) Ratio Assessment and Plan Assessment: Right foot gangrene. Patient started on IV clindamycin vascular service is con sulted Acute hypoxic respiratory failure. Chest x-ray ordered pulmonary service is consulted history of DVT. 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
--- NOTE | 2024-02-14 10:37 | P.PN ---
Subjective Progress Note Date: 02/14/24 I was asked to evaluate this patient regarding COPD and some hypoxemia. The patient reports chronic exertional dyspnea. He has some chronic cough and congestion. He seems to have had a recent flulike illness and chest congestion that occurred approximately 2 to 3 weeks ago. His chest x-ray shows some coarse interstitial pattern bilaterally along with COPD and emphysematous changes. No hemoptysis. No pleurisy. No chest pain. The patient is currently in the hospital having difficulties with his right foot. The patient is currently under the care of vascular surgery in our facility. The patient has undergone previous amputation of the right third fourth and fifth toes by vascular surgery. He was hospitalized for right foot infection. The patient also has increased swelling in the right lower extremity and a Doppler of the right lower extremity that was done on 02/09/2024 also showed presence of a thrombus in the right popliteal vein. The patient is known to have a hypercoagulable state and he has had a previous right lower extremity DVT approximately 15 years ago. He is also known to have peripheral vascular disease. Recent angiography that was done in November 2023 showed no evidence of any thoracic aortic dissection or occlusion. There was infrarenal abdominal aortic fusiform aneurysm measuring 35 x 30 mm in size, secondary dilatation of the bifurcation of the internal and external iliac on the left, and there is moderate scattered atherosclerotic changes. At this point in time, the patient is on IV clindamycin. The x-ray of the foot that was obtained on 02/09/2024 showed no gas. There is generalized osteopenia. Stable postop changes involving the right foot without evidence of any osseous destruction or osteomyelitis. White cell count is at 10 hemoglobin is at 10.8 and a platelet count of 114. His current INR is at 4.20 patient has been anticoagulated with warfarin dose being adjusted by pharmacy. BUN 11 with a creatinine of 0.7 and sodium is at 135. No signs of any pulmonary embolism. No pleurisy or hemoptysis. No chest pain. He is known to have factor V Leiden mutation/hypercoagulability with a remote history of right lower extremity DVT. On 02/11/2024, patient is being seen for a follow-up. No signs of respiratory distress. The patient is being evaluated vascular surgery, amputation being considered. He is currently on fluids of oxygen by nasal cannula with a pulse ox of 92%. Will be started on bronchodilators. Remains on therapeutic dose of Lovenox regarding the lower extremity DVT and currently on 80 mg of Lovenox every 12 hours. The INR today is at 3.0. The patient is seen today February 12, 2024 in follow-up on the regular medical floor. He is currently up ambulating in his room. Awake and alert in no acute distress. Maintaining O2 saturations in the 90s on room air. He denies any worsening shortness of breath, cough or congestion. He is afebrile. Hemodynamically stable. He is still having ongoing issues with significant pain of his right foot. He previously had a right fifth toe amputation and subsequently a right third and fourth toe amputation. He has been followed by cardiology vascular surgery and the plan is for a right below the knee amputation possibly tomorrow. Blood cultures revealing no growth. White count 9.9. Hemoglobin 10.9. Platelets 120. INR 2.4. Sodium 137. Potassium 4.0. Bicarb 25. BUN 8. Creatinine 0.60. Glucose 100. He is continued on therapeutic Lovenox. Remains on antibiotics in the form of vancomycin and cefepime. Normal saline at KVO. Alternating Dilaudid and [place] for pain control. The patient is seen today February 13, 2024 in follow-up on the regular medical f rafiq. He is awake and alert in no acute distress. He is maintaining good O2 saturations in the 90s on 2 L/min per nasal cannula. He denies any worsening shortness of breath, cough or congestion. Remains on vancomycin and cefepime. The plan is for a right below the knee amputation today. He is continued on normal saline at 130 MLS per hour. White count 7.9. Hemoglobin 10.7. Platelets 111. INR 1.43. Sodium 138. Potassium 4.0. Bicarb 24. BUN 8. Creatinine 0.8. Glucose 100. The patient is seen today February 14, 2024 in follow-up on the regular medical floor. He did not have his surgery yesterday. The plan is for a right below the knee amputation today. He remains awake and alert in no acute distress. He is continued on cefepime and vancomycin. His pain is well-managed. He is maintaining good O2 saturations in the 90s on 2 L/min per nasal cannula. He has been afebrile. Hemodynamically stable. White count 6.5. Hemoglobin 10.0. Platelets 103. Sodium 137. Potassium 4.0. Bicarb 24. BUN 9. Creatinine 0.63. AST 36. ALT 45. He remains on bronchodilators. Objective - Vital Signs Vital signs: Vital Signs Temp 98.5 F 02/14/24 07:03 Pulse 70 02/14/24 07:51 Resp 18 02/14/24 07:03 BP 142/65 02/14/24 07:03 Pulse Ox 92 L 02/14/24 02:05 FiO2 Intake & Output 02/13/24 02/14/24 02/14/24 18:59 06:59 18:59 Weight 79.8 kg Other: Voiding Method Toilet Urinal # Voids 4 - Exam GENERAL EXAM: Alert, pleasant 68-year-old male, resting in bed, on 2 L nasal cannula, fairly comfortable in no apparent distress. HEAD: Normocephalic. EYES: Normal reaction of pupils, equal size. NOSE: Clear with pink turbinates. THROAT: No erythema or exudates. NECK: No masses, no JVD. CHEST: No chest wall deformity. LUNGS: Equal air entry with no crackles, wheeze, rhonchi or dullness. CVS: S1 and S2 normal with no audible murmur, regular rhythm. ABDOMEN: No hepatosplenomegaly, normal bowel sounds, no guarding or rigidity. SPINE: No scoliosis or deformity SKIN: No rashes CENTRAL NERVOUS SYSTEM: No focal deficits, tone is normal in all 4 extremities. EXTREMITIES: There are gangrenous changes of the right great and second toes. Previous amputations of the right third, fourth and fifth toes. - Labs CBC & Chem 7: 02/14/24 05:59 02/14/24 05:59 Labs: Abnormal Lab Results - Last 24 Hours (Table) 02/13/24 02/13/24 02/14/24 Range/Units 07:28 07:28 05:59 RBC (4.40-5.60) X 10*6/uL Hgb (13.0-17.0) g/dL Hct (39.6-50.0) % MCHC (32.0-37.0) g/dL Plt Count (140-440) X 10*3/uL Lymphocytes # (0.90-5.00) X 10*3/uL PT 15.1 H (9.9-11.9) sec INR 1.43 H (0.93-1.11) sec BUN 7.7 L (9.0-27.0) mg/dL Creatinine 0.63 L (0.66-1.25) mg/dL BUN/Creatinine Ratio 9.62 L (12.00-20.00) Ratio Calcium 8.3 L (8.4-10.2) mg/dL AST 36 H (14-35) U/L Total Protein 6.0 L 5.7 L (6.2-8.2) g/dL Albumin 3.5 L 3.1 L (3.8-4.9) g/dL Albumin/Globulin Ratio 1.40 L (1.60-3.17) Ratio 02/14/24 Range/Units 05:59 RBC 3.30 L (4.40-5.60) X 10*6/uL Hgb 10.0 L (13.0-17.0) g/dL Hct 31.5 L (39.6-50.0) % MCHC 31.7 L (32.0-37.0) g/dL Plt Count 103 L (140-440) X 10*3/uL Lymphocytes # 0.67 L (0.90-5.00) X 10*3/uL PT (9.9-11.9) sec INR (0.93-1.11) sec BUN (9.0-27.0) mg/dL Creatinine (0.66-1.25) mg/dL BUN/Creatinine Ratio (12.00-20.00) Ratio Calcium (8.4-10.2) mg/dL AST (14-35) U/L Total Protein (6.2-8.2) g/dL Albumin (3.8-4.9) g/dL Albumin/Globulin Ratio (1.60-3.17) Ratio Assessment and Plan Assessment: Right foot infection/wound with a previous amputation involving the right third, fourth and fifth toes by vascular surgery. Currently the patient is on IV vancomycin and cefepime. Noted the patient had traumatic injury to the right fo ot with secondary gangrenous toes requiring amputation that was completed on 10/29/2023. Plan is for right below the knee amputation today 02/14/2024. Warfarin on hold. Right lower extremity popliteal DVT, recurrent last episode was more than 15 years ago Factor V Leiden/hypercoagulability the patient is maintained on long-term anticoagulation with warfarin, currently on hold, INR is currently at 1.43 COPD currently inactive and stable Peripheral vascular disease Hyperlipidemia Plan: The patient was seen and evaluated Labs and medications reviewed His surgery was not completed yesterday Plan is for right below the knee amputation today Stable on 2 L nasal cannula Continue bronchodilators Will follow-up postoperatively This patient was seen independently by the pulmonary nurse practitioner addressing pulmonary issues I have personally seen and examined the patient, performed the documentation and the assessment and plan as written. Number of minutes spent on the visit: 24.
[2024-02-14 11:39] LABS: INR 1.37 sec (0.93-1.11); Prothrombin Time 14.5 sec (9.9-11.9)
[2024-02-14] MEDS ORDERED: DEXAMETHASONE SOD PHOSPHATE 4 MG/ML 1 ML VIAL IV ONE (13:39)
[2024-02-14] MEDS ORDERED: HYDROmorphone 0.5 MG/0.5 ML SYRINGE IVP PRN (13:39)
[2024-02-14] MEDS ORDERED: LIDOCAINE 1% (10MG/ML) FOR IV START INTRADERMA PRN (13:39)
[2024-02-14] MEDS ORDERED: LACTATED RINGERS 1,000 ML IV SCH (13:39)
[2024-02-14] MEDS ORDERED: ONDANSETRON 4 MG/2 ML VIAL IVP ONE (13:39)
[2024-02-14] MEDS ORDERED: MIDAZOLAM 2 MG/2 ML VIAL IV PRN (13:39)
[2024-02-14] MEDS ORDERED: fentaNYL (PF) 50 MCG/ML 2 ML AMP IVP PRN (13:39)
[2024-02-14] MEDS: fentaNYL (PF) 50 MCG/ML 2 ML AMP IVP STA (13:43)
[2024-02-14] MEDS: ONDANSETRON 4 MG/2 ML VIAL IVP ONE (14:01)
[2024-02-14] MEDS: LACTATED RINGERS 1,000 ML IV SCH (14:01)
[2024-02-14] MEDS: DEXAMETHASONE SOD PHOSPHATE 4 MG/ML 1 ML VIAL IV ONE (14:01)
[2024-02-14] MEDS: fentaNYL (PF) 50 MCG/ML 2 ML AMP IVP ONE (14:03)
[2024-02-14] MEDS: IV FLUID CONTINUATION 1,000 ML IV ONE (14:27)
[2024-02-14] MEDS: IV FLUID CONTINUATION 400 ML IV ONE (14:27)
[2024-02-14] MEDS ORDERED: PHENYLEPHRINE 10 MG/ML VIAL ONE (14:33)
[2024-02-14] MEDS ORDERED: LIDOCAINE 1% INJ 10MG/ML (20 ML MDV) ONE (14:33)
[2024-02-14] MEDS ORDERED: MIDAZOLAM 2 MG/2 ML VIAL ONE (14:33)
[2024-02-14] MEDS ORDERED: fentaNYL (PF) 50 MCG/ML 2 ML AMP ONE (14:33)
[2024-02-14] MEDS ORDERED: GLYCOPYRROLATE 0.2 MG/ML 2 ML VIAL ONE (14:33)
[2024-02-14] MEDS ORDERED: PROPOFOL 10 MG/ML 20 ML VIAL IV ONE (14:33)
[2024-02-14] MEDS ORDERED: ePHEDrine 50 MG/ML 1 ML VIAL ONE (14:33)
[2024-02-14] MEDS: ceFAZolin 2 GM in SODIUM CHLORIDE 0.9% 500 ML 500 ML IRRIGATION ONE (15:14)
--- NOTE | 2024-02-14 16:37 | P.OP ---
Date of Procedure: 02/14/24 Description of Procedure: PREOPERATIVE DIAGNOSIS: Gangrene right lower extremity, nonhealing wounds POSTOPERATIVE DIAGNOSIS: Same. OPERATION: Right below knee amputation. SURGEON: Lexi Smith DO COMMERCIAL LOAN MANAGER: Jennie Mcdonald. ANESTHESIA: General anesthesia ESTIMATED BLOOD LOSS: 200 cc SPECIMENS REMOVED: Right lower extremity for disposal COMPLICATIONS: None CONDITION:Stable FINDINGS AND INDICATIONS: Patient is a 68-year-old male with gangrene and rest pain of his right foot. He was found to have essentially normal-appearing arterial images to the ankle given previous angiogram by horse show manager at [place] and reviewed by Dr. Solano. Due to this there was recommendations for below-knee amputation. Risk and benefits were discussed. He seems understood and was willing to proceed PROCEDURE IN DETAIL: The scott ent was brought to the operating room, the operative leg was prepped and draped in the usual sterile manner. 12 cm below the tibial plateau was marked. The calf circumference was measured. Two thirds was utilized for the anterior incision, one third was utilized to create the flap. The incision was marked. The incision was deepened through the subcutaneous tissue and fascia to the level of the bone. The fascia was transected around the level of the incision. Anterior compartment muscles were divided and visualized to the tibial vessels which were suture ligated with 2-0 silk. Then the lateral compartment muscles were divided. Dissection was carried down to the level of the bone. The periosteal elevator was used and the tibia was freed from its periosteal tissues. The tibia was divided with an oscillating saw. The same was done of the fibula, approximately 1-1/2-2 cm more proximal to the tibia itself. The posterior flap was created with an amputation knife. Bleeding was controlled with suture ligation of the vessels. Electrocautery was also used for hemostasis. The specimen was removed. The wound was copiously irrigated. The tibia and fibula were smoothed with a rasp. 2-0 and 3-0 Vicryl was utilized to approximate the fascia. The skin was reapproximated with yessica. The incsion was cleansed and a dressing was placed. The patient was extubated and transferred to PACU in stable condition having tolerated the procedure well
[2024-02-14 17:17] LABS: HCT 29.4 % (39.0-53.0); HGB 9.6 gm/dL (13.0-17.5); Hypochromasia Slight; MCH 31.5 pg (25.0-35.0); MCHC 32.8 g/dL (31.0-37.0); Mean Platelet Volume 8.7; Platelet Count 108 k/uL (150-450); RBC 3.06 m/uL (4.30-5.90); RDW 13.4 % (11.5-15.5); WBC 8.5 k/uL (3.8-10.6)
[2024-02-14] MEDS: ENOXAPARIN 80 MG/0.8 ML SYRINGE SQ SCH (20:09)
[2024-02-14] MEDS: ACETAMINOPHEN TAB 325 MG TAB PO PRN (23:17)
[2024-02-15 08:28] LABS: Basophils % (A) 0 %; Eosinophils # (A) 0.1 k/uL (0-0.7); Eosinophils % (A) 1 %; HCT 28.8 % (39.0-53.0); Hypochromasia Slight; Lymphocytes # (A) 0.6 k/uL (1.0-4.8); Lymphocytes % (A) 12 %; MCH 30.9 pg (25.0-35.0); MCHC 31.4 g/dL (31.0-37.0); MCV 98.5 fL (80.0-100.0); Monocytes # (A) 0.4 k/uL (0-1.0); Monocytes % (A) 8 %; Neutrophils % (A) 78 %; Platelet Count 106 k/uL (150-450); RBC 2.92 m/uL (4.30-5.90); RDW 13.5 % (11.5-15.5); WBC 5.2 k/uL (3.8-10.6)
[2024-02-15 09:04] LABS: ALT 36 U/L (4-49); AST 36 U/L (17-59); African American GFR (CKD) >90 (>60 ml/min/1.73 sqM); Albumin 2.4 g/dL (3.5-5.0); Alkaline Phosphatase 50 U/L (38-126); Anion Gap 1 mmol/L; Blood Urea Nitrogen 9 mg/dL (9-20); Calcium 7.9 mg/dL (8.4-10.2); Carbon Dioxide 29 mmol/L (22-30); Chloride 106 mmol/L (98-107); Glucose 94 mg/dL (74-99); Non-African American GFR(CKD) >90 (>60 ml/min/1.73 sqM); Sodium 136 mmol/L (137-145); Total Bilirubin 0.9 mg/dL (0.2-1.3)
[2024-02-15] MEDS: HYDROmorphone 0.5 MG/0.5 ML SYRINGE IVP PRN (11:29)
--- NOTE | 2024-02-15 12:22 | P.PN ---
Subjective Progress Note Date: 02/15/24 I was asked to evaluate this patient regarding COPD and some hypoxemia. The patient reports chronic exertional dyspnea. He has some chronic cough and congestion. He seems to have had a recent flulike illness and chest congestion that occurred approximately 2 to 3 weeks ago. His chest x-ray shows some coarse interstitial pattern bilaterally along with COPD and emphysematous changes. No hemoptysis. No pleurisy. No chest pain. The patient is currently in the hospital having difficulties with his right foot. The patient is currently under the care of vascular surgery in our facility. The patient has undergone previous amputation of the right third fourth and fifth toes by vascular surgery. He was hospitalized for right foot infection. The patient also has increased swelling in the right lower extremity and a Doppler of the right lower extremity that was done on 02/09/2024 also showed presence of a thrombus in the right popliteal vein. The patient is known to have a hypercoagulable state and he has had a previous right lower extremity DVT approximately 15 years ago. He is also known to have peripheral vascular disease. Recent angiography that was done in November 2023 showed no evidence of any thoracic aortic dissection or occlusion. There was infrarenal abdominal aortic fusiform aneurysm measuring 35 x 30 mm in size, secondary dilatation of the bifurcation of the internal and external iliac on the left, and there is moderate scattered atherosclerotic changes. At this point in time, the patient is on IV clindamycin. The x-ray of the foot that was obtained on 02/09/2024 showed no gas. There is generalized osteopenia. Stable postop changes involving the right foot without evidence of any osseous destruction or osteomyelitis. White cell count is at 10 hemoglobin is at 10.8 and a platelet count of 114. His current INR is at 4.20 patient has been anticoagulated with warfarin dose being adjusted by pharmacy. BUN 11 with a creatinine of 0.7 and sodium is at 135. No signs of any pulmonary embolism. No pleurisy or hemoptysis. No chest pain. He is known to have factor V Leiden mutation/hypercoagulability with a remote history of right lower extremity DVT. On 02/11/2024, patient is being seen for a follow-up. No signs of respiratory distress. The patient is being evaluated vascular surgery, amputation being considered. He is currently on fluids of oxygen by nasal cannula with a pulse ox of 92%. Will be started on bronchodilators. Remains on therapeutic dose of Lovenox regarding the lower extremity DVT and currently on 80 mg of Lovenox every 12 hours. The INR today is at 3.0. The patient is seen today February 12, 2024 in follow-up on the regular medical floor. He is currently up ambulating in his room. Awake and alert in no acute distress. Maintaining O2 saturations in the 90s on room air. He denies any worsening shortness of breath, cough or congestion. He is afebrile. Hemodynamically stable. He is still having ongoing issues with significant pain of his right foot. He previously had a right fifth toe amputation and subsequently a right third and fourth toe amputation. He has been followed by cardiology vascular surgery and the plan is for a right below the knee amputation possibly tomorrow. Blood cultures revealing no growth. White count 9.9. Hemoglobin 10.9. Platelets 120. INR 2.4. Sodium 137. Potassium 4.0. Bicarb 25. BUN 8. Creatinine 0.60. Glucose 100. He is continued on therapeutic Lovenox. Remains on antibiotics in the form of vancomycin and cefepime. Normal saline at KVO. Alternating Dilaudid and Elberta for pain control. The patient is seen today February 13, 2024 in follow-up on the regular medical f rafiq. He is awake and alert in no acute distress. He is maintaining good O2 saturations in the 90s on 2 L/min per nasal cannula. He denies any worsening shortness of breath, cough or congestion. Remains on vancomycin and cefepime. The plan is for a right below the knee amputation today. He is continued on normal saline at 130 MLS per hour. White count 7.9. Hemoglobin 10.7. Platelets 111. INR 1.43. Sodium 138. Potassium 4.0. Bicarb 24. BUN 8. Creatinine 0.8. Glucose 100. The patient is seen today February 14, 2024 in follow-up on the regular medical floor. He did not have his surgery yesterday. The plan is for a right below the knee amputation today. He remains awake and alert in no acute distress. He is continued on cefepime and vancomycin. His pain is well-managed. He is maintaining good O2 saturations in the 90s on 2 L/min per nasal cannula. He has been afebrile. Hemodynamically stable. White count 6.5. Hemoglobin 10.0. Platelets 103. Sodium 137. Potassium 4.0. Bicarb 24. BUN 9. Creatinine 0.63. AST 36. ALT 45. He remains on bronchodilators. The patient is seen today February 15, 2024 in follow-up on the selective care unit. He is currently awake and alert in no acute distress. Maintaining O2 saturations in the 90s on room air. Continued on bronchodilators. He did undergo a right below the knee amputation yesterday. Dressing is dry and intact . Pain is well-managed. He remains on vancomycin and cefepime. Therapeutic Lovenox. 5.2. Hemoglobin 9.0. Platelets 106. Sodium 136. Potassium 4.0. Bicarb 29. BUN 9. Creatinine 0.58. Objective - Vital Signs Vital signs: Vital Signs Temp 97.6 F 02/15/24 11:26 Pulse 54 L 02/15/24 11:26 Resp 16 02/15/24 11:26 BP 127/62 02/15/24 11:26 Pulse Ox 92 L 02/15/24 11:26 FiO2 Intake & Output 02/14/24 02/15/24 02/15/24 18:59 06:59 18:59 Intake Total 1201 10 360 Output Total 500 550 Balance 701 -540 360 Intake: IV 1201 10 Invasive Line 3 10 Oral 360 Output: Urine 300 550 Estimated Blood Loss 200 Other: Voiding Method External Catheter External Catheter # Voids 1 - Exam GENERAL EXAM: Alert, pleasant 68-year-old male, on room air, fairly comfortable in no apparent distress. HEAD: Normocephalic. EYES: Normal reaction of pupils, equal size. NOSE: Clear with pink turbinates. THROAT: No erythema or exudates. NECK: No masses, no JVD. CHEST: No chest wall deformity. LUNGS: Equal air entry with no crackles, wheeze, rhonchi or dullness. CVS: S1 and S2 normal with no audible murmur, regular rhythm. ABDOMEN: No hepatosplenomegaly, normal bowel sounds, no guarding or rigidity. SPINE: No scoliosis or deformity SKIN: No rashes CENTRAL NERVOUS SYSTEM: No focal deficits, tone is normal in all 4 extremities. EXTREMITIES: Right below the knee amputation. Dressing is dry and intact. - Labs CBC & Chem 7: 02/15/24 08:03 02/15/24 08:03 Labs: Abnormal Lab Results - Last 24 Hours (Table) 02/14/24 02/15/24 02/15/24 Range/Units 17:05 08:03 08:03 RBC 3.06 L 2.92 L (4.30-5.90) m/uL Hgb 9.6 L 9.0 L (13.0-17.5) gm/dL Hct 29.4 L 28.8 L (39.0-53.0) % Plt Count 108 L 106 L (150-450) k/uL Lymphocytes # 0.6 L (1.0-4.8) k/uL Sodium 136 L (137-145) mmol/L Creatinine 0.58 L (0.66-1.25) mg/dL Calcium 7.9 L (8.4-10.2) mg/dL Total Protein 5.0 L (6.3-8.2) g/dL Albumin 2.4 L (3.5-5.0) g/dL Microbiology - Last 24 Hours (Table) 02/09/24 15:09 Blood Culture - Final Blood Assessment and Plan Assessment: Right foot infection/wound with a previous amputation involving the right third, fourth and fifth toes by vascular surgery. Currently the patient is on IV vancomycin and cefepime. Noted the patient had traumatic injury to the right foot with secondary gangrenous toes requiring amputation that was completed on 10/29/2023. Right below the knee amputation on 02/14/2024. Right lower extremity popliteal DVT, recurrent last episode was more than 15 years ago Factor V Leiden/hypercoagulability the patient is maintained on long-term anticoagulation with warfarin COPD currently inactive and stable Peripheral vascular disease Hyperlipidemia Plan: The patient was seen and evaluated Labs and medications reviewed Right below the knee amputation yesterday On therapeutic Lovenox Continue bronchodilators Currently on room air Pulmonary status is stable This patient was seen independently by the pulmonary nurse practitioner addressing pulmonary issues I have personally seen and examined the patient, performed the documentation and the assessment and plan as written. Number of minutes spent on the visit: 23.
--- NOTE | 2024-02-15 13:31 | P.PN ---
Subjective Progress Note Date: 02/15/24 Principal diagnosis: Arterial insufficiency right lower extremity Patient seen and examined today as a follow-up. He is postop day #1 for right below the knee amputation. He is currently sitting up in bed. He has a knee immobilizer on. Dressing clean dry and intact. States he is having quite a bit of nerve pain. Hemoglobin stable at 9.0. He denies any shortness of breath, chest pain, abdominal pain, nausea or vomiting. He has been afebrile. Objective - Vital Signs Vital signs: Vital Signs Temp 97.6 F 02/15/24 11:26 Pulse 54 L 02/15/24 11:26 Resp 16 02/15/24 11:26 BP 127/62 02/15/24 11:26 Pulse Ox 92 L 02/15/24 11:26 FiO2 Intake & Output 02/14/24 02/15/24 02/15/24 18:59 06:59 18:59 Intake Total 1201 10 360 Output Total 500 550 Balance 701 -540 360 Intake: IV 1201 10 Invasive Line 3 10 Oral 360 Output: Urine 300 550 Estimated Blood Loss 200 Other: Voiding Method External Catheter External Catheter # Voids 1 - Exam General appearance: The patient is alert, oriented, appears in no acute distress. HET: Head is normocephalic and atraumatic. Pupils are equal and reactive. Neck: Supple. Abdomen: Soft, nondistended. Extremities: Left lower extremity edema. Right lower extremity with knee immobilizer in place, this surgical site stump with dressing clean dry and intact. Neurological: No focal deficits. Alert and oriented. - Labs CBC & Chem 7: 02/15/24 08:03 02/15/24 08:03 Labs: Abnormal Lab Results - Last 24 Hours (Table) 02/14/24 02/15/24 02/15/24 Range/Units 17:05 08:03 08:03 RBC 3.06 L 2.92 L (4.30-5.90) m/uL Hgb 9.6 L 9.0 L (13.0-17.5) gm/dL Hct 29.4 L 28.8 L (39.0-53.0) % Plt Count 108 L 106 L (150-450) k/uL Lymphocytes # 0.6 L (1.0-4.8) k/uL Sodium 136 L (137-145) mmol/L Creatinine 0.58 L (0.66-1.25) mg/dL Calcium 7.9 L (8.4-10.2) mg/dL Total Protein 5.0 L (6.3-8.2) g/dL Albumin 2.4 L (3.5-5.0) g/dL Microbiology - Last 24 Hours (Table) 02/09/24 15:09 Blood Culture - Final Blood Assessment and Plan Assessment: 1. Postop day #1 right below the knee amputation 2. Hypercoagulable syndrome with ischemia of the forefoot right lower extremity with need for amputation. 3. Bilateral lower extremity edema 4. History of tobacco abuse although the patient did stop smoking 7 years prior. 5. History of left lower extremity deep venous thrombosis in the past. Plan: 1. May resume Coumadin 2. Consult physical therapy, activity as tolerated 3. Heart healthy diet 4. Keep knee immobilizer in place 5. Will increase gabapentin to 600 mg 3 times daily 6. Will consult case management to reach comfort prosthetics for stump environmental remediation consultant and rigid dressing 7. Daily dressing change with Adaptic, 4 x 4 and Kerlix 8. Rest of medical management per primary medical team Thank you for this consultation, we will continue to follow. The impression and plan of care has been dictated as directed. Dr. Smith I performed a history and examination of this patient, discussed the same with the dictator. I agree with the dictator's note ,documented as a scribe. Any additional findings or plans will be noted.
--- NOTE | 2024-02-15 13:33 | P.PN ---
Subjective Progress Note Date: 02/13/24 Principal diagnosis: Reason for follow-up is right foot gangrene and cellulitis Patient is a 68-year-old male with a past medical history significant for hypertension DVT PAD in this patient who did have a previous history of right fifth toe gangrene in this patient who is status post right fourth and third toe amputation subsequently noticed to having nonhealing of the wound to the right foot and also noticed to having some necrotic changes for the patient has been admitted to the hospital. On today's evaluation that is 02/13/2024, Patient is afebrile patient is currently on room air and denies having any shortness of breath, the patient denies any chest pain or cough, the patient denies any nausea vomiting did not have any abdominal pain and no diarrhea, pain to the right foot is currently controlled with pain medication Patient white count is 7.91, creatinine 0.8 blood cultures pending, Vanco trough 11.9 Objective - Vital Signs Vital signs: Vital Signs Temp 98.1 F 02/13/24 07:24 Pulse 68 02/13/24 07:24 Resp 20 02/13/24 07:24 BP 133/52 02/13/24 07:24 Pulse Ox 91 L 02/13/24 07:31 FiO2 Intake & Output 02/12/24 02/13/24 02/13/24 18:59 06:59 18:59 Weight 77.6 kg 78.9 kg Other: Voiding Method Toilet Urinal # Voids 1 3 - Exam GENERAL DESCRIPTION: An elderly male up in the room in no distress RESPIRATORY SYSTEM: Unlabored breathing , decreased breath sounds at bases HEART: S1 S2 regular rate and rhythm , ABDOMEN: Soft , no tenderness EXTREMITIES: Right foot toes amputation site did have necrotic changes with some swelling redness foul-smelling drainage - Labs CBC & Chem 7: 02/15/24 08:03 02/15/24 08:03 Labs: Abnormal Lab Results - Last 24 Hours (Table) 02/13/24 02/13/24 02/13/24 Range/Units 07:28 07:28 07:28 RBC 3.42 L (4.40-5.60) X 10*6/uL Hgb 10.7 L (13.0-17.0) g/dL Hct 33.1 L (39.6-50.0) % Plt Count 111 L (140-440) X 10*3/uL Lymphocytes # 0.46 L (0.90-5.00) X 10*3/uL PT 15.1 H (9.9-11.9) sec INR 1.43 H (0.93-1.11) sec BUN 7.7 L (9.0-27.0) mg/dL BUN/Creatinine Ratio 9.62 L (12.00-20.00) Ratio AST 36 H (14-35) U/L Total Protein 6.0 L (6.2-8.2) g/dL Albumin 3.5 L (3.8-4.9) g/dL Albumin/Globulin Ratio 1.40 L (1.60-3.17) Ratio Microbiology - Last 24 Hours (Table) 02/09/24 15:09 Blood Culture - Preliminary Blood Assessment and Plan (1) Gangrene of toe of right foot Current Visit: Yes Status: Acute Code(s): I96 - GANGRENE, NOT ELSEWHERE CLASSIFIED SNOMED Code(s): 28941077885640189 (2) Cellulitis of right foot Current Visit: No Status: Acute Code(s): L03.115 - CELLULITIS OF RIGHT LOWER LIMB SNOMED Code(s): 11282272714452978 Plan: 1patient presented to hospital with increasing pain discoloration to the right foot toes amputation site concerning for right gangrene with associated cellulitis of the right foot keeping in mind the patient has been around the hospital when you call for resistant gram-positive as well as gram-negative pathogen. 2patient remains remains to be febrile patient white count is normal, to continue with vancomycin pharmacy to dose and cefepime scheduled for right BKA tomorrow. Dictation was produced using [employer] software. please excuse any grammatical, word or spelling errors. Time with Patient: Less than 30
--- NOTE | 2024-02-15 13:34 | P.PN ---
Subjective Progress Note Date: 02/14/24 Principal diagnosis: Reason for follow-up is right foot gangrene and cellulitis Patient is a 68-year-old male with a past medical history significant for hypertension DVT PAD in this patient who did have a previous history of right fifth toe gangrene in this patient who is status post right fourth and third toe amputation subsequently noticed to having nonhealing of the wound to the right foot and also noticed to having some necrotic changes for the patient has been admitted to the hospital. On today's evaluation that is 02/14/2024, patient has been afebrile, patient is breathing comfortably and is currently on 3 to nasal cannula oxygen patient denies having any significant cough no chest pain shortness of breath, patient denies nausea vomiting or diarrhea and no abdominal pain, denies any worsening pain to the right foot area or any drainage patient white count is 6.51 creatinine 0.63 Objective - Vital Signs Vital signs: Vital Signs Temp 98.5 F 02/14/24 07:03 Pulse 73 02/14/24 07:03 Resp 18 02/14/24 07:03 BP 142/65 02/14/24 07:03 Pulse Ox 91 L 02/14/24 07:03 FiO2 - Exam GENERAL DESCRIPTION: An elderly male up in the room in no distress RESPIRATORY SYSTEM: Unlabored breathing , decreased breath sounds at bases HEART: S1 S2 regular rate and rhythm , ABDOMEN: Soft , no tenderness EXTREMITIES: Right foot toes amputation site did have necrotic changes with some swelling redness foul-smelling drainage - Labs CBC & Chem 7: 02/15/24 08:03 02/15/24 08:03 Labs: Abnormal Lab Results - Last 24 Hours (Table) 02/14/24 02/15/24 02/15/24 Range/Units 17:05 08:03 08:03 RBC 3.06 L 2.92 L (4.30-5.90) m/uL Hgb 9.6 L 9.0 L (13.0-17.5) gm/dL Hct 29.4 L 28.8 L (39.0-53.0) % Plt Count 108 L 106 L (150-450) k/uL Lymphocytes # 0.6 L (1.0-4.8) k/uL Sodium 136 L (137-145) mmol/L Creatinine 0.58 L (0.66-1.25) mg/dL Calcium 7.9 L (8.4-10.2) mg/dL Total Protein 5.0 L (6.3-8.2) g/dL Albumin 2.4 L (3.5-5.0) g/dL Microbiology - Last 24 Hours (Table) 02/09/24 15:09 Blood Culture - Final Blood Assessment and Plan (1) Gangrene of toe of right foot Current Visit: Yes Status: Acute Code(s): I96 - GANGRENE, NOT ELSEWHERE CLASSIFIED SNOMED Code(s): 22293876688105460 (2) Cellulitis of right foot Current Visit: No Status: Acute Code(s): L03.115 - CELLULITIS OF RIGHT LOWER LIMB SNOMED Code(s): 73598242734289600 Plan: 1patient presented to hospital with increasing pain discoloration to the right foot toes amputation site concerning for right gangrene with associated cellulitis of the right foot keeping in mind the patient has been around the hospital when you call for resistant gram-positive as well as gram-negative pathogen. 2patient is febrile patient white count is normal and blood culture has been negative so far 3-patient to continue with vancomycin pharmacy to dose and cefepime scheduled for right BKA this afternoon question concern answered Dictation was produced using [employer] dictation software. please excuse any grammatical, word or spelling errors. Time with Patient: Less than 30
--- NOTE | 2024-02-15 13:35 | P.PN ---
Subjective Progress Note Date: 02/15/24 Principal diagnosis: Reason for follow-up is right foot gangrene and cellulitis Patient is a 68-year-old male with a past medical history significant for hypertension DVT PAD in this patient who did have a previous history of right fifth toe gangrene in this patient who is status post right fourth and third toe amputation subsequently noticed to having nonhealing of the wound to the right foot and also noticed to having some necrotic changes for the patient has been admitted to the hospital.Patient is status post right below the knee potation completed on 02/14/2024. On today's evaluation that is 02/15/2024, Patient is afebrile this morning and denies any chills, patient mention breathing comfortably and is currently on 2 L nasal cannula oxygen patient denies any chest pain occasional cough patient denies any abdominal pain no diarrhea no nausea no vomiting, pain to the right BKA stump is currently controlled with the pain medication. Patient vital is 5.2, creatinine 0.58 Objective - Vital Signs Vital signs: Vital Signs Temp 97.6 F 02/15/24 11:26 Pulse 54 L 02/15/24 11:26 Resp 16 02/15/24 11:26 BP 127/62 02/15/24 11:26 Pulse Ox 92 L 02/15/24 11:26 FiO2 Intake & Output 02/14/24 02/15/24 02/15/24 18:59 06:59 18:59 Intake Total 1201 10 360 Output Total 500 550 Balance 701 -540 360 Intake: IV 1201 10 Invasive Line 3 10 Oral 360 Output: Urine 300 550 Estimated Blood Loss 200 Other: Voiding Method External Catheter External Catheter # Voids 1 - Exam GENERAL DESCRIPTION: An elderly male up in the room in no distress RESPIRATORY SYSTEM: Unlabored breathing , decreased breath sounds at bases HEART: S1 S2 regular rate and rhythm , ABDOMEN: Soft , no tenderness EXTREMITIES: Right BKA stump is currently dressed in OR dressing - Labs CBC & Chem 7: 02/15/24 08:03 02/15/24 08:03 Labs: Abnormal Lab Results - Last 24 Hours (Table) 02/14/24 02/15/24 02/15/24 Range/Units 17:05 08:03 08:03 RBC 3.06 L 2.92 L (4.30-5.90) m/uL Hgb 9.6 L 9.0 L (13.0-17.5) gm/dL Hct 29.4 L 28.8 L (39.0-53.0) % Plt Count 108 L 106 L (150-450) k/uL Lymphocytes # 0.6 L (1.0-4.8) k/uL Sodium 136 L (137-145) mmol/L Creatinine 0.58 L (0.66-1.25) mg/dL Calcium 7.9 L (8.4-10.2) mg/dL Total Protein 5.0 L (6.3-8.2) g/dL Albumin 2.4 L (3.5-5.0) g/dL Microbiology - Last 24 Hours (Table) 02/09/24 15:09 Blood Culture - Final Blood Assessment and Plan (1) Gangrene of toe of right foot Current Visit: Yes Status: Acute Code(s): I96 - GANGRENE, NOT ELSEWHERE CLASSIFIED SNOMED Code(s): 68731998920070974 (2) Cellulitis of right foot Current Visit: No Status: Acute Code(s): L03.115 - CELLULITIS OF RIGHT LOWER LIMB SNOMED Code(s): 19894678268854051 Plan: 1patient presented to hospital with increasing pain discoloration to the right foot toes amputation site concerning for right gangrene with associated cellulitis of the right foot keeping in mind the patient has been around the hospital when you call for resistant gram-positive as well as gram-negative pathogen. 2patient is febrile patient white count is normal and blood culture has been negative so far 3-patient is s/p BKA with infected port removed and the patient not bacteremic he will not need long-term antibiotic therapy continue with cefepime and daptomycin today Dictation was produced using [employer] dictation software. please excuse any grammatical, word or spelling errors. Time with Patient: Less than 30
[2024-02-15 15:01] VITALS: BMI 25.2
[2024-02-15] MEDS: ALBUTEROL NEBULIZED 2.5 MG/3 ML INHALATION SCH (15:30)
[2024-02-15] MEDS: GABAPENTIN 300 MG CAP PO SCH (16:41)
--- NOTE | 2024-02-15 17:44 | P.PN ---
Subjective Progress Note Date: 02/15/24 Femi Case, is a 68-year-old male patient who presented with concerns of increased pain to right foot. Patient has a past medical history of gangrene and has been following with vascular services. Patient previously underwent amputation of his right third fourth and fifth toe by Dr. Solano in October. Patient also follows with podiatry. Patient also has a past medical history of recent DVT and vascular disorder. patient also ex-smoker. foot x-ray completed showing no significant interval change. Laboratory feeling wBC 13.0, Hemoglobin 12.1, creatinine 0.59, bun 11. Current vital signs temp 98.2, heart rate 76, respiratory rate 18, blood pressure 123/46 pulse ox of 91% on 2 L. Patient ad mitted patient started on IV clindamycin. Patient also on Lovenox 80 mg twice a day while Coumadin on hold. Patient also requiring increased oxygen. Will order chest x-ray and consult pulmonary services On 02/11/2024 patient was seen and examined on the medical floor, he is alert and oriented x 3 in no apparent distress, there is no fever or chills no headache or dizziness no chest pain no shortness of breath no cough, no nausea or vomiting no abdominal pain no diarrhea and no urinary symptoms. He was evaluated by vascular surgery and is scheduled for right below-knee amputation. On 02/12/2024 patient was seen and examined on the medical floor, he is alert and oriented x 3 in no apparent distress, he is complaining of severe pain in his right foot, and requesting increase in pain medications, although otherwise he denies any complaints there is no fever or chills no headache or dizziness no chest pain no shortness of breath no cough no nausea or vomiting no abdominal pain no diarrhea no urinary symptoms. on 02/13/2024 patient is alert and oriented 3. Plans for amputation tomorrow 02/14/2024 patient remains on IV antibiotics infectious disease service is following. Current vital signs temp 98.1, heart rate 68, respiratory rate 20, blood pressure 133/52 with 02/14/2024 patient is alert and oriented 3. Patient to undergo right BKA today with vascular surgery. Patient shortness breath. Patient denies nausea vomiting or diarrhea. Denies any urinary burning or frequency. Current vital signs temp 98.5, respiratory rate 18, blood pressure 142/65Pulse ox 92% on 2 L On 02/15/2024 patient was seen and examined on the medical floor he is alert and oriented x 3 in no apparent distress he underwent right below-knee amputation yesterday, he is still complaining of lower extremity pain otherwise he denies any complaints, there is no fever or chills no headache or dizziness no chest pain no shortness of breath no cough no nausea or vomiting no abdominal pain no diarrhea and no urinary symptoms, patient is improving gradually continue with subcu Lovenox at this time, consult pharmacy dosing for Coumadin. Objective - Vital Signs Vital signs: Vital Signs Temp 97.9 F 02/15/24 08:40 Pulse 58 L 02/15/24 08:40 Resp 16 02/15/24 08:40 BP 146/77 02/15/24 08:40 Pulse Ox 91 L 02/15/24 08:40 FiO2 Intake & Output 02/14/24 02/15/24 02/15/24 18:59 06:59 18:59 Intake Total 1201 10 360 Output Total 500 550 Balance 701 -540 360 Intake: IV 1201 10 Invasive Line 3 10 Oral 360 Output: Urine 300 550 Estimated Blood Loss 200 Other: Voiding Method External Catheter # Voids 1 - Exam Head normocephalic Neck supple Lungs clear to auscultation bilaterally no wheezing or crackles Heart regular rate and rhythm S1-S2, no rub or gallop Abdomen is soft nontender nondistended positive bowel sounds no hepatosplenomegaly Extremities Previous amputation of right second third and fourth toes open wound with drainage and diffuse swelling Neuro alert and orientated to 3 - Labs CBC & Chem 7: 02/15/24 08:03 02/15/24 08:03 Labs: Abnormal Lab Results - Last 24 Hours (Table) 02/14/24 02/14/24 02/15/24 Range/Units 05:59 17:05 08:03 RBC 3.06 L (4.30-5.90) m/uL Hgb 9.6 L (13.0-17.5) gm/dL Hct 29.4 L (39.0-53.0) % Plt Count 108 L (150-450) k/uL Lymphocytes # (1.0-4.8) k/uL PT 14.5 H (9.9-11.9) sec INR 1.37 H (0.93-1.11) sec Sodium 136 L (137-145) mmol/L Creatinine 0.58 L (0.66-1.25) mg/dL Calcium 7.9 L (8.4-10.2) mg/dL Total Protein 5.0 L (6.3-8.2) g/dL Albumin 2.4 L (3.5-5.0) g/dL 02/15/24 Range/Units 08:03 RBC 2.92 L (4.30-5.90) m/uL Hgb 9.0 L (13.0-17.5) gm/dL Hct 28.8 L (39.0-53.0) % Plt Count 106 L (150-450) k/uL Lymphocytes # 0.6 L (1.0-4.8) k/uL PT (9.9-11.9) sec INR (0.93-1.11) sec Sodium (137-145) mmol/L Creatinine (0.66-1.25) mg/dL Calcium (8.4-10.2) mg/dL Total Protein (6.3-8.2) g/dL Albumin (3.5-5.0) g/dL Microbiology - Last 24 Hours (Table) 02/09/24 15:09 Blood Culture - Final Blood Assessment and Plan Assessment: Right foot gangrene. Patient started on IV clindamycin vascular service is consulted Acute hypoxic respiratory failure. Chest x-ray ordered pulmonary service is consulted history of DVT. 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
[2024-02-15] MEDS: WARFARIN 5 MG TAB PO ONE (18:03)
--- NOTE | 2024-02-16 10:48 | P.PN ---
Subjective Progress Note Date: 02/16/24 Principal diagnosis: Arterial insufficiency right lower extremity Patient is seen and examined today as a follow-up. He is postop day #2. Yesterday [employer] had come by and fitted patient for stump blanket washer and rigid dressing. He currently has them in place with the knee immobilizer in place as well. He was evaluated by physical therapy. Plan is for [facility] is inpatient he is going to subacute subacute rehab on discharge. Coumadin has been resumed. Today's INR currently pending. Patient states pain has been better controlled and is definitely improved after surgery. Objective - Vital Signs Vital signs: Vital Signs Temp 98.2 F 02/16/24 05:11 Pulse 74 02/16/24 05:11 Resp 17 02/16/24 05:11 BP 141/71 02/16/24 05:11 Pulse Ox 92 L 02/16/24 05:11 FiO2 Intake & Output 02/15/24 02/16/24 02/16/24 18:59 06:59 18:59 Intake Total 720 Output Total 1800 4000 Balance -1080 -4000 Weight 79.8 kg Intake: Oral 720 Output: Urine 1800 4000 Other: Voiding Method External Catheter External Catheter # Voids 3 2 - Exam General appearance: The patient is alert, oriented, appears in no acute distress. HET: Head is normocephalic and atraumatic. Pupils are equal and reactive. Neck: Supple. Abdomen: Soft, nondistended. Extremities: Left lower extremity SUNDEEP hose in place. Right lower extremity BKA stump with stump blanket washer and rigid dressing with knee immobilizer in place. Neurological: No focal deficits. Alert and oriented. - Labs CBC & Chem 7: 02/16/24 11:20 02/16/24 11:20 Labs: Abnormal Lab Results - Last 24 Hours (Table) 02/15/24 02/15/24 Range/Units 08:03 08:03 RBC 2.92 L (4.30-5.90) m/uL Hgb 9.0 L (13.0-17.5) gm/dL Hct 28.8 L (39.0-53.0) % Plt Count 106 L (150-450) k/uL Lymphocytes # 0.6 L (1.0-4.8) k/uL Sodium 136 L (137-145) mmol/L Creatinine 0.58 L (0.66-1.25) mg/dL Calcium 7.9 L (8.4-10.2) mg/dL Total Protein 5.0 L (6.3-8.2) g/dL Albumin 2.4 L (3.5-5.0) g/dL Assessment and Plan Assessment: 1. Postop day #1 right below the knee amputation 2. Hypercoagulable syndrome with ischemia of the forefoot right lower extremity with need for amputation. 3. Bilateral lower extremity edema 4. History of tobacco abuse although the patient did stop smoking 7 years prior. 5. History of left lower extremity deep venous thrombosis in the past. Plan: 1. May resume Coumadin 2. Consult physical therapy, activity as tolerated 3. Heart healthy diet 4. Keep knee immobilizer in place 5. Will change gabapentin to Lyrica 6. Will consult case management to reach [employer] for stump blanket washer and rigid dressing 7. Daily dressing change with4 x [address] stump blanket washer and rigid dressing 8. Rest of medical management per primary medical team Thank you for this consultation, patient is cleared from vascular surgery for discharge. The impression and plan of care has been dictated as directed. Dr. Smith I performed a history and examination of this patient, discussed the same with the dictator. I agree with the dictator's note ,documented as a scribe. Any additional findings or plans will be noted.
--- NOTE | 2024-02-16 10:50 | P.PN ---
Subjective Progress Note Date: 02/16/24 Femi Case, is a 68-year-old male patient who presented with concerns of increased pain to right foot. Patient has a past medical history of gangrene and has been following with vascular services. Patient previously underwent amputation of his right third fourth and fifth toe by Dr. Solano in October. Patient also follows with podiatry. Patient also has a past medical history of recent DVT and vascular disorder. patient also ex-smoker. foot x-ray completed showing no significant interval change. Laboratory feeling wBC 13.0, Hemoglobin 12.1, creatinine 0.59, bun 11. Current vital signs temp 98.2, heart rate 76, respiratory rate 18, blood pressure 123/46 pulse ox of 91% on 2 L. Patient ad mitted patient started on IV clindamycin. Patient also on Lovenox 80 mg twice a day while Coumadin on hold. Patient also requiring increased oxygen. Will order chest x-ray and consult pulmonary services On 02/11/2024 patient was seen and examined on the medical floor, he is alert and oriented x 3 in no apparent distress, there is no fever or chills no headache or dizziness no chest pain no shortness of breath no cough, no nausea or vomiting no abdominal pain no diarrhea and no urinary symptoms. He was evaluated by vascular surgery and is scheduled for right below-knee amputation. On 02/12/2024 patient was seen and examined on the medical floor, he is alert and oriented x 3 in no apparent distress, he is complaining of severe pain in his right foot, and requesting increase in pain medications, although otherwise he denies any complaints there is no fever or chills no headache or dizziness no chest pain no shortness of breath no cough no nausea or vomiting no abdominal pain no diarrhea no urinary symptoms. on 02/13/2024 patient is alert and oriented 3. Plans for amputation tomorrow 02/14/2024 patient remains on IV antibiotics infectious disease service is following. Current vital signs temp 98.1, heart rate 68, respiratory rate 20, blood pressure 133/52 with 02/14/2024 patient is alert and oriented 3. Patient to undergo right BKA today with vascular surgery. Patient shortness breath. Patient denies nausea vomiting or diarrhea. Denies any urinary burning or frequency. Current vital signs temp 98.5, respiratory rate 18, blood pressure 142/65Pulse ox 92% on 2 L On 02/15/2024 patient was seen and examined on the medical floor he is alert and oriented x 3 in no apparent distress he underwent right below-knee amputation yesterday, he is still complaining of lower extremity pain otherwise he denies any complaints, there is no fever or chills no headache or dizziness no chest pain no shortness of breath no cough no nausea or vomiting no abdominal pain no diarrhea and no urinary symptoms, patient is improving gradually continue with subcu Lovenox at this time, consult pharmacy dosing for Coumadin. On 02/15/2023 for patient's alert and oriented 3. Patient reports some pain. Gabapentin was increased yesterday to 600 3 times a day. Patient denies chest pain or shortness of breath. Patient denies nausea vomiting or diarrhea. Patient denies any urinary burning or frequency. Pharmacy to dose Coumadin bridging with Lovenox Objective - Vital Signs Vital signs: Vital Signs Temp 98.2 F 02/16/24 05:11 Pulse 74 02/16/24 05:11 Resp 17 02/16/24 05:11 BP 141/71 02/16/24 05:11 Pulse Ox 92 L 02/16/24 05:11 FiO2 Intake & Output 02/15/24 02/16/24 02/16/24 18:59 06:59 18:59 Intake Total 720 358 Output Total 1800 4000 550 Balance -1080 -4000 -192 Weight 79.8 kg Intake: Oral 720 358 Output: Urine 1800 4000 550 Other: Voiding Method External Catheter External Catheter # Voids 3 2 - Exam Head normocephalic Neck supple Lungs clear to auscultation bilaterally no wheezing or crackles Heart regular rate and rhythm S1-S2, no rub or gallop Abdomen is soft nontender nondistended positive bowel sounds no hepatosplenomegaly Extremities Previous amputation of right second third and fourth toes open wound with drainage and diffuse swelling Neuro alert and orientated to 3 - Labs CBC & Chem 7: 02/15/24 08:03 02/15/24 08:03 Assessment and Plan Assessment: Right foot gangrene. Patient started on IV clindamycin vascular service is consulted Acute hypoxic respiratory failure. Chest x-ray ordered pulmonary service is consulted history of DVT. 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
--- NOTE | 2024-02-16 11:20 | P.PN ---
Subjective Progress Note Date: 02/16/24 I was asked to evaluate this patient regarding COPD and some hypoxemia. The patient reports chronic exertional dyspnea. He has some chronic cough and congestion. He seems to have had a recent flulike illness and chest congestion that occurred approximately 2 to 3 weeks ago. His chest x-ray shows some coarse interstitial pattern bilaterally along with COPD and emphysematous changes. No hemoptysis. No pleurisy. No chest pain. The patient is currently in the hospital having difficulties with his right foot. The patient is currently under the care of vascular surgery in our facility. The patient has undergone previous amputation of the right third fourth and fifth toes by vascular surgery. He was hospitalized for right foot infection. The patient also has increased swelling in the right lower extremity and a Doppler of the right lower extremity that was done on 02/09/2024 also showed presence of a thrombus in the right popliteal vein. The patient is known to have a hypercoagulable state and he has had a previous right lower extremity DVT approximately 15 years ago. He is also known to have peripheral vascular disease. Recent angiography that was done in November 2023 showed no evidence of any thoracic aortic dissection or occlusion. There was infrarenal abdominal aortic fusiform aneurysm measuring 35 x 30 mm in size, secondary dilatation of the bifurcation of the internal and external iliac on the left, and there is moderate scattered atherosclerotic changes. At this point in time, the patient is on IV clindamycin. The x-ray of the foot that was obtained on 02/09/2024 showed no gas. There is generalized osteopenia. Stable postop changes involving the right foot without evidence of any osseous destruction or osteomyelitis. White cell count is at 10 hemoglobin is at 10.8 and a platelet count of 114. His current INR is at 4.20 patient has been anticoagulated with warfarin dose being adjusted by pharmacy. BUN 11 with a creatinine of 0.7 and sodium is at 135. No signs of any pulmonary embolism. No pleurisy or hemoptysis. No chest pain. He is known to have factor V Leiden mutation/hypercoagulability with a remote history of right lower extremity DVT. On 02/11/2024, patient is being seen for a follow-up. No signs of respiratory distress. The patient is being evaluated vascular surgery, amputation being considered. He is currently on fluids of oxygen by nasal cannula with a pulse ox of 92%. Will be started on bronchodilators. Remains on therapeutic dose of Lovenox regarding the lower extremity DVT and currently on 80 mg of Lovenox every 12 hours. The INR today is at 3.0. The patient is seen today February 12, 2024 in follow-up on the regular medical floor. He is currently up ambulating in his room. Awake and alert in no acute distress. Maintaining O2 saturations in the 90s on room air. He denies any worsening shortness of breath, cough or congestion. He is afebrile. Hemodynamically stable. He is still having ongoing issues with significant pain of his right foot. He previously had a right fifth toe amputation and subsequently a right third and fourth toe amputation. He has been followed by cardiology vascular surgery and the plan is for a right below the knee amputation possibly tomorrow. Blood cultures revealing no growth. White count 9.9. Hemoglobin 10.9. Platelets 120. INR 2.4. Sodium 137. Potassium 4.0. Bicarb 25. BUN 8. Creatinine 0.60. Glucose 100. He is continued on therapeutic Lovenox. Remains on antibiotics in the form of vancomycin and cefepime. Normal saline at KVO. Alternating Dilaudid and [place] for pain control. The patient is seen today February 13, 2024 in follow-up on the regular medical f rafiq. He is awake and alert in no acute distress. He is maintaining good O2 saturations in the 90s on 2 L/min per nasal cannula. He denies any worsening shortness of breath, cough or congestion. Remains on vancomycin and cefepime. The plan is for a right below the knee amputation today. He is continued on normal saline at 130 MLS per hour. White count 7.9. Hemoglobin 10.7. Platelets 111. INR 1.43. Sodium 138. Potassium 4.0. Bicarb 24. BUN 8. Creatinine 0.8. Glucose 100. The patient is seen today February 14, 2024 in follow-up on the regular medical floor. He did not have his surgery yesterday. The plan is for a right below the knee amputation today. He remains awake and alert in no acute distress. He is continued on cefepime and vancomycin. His pain is well-managed. He is maintaining good O2 saturations in the 90s on 2 L/min per nasal cannula. He has been afebrile. Hemodynamically stable. White count 6.5. Hemoglobin 10.0. Platelets 103. Sodium 137. Potassium 4.0. Bicarb 24. BUN 9. Creatinine 0.63. AST 36. ALT 45. He remains on bronchodilators. The patient is seen today February 15, 2024 in follow-up on the selective care unit. He is currently awake and alert in no acute distress. Maintaining O2 saturations in the 90s on room air. Continued on bronchodilators. He did undergo a right below the knee amputation yesterday. Dressing is dry and intact . Pain is well-managed. He remains on vancomycin and cefepime. Therapeutic Lovenox. 5.2. Hemoglobin 9.0. Platelets 106. Sodium 136. Potassium 4.0. Bicarb 29. BUN 9. Creatinine 0.58. The patient is seen today February 16, 2024 in follow-up on the selective care unit. He is postoperative day #2. He is currently sitting up in a chair. Awake and alert in no acute distress. Maintaining good O2 saturations in the 90s on room air. No shortness of breath, cough or congestion. He denies any significant discomfort. No phantom pain. 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 Today's labs are pending. INR pending. Remains on therapeutic Lovenox. He is continued on cefepime and vancomycin. Objective - Vital Signs Vital signs: Vital Signs Temp 98.2 F 02/16/24 05:11 Pulse 74 02/16/24 05:11 Resp 17 02/16/24 05:11 BP 141/71 02/16/24 05:11 Pulse Ox 92 L 02/16/24 05:11 FiO2 Intake & Output 02/15/24 02/16/24 02/16/24 18:59 06:59 18:59 Intake Total 720 358 Output Total 1800 4000 550 Balance -1080 -4000 -192 Weight 79.8 kg Intake: Oral 720 358 Output: Urine 1800 4000 550 Other: Voiding Method External Catheter External Catheter # Voids 3 2 - Exam GENERAL EXAM: Alert, 68-year-old male, on room air, sitting up in a chair, comfortable in no apparent distress. HEAD: Normocephalic. EYES: Normal reaction of pupils, equal size. NOSE: Clear with pink turbinates. THROAT: No erythema or exudates. NECK: No masses, no JVD. CHEST: No chest wall deformity. LUNGS: Equal air entry with no crackles, wheeze, rhonchi or dullness. CVS: S1 and S2 normal with no audible murmur, regular rhythm. ABDOMEN: No hepatosplenomegaly, normal bowel sounds, no guarding or rigidity. SPINE: No scoliosis or deformity SKIN: No rashes CENTRAL NERVOUS SYSTEM: No focal deficits, tone is normal in all 4 extremities. 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 - Labs CBC & Chem 7: 02/15/24 08:03 02/15/24 08:03 Assessment and Plan Assessment: Right foot infection/wound with a previous amputation involving the right third, fourth and fifth toes by vascular surgery. Currently the patient is on IV vancomycin and cefepime. Noted the patient had traumatic injury to the right foot with secondary gangrenous toes requiring amputation that was completed on 10/29/2023. Right below the knee amputation on 02/14/2024. Post operative day #2. 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 Number of minutes spent on the visit: 25.
[2024-02-16 12:04] LABS: Basophils % (A) 0 %; Eosinophils % (A) 0 %; HCT 32.1 % (39.0-53.0); HGB 10.1 gm/dL (13.0-17.5); Hypochromasia Slight; Lymphocytes # (A) 0.4 k/uL (1.0-4.8); Lymphocytes % (A) 9 %; MCH 30.3 pg (25.0-35.0); MCHC 31.3 g/dL (31.0-37.0); MCV 96.7 fL (80.0-100.0); Mean Platelet Volume 9.2; Monocytes # (A) 0.3 k/uL (0-1.0); Monocytes % (A) 6 %; Neutrophils # (A) 4.2 k/uL (1.3-7.7); Neutrophils % (A) 84 %; Platelet Count 115 k/uL (150-450); RBC 3.32 m/uL (4.30-5.90); RDW 13.5 % (11.5-15.5)
[2024-02-16 12:07] LABS: INR 1.8 (<1.2); Prothrombin Time 17.8 sec (10.0-12.5)
[2024-02-16] MEDS: VANCOMYCIN TROUGH DUE 1 EACH MISC MISCELLANE ONE (12:42)
[2024-02-16 13:06] LABS: ALT 37 U/L (4-49); AST 42 U/L (17-59); African American GFR (CKD) >90 (>60 ml/min/1.73 sqM); Albumin 2.7 g/dL (3.5-5.0); Alkaline Phosphatase 56 U/L (38-126); Anion Gap 2 mmol/L; Blood Urea Nitrogen 11 mg/dL (9-20); Calcium 8.2 mg/dL (8.4-10.2); Carbon Dioxide 28 mmol/L (22-30); Chloride 103 mmol/L (98-107); Glucose 115 mg/dL (74-99); Non-African American GFR(CKD) >90 (>60 ml/min/1.73 sqM); Potassium 3.7 mmol/L (3.5-5.1); Sodium 133 mmol/L (137-145); Total Bilirubin 1.2 mg/dL (0.2-1.3); Total Protein 5.4 g/dL (6.3-8.2)
[2024-02-16] MEDS: PREGABALIN 100 MG CAP PO SCH (15:08)
[2024-02-16] MEDS: WARFARIN 5 MG TAB PO ONE (16:59)
--- NOTE | 2024-02-16 17:31 | P.PN ---
Subjective Progress Note Date: 02/16/24 Principal diagnosis: Reason for follow-up is right foot gangrene and cellulitis Patient is a 68-year-old male with a past medical history significant for hypertension DVT PAD in this patient who did have a previous history of right fifth toe gangrene in this patient who is status post right fourth and third toe amputation subsequently noticed to having nonhealing of the wound to the right foot and also noticed to having some necrotic changes for the patient has been admitted to the hospital.Patient is status post right below the knee potation completed on 02/14/2024. On today's evaluation that is 02/16/2024,the patient denies any fever or any chills, patient is breathing comfortably on room air, the patient denies chest pain shortness of breath and no significant cough, patient denies abdominal pain, no nausea vomiting or diarrhea. Patient pain to the right BKA stump is currently controlled. Patient white count is 5.0, creatinine 0.59 vancomycin trough is low at 9.3 Objective - Vital Signs Vital signs: Vital Signs Temp 99.4 F 02/16/24 08:05 Pulse 89 02/16/24 15:05 Resp 16 02/16/24 15:05 BP 133/66 02/16/24 15:05 Pulse Ox 92 L 02/16/24 15:05 FiO2 Intake & Output 02/15/24 02/16/24 02/16/24 18:59 06:59 18:59 Intake Total 720 598 Output Total 1800 4000 1050 Balance -1080 -4000 -452 Weight 79.8 kg Intake: Oral 720 598 Output: Urine 1800 4000 1050 Other: Voiding Method External Catheter External Catheter External Catheter # Voids 3 2 - Exam GENERAL DESCRIPTION: An elderly male up in the room in no distress RESPIRATORY SYSTEM: Unlabored breathing , decreased breath sounds at bases HEART: S1 S2 regular rate and rhythm , ABDOMEN: Soft , no tenderness EXTREMITIES: Right BKA stump is currently dressed in OR dressing - Labs CBC & Chem 7: 02/16/24 11:20 02/16/24 11:20 Labs: Abnormal Lab Results - Last 24 Hours (Table) 02/16/24 02/16/24 02/16/24 Range/Units 11:20 11:20 11:20 RBC 3.32 L (4.30-5.90) m/uL Hgb 10.1 L (13.0-17.5) gm/dL Hct 32.1 L (39.0-53.0) % Plt Count 115 L (150-450) k/uL Lymphocytes # 0.4 L (1.0-4.8) k/uL PT 17.8 H (10.0-12.5) sec INR 1.8 H (<1.2) Sodium 133 L (137-145) mmol/L Creatinine 0.59 L (0.66-1.25) mg/dL Glucose 115 H (74-99) mg/dL Calcium 8.2 L (8.4-10.2) mg/dL Total Protein 5.4 L (6.3-8.2) g/dL Albumin 2.7 L (3.5-5.0) g/dL Assessment and Plan (1) Gangrene of toe of right foot Current Visit: Yes Status: Acute Code(s): I96 - GANGRENE, NOT ELSEWHERE CLASSIFIED SNOMED Code(s): 10476290661692675 (2) Cellulitis of right foot Current Visit: No Status: Acute Code(s): L03.115 - CELLULITIS OF RIGHT LOWER LIMB SNOMED Code(s): 30214523129228490 Plan: 1patient presented to hospital with increasing pain discoloration to the right foot toes amputation site concerning for right gangrene with associated cellulitis of the right foot keeping in mind the patient has been around the hospital when you call for resistant gram-positive as well as gram-negative pathogen. 2patient is febrile patient white count is normal and blood culture has been negative so far 3-patient is s/p BKA with infected port removed and the patient not bacteremic he will not need long-term antibiotic therapy continue with cefepime and vancomycin and monitor clinical course closely Dictation was produced using [employer] dictation software. please excuse any grammatical, word or spelling errors. Time with Patient: Less than 30
[2024-02-16] MEDS: VANCOMYCIN 1,500 MG in SODIUM CHLORIDE 0.9% 500 ML 500 ML IVPB SCH (21:02)
[2024-02-17 08:57] LABS: Basophils % (A) 0 %; Eosinophils % (A) 0 %; HGB 9.2 gm/dL (13.0-17.5); Hypochromasia Slight; Lymphocytes # (A) 0.6 k/uL (1.0-4.8); Lymphocytes % (A) 10 %; MCH 30.3 pg (25.0-35.0); MCHC 31.7 g/dL (31.0-37.0); MCV 95.8 fL (80.0-100.0); Mean Platelet Volume 8.8; Monocytes # (A) 0.4 k/uL (0-1.0); Monocytes % (A) 8 %; Neutrophils # (A) 4.3 k/uL (1.3-7.7); Neutrophils % (A) 80 %; Platelet Count 104 k/uL (150-450); Poikilocytosis Slight; RBC 3.02 m/uL (4.30-5.90); RDW 13.9 % (11.5-15.5); WBC 5.4 k/uL (3.8-10.6)
[2024-02-17 09:01] LABS: INR 1.5 (<1.2); Prothrombin Time 15.3 sec (10.0-12.5)
[2024-02-17 09:19] LABS: ALT 43 U/L (4-49); AST 48 U/L (17-59); African American GFR (CKD) >90 (>60 ml/min/1.73 sqM); Albumin 2.7 g/dL (3.5-5.0); Alkaline Phosphatase 59 U/L (38-126); Anion Gap 2 mmol/L; Blood Urea Nitrogen 9 mg/dL (9-20); Calcium 7.9 mg/dL (8.4-10.2); Carbon Dioxide 27 mmol/L (22-30); Chloride 103 mmol/L (98-107); Glucose 126 mg/dL (74-99); Non-African American GFR(CKD) >90 (>60 ml/min/1.73 sqM); Potassium 3.5 mmol/L (3.5-5.1); Sodium 132 mmol/L (137-145); Total Bilirubin 1.4 mg/dL (0.2-1.3); Total Protein 5.4 g/dL (6.3-8.2)
--- NOTE | 2024-02-17 09:47 | P.PN ---
Subjective Progress Note Date: 02/17/24 Femi Case, is a 68-year-old male patient who presented with concerns of increased pain to right foot. Patient has a past medical history of gangrene and has been following with vascular services. Patient previously underwent amputation of his right third fourth and fifth toe by Dr. Solano in October. Patient also follows with podiatry. Patient also has a past medical history of recent DVT and vascular disorder. patient also ex-smoker. foot x-ray completed showing no significant interval change. Laboratory feeling wBC 13.0, Hemoglobin 12.1, creatinine 0.59, bun 11. Current vital signs temp 98.2, heart rate 76, respiratory rate 18, blood pressure 123/46 pulse ox of 91% on 2 L. Patient ad mitted patient started on IV clindamycin. Patient also on Lovenox 80 mg twice a day while Coumadin on hold. Patient also requiring increased oxygen. Will order chest x-ray and consult pulmonary services On 02/11/2024 patient was seen and examined on the medical floor, he is alert and oriented x 3 in no apparent distress, there is no fever or chills no headache or dizziness no chest pain no shortness of breath no cough, no nausea or vomiting no abdominal pain no diarrhea and no urinary symptoms. He was evaluated by vascular surgery and is scheduled for right below-knee amputation. On 02/12/2024 patient was seen and examined on the medical floor, he is alert and oriented x 3 in no apparent distress, he is complaining of severe pain in his right foot, and requesting increase in pain medications, although otherwise he denies any complaints there is no fever or chills no headache or dizziness no chest pain no shortness of breath no cough no nausea or vomiting no abdominal pain no diarrhea no urinary symptoms. on 02/13/2024 patient is alert and oriented 3. Plans for amputation tomorrow 02/14/2024 patient remains on IV antibiotics infectious disease service is following. Current vital signs temp 98.1, heart rate 68, respiratory rate 20, blood pressure 133/52 with 02/14/2024 patient is alert and oriented 3. Patient to undergo right BKA today with vascular surgery. Patient shortness breath. Patient denies nausea vomiting or diarrhea. Denies any urinary burning or frequency. Current vital signs temp 98.5, respiratory rate 18, blood pressure 142/65Pulse ox 92% on 2 L On 02/15/2024 patient was seen and examined on the medical floor he is alert and oriented x 3 in no apparent distress he underwent right below-knee amputation yesterday, he is still complaining of lower extremity pain otherwise he denies any complaints, there is no fever or chills no headache or dizziness no chest pain no shortness of breath no cough no nausea or vomiting no abdominal pain no diarrhea and no urinary symptoms, patient is improving gradually continue with subcu Lovenox at this time, consult pharmacy dosing for Coumadin. On 02/15/2023 for patient's alert and oriented 3. Patient reports some pain. Gabapentin was increased yesterday to 600 3 times a day. Patient denies chest pain or shortness of breath. Patient denies nausea vomiting or diarrhea. Patient denies any urinary burning or frequency. Pharmacy to dose Coumadin bridging with Lovenox On 02/17/2024 patient is alert and oriented x 3. INR today 1.5. Patient denies chest pain or shortness of breath. Patient denies nausea vomiting or diarrhea. Patient denies any urinary burning frequency. Current vital signs Temp 98.5, heart rate 73, respiratory rate 16, blood pressure 125/59 with a pulse ox of 93% on room air Objective - Vital Signs Vital signs: Vital Signs Temp 99.6 F 02/17/24 04:00 Pulse 85 02/17/24 04:00 Resp 22 02/17/24 04:00 BP 156/70 02/17/24 04:00 Pulse Ox 93 L 02/17/24 04:00 FiO2 Intake & Output 02/16/24 02/17/24 02/17/24 18:59 06:59 18:59 Intake Total 598 Output Total 1050 1450 Balance -452 -1450 Intake: Oral 598 Output: Urine 1050 1450 Other: Voiding Method External Catheter External Catheter # Voids 700 - Exam Head normocephalic Neck supple Lungs clear to auscultation bilaterally no wheezing or crackles Heart regular rate and rhythm S1-S2, no rub or gallop Abdomen is soft nontender nondistended positive bowel sounds no hepatosplenomegaly Extremities Previous amputation of right second third and fourth toes open wound with drainage and diffuse swelling Neuro alert and orientated to 3 - Labs CBC & Chem 7: 02/17/24 08:06 02/17/24 08:06 Labs: Abnormal Lab Results - Last 24 Hours (Table) 02/16/24 02/16/24 02/16/24 Range/Units 11:20 11:20 11:20 RBC 3.32 L (4.30-5.90) m/uL Hgb 10.1 L (13.0-17.5) gm/dL Hct 32.1 L (39.0-53.0) % Plt Count 115 L (150-450) k/uL Lymphocytes # 0.4 L (1.0-4.8) k/uL PT 17.8 H (10.0-12.5) sec INR 1.8 H (<1.2) Sodium 133 L (137-145) mmol/L Creatinine 0.59 L (0.66-1.25) mg/dL Glucose 115 H (74-99) mg/dL Calcium 8.2 L (8.4-10.2) mg/dL Total Bilirubin (0.2-1.3) mg/dL Total Protein 5.4 L (6.3-8.2) g/dL Albumin 2.7 L (3.5-5.0) g/dL 02/17/24 02/17/24 02/17/24 Range/Units 08:06 08:06 08:06 RBC 3.02 L (4.30-5.90) m/uL Hgb 9.2 L (13.0-17.5) gm/dL Hct 29.0 L (39.0-53.0) % Plt Count 104 L (150-450) k/uL Lymphocytes # 0.6 L (1.0-4.8) k/uL PT 15.3 H (10.0-12.5) sec INR 1.5 H (<1.2) Sodium 132 L (137-145) mmol/L Creatinine 0.60 L (0.66-1.25) mg/dL Glucose 126 H (74-99) mg/dL Calcium 7.9 L (8.4-10.2) mg/dL Total Bilirubin 1.4 H (0.2-1.3) mg/dL Total Protein 5.4 L (6.3-8.2) g/dL Albumin 2.7 L (3.5-5.0) g/dL Assessment and Plan Assessment: Right foot gangrene. Patient started on IV clindamycin vascular service is consulted Acute hypoxic respiratory failure. Chest x-ray ordered pulmonary service is consulted history of DVT. 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
--- NOTE | 2024-02-17 10:33 | P.PN ---
Subjective Progress Note Date: 02/17/24 I was asked to evaluate this patient regarding COPD and some hypoxemia. The patient reports chronic exertional dyspnea. He has some chronic cough and congestion. He seems to have had a recent flulike illness and chest congestion that occurred approximately 2 to 3 weeks ago. His chest x-ray shows some coarse interstitial pattern bilaterally along with COPD and emphysematous changes. No hemoptysis. No pleurisy. No chest pain. The patient is currently in the hospital having difficulties with his right foot. The patient is currently under the care of vascular surgery in our facility. The patient has undergone previous amputation of the right third fourth and fifth toes by vascular surgery. He was hospitalized for right foot infection. The patient also has increased swelling in the right lower extremity and a Doppler of the right lower extremity that was done on 02/09/2024 also showed presence of a thrombus in the right popliteal vein. The patient is known to have a hypercoagulable state and he has had a previous right lower extremity DVT approximately 15 years ago. He is also known to have peripheral vascular disease. Recent angiography that was done in November 2023 showed no evidence of any thoracic aortic dissection or occlusion. There was infrarenal abdominal aortic fusiform aneurysm measuring 35 x 30 mm in size, secondary dilatation of the bifurcation of the internal and external iliac on the left, and there is moderate scattered atherosclerotic changes. At this point in time, the patient is on IV clindamycin. The x-ray of the foot that was obtained on 02/09/2024 showed no gas. There is generalized osteopenia. Stable postop changes involving the right foot without evidence of any osseous destruction or osteomyelitis. White cell count is at 10 hemoglobin is at 10.8 and a platelet count of 114. His current INR is at 4.20 patient has been anticoagulated with warfarin dose being adjusted by pharmacy. BUN 11 with a creatinine of 0.7 and sodium is at 135. No signs of any pulmonary embolism. No pleurisy or hemoptysis. No chest pain. He is known to have factor V Leiden mutation/hypercoagulability with a remote history of right lower extremity DVT. On 02/11/2024, patient is being seen for a follow-up. No signs of respiratory distress. The patient is being evaluated vascular surgery, amputation being considered. He is currently on fluids of oxygen by nasal cannula with a pulse ox of 92%. Will be started on bronchodilators. Remains on therapeutic dose of Lovenox regarding the lower extremity DVT and currently on 80 mg of Lovenox every 12 hours. The INR today is at 3.0. The patient is seen today February 12, 2024 in follow-up on the regular medical floor. He is currently up ambulating in his room. Awake and alert in no acute distress. Maintaining O2 saturations in the 90s on room air. He denies any worsening shortness of breath, cough or congestion. He is afebrile. Hemodynamically stable. He is still having ongoing issues with significant pain of his right foot. He previously had a right fifth toe amputation and subsequently a right third and fourth toe amputation. He has been followed by cardiology vascular surgery and the plan is for a right below the knee amputation possibly tomorrow. Blood cultures revealing no growth. White count 9.9. Hemoglobin 10.9. Platelets 120. INR 2.4. Sodium 137. Potassium 4.0. Bicarb 25. BUN 8. Creatinine 0.60. Glucose 100. He is continued on therapeutic Lovenox. Remains on antibiotics in the form of vancomycin and cefepime. Normal saline at KVO. Alternating Dilaudid and Paullina for pain control. The patient is seen today February 13, 2024 in follow-up on the regular medical f rafiq. He is awake and alert in no acute distress. He is maintaining good O2 saturations in the 90s on 2 L/min per nasal cannula. He denies any worsening shortness of breath, cough or congestion. Remains on vancomycin and cefepime. The plan is for a right below the knee amputation today. He is continued on normal saline at 130 MLS per hour. White count 7.9. Hemoglobin 10.7. Platelets 111. INR 1.43. Sodium 138. Potassium 4.0. Bicarb 24. BUN 8. Creatinine 0.8. Glucose 100. The patient is seen today February 14, 2024 in follow-up on the regular medical floor. He did not have his surgery yesterday. The plan is for a right below the knee amputation today. He remains awake and alert in no acute distress. He is continued on cefepime and vancomycin. His pain is well-managed. He is maintaining good O2 saturations in the 90s on 2 L/min per nasal cannula. He has been afebrile. Hemodynamically stable. White count 6.5. Hemoglobin 10.0. Platelets 103. Sodium 137. Potassium 4.0. Bicarb 24. BUN 9. Creatinine 0.63. AST 36. ALT 45. He remains on bronchodilators. The patient is seen today February 15, 2024 in follow-up on the selective care unit. He is currently awake and alert in no acute distress. Maintaining O2 saturations in the 90s on room air. Continued on bronchodilators. He did undergo a right below the knee amputation yesterday. Dressing is dry and intact . Pain is well-managed. He remains on vancomycin and cefepime. Therapeutic Lovenox. 5.2. Hemoglobin 9.0. Platelets 106. Sodium 136. Potassium 4.0. Bicarb 29. BUN 9. Creatinine 0.58. The patient is seen today February 16, 2024 in follow-up on the selective care unit. He is postoperative day #2. He is currently sitting up in a chair. Awake and alert in no acute distress. Maintaining good O2 saturations in the 90s on room air. No shortness of breath, cough or congestion. He denies any significant discomfort. No phantom pain. He has a right lower extremity BKA stump with stump stone repairer and rigid dressing with knee immobilizer in place. Today's labs are pending. INR pending. Remains on therapeutic Lovenox. He is continued on cefepime and vancomycin. The patient is seen today February 17, 2024 in follow-up on the selective care unit. Postoperative day #3. He is sitting up in bed. Awake and alert in no acute distress. Denies any worsening shortness of breath, cough or congestion. He is maintaining good O2 saturations in the 90s on room air. Has been afebrile. Hemodynamically stable. He is continued on vancomycin and cefepime. Remains on therapeutic Lovenox. Resumed on warfarin INR today is 1.5. Blood cultures revealed no growth. White count 5.4. Hemoglobin 9.2. Platelets 104. Sodium 132. Potassium 3.5. Bicarb 27. BUN 9. Creatinine 0.60. Glucose 126. Objective - Vital Signs Vital signs: Vital Signs Temp 99.6 F 02/17/24 04:00 Pulse 85 02/17/24 04:00 Resp 22 02/17/24 04:00 BP 156/70 02/17/24 04:00 Pulse Ox 93 L 02/17/24 04:00 FiO2 Intake & Output 02/16/24 02/17/24 02/17/24 18:59 06:59 18:59 Intake Total 598 240 Output Total 1050 1450 Balance -452 -1450 240 Intake: Oral 598 240 Output: Urine 1050 1450 Other: Voiding Method External Catheter External Catheter # Voids 700 - Exam GENERAL EXAM: Alert, very pleasant 68-year-old male, on room air, resting in bed, comfortable in no apparent distress. HEAD: Normocephalic. EYES: Normal reaction of pupils, equal size. NOSE: Clear with pink turbinates. THROAT: No erythema or exudates. NECK: No masses, no JVD. CHEST: No chest wall deformity. LUNGS: Equal air entry with no crackles, wheeze, rhonchi or dullness. CVS: S1 and S2 normal with no audible murmur, regular rhythm. ABDOMEN: No hepatosplenomegaly, normal bowel sounds, no guarding or rigidity. SPINE: No scoliosis or deformity SKIN: No rashes CENTRAL NERVOUS SYSTEM: No focal deficits, tone is normal in all 4 extremities. EXTREMITIES: Right below the knee amputation stump stone repairer on and knee immobilizer in place. - Labs CBC & Chem 7: 02/17/24 08:06 02/17/24 08:06 Labs: Abnormal Lab Results - Last 24 Hours (Table) 02/16/24 02/16/24 02/16/24 Range/Units 11:20 11:20 11:20 RBC 3.32 L (4.30-5.90) m/uL Hgb 10.1 L (13.0-17.5) gm/dL Hct 32.1 L (39.0-53.0) % Plt Count 115 L (150-450) k/uL Lymphocytes # 0.4 L (1.0-4.8) k/uL PT 17.8 H (10.0-12.5) sec INR 1.8 H (<1.2) Sodium 133 L (137-145) mmol/L Creatinine 0.59 L (0.66-1.25) mg/dL Glucose 115 H (74-99) mg/dL Calcium 8.2 L (8.4-10.2) mg/dL Total Bilirubin (0.2-1.3) mg/dL Total Protein 5.4 L (6.3-8.2) g/dL Albumin 2.7 L (3.5-5.0) g/dL 02/17/24 02/17/24 02/17/24 Range/Units 08:06 08:06 08:06 RBC 3.02 L (4.30-5.90) m/uL Hgb 9.2 L (13.0-17.5) gm/dL Hct 29.0 L (39.0-53.0) % Plt Count 104 L (150-450) k/uL Lymphocytes # 0.6 L (1.0-4.8) k/uL PT 15.3 H (10.0-12.5) sec INR 1.5 H (<1.2) Sodium 132 L (137-145) mmol/L Creatinine 0.60 L (0.66-1.25) mg/dL Glucose 126 H (74-99) mg/dL Calcium 7.9 L (8.4-10.2) mg/dL Total Bilirubin 1.4 H (0.2-1.3) mg/dL Total Protein 5.4 L (6.3-8.2) g/dL Albumin 2.7 L (3.5-5.0) g/dL Assessment and Plan Assessment: Right foot infection/wound with a previous amputation involving the right third, fourth and fifth toes by vascular surgery. Currently the patient is on IV vancomycin and cefepime. Noted the patient had traumatic injury to the right foot with secondary gangrenous toes requiring amputation that was completed on 10/29/2023. Right below the knee amputation on 02/14/2024. Post operative day #3. Stump stone repairer on, knee immobilizer in place Right lower extremity popliteal DVT, recurrent last episode was more than 15 years ago Factor V Leiden/hypercoagulability the patient is maintained on long-term anticoagulation with warfarin COPD currently inactive and stable Peripheral vascular disease Hyperlipidemia Plan: The patient was seen and evaluated Medications and labs reviewed Remains stable and on room air On therapeutic Lovenox for now Awaiting therapeutic INR Remains on vancomycin and cefepime Plan is for [facility] for subacute rehabilitation at discharge This patient was seen independently by the pulmonary nurse practitioner addressing pulmonary issues I have personally seen and examined the patient, performed the documentation and the assessment and plan as written. Number of minutes spent on the visit: 23.
[2024-02-17] MEDS: polyethylene glycoL 3350 17 GM POWD.PACK PO SCH (14:45)
--- NOTE | 2024-02-17 16:36 | P.PN ---
Subjective Progress Note Date: 02/17/24 Principal diagnosis: Reason for follow-up is right foot gangrene and cellulitis Patient is a 68-year-old male with a past medical history significant for hypertension DVT PAD in this patient who did have a previous history of right fifth toe gangrene in this patient who is status post right fourth and third toe amputation subsequently noticed to having nonhealing of the wound to the right foot and also noticed to having some necrotic changes for the patient has been admitted to the hospital.Patient is status post right below the knee potation completed on 02/14/2024. On today's evaluation that is 02/17/2024,the patient remains to be afebrile, patient is on room air not requiring supplemental oxygen and denies any shortness of breath no chest pain or cough.Patient denies having any nausea or vomiting, no abdominal pain and no diarrhea has been reported, denies any worsening pain to the right BKA stump. Patient white count is 5.4, creatinine 0.60 Objective - Vital Signs Vital signs: Vital Signs Temp 98.3 F 02/17/24 15:57 Pulse 64 02/17/24 15:57 Resp 18 02/17/24 15:57 BP 196/84 02/17/24 15:57 Pulse Ox 92 L 02/17/24 15:57 FiO2 Intake & Output 02/16/24 02/17/24 02/17/24 18:59 06:59 18:59 Intake Total 598 240 Output Total 1050 1450 Balance -452 -1450 240 Intake: Oral 598 240 Output: Urine 1050 1450 Other: Voiding Method External Catheter External Catheter External Catheter # Voids 700 - Exam GENERAL DESCRIPTION: An elderly male up in the room in no distress RESPIRATORY SYSTEM: Unlabored breathing , decreased breath sounds at bases HEART: S1 S2 regular rate and rhythm , ABDOMEN: Soft , no tenderness EXTREMITIES: Right BKA stump is currently dressed in OR dressing - Labs CBC & Chem 7: 02/17/24 08:06 02/17/24 08:06 Labs: Abnormal Lab Results - Last 24 Hours (Table) 02/17/24 02/17/24 02/17/24 Range/Units 08:06 08:06 08:06 RBC 3.02 L (4.30-5.90) m/uL Hgb 9.2 L (13.0-17.5) gm/dL Hct 29.0 L (39.0-53.0) % Plt Count 104 L (150-450) k/uL Lymphocytes # 0.6 L (1.0-4.8) k/uL PT 15.3 H (10.0-12.5) sec INR 1.5 H (<1.2) Sodium 132 L (137-145) mmol/L Creatinine 0.60 L (0.66-1.25) mg/dL Glucose 126 H (74-99) mg/dL Calcium 7.9 L (8.4-10.2) mg/dL Total Bilirubin 1.4 H (0.2-1.3) mg/dL Total Protein 5.4 L (6.3-8.2) g/dL Albumin 2.7 L (3.5-5.0) g/dL Assessment and Plan (1) Gangrene of toe of right foot Current Visit: Yes Status: Acute Code(s): I96 - GANGRENE, NOT ELSEWHERE CLASSIFIED SNOMED Code(s): 73156766190814508 (2) Cellulitis of right foot Current Visit: No Status: Acute Code(s): L03.115 - CELLULITIS OF RIGHT LOWER LIMB SNOMED Code(s): 31721085529638619 Plan: 1patient presented to hospital with increasing pain discoloration to the right foot toes amputation site concerning for right gangrene with associated cellulitis of the right foot keeping in mind the patient has been around the h ospital when you call for resistant gram-positive as well as gram-negative pathogen. 2patient is febrile patient white count is normal and blood culture has been negative so far 3-patient is s/p BKA with infected port removed and the patient not bacteremic we will go ahead and discontinue cefepime and vancomycin and monitor the patient closely off antibiotic Dictation was produced using [employer] dictation software. please excuse any grammatical, word or spelling errors. Time with Patient: Less than 30
[2024-02-17] MEDS: WARFARIN 3 MG TAB PO ONE (17:30)
--- NOTE | 2024-02-18 01:08 | P.PN ---
Progress Note - Text Progress Note Date: 02/17/24 Arterial insufficiency right lower extremity Patient is seen and examined. No new events. States pain controlled. Objective General appearance: The patient is alert, oriented, appears in no acute distress. HET: Head is normocephalic and atraumatic. Pupils are equal and reactive. Neck: Supple. Abdomen: Soft, nondistended. Extremities: Left lower extremity SUNDEEP hose in place. Right lower extremity BKA stump with stump customer support executive and rigid dressing with knee immobilizer in place. Neurological: No focal deficits. Alert and oriented. Assessment and Plan Assessment: 1. Postop day #2 right below the knee amputation 2. Hypercoagulable syndrome with ischemia of the forefoot right lower extremity with need for amputation. 3. Bilateral lower extremity edema 4. History of tobacco abuse although the patient did stop smoking 7 years prior. 5. History of left lower extremity deep venous thrombosis in the past. Plan: 1. May resume Coumadin 2. Consult physical therapy, activity as tolerated 3. Heart healthy diet 4. Keep knee immobilizer in place 5. Continue current medication 6. Continue dressing changes. 7. Rehab when available
[2024-02-18 06:57] LABS: Basophils % (A) 0 %; Eosinophils % (A) 1 %; HCT 28.6 % (39.0-53.0); HGB 9.4 gm/dL (13.0-17.5); Hypochromasia Slight; Lymphocytes # (A) 0.5 k/uL (1.0-4.8); Lymphocytes % (A) 9 %; MCH 31.7 pg (25.0-35.0); MCHC 32.9 g/dL (31.0-37.0); MCV 96.6 fL (80.0-100.0); Mean Platelet Volume 9.2; Monocytes # (A) 0.4 k/uL (0-1.0); Monocytes % (A) 7 %; Neutrophils # (A) 4.5 k/uL (1.3-7.7); Neutrophils % (A) 81 %; Poikilocytosis Slight; RBC 2.96 m/uL (4.30-5.90); RDW 14.2 % (11.5-15.5); WBC 5.6 k/uL (3.8-10.6)
[2024-02-18 07:03] LABS: INR 1.9 (<1.2); Prothrombin Time 18.9 sec (10.0-12.5)
[2024-02-18 07:20] LABS: ALT 56 U/L (4-49); AST 55 U/L (17-59); African American GFR (CKD) >90 (>60 ml/min/1.73 sqM); Albumin 2.7 g/dL (3.5-5.0); Alkaline Phosphatase 63 U/L (38-126); Anion Gap 2 mmol/L; Blood Urea Nitrogen 12 mg/dL (9-20); Calcium 8.1 mg/dL (8.4-10.2); Carbon Dioxide 27 mmol/L (22-30); Chloride 103 mmol/L (98-107); Glucose 110 mg/dL (74-99); Non-African American GFR(CKD) >90 (>60 ml/min/1.73 sqM); Potassium 3.9 mmol/L (3.5-5.1); Sodium 132 mmol/L (137-145); Total Bilirubin 1.3 mg/dL (0.2-1.3); Total Protein 5.6 g/dL (6.3-8.2)
[2024-02-18 08:13] LABS: Platelet Count 95 k/uL (150-450)
--- NOTE | 2024-02-18 10:46 | P.PN ---
Subjective Progress Note Date: 02/18/24 I was asked to evaluate this patient regarding COPD and some hypoxemia. The patient reports chronic exertional dyspnea. He has some chronic cough and congestion. He seems to have had a recent flulike illness and chest congestion that occurred approximately 2 to 3 weeks ago. His chest x-ray shows some coarse interstitial pattern bilaterally along with COPD and emphysematous changes. No hemoptysis. No pleurisy. No chest pain. The patient is currently in the hospital having difficulties with his right foot. The patient is currently under the care of vascular surgery in our facility. The patient has undergone previous amputation of the right third fourth and fifth toes by vascular surgery. He was hospitalized for right foot infection. The patient also has increased swelling in the right lower extremity and a Doppler of the right lower extremity that was done on 02/09/2024 also showed presence of a thrombus in the right popliteal vein. The patient is known to have a hypercoagulable state and he has had a previous right lower extremity DVT approximately 15 years ago. He is also known to have peripheral vascular disease. Recent angiography that was done in November 2023 showed no evidence of any thoracic aortic dissection or occlusion. There was infrarenal abdominal aortic fusiform aneurysm measuring 35 x 30 mm in size, secondary dilatation of the bifurcation of the internal and external iliac on the left, and there is moderate scattered atherosclerotic changes. At this point in time, the patient is on IV clindamycin. The x-ray of the foot that was obtained on 02/09/2024 showed no gas. There is generalized osteopenia. Stable postop changes involving the right foot without evidence of any osseous destruction or osteomyelitis. White cell count is at 10 hemoglobin is at 10.8 and a platelet count of 114. His current INR is at 4.20 patient has been anticoagulated with warfarin dose being adjusted by pharmacy. BUN 11 with a creatinine of 0.7 and sodium is at 135. No signs of any pulmonary embolism. No pleurisy or hemoptysis. No chest pain. He is known to have factor V Leiden mutation/hypercoagulability with a remote history of right lower extremity DVT. On 02/11/2024, patient is being seen for a follow-up. No signs of respiratory distress. The patient is being evaluated vascular surgery, amputation being considered. He is currently on fluids of oxygen by nasal cannula with a pulse ox of 92%. Will be started on bronchodilators. Remains on therapeutic dose of Lovenox regarding the lower extremity DVT and currently on 80 mg of Lovenox every 12 hours. The INR today is at 3.0. The patient is seen today February 12, 2024 in follow-up on the regular medical floor. He is currently up ambulating in his room. Awake and alert in no acute distress. Maintaining O2 saturations in the 90s on room air. He denies any worsening shortness of breath, cough or congestion. He is afebrile. Hemodynamically stable. He is still having ongoing issues with significant pain of his right foot. He previously had a right fifth toe amputation and subsequently a right third and fourth toe amputation. He has been followed by cardiology vascular surgery and the plan is for a right below the knee amputation possibly tomorrow. Blood cultures revealing no growth. White count 9.9. Hemoglobin 10.9. Platelets 120. INR 2.4. Sodium 137. Potassium 4.0. Bicarb 25. BUN 8. Creatinine 0.60. Glucose 100. He is continued on therapeutic Lovenox. Remains on antibiotics in the form of vancomycin and cefepime. Normal saline at KVO. Alternating Dilaudid and [place] for pain control. The patient is seen today February 13, 2024 in follow-up on the regular medical f rafiq. He is awake and alert in no acute distress. He is maintaining good O2 saturations in the 90s on 2 L/min per nasal cannula. He denies any worsening shortness of breath, cough or congestion. Remains on vancomycin and cefepime. The plan is for a right below the knee amputation today. He is continued on normal saline at 130 MLS per hour. White count 7.9. Hemoglobin 10.7. Platelets 111. INR 1.43. Sodium 138. Potassium 4.0. Bicarb 24. BUN 8. Creatinine 0.8. Glucose 100. The patient is seen today February 14, 2024 in follow-up on the regular medical floor. He did not have his surgery yesterday. The plan is for a right below the knee amputation today. He remains awake and alert in no acute distress. He is continued on cefepime and vancomycin. His pain is well-managed. He is maintaining good O2 saturations in the 90s on 2 L/min per nasal cannula. He has been afebrile. Hemodynamically stable. White count 6.5. Hemoglobin 10.0. Platelets 103. Sodium 137. Potassium 4.0. Bicarb 24. BUN 9. Creatinine 0.63. AST 36. ALT 45. He remains on bronchodilators. The patient is seen today February 15, 2024 in follow-up on the selective care unit. He is currently awake and alert in no acute distress. Maintaining O2 saturations in the 90s on room air. Continued on bronchodilators. He did undergo a right below the knee amputation yesterday. Dressing is dry and intact . Pain is well-managed. He remains on vancomycin and cefepime. Therapeutic Lovenox. 5.2. Hemoglobin 9.0. Platelets 106. Sodium 136. Potassium 4.0. Bicarb 29. BUN 9. Creatinine 0.58. The patient is seen today February 16, 2024 in follow-up on the selective care unit. He is postoperative day #2. He is currently sitting up in a chair. Awake and alert in no acute distress. Maintaining good O2 saturations in the 90s on room air. No shortness of breath, cough or congestion. He denies any significant discomfort. No phantom pain. He has a right lower extremity BKA stump with stump almond grinder and rigid dressing with knee immobilizer in place. Today's labs are pending. INR pending. Remains on therapeutic Lovenox. He is continued on cefepime and vancomycin. The patient is seen today February 17, 2024 in follow-up on the selective care unit. Postoperative day #3. He is sitting up in bed. Awake and alert in no acute distress. Denies any worsening shortness of breath, cough or congestion. He is maintaining good O2 saturations in the 90s on room air. Has been afebrile. Hemodynamically stable. He is continued on vancomycin and cefepime. Remains on therapeutic Lovenox. Resumed on warfarin INR today is 1.5. Blood cultures revealed no growth. White count 5.4. Hemoglobin 9.2. Platelets 104. Sodium 132. Potassium 3.5. Bicarb 27. BUN 9. Creatinine 0.60. Glucose 126. The patient is seen today February 18, 2024 in follow-up on the selective care unit. Postoperative day #4, status post right below the knee amputation. Knee immobilizer remains in place. He remains awake and alert in no acute distress. He denies any worsening shortness of breath, cough or congestion. Continues to maintain good O2 saturations in the 90s on room air. He has been afebrile. Hemodynamically stable. He is continued on bronchodilators. His pain is well- controlled. He is on therapeutic Lovenox. His INR is up to 1.9 on warfarin re- initiation. White count 5.6. Hemoglobin 9.4. Platelets 95,000. Sodium 132. Potassium 3.9. Bicarb 27. BUN 12. Creatinine 0.62. Glucose 110. Objective - Vital Signs Vital signs: Vital Signs Temp 98.4 F 02/18/24 08:15 Pulse 74 02/18/24 08:15 Resp 18 02/18/24 08:15 BP 129/63 02/18/24 08:15 Pulse Ox 95 02/18/24 08:15 FiO2 Intake & Output 02/17/24 02/18/24 02/18/24 18:59 06:59 18:59 Intake Total 480 200 360 Output Total 500 1400 Balance -20 -1200 360 Weight 74.3 kg Intake: Oral 480 200 360 Output: Urine 500 1400 Other: Voiding Method External Catheter External Catheter External Catheter - Exam GENERAL EXAM: Alert, pleasant 68-year-old male, on room air, sitting up in bed, in no apparent distress. HEAD: Normocephalic. EYES: Normal reaction of pupils, equal size. NOSE: Clear with pink turbinates. THROAT: No erythema or exudates. NECK: No masses, no JVD. CHEST: No chest wall deformity. LUNGS: Equal air entry with no crackles, wheeze, rhonchi or dullness. CVS: S1 and S2 normal with no audible murmur, regular rhythm. ABDOMEN: No hepatosplenomegaly, normal bowel sounds, no guarding or rigidity. SPINE: No scoliosis or deformity SKIN: No rashes CENTRAL NERVOUS SYSTEM: No focal deficits, tone is normal in all 4 extremities. EXTREMITIES: Right below the knee amputation and knee immobilizer in place. - Labs CBC & Chem 7: 02/18/24 06:23 02/18/24 06:23 Labs: Abnormal Lab Results - Last 24 Hours (Table) 02/18/24 02/18/24 02/18/24 Range/Units 06:23 06: 06: RBC 2.96 L (4.30-5.90) m/uL Hgb 9.4 L (13.0-17.5) gm/dL Hct 28.6 L (39.0-53.0) % Plt Count 95 L (150-450) k/uL Lymphocytes # 0.5 L (1.0-4.8) k/uL PT 18.9 H (10.0-12.5) sec INR 1.9 H (<1.2) Sodium 132 L (137-145) mmol/L Creatinine 0.62 L (0.66-1.25) mg/dL Glucose 110 H (74-99) mg/dL Calcium 8.1 L (8.4-10.2) mg/dL ALT 56 H (4-49) U/L Total Protein 5.6 L (6.3-8.2) g/dL Albumin 2.7 L (3.5-5.0) g/dL Assessment and Plan Assessment: Right foot infection/wound with gangrene. Right below the knee amputation on 02/14/2024. Post operative day #4. Stump almond grinder on, knee immobilizer in place. Completed antibiotics in the form of vancomycin and cefepime. Traumatic injury to the right foot with secondary gangrenous toes requiring amputation that was completed on 10/29/2023. Right lower extremity popliteal DVT, recurrent last episode was more than 15 years ago Factor V Leiden/hypercoagulability the patient is maintained on long-term anticoagulation with warfarin COPD currently inactive and stable Peripheral vascular disease Hyperlipidemia Plan: The patient was seen and evaluated Medications and labs reviewed Remains stable and on room air On therapeutic Lovenox for now INR up to 1.9 re-initiated on warfarin Anxious to continue with physical therapy Plan is for [facility] for subacute rehabilitation This patient was seen independently by the pulmonary nurse practitioner addressing pulmonary issues I have personally seen and examined the patient, performed the documentation and the assessment and plan as written. Number of minutes spent on the visit: 24.
--- NOTE | 2024-02-18 11:25 | P.PN ---
Subjective Progress Note Date: 02/18/24 Femi Case, is a 68-year-old male patient who presented with concerns of increased pain to right foot. Patient has a past medical history of gangrene and has been following with vascular services. Patient previously underwent amputation of his right third fourth and fifth toe by Dr. Solano in October. Patient also follows with podiatry. Patient also has a past medical history of recent DVT and vascular disorder. patient also ex-smoker. foot x-ray completed showing no significant interval change. Laboratory feeling wBC 13.0, Hemoglobin 12.1, creatinine 0.59, bun 11. Current vital signs temp 98.2, heart rate 76, respiratory rate 18, blood pressure 123/46 pulse ox of 91% on 2 L. Patient ad mitted patient started on IV clindamycin. Patient also on Lovenox 80 mg twice a day while Coumadin on hold. Patient also requiring increased oxygen. Will order chest x-ray and consult pulmonary services On 02/11/2024 patient was seen and examined on the medical floor, he is alert and oriented x 3 in no apparent distress, there is no fever or chills no headache or dizziness no chest pain no shortness of breath no cough, no nausea or vomiting no abdominal pain no diarrhea and no urinary symptoms. He was evaluated by vascular surgery and is scheduled for right below-knee amputation. On 02/12/2024 patient was seen and examined on the medical floor, he is alert and oriented x 3 in no apparent distress, he is complaining of severe pain in his right foot, and requesting increase in pain medications, although otherwise he denies any complaints there is no fever or chills no headache or dizziness no chest pain no shortness of breath no cough no nausea or vomiting no abdominal pain no diarrhea no urinary symptoms. on 02/13/2024 patient is alert and oriented 3. Plans for amputation tomorrow 02/14/2024 patient remains on IV antibiotics infectious disease service is following. Current vital signs temp 98.1, heart rate 68, respiratory rate 20, blood pressure 133/52 with 02/14/2024 patient is alert and oriented 3. Patient to undergo right BKA today with vascular surgery. Patient shortness breath. Patient denies nausea vomiting or diarrhea. Denies any urinary burning or frequency. Current vital signs temp 98.5, respiratory rate 18, blood pressure 142/65Pulse ox 92% on 2 L On 02/15/2024 patient was seen and examined on the medical floor he is alert and oriented x 3 in no apparent distress he underwent right below-knee amputation yesterday, he is still complaining of lower extremity pain otherwise he denies any complaints, there is no fever or chills no headache or dizziness no chest pain no shortness of breath no cough no nausea or vomiting no abdominal pain no diarrhea and no urinary symptoms, patient is improving gradually continue with subcu Lovenox at this time, consult pharmacy dosing for Coumadin. On 02/15/2023 for patient's alert and oriented 3. Patient reports some pain. Gabapentin was increased yesterday to 600 3 times a day. Patient denies chest pain or shortness of breath. Patient denies nausea vomiting or diarrhea. Patient denies any urinary burning or frequency. Pharmacy to dose Coumadin bridging with Lovenox On 02/17/2024 patient is alert and oriented x 3. INR today 1.5. Patient denies chest pain or shortness of breath. Patient denies nausea vomiting or diarrhea. Patient denies any urinary burning frequency. Current vital signs Temp 98.5, heart rate 73, respiratory rate 16, blood pressure 125/59 with a pulse ox of 93% on room air On 02/18/2024 patient was seen and examined on the medical floor he is alert and oriented x 3 in no apparent distress there is no fever or chills no headache or dizziness no chest pain no shortness of breath no cough no nausea or vomiting no abdominal pain no diarrhea no urinary symptoms. He is still complaining of severe pain in the right lower extremity, otherwise he denies any complaints at this time, INR is up to 1.9 today, will continue to follow Objective - Vital Signs Vital signs: Vital Signs Temp 98.4 F 02/18/24 03:32 Pulse 77 02/18/24 03:32 Resp 18 02/18/24 03:32 BP 138/58 02/18/24 03:32 Pulse Ox 94 L 02/18/24 03:32 FiO2 Intake & Output 02/17/24 02/18/24 02/18/24 18:59 06:59 18:59 Intake Total 480 200 Output Total 500 1400 Balance - Weight 74.3 kg Intake: Oral 480 200 Output: Urine 500 1400 Other: Voiding Method External Catheter External Catheter - Exam Head normocephalic Neck supple Lungs clear to auscultation bilaterally no wheezing or crackles Heart regular rate and rhythm S1-S2, no rub or gallop Abdomen is soft nontender nondistended positive bowel sounds no hepatosp lenomegaly Extremities Previous amputation of right second third and fourth toes open wound with drainage and diffuse swelling Neuro alert and orientated to 3 - Labs CBC & Chem 7: 02/18/24 06:23 02/18/24 06:23 Labs: Abnormal Lab Results - Last 24 Hours (Table) 02/17/24 02/17/24 02/17/24 Range/Units 08:06 08:06 08:06 RBC 3.02 L (4.30-5.90) m/uL Hgb 9.2 L (13.0-17.5) gm/dL Hct 29.0 L (39.0-53.0) % Plt Count 104 L (150-450) k/uL Lymphocytes # 0.6 L (1.0-4.8) k/uL PT 15.3 H (10.0-12.5) sec INR 1.5 H (<1.2) Sodium 132 L (137-145) mmol/L Creatinine 0.60 L (0.66-1.25) mg/dL Glucose 126 H (74-99) mg/dL Calcium 7.9 L (8.4-10.2) mg/dL Total Bilirubin 1.4 H (0.2-1.3) mg/dL ALT (4-49) U/L Total Protein 5.4 L (6.3-8.2) g/dL Albumin 2.7 L (3.5-5.0) g/dL 02/18/24 02/18/24 02/18/24 Range/Units 06:23 06:23 06:23 RBC 2.96 L (4.30-5.90) m/uL Hgb 9.4 L (13.0-17.5) gm/dL Hct 28.6 L (39.0-53.0) % Plt Count (150-450) k/uL Lymphocytes # (1.0-4.8) k/uL PT 18.9 H (10.0-12.5) sec INR 1.9 H (<1.2) Sodium 132 L (137-145) mmol/L Creatinine 0.62 L (0.66-1.25) mg/dL Glucose 110 H (74-99) mg/dL Calcium 8.1 L (8.4-10.2) mg/dL Total Bilirubin (0.2-1.3) mg/dL ALT 56 H (4-49) U/L Total Protein 5.6 L (6.3-8.2) g/dL Albumin 2.7 L (3.5-5.0) g/dL Assessment and Plan Assessment: Right foot gangrene. Patient started on IV clindamycin vascular service is consulted Acute hypoxic respiratory failure. Chest x-ray ordered pulmonary service is consulted history of DVT. 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
[2024-02-18] MEDS: WARFARIN 3 MG TAB PO ONE (17:24)
--- NOTE | 2024-02-18 22:45 | P.PN ---
Subjective Progress Note Date: 02/18/24 Principal diagnosis: Reason for follow-up is right foot gangrene and cellulitis Patient is a 68-year-old male with a past medical history significant for hypertension DVT PAD in this patient who did have a previous history of right fifth toe gangrene in this patient who is status post right fourth and third toe amputation subsequently noticed to having nonhealing of the wound to the right foot and also noticed to having some necrotic changes for the patient has been admitted to the hospital.Patient is status post right below the knee potation completed on 02/14/2024. On today's evaluation that is 02/18/2024, the patient continues to be afebrile, the patient is on room air and breathing comfortably, the Pt denies having any chest pain or cough, the patient denies having any abdominal pain no vomiting or any diarrhea, pain to the right BKA stump is currently controlled. Patient white count is 5.6 creatinine 0.62 blood culture has been negative Objective - Vital Signs Vital signs: Vital Signs Temp 98.3 F 02/18/24 12:00 Pulse 74 02/18/24 12:00 Resp 18 02/18/24 12:00 BP 126/74 02/18/24 12:00 Pulse Ox 95 02/18/24 12:00 FiO2 Intake & Output 02/17/24 02/18/24 02/18/24 18:59 06:59 18:59 Intake Total 480 200 360 Output Total 500 1400 Balance -20 -1200 360 Weight 74.3 kg Intake: Oral 480 200 360 Output: Urine 500 1400 Other: Voiding Method External Catheter External Catheter External Catheter - Exam GENERAL DESCRIPTION: An elderly male up in the room in no distress RESPIRATORY SYSTEM: Unlabored breathing , decreased breath sounds at bases HEART: S1 S2 regular rate and rhythm , ABDOMEN: Soft , no tenderness EXTREMITIES: Right BKA stump incision looks clean per the nurse who change the dressing earlier - Labs CBC & Chem 7: 02/18/24 06:23 02/18/24 06:23 Labs: Abnormal Lab Results - Last 24 Hours (Table) 02/18/24 02/18/24 02/18/24 Range/Units 06:23 06:23 06:23 RBC 2.96 L (4.30-5.90) m/uL Hgb 9.4 L (13.0-17.5) gm/dL Hct 28.6 L (39.0-53.0) % Plt Count 95 L (150-450) k/uL Lymphocytes # 0.5 L (1.0-4.8) k/uL PT 18.9 H (10.0-12.5) sec INR 1.9 H (<1.2) Sodium 132 L (137-145) mmol/L Creatinine 0.62 L (0.66-1.25) mg/dL Glucose 110 H (74-99) mg/dL Calcium 8.1 L (8.4-10.2) mg/dL ALT 56 H (4-49) U/L Total Protein 5.6 L (6.3-8.2) g/dL Albumin 2.7 L (3.5-5.0) g/dL Assessment and Plan (1) Gangrene of toe of right foot Current Visit: Yes Status: Acute Code(s): I96 - GANGRENE, NOT ELSEWHERE CLASSIFIED SNOMED Code(s): 46839641526215495 (2) Cellulitis of right foot Current Visit: No Status: Acute Code(s): L03.115 - CELLULITIS OF RIGHT LOWER LIMB SNOMED Code(s): 78750116066460755 Plan: 1patient presented to hospital with increasing pain discoloration to the right foot toes amputation site concerning for right gangrene with associated cellulitis of the right foot keeping in mind the patient has been around the hospital when you call for resistant gram-positive as well as gram-negative pathogen. 2patient is febrile patient white count is normal and blood culture has been negative so far 3-patient is s/p BKA with infected port removed and the patient not bacteremic, patient antibiotic were discontinued yesterday and is currently being monitored closely off antibiotic Dictation was produced using [employer] dictation software. please excuse any grammatical, word or spelling errors. Time with Patient: Less than 30
[2024-02-19 10:03] LABS: Prothrombin Time 20.4 sec (10.0-12.5)
--- NOTE | 2024-02-19 12:45 | P.PN ---
Subjective Progress Note Date: 02/19/24 Principal diagnosis: Arterial insufficiency right lower extremity Patient is seen and examined today as a follow-up. He is postop day #5 for right below the knee amputation. Pain has been better managed on Lyrica. Physical therapy is working with patient to get him up to the chair. He states he has not had a stump cone tender on, only rigid dressing from comfort prost[employer]. He has been afebrile. He is on Lovenox and warfarin. Today's INR is 2.0. Objective - Vital Signs Vital signs: Vital Signs Temp 98.4 F 02/19/24 11:32 Pulse 75 02/19/24 11:32 Resp 20 02/19/24 11:32 BP 110/60 02/19/24 11:32 Pulse Ox 94 L 02/19/24 11:32 FiO2 Intake & Output 02/18/24 02/19/24 02/19/24 18:59 06:59 18:59 Intake Total 1020 118 Output Total 650 1500 900 Balance 370 1500 -782 Weight 74.7 kg Intake: Oral 1020 118 Output: Urine 650 1500 900 Other: Voiding Method External Catheter External Catheter - Exam General appearance: The patient is alert, oriented, appears in no acute distress. HET: Head is normocephalic and atraumatic. Pupils are equal and reactive. Neck: Supple. Abdomen: Soft, nondistended. Extremities: Right palpable femoral pulse. Right BKA incision well-approximated with yessica. Scant amount of serosanguineous drainage noted. Swelling to left lower extremity and around BKA stump. There is blister to the distal aspect of the flap. Surrounding ecchymosis areas noted with blanching above the knee. Ischemic areas at suture line. Warm to touch Neurological: No focal deficits. Alert and oriented. - Labs CBC & Chem 7: 02/18/24 06:23 02/18/24 06:23 Labs: Abnormal Lab Results - Last 24 Hours (Table) 02/19/24 Range/Units 09:30 PT 20.4 H (10.0-12.5) sec INR 2.0 H (<1.2) Assessment and Plan Assessment: 1. Postop day #5 right below the knee amputation 2. Hypercoagulable syndrome Factor V Leiden with ischemia of the forefoot right lower extremity with need for amputation. 3. Bilateral lower extremity edema 4. History of tobacco abuse although the patient did stop smoking 7 years prior. 5. History of left lower extremity deep venous thrombosis in the past. Plan: 1. Continue anticoagulation 2. Consult physical therapy, activity as tolerated 3. Heart healthy diet 4. Keep knee immobilizer in place 5. Continue Lyrica 6. Recommend stump cone tender and rigid dressing, comfort prosthetics contacted regarding need for stump cone tender 7. Daily dressing change with Kerlix and wrapped with Coban or Alex wrap for compression until stump cone tender arrives. 8. Rest of medical management per primary medical team 9. Follow-up with vascular surgery in 1 week. Thank you for this consultation, patient is cleared from vascular surgery for discharge. The impression and plan of care has been dictated as directed. Dr. Darden I performed a history and examination of this patient, discussed the same with the dictator. I agree with the dictator's note ,documented as a scribe. Any additional findings or plans will be noted.
--- NOTE | 2024-02-19 15:36 | P.PN ---
Subjective Progress Note Date: 02/19/24 I was asked to evaluate this patient regarding COPD and some hypoxemia. The patient reports chronic exertional dyspnea. He has some chronic cough and congestion. He seems to have had a recent flulike illness and chest congestion that occurred approximately 2 to 3 weeks ago. His chest x-ray shows some coarse interstitial pattern bilaterally along with COPD and emphysematous changes. No hemoptysis. No pleurisy. No chest pain. The patient is currently in the hospital having difficulties with his right foot. The patient is currently under the care of vascular surgery in our facility. The patient has undergone previous amputation of the right third fourth and fifth toes by vascular surgery. He was hospitalized for right foot infection. The patient also has increased swelling in the right lower extremity and a Doppler of the right lower extremity that was done on 02/09/2024 also showed presence of a thrombus in the right popliteal vein. The patient is known to have a hypercoagulable state and he has had a previous right lower extremity DVT approximately 15 years ago. He is also known to have peripheral vascular disease. Recent angiography that was done in November 2023 showed no evidence of any thoracic aortic dissection or occlusion. There was infrarenal abdominal aortic fusiform aneurysm measuring 35 x 30 mm in size, secondary dilatation of the bifurcation of the internal and external iliac on the left, and there is moderate scattered atherosclerotic changes. At this point in time, the patient is on IV clindamycin. The x-ray of the foot that was obtained on 02/09/2024 showed no gas. There is generalized osteopenia. Stable postop changes involving the right foot without evidence of any osseous destruction or osteomyelitis. White cell count is at 10 hemoglobin is at 10.8 and a platelet count of 114. His current INR is at 4.20 patient has been anticoagulated with warfarin dose being adjusted by pharmacy. BUN 11 with a creatinine of 0.7 and sodium is at 135. No signs of any pulmonary embolism. No pleurisy or hemoptysis. No chest pain. He is known to have factor V Leiden mutation/hypercoagulability with a remote history of right lower extremity DVT. On 02/11/2024, patient is being seen for a follow-up. No signs of respiratory distress. The patient is being evaluated vascular surgery, amputation being considered. He is currently on fluids of oxygen by nasal cannula with a pulse ox of 92%. Will be started on bronchodilators. Remains on therapeutic dose of Lovenox regarding the lower extremity DVT and currently on 80 mg of Lovenox every 12 hours. The INR today is at 3.0. The patient is seen today February 12, 2024 in follow-up on the regular medical floor. He is currently up ambulating in his room. Awake and alert in no acute distress. Maintaining O2 saturations in the 90s on room air. He denies any worsening shortness of breath, cough or congestion. He is afebrile. Hemodynamically stable. He is still having ongoing issues with significant pain of his right foot. He previously had a right fifth toe amputation and subsequently a right third and fourth toe amputation. He has been followed by cardiology vascular surgery and the plan is for a right below the knee amputation possibly tomorrow. Blood cultures revealing no growth. White count 9.9. Hemoglobin 10.9. Platelets 120. INR 2.4. Sodium 137. Potassium 4.0. Bicarb 25. BUN 8. Creatinine 0.60. Glucose 100. He is continued on therapeutic Lovenox. Remains on antibiotics in the form of vancomycin and cefepime. Normal saline at KVO. Alternating Dilaudid and Yale for pain control. The patient is seen today February 13, 2024 in follow-up on the regular medical f rafiq. He is awake and alert in no acute distress. He is maintaining good O2 saturations in the 90s on 2 L/min per nasal cannula. He denies any worsening shortness of breath, cough or congestion. Remains on vancomycin and cefepime. The plan is for a right below the knee amputation today. He is continued on normal saline at 130 MLS per hour. White count 7.9. Hemoglobin 10.7. Platelets 111. INR 1.43. Sodium 138. Potassium 4.0. Bicarb 24. BUN 8. Creatinine 0.8. Glucose 100. The patient is seen today February 14, 2024 in follow-up on the regular medical floor. He did not have his surgery yesterday. The plan is for a right below the knee amputation today. He remains awake and alert in no acute distress. He is continued on cefepime and vancomycin. His pain is well-managed. He is maintaining good O2 saturations in the 90s on 2 L/min per nasal cannula. He has been afebrile. Hemodynamically stable. White count 6.5. Hemoglobin 10.0. Platelets 103. Sodium 137. Potassium 4.0. Bicarb 24. BUN 9. Creatinine 0.63. AST 36. ALT 45. He remains on bronchodilators. The patient is seen today February 15, 2024 in follow-up on the selective care unit. He is currently awake and alert in no acute distress. Maintaining O2 saturations in the 90s on room air. Continued on bronchodilators. He did undergo a right below the knee amputation yesterday. Dressing is dry and intact . Pain is well-managed. He remains on vancomycin and cefepime. Therapeutic Lovenox. 5.2. Hemoglobin 9.0. Platelets 106. Sodium 136. Potassium 4.0. Bicarb 29. BUN 9. Creatinine 0.58. The patient is seen today February 16, 2024 in follow-up on the selective care unit. He is postoperative day #2. He is currently sitting up in a chair. Awake and alert in no acute distress. Maintaining good O2 saturations in the 90s on room air. No shortness of breath, cough or congestion. He denies any significant discomfort. No phantom pain. He has a right lower extremity BKA stump with stump hydrographic engineer and rigid dressing with knee immobilizer in place. Today's labs are pending. INR pending. Remains on therapeutic Lovenox. He is continued on cefepime and vancomycin. The patient is seen today February 17, 2024 in follow-up on the selective care unit. Postoperative day #3. He is sitting up in bed. Awake and alert in no acute distress. Denies any worsening shortness of breath, cough or congestion. He is maintaining good O2 saturations in the 90s on room air. Has been afebrile. Hemodynamically stable. He is continued on vancomycin and cefepime. Remains on therapeutic Lovenox. Resumed on warfarin INR today is 1.5. Blood cultures revealed no growth. White count 5.4. Hemoglobin 9.2. Platelets 104. Sodium 132. Potassium 3.5. Bicarb 27. BUN 9. Creatinine 0.60. Glucose 126. The patient is seen today February 18, 2024 in follow-up on the selective care unit. Postoperative day #4, status post right below the knee amputation. Knee immobilizer remains in place. He remains awake and alert in no acute distress. He denies any worsening shortness of breath, cough or congestion. Continues to maintain good O2 saturations in the 90s on room air. He has been afebrile. Hemodynamically stable. He is continued on bronchodilators. His pain is well- controlled. He is on therapeutic Lovenox. His INR is up to 1.9 on warfarin re- initiation. White count 5.6. Hemoglobin 9.4. Platelets 95,000. Sodium 132. Potassium 3.9. Bicarb 27. BUN 12. Creatinine 0.62. Glucose 110. The patient is seen today February 19, 2024 in follow-up on the selective care unit. Postoperative day #5 of his right below the knee amputation. His dressing is being changed per vascular surgery. Knee immobilizer remains in place. He denies any significant shortness of breath, cough or congestion. He is maintaining good O2 saturations in the 90s on room air. He remains on bronchodilators. Anticoagulated with warfarin. INR 2.0 today. Objective - Vital Signs Vital signs: Vital Signs Temp 98.4 F 02/19/24 11:32 Pulse 75 02/19/24 11:32 Resp 20 02/19/24 11:32 BP 110/60 02/19/24 11:32 Pulse Ox 94 L 02/19/24 11:32 FiO2 Intake & Output 02/18/24 02/19/24 02/19/24 18:59 06:59 18:59 Intake Total 1020 476 Output Total 650 1500 900 Balance 370 1500 -424 Weight 74.7 kg Intake: Oral 1020 476 Output: Urine 650 1500 900 Other: Voiding Method External Catheter External Catheter - Exam GENERAL EXAM: Alert, 68-year-old male, on room air, in no apparent distress. HEAD: Normocephalic. EYES: Normal reaction of pupils, equal size. NOSE: Clear with pink turbinates. THROAT: No erythema or exudates. NECK: No masses, no JVD. CHEST: No chest wall deformity. LUNGS: Equal air entry with no crackles, wheeze, rhonchi or dullness. CVS: S1 and S2 normal with no audible murmur, regular rhythm. ABDOMEN: No hepatosplenomegaly, normal bowel sounds, no guarding or rigidity. SPINE: No scoliosis or deformity SKIN: No rashes CENTRAL NERVOUS SYSTEM: No focal deficits, tone is normal in all 4 extremities. EXTREMITIES: Right below the knee amputation and knee immobilizer in place. - Labs CBC & Chem 7: 02/18/24 06:23 02/18/24 06:23 Labs: Abnormal Lab Results - Last 24 Hours (Table) 02/19/24 Range/Units 09:30 PT 20.4 H (10.0-12.5) sec INR 2.0 H (<1.2) Assessment and Plan Assessment: Right foot infection/wound with gangrene. Right below the knee amputation on 02/14/2024. Post operative day #5. Stump hydrographic engineer on, knee immobilizer in place. Completed antibiotics Traumatic injury to the right foot with secondary gangrenous toes requiring amputation that was completed on 10/29/2023. Right lower extremity popliteal DVT, recurrent last episode was more than 15 years ago Factor V Leiden/hypercoagulability the patient is maintained on long-term anticoagulation with warfarin COPD currently inactive and stable Peripheral vascular disease Hyperlipidemia Plan: The patient was seen and evaluated Medications and labs reviewed Remains stable and on room air Therapeutic INR on warfarin Plan is for Patel sanchez today I have personally seen and examined the patient, performed the documentation and the assessment and plan as written. Number of minutes spent on the visit: 10.
[2024-02-19] MEDS: WARFARIN 5 MG TAB PO ONE (16:50)
[2024-02-20 08:11] VITALS: RESP 20
[2024-02-20 08:31] LABS: Basophils % (A) 0 %; Eosinophils # (A) 0.1 k/uL (0-0.7); Eosinophils % (A) 2 %; HCT 27.4 % (39.0-53.0); HGB 8.4 gm/dL (13.0-17.5); Hypochromasia Moderate; Lymphocytes # (A) 0.6 k/uL (1.0-4.8); Lymphocytes % (A) 12 %; MCH 30.2 pg (25.0-35.0); MCHC 30.7 g/dL (31.0-37.0); MCV 98.4 fL (80.0-100.0); Mean Platelet Volume 9.2; Monocytes # (A) 0.4 k/uL (0-1.0); Monocytes % (A) 9 %; Neutrophils # (A) 3.8 k/uL (1.3-7.7); Neutrophils % (A) 75 %; Platelet Count 107 k/uL (150-450); Poikilocytosis Slight; RBC 2.79 m/uL (4.30-5.90); RDW 14.4 % (11.5-15.5); WBC 5.1 k/uL (3.8-10.6)
[2024-02-20 08:32] LABS: INR 1.8 (<1.2); Prothrombin Time 18.6 sec (10.0-12.5)
[2024-02-20 10:04] LABS: ALT 62 U/L (4-49); AST 48 U/L (17-59); African American GFR (CKD) >90 (>60 ml/min/1.73 sqM); Albumin 2.7 g/dL (3.5-5.0); Alkaline Phosphatase 66 U/L (38-126); Anion Gap 3 mmol/L; Blood Urea Nitrogen 11 mg/dL (9-20); Calcium 8.1 mg/dL (8.4-10.2); Carbon Dioxide 26 mmol/L (22-30); Chloride 104 mmol/L (98-107); Glucose 131 mg/dL (74-99); Non-African American GFR(CKD) >90 (>60 ml/min/1.73 sqM); Sodium 133 mmol/L (137-145); Total Bilirubin 0.7 mg/dL (0.2-1.3); Total Protein 5.6 g/dL (6.3-8.2)
--- NOTE | 2024-02-20 10:47 | P.PN ---
Subjective Progress Note Date: 02/20/24 Principal diagnosis: Arterial insufficiency right lower extremity Patient seen and examined today as a follow-up. He states that he did find his stump steel tester's that he had actually put them in his bag. He states he still having pain at amputation site. Magen is helping. They are transitioning him off of his IV pain medications and using oral pain medication as plan is for discharge today to [facility]. He remains afebrile. He is getting up without assistance using walker. States he showered this morning. Objective - Vital Signs Vital signs: Vital Signs Temp 96.7 F L 02/20/24 08:00 Pulse 67 02/20/24 08:00 Resp 20 02/20/24 08:00 BP 124/43 02/20/24 08:00 Pulse Ox 93 L 02/20/24 08:00 FiO2 Intake & Output 02/19/24 02/20/24 02/20/24 18:59 06:59 18:59 Intake Total 1196 358 Output Total 1750 300 625 Balance -554 -300 -267 Intake: Oral 1196 358 Output: Urine 1750 300 625 Other: Voiding Method External Catheter - Exam General appearance: The patient is alert, oriented, appears in no acute di stress. HET: Head is normocephalic and atraumatic. Pupils are equal and reactive. Neck: Supple. Abdomen: Soft, nondistended. Extremities: Right palpable femoral pulse. Right BKA incision well-approximated with yessica. Serosanguineous drainage from lateral side of incision. Swelling improved. There is blister to the distal aspect of the flap. Surrounding ecchymosis areas noted, blanching improved.. Ischemic areas at suture line. Warm to touch Neurological: No focal deficits. Alert and oriented. - Labs CBC & Chem 7: 02/20/24 07:32 02/20/24 07:32 Labs: Abnormal Lab Results - Last 24 Hours (Table) 02/19/24 02/20/24 02/20/24 Range/Units 09:30 07:32 07:32 RBC 2.79 L (4.30-5.90) m/uL Hgb 8.4 L (13.0-17.5) gm/dL Hct 27.4 L (39.0-53.0) % MCHC 30.7 L (31.0-37.0) g/dL Plt Count 107 L (150-450) k/uL Lymphocytes # 0.6 L (1.0-4.8) k/uL PT 20.4 H 18.6 H (10.0-12.5) sec INR 2.0 H 1.8 H (<1.2) Assessment and Plan Assessment: 1. Postop day #5 right below the knee amputation 2. Hypercoagulable syndrome Factor V Leiden with ischemia of the forefoot right lower extremity with need for amputation. 3. Bilateral lower extremity edema 4. History of tobacco abuse although the patient did stop smoking 7 years p rior. 5. History of left lower extremity deep venous thrombosis in the past. Plan: 1. Continue anticoagulation 2. Consult physical therapy, activity as tolerated 3. Heart healthy diet 4. Keep knee immobilizer in place 5. Continue Lyrica and hydrocodone as ordered 6. Agree with discontinuing IV pain medication as patient is getting ready for discharge 7. Daily dressing change with Kerlix then apply stump steel tester and keep in place. May apply rigid dressing, wear rigid dressing at bedtime 8. Comfort prosthetics will be following patient 9. Rest of medical management per primary medical team. Any further pain management per primary medical team, may need to consider possible pain management. 9. Follow-up with vascular surgery in 2 weeks. Thank you for this consultation, patient is cleared from vascular surgery for discharge. We will sign off at this time. The impression and plan of care has been dictated as directed. Dr. Smith I performed a history and examination of this patient, discussed the same with the dictator. I agree with the dictator's note ,documented as a scribe. Any additional findings or plans will be noted.
--- NOTE | 2024-02-20 11:26 | P.DS ---
Providers Date of admission: 02/09/24 18:08 Expected date of discharge: 02/20/24 Attending physician: Linda Tubbs Consults: 02/10/24 08:31 Consult Physician Routine Consulting Provider: Lexi Smith Consult Reason/Comments: established patient Do you want consulting provider notified?: Yes 02/10/24 10:31 Consult Physician Routine Consulting Provider: Fatoumata Bush Consult Reason/Comments: acute hypoxia Do you want consulting provider notified?: Yes 02/11/24 11:33 Consult Physician Routine Consulting Provider: Nora Saldivar Consult Reason/Comments: foot gangrene Do you want consulting provider notified?: Yes Primary care physician: [facility] Course: Discharge diagnosis Right foot gangrene. Status post amputation Acute hypoxic respiratory failure. history of DVT. Patient currently on Lovenox 80 mg twice a day History of peripheral vascular disease History of factor V disorder maintained on Coumadin History of hyperlipidemia History of ex-smoker Hospital course Femi Case, is a 68-year-old male patient who presented with concerns of increased pain to right foot. Patient has a past medical history of gangrene and has been following with vascular services. Patient previously underwent amputation of his right third fourth and fifth toe by Dr. Solano in October. Patient also follows with podiatry. Patient also has a past medical history of recent DVT and vascular disorder. patient also ex-smoker. foot x-ray completed showing no significant interval change. Laboratory feeling wBC 13.0, Hemoglobin 12.1, creatinine 0.59, bun 11. Current vital signs temp 98.2, heart rate 76, respiratory rate 18, blood pressure 123/46 pulse ox of 91% on 2 L. Patient admitted patient started on IV clindamycin. Patient also on Lovenox 80 mg twice a day while Coumadin on hold. Patient also requiring increased oxygen. Will order chest x-ray and consult pulmonary services On 02/11/2024 patient was seen and examined on the medical floor, he is alert and oriented x 3 in no apparent distress, there is no fever or chills no headache or dizziness no chest pain no shortness of breath no cough, no nausea or vomiting no abdominal pain no diarrhea and no urinary symptoms. He was evaluated by vascular surgery and is scheduled for right below-knee amputation. On 02/12/2024 patient was seen and examined on the medical floor, he is alert and oriented x 3 in no apparent distress, he is complaining of severe pain in his right foot, and requesting increase in pain medications, although otherwise he denies any complaints there is no fever or chills no headache or dizziness no chest pain no shortness of breath no cough no nausea or vomiting no abdominal pain no diarrhea no urinary symptoms. on 02/13/2024 patient is alert and oriented 3. Plans for amputation tomorrow 02/14/2024 patient remains on IV antibiotics infectious disease service is following. Current vital signs temp 98.1, heart rate 68, respiratory rate 20, blood pressure 133/52 with 02/14/2024 patient is alert and oriented 3. Patient to undergo right BKA today with vascular surgery. Patient shortness breath. Patient denies nausea vomiting or diarrhea. Denies any urinary burning or frequency. Current vital signs temp 98.5, respiratory rate 18, blood pressure 142/65Pulse ox 92% on 2 L On 02/15/2024 patient was seen and examined on the medical floor he is alert and oriented x 3 in no apparent distress he underwent right below-knee amputation yesterday, he is still complaining of lower extremity pain otherwise he denies any complaints, there is no fever or chills no headache or dizziness no chest pain no shortness of breath no cough no nausea or vomiting no abdominal pain no diarrhea and no urinary symptoms, patient is improving gradually continue with subcu Lovenox at this time, consult pharmacy dosing for Coumadin. On 02/15/2023 for patient's alert and oriented 3. Patient reports some pain. Gabapentin was increased yesterday to 600 3 times a day. Patient denies chest pain or shortness of breath. Patient denies nausea vomiting or diarrhea. Patient denies any urinary burning or frequency. Pharmacy to dose Coumadin bridging with Lovenox On 02/17/2024 patient is alert and oriented x 3. INR today 1.5. Patient denies chest pain or shortness of breath. Patient denies nausea vomiting or diarrhea. Patient denies any urinary burning frequency. Current vital signs Temp 98.5, heart rate 73, respiratory rate 16, blood pressure 125/59 with a pulse ox of 93% on room air On 02/18/2024 patient was seen and examined on the medical floor he is alert and oriented x 3 in no apparent distress there is no fever or chills no headache or dizziness no chest pain no shortness of breath no cough no nausea or vomiting no abdominal pain no diarrhea no urinary symptoms. He is still complaining of severe pain in the right lower extremity, otherwise he denies any complaints at this time, INR is up to 1.9 today, will continue to follow 02/20/2024 patient's alert and oriented 3. Patient will be DC To ECF facility today. No antibiotics per infectious disease. Patient denies chest pain or shortness of breath. Patient denies nausea vomiting or diarrhea. Patient denies any urinary burning or frequency Patient Condition at Discharge: Stable Plan - Discharge Summary New Discharge Prescriptions: No Action Multivitamins, Thera [Multivitamin (formulary)] 1 tab PO DAILY Clopidogrel [Plavix] 75 mg PO DAILY Ascorbic Acid [Vitamin C] 1,000 mg PO DAILY Cholecalciferol [Vitamin D3 (25 Mcg = 1000 Iu)] 25 mcg PO DAILY Atorvastatin [Lipitor] 40 mg PO HS Warfarin [Coumadin] 5 mg PO HS@1700 Warfarin [Coumadin] 1 mg PO HS@1700 HYDROcodone/APAP 7.5-325MG [[place] 7.5-325] 1 tab PO DIRECTED PRN PRN Reason: Pain Enoxaparin [Lovenox] 80 mg SQ DIRECTED Gabapentin [Neurontin] 300 mg PO TID PRN PRN Reason: Pain Discharge Medication List Ascorbic Acid [Vitamin C] 1,000 mg PO DAILY 11/01/18 [History] Clopidogrel [Plavix] 75 mg PO DAILY 11/01/18 [History] Multivitamins, Thera [Multivitamin (formulary)] 1 tab PO DAILY 11/01/18 [History] Cholecalciferol [Vitamin D3 (25 Mcg = 1000 Iu)] 25 mcg PO DAILY 09/29/20 [History] Warfarin [Coumadin] 1 mg PO HS@1700 10/14/23 [History] Warfarin [Coumadin] 5 mg PO HS@1700 10/14/23 [History] Atorvastatin [Lipitor] 40 mg PO HS 02/09/24 [History] Enoxaparin [Lovenox] 80 mg SQ DIRECTED 02/09/24 [History] Gabapentin [Neurontin] 300 mg PO TID PRN 02/09/24 [History] HYDROcodone/APAP 7.5-325MG [[place] 7.5-325] 1 tab PO DIRECTED PRN 02/09/24 [History] Follow up Appointment(s)/Referral(s): Lexi Smith DO [STAFF PHYSICIAN] - 2 Weeks Elpidio French DPM [REFERRING] - 1-2 days Activity/Diet/Wound Care/Special Instructions: Activity as tolerated per recommendations from physical therapy Dressing change as needed to right below the knee amputation site, 4 x 4, Kerlix, stump medicine technologist and rigid dressing Keep knee immobilizer in place
--- NOTE | 2024-02-20 13:21 | P.PN ---
Subjective Progress Note Date: 02/20/24 I was asked to evaluate this patient regarding COPD and some hypoxemia. The patient reports chronic exertional dyspnea. He has some chronic cough and congestion. He seems to have had a recent flulike illness and chest congestion that occurred approximately 2 to 3 weeks ago. His chest x-ray shows some coarse interstitial pattern bilaterally along with COPD and emphysematous changes. No hemoptysis. No pleurisy. No chest pain. The patient is currently in the hospital having difficulties with his right foot. The patient is currently under the care of vascular surgery in our facility. The patient has undergone previous amputation of the right third fourth and fifth toes by vascular surgery. He was hospitalized for right foot infection. The patient also has increased swelling in the right lower extremity and a Doppler of the right lower extremity that was done on 02/09/2024 also showed presence of a thrombus in the right popliteal vein. The patient is known to have a hypercoagulable state and he has had a previous right lower extremity DVT approximately 15 years ago. He is also known to have peripheral vascular disease. Recent angiography that was done in November 2023 showed no evidence of any thoracic aortic dissection or occlusion. There was infrarenal abdominal aortic fusiform aneurysm measuring 35 x 30 mm in size, secondary dilatation of the bifurcation of the internal and external iliac on the left, and there is moderate scattered atherosclerotic changes. At this point in time, the patient is on IV clindamycin. The x-ray of the foot that was obtained on 02/09/2024 showed no gas. There is generalized osteopenia. Stable postop changes involving the right foot without evidence of any osseous destruction or osteomyelitis. White cell count is at 10 hemoglobin is at 10.8 and a platelet count of 114. His current INR is at 4.20 patient has been anticoagulated with warfarin dose being adjusted by pharmacy. BUN 11 with a creatinine of 0.7 and sodium is at 135. No signs of any pulmonary embolism. No pleurisy or hemoptysis. No chest pain. He is known to have factor V Leiden mutation/hypercoagulability with a remote history of right lower extremity DVT. On 02/11/2024, patient is being seen for a follow-up. No signs of respiratory distress. The patient is being evaluated vascular surgery, amputation being considered. He is currently on fluids of oxygen by nasal cannula with a pulse ox of 92%. Will be started on bronchodilators. Remains on therapeutic dose of Lovenox regarding the lower extremity DVT and currently on 80 mg of Lovenox every 12 hours. The INR today is at 3.0. The patient is seen today February 12, 2024 in follow-up on the regular medical floor. He is currently up ambulating in his room. Awake and alert in no acute distress. Maintaining O2 saturations in the 90s on room air. He denies any worsening shortness of breath, cough or congestion. He is afebrile. Hemodynamically stable. He is still having ongoing issues with significant pain of his right foot. He previously had a right fifth toe amputation and subsequently a right third and fourth toe amputation. He has been followed by cardiology vascular surgery and the plan is for a right below the knee amputation possibly tomorrow. Blood cultures revealing no growth. White count 9.9. Hemoglobin 10.9. Platelets 120. INR 2.4. Sodium 137. Potassium 4.0. Bicarb 25. BUN 8. Creatinine 0.60. Glucose 100. He is continued on therapeutic Lovenox. Remains on antibiotics in the form of vancomycin and cefepime. Normal saline at KVO. Alternating Dilaudid and Talihina for pain control. The patient is seen today February 13, 2024 in follow-up on the regular medical f rafiq. He is awake and alert in no acute distress. He is maintaining good O2 saturations in the 90s on 2 L/min per nasal cannula. He denies any worsening shortness of breath, cough or congestion. Remains on vancomycin and cefepime. The plan is for a right below the knee amputation today. He is continued on normal saline at 130 MLS per hour. White count 7.9. Hemoglobin 10.7. Platelets 111. INR 1.43. Sodium 138. Potassium 4.0. Bicarb 24. BUN 8. Creatinine 0.8. Glucose 100. The patient is seen today February 14, 2024 in follow-up on the regular medical floor. He did not have his surgery yesterday. The plan is for a right below the knee amputation today. He remains awake and alert in no acute distress. He is continued on cefepime and vancomycin. His pain is well-managed. He is maintaining good O2 saturations in the 90s on 2 L/min per nasal cannula. He has been afebrile. Hemodynamically stable. White count 6.5. Hemoglobin 10.0. Platelets 103. Sodium 137. Potassium 4.0. Bicarb 24. BUN 9. Creatinine 0.63. AST 36. ALT 45. He remains on bronchodilators. The patient is seen today February 15, 2024 in follow-up on the selective care unit. He is currently awake and alert in no acute distress. Maintaining O2 saturations in the 90s on room air. Continued on bronchodilators. He did undergo a right below the knee amputation yesterday. Dressing is dry and intact . Pain is well-managed. He remains on vancomycin and cefepime. Therapeutic Lovenox. 5.2. Hemoglobin 9.0. Platelets 106. Sodium 136. Potassium 4.0. Bicarb 29. BUN 9. Creatinine 0.58. The patient is seen today February 16, 2024 in follow-up on the selective care unit. He is postoperative day #2. He is currently sitting up in a chair. Awake and alert in no acute distress. Maintaining good O2 saturations in the 90s on room air. No shortness of breath, cough or congestion. He denies any significant discomfort. No phantom pain. He has a right lower extremity BKA stump with stump automotive service director and rigid dressing with knee immobilizer in place. Today's labs are pending. INR pending. Remains on therapeutic Lovenox. He is continued on cefepime and vancomycin. The patient is seen today February 17, 2024 in follow-up on the selective care unit. Postoperative day #3. He is sitting up in bed. Awake and alert in no acute distress. Denies any worsening shortness of breath, cough or congestion. He is maintaining good O2 saturations in the 90s on room air. Has been afebrile. Hemodynamically stable. He is continued on vancomycin and cefepime. Remains on therapeutic Lovenox. Resumed on warfarin INR today is 1.5. Blood cultures revealed no growth. White count 5.4. Hemoglobin 9.2. Platelets 104. Sodium 132. Potassium 3.5. Bicarb 27. BUN 9. Creatinine 0.60. Glucose 126. The patient is seen today February 18, 2024 in follow-up on the selective care unit. Postoperative day #4, status post right below the knee amputation. Knee immobilizer remains in place. He remains awake and alert in no acute distress. He denies any worsening shortness of breath, cough or congestion. Continues to maintain good O2 saturations in the 90s on room air. He has been afebrile. Hemodynamically stable. He is continued on bronchodilators. His pain is well- controlled. He is on therapeutic Lovenox. His INR is up to 1.9 on warfarin re- initiation. White count 5.6. Hemoglobin 9.4. Platelets 95,000. Sodium 132. Potassium 3.9. Bicarb 27. BUN 12. Creatinine 0.62. Glucose 110. The patient is seen today February 19, 2024 in follow-up on the selective care unit. Postoperative day #5 of his right below the knee amputation. His dressing is being changed per vascular surgery. Knee immobilizer remains in place. He denies any significant shortness of breath, cough or congestion. He is maintaining good O2 saturations in the 90s on room air. He remains on bronchodilators. Anticoagulated with warfarin. INR 2.0 today. The patient is seen today February 20, 2024 in follow-up on the selective care unit. Postoperative day #6. He is sitting up in bed. Awake and alert in no acute distress. His pain is better managed today. He denies any worsening shortness of breath, cough or congestion. Maintaining good O2 saturations in the 90s on room air. Cultures revealed no growth. White count 5.1. Hemoglobin 8.4. Platelets 107. INR 1.8. Sodium 133. Potassium 4.0. Bicarb 26. BUN 11. Creatinine 0.62. Glucose 131. Objective - Vital Signs Vital signs: Vital Signs Temp 98 F 02/20/24 11:33 Pulse 65 02/20/24 11:33 Resp 20 02/20/24 11:33 BP 133/69 02/20/24 11:33 Pulse Ox 93 L 02/20/24 11:33 FiO2 Intake & Output 02/19/24 02/20/24 02/20/24 18:59 06:59 18:59 Intake Total 1196 358 Output Total 1750 300 900 Balance -466 -300 -002 Intake: Oral 1196 358 Output: Urine 1750 300 900 Other: Voiding Method External Catheter - Exam GENERAL EXAM: Alert, pleasant 68-year-old male, on room air, in no apparent distress. HEAD: Normocephalic. EYES: Normal reaction of pupils, equal size. NOSE: Clear with pink turbinates. THROAT: No erythema or exudates. NECK: No masses, no JVD. CHEST: No chest wall deformity. LUNGS: Equal air entry with no crackles, wheeze, rhonchi or dullness. CVS: S1 and S2 normal with no audible murmur, regular rhythm. ABDOMEN: No hepatosplenomegaly, normal bowel sounds, no guarding or rigidity. SPINE: No scoliosis or deformity SKIN: No rashes CENTRAL NERVOUS SYSTEM: No focal deficits, tone is normal in all 4 extremities. EXTREMITIES: Right below the knee amputation and knee immobilizer in place. - Labs CBC & Chem 7: 02/20/24 07:32 02/20/24 07:32 Labs: Abnormal Lab Results - Last 24 Hours (Table) 02/20/24 02/20/24 02/20/24 Range/Units 07:32 07:32 07:32 RBC 2.79 L (4.30-5.90) m/uL Hgb 8.4 L (13.0-17.5) gm/dL Hct 27.4 L (39.0-53.0) % MCHC 30.7 L (31.0-37.0) g/dL Plt Count 107 L (150-450) k/uL Lymphocytes # 0.6 L (1.0-4.8) k/uL PT 18.6 H (10.0-12.5) sec INR 1.8 H (<1.2) Sodium 133 L (137-145) mmol/L Creatinine 0.62 L (0.66-1.25) mg/dL Glucose 131 H (74-99) mg/dL Calcium 8.1 L (8.4-10.2) mg/dL ALT 62 H (4-49) U/L Total Protein 5.6 L (6.3-8.2) g/dL Albumin 2.7 L (3.5-5.0) g/dL Assessment and Plan Assessment: Right foot infection/wound with gangrene. Right below the knee amputation on 02/14/2024. Post operative day #6. Stump automotive service director on, knee immobilizer in place. Completed antibiotics Traumatic injury to the right foot with secondary gangrenous toes requiring amputation that was completed on 10/29/2023. Right lower extremity popliteal DVT, recurrent last episode was more than 15 years ago Factor V Leiden/hypercoagulability the patient is maintained on long-term anticoagulation with warfarin COPD currently inactive and stable Peripheral vascular disease Hyperlipidemia Plan: The patient was seen and evaluated Medications and labs reviewed Remains stable and on room air Plan is for [facility] today I have personally seen and examined the patient, performed the documentation and the assessment and plan as written. Number of minutes spent on the visit: 10.
[2024-02-20] MEDS: WARFARIN 10 MG TAB PO ONE (15:23)
[2024-02-20 15:30] VITALS: BP 135/59; PULSE 70; TEMP 97.4
--- NOTE | 2024-02-20 16:24 | P.PN ---
Subjective Progress Note Date: 02/19/24 Principal diagnosis: Reason for follow-up is right foot gangrene and cellulitis Patient is a 68-year-old male with a past medical history significant for hypertension DVT PAD in this patient who did have a previous history of right fifth toe gangrene in this patient who is status post right fourth and third toe amputation subsequently noticed to having nonhealing of the wound to the right foot and also noticed to having some necrotic changes for the patient has been admitted to the hospital.Patient is status post right below the knee potation completed on 02/14/2024. On today's evaluation that is 02/19/2024, Patient is afebrile patient is currently on room air and denies having any shortness of breath, the patient denies any chest pain or cough, the patient denies any nausea vomiting did not have any abdominal pain and no diarrhea, denies any worsening pain to the right BKA stump. Patient INR is 2.0 no other lab work drawn today Objective - Vital Signs Vital signs: Vital Signs Temp 98.4 F 02/19/24 11:32 Pulse 75 02/19/24 11:32 Resp 20 02/19/24 11:32 BP 110/60 02/19/24 11:32 Pulse Ox 94 L 02/19/24 11:32 FiO2 Intake & Output 02/18/24 02/19/24 02/19/24 18:59 06:59 18:59 Intake Total 1020 118 Output Total 650 1500 900 Balance 370 1500 -744 Weight 74.7 kg Intake: Oral 1020 118 Output: Urine 650 1500 900 Other: Voiding Method External Catheter External Catheter - Exam GENERAL DESCRIPTION: An elderly male up in the room in no distress RESPIRATORY SYSTEM: Unlabored breathing , decreased breath sounds at bases HEART: S1 S2 regular rate and rhythm , ABDOMEN: Soft , no tenderness EXTREMITIES: Right BKA stump incision currently dressed - Labs CBC & Chem 7: 02/20/24 07:32 02/20/24 07:32 Labs: Abnormal Lab Results - Last 24 Hours (Table) 02/19/24 Range/Units 09:30 PT 20.4 H (10.0-12.5) sec INR 2.0 H (<1.2) Assessment and Plan (1) Gangrene of toe of right foot Current Visit: Yes Status: Acute Code(s): I96 - GANGRENE, NOT ELSEWHERE CLASSIFIED SNOMED Code(s): 12660917422246826 (2) Cellulitis of right foot Current Visit: No Status: Acute Code(s): L03.115 - CELLULITIS OF RIGHT LOWER LIMB SNOMED Code(s): 70098740675574399 Plan: 1patient presented to hospital with increasing pain discoloration to the right foot toes amputation site concerning for right gangrene with associated cellu litis of the right foot keeping in mind the patient has been around the hospital when you call for resistant gram-positive as well as gram-negative pathogen. 2patient is febrile patient white count is normal and blood culture has been negative so far 3-patient is s/p BKA with infected port removed and the patient not bacteremic, patient antibiotic were discontinued and the patient seem to be doing well off antibiotic therapy will monitor closely off antibiotic Dictation was produced using [employer] dictation software. please excuse any grammatical, word or spelling errors.
--- NOTE | 2024-02-20 16:24 | P.PN ---
Subjective Progress Note Date: 02/20/24 Principal diagnosis: Reason for follow-up is right foot gangrene and cellulitis Patient is a 68-year-old male with a past medical history significant for hypertension DVT PAD in this patient who did have a previous history of right fifth toe gangrene in this patient who is status post right fourth and third toe amputation subsequently noticed to having nonhealing of the wound to the right foot and also noticed to having some necrotic changes for the patient has been admitted to the hospital.Patient is status post right below the knee potation completed on 02/14/2024. On today's evaluation that is 02/20/2024, patient has been afebrile, patient is breathing comfortably and is currently on room air, patient denies having any significant cough no chest pain shortness of breath, patient denies nausea vomiting or diarrhea and no abdominal pain, pain to the right BKA stump is currently controlled mention feeling better. Patient white count is 5.1 creatinine 0.62 INR is 1.8 Objective - Vital Signs Vital signs: Vital Signs Temp 98 F 02/20/24 11:33 Pulse 65 02/20/24 11:33 Resp 20 02/20/24 11:33 BP 133/69 02/20/24 11:33 Pulse Ox 93 L 02/20/24 11:33 FiO2 Intake & Output 02/19/24 02/20/24 02/20/24 18:59 06:59 18:59 Intake Total 1196 598 Output Total 1750 300 900 Balance -554 -300 -302 Intake: Oral 1196 598 Output: Urine 1750 300 900 Other: Voiding Method External Catheter - Exam GENERAL DESCRIPTION: An elderly male up in the room in no distress RESPIRATORY SYSTEM: Unlabored breathing , decreased breath sounds at bases HEART: S1 S2 regular rate and rhythm , ABDOMEN: Soft , no tenderness EXTREMITIES: Right BKA stump incision currently dressed, patient mention the dressing was changed by the surgeon and overall happy with the incision healing - Labs CBC & Chem 7: 02/20/24 07:32 02/20/24 07:32 Labs: Abnormal Lab Results - Last 24 Hours (Table) 02/20/24 02/20/24 02/20/24 Range/Units 07:32 07:32 07:32 RBC 2.79 L (4.30-5.90) m/uL Hgb 8.4 L (13.0-17.5) gm/dL Hct 27.4 L (39.0-53.0) % MCHC 30.7 L (31.0-37.0) g/dL Plt Count 107 L (150-450) k/uL Lymphocytes # 0.6 L (1.0-4.8) k/uL PT 18.6 H (10.0-12.5) sec INR 1.8 H (<1.2) Sodium 133 L (137-145) mmol/L Creatinine 0.62 L (0.66-1.25) mg/dL Glucose 131 H (74-99) mg/dL Calcium 8.1 L (8.4-10.2) mg/dL ALT 62 H (4-49) U/L Total Protein 5.6 L (6.3-8.2) g/dL Albumin 2.7 L (3.5-5.0) g/dL Assessment and Plan (1) Gangrene of toe of right foot Current Visit: Yes Status: Acute Code(s): I96 - GANGRENE, NOT ELSEWHERE CLASSIFIED SNOMED Code(s): 66511994428279563 (2) Cellulitis of right foot Current Visit: No Status: Acute Code(s): L03.115 - CELLULITIS OF RIGHT LOWER LIMB SNOMED Code(s): 71019957313862403 Plan: 1patient presented to hospital with increasing pain discoloration to the right foot toes amputation site concerning for right gangrene with associated cellulitis of the right foot keeping in mind the patient has been around the hospital when you call for resistant gram-positive as well as gram-negative pathogen. 2patient is febrile patient white count is normal and blood culture has been negative so far 3-patient is s/p BKA with infected port removed and the patient not bacteremic, patient antibiotic were discontinued and the patient seem to be doing well off antibiotic, hence no antibiotics on discharge question concern answered Dictation was produced using [employer] dictation software. please excuse any grammatical, word or spelling errors.
[2024-02-20] MEDS ORDERED: WARFARIN 3 MG TAB PO ONE (18:00)
== END 2024-02-20 18:19 | DRG 239 ==
LOC: SUPCPDRO 13:06 → EC 13:06 → 5NMEDONC 18:08 → 3SCARD 02-14 16:59
PROVIDERS: ADMIT Internal Medicine; ATTEND Internal Medicine
PROC: 0Y6H0Z1 Detachment at Right Lower Leg, High, Open Approach (ICD-10-PCS; principal; 2024-02-14 14:00)
DX: E11.52 Type 2 diabetes mellitus with diabetic peripheral angiopathy with gangrene (principal); J96.01 Acute respiratory failure with hypoxia; D68.51 Activated protein C resistance; L03.115 Cellulitis of right lower limb; D68.59 Other primary thrombophilia; I70.268 Atherosclerosis of native arteries of extremities with gangrene, other extremity; E11.41 Type 2 diabetes mellitus with diabetic mononeuropathy; E78.5 Hyperlipidemia, unspecified; I10 Essential (primary) hypertension; I77.1 Stricture of artery; I82.431 Acute embolism and thrombosis of right popliteal vein; M19.90 Unspecified osteoarthritis, unspecified site; M85.88 Other specified disorders of bone density and structure, other site; Z79.01 Long term (current) use of anticoagulants; Z79.02 Long term (current) use of antithrombotics/antiplatelets; Z79.899 Other long term (current) drug therapy; Z86.718 Personal history of other venous thrombosis and embolism; Z89.611 Acquired absence of right leg above knee; I99.8 Other disorder of circulatory system
CPT/HCPCS: 36415; 71046; 80053; 80202; 83605; 85025; 85027; 85610; 85730; 86850; 86900; 86901; 87040; 93005; 94640; 96361; 96365; 96366; 96375; 96376; 99285

== ENCOUNTER → 2024-02-09 | Outpatient (CLI) | payer MEDICARE, BC ==
--- NOTE | 2024-02-09 11:07 | US ---
EXAMINATION TYPE: US venous doppler duplex LE RT DATE OF EXAM: 02/09/2024 10:59 AM COMPARISON: NONE CLINICAL INDICATION: Male, 68 years old with history of M79.661 pain in right lower leg R22.41 LOCALI ZED S; Pain and swelling right calf hx of DVT 15 years ago per patient. Patient on blood thinners has factor 5 having toes amputated next Monday. SIDE PERFORMED: Right TECHNIQUE: The lower extremity deep venous system is examined utilizing real time linear array sonog elyssa with graded compression, doppler sonography and color-flow sonography. VESSELS IMAGED: Common Femoral Vein Deep Femoral Vein Greater Saphenous Vein * Femoral Vein Popliteal Vein Small Saphenous Vein * Proximal Calf Veins (* superficial vessels) Right Leg: Thrombus visualized right Popliteal Vein color flow is visualized. Undetermined age of . IMPRESSION: Likely chronic nonocclusive thrombus at the popliteal vein level.
--- NOTE | 2024-02-10 20:43 | P.CNPUL ---
History of Present Illness Consult date: 02/10/24 Reason for consult: COPD History of present illness: I was asked to evaluate this patient regarding COPD and some hypoxemia. The patient reports chronic exertional dyspnea. He has some chronic cough and congestion. He seems to have had a recent flulike illness and chest congestion that occurred approximately 2 to 3 weeks ago. His chest x-ray shows some coarse interstitial pattern bilaterally along with COPD and emphysematous changes. No hemoptysis. No pleurisy. No chest pain. The patient is currently in the hospital having difficulties with his right foot. The patient is currently under the care of vascular surgery in our facility. The patient has undergone previous amputation of the right third fourth and fifth toes by vascular surgery. He was hospitalized for right foot infection. The patient also has increased swelling in the right lower extremity and a Doppler of the right lower extremity that was done on 02/09/2024 also showed presence of a thrombus in the right popliteal vein. The patient is known to have a hypercoagulable state and he has had a previous right lower extremity DVT approximately 15 years ago. He is also known to have peripheral vascular disease. Recent angiography that was done in November 2023 showed no evidence of any thoracic aortic dissection or occlusion. There was infrarenal abdominal aortic fusiform aneurysm measuring 35 x 30 mm in size, secondary dilatation of the bifurcation of the internal and external iliac on the left, and there is moderate scattered atherosclerotic changes. At this point in time, the patient is on IV clindamycin. The x-ray of the foot that was obtained on 02/09/2024 showed no gas. There is generalized osteopenia. Stable postop changes involving the right foot without evidence of any osseous destruction or osteomyelitis. White cell count is at 10 hemoglobin is at 10.8 and a platelet count of 114. His current INR is at 4.20 patient has been anticoagulated with warfarin dose being adjusted by pharmacy. BUN 11 with a creatinine of 0.7 and sodium is at 135. No signs of any pulmonary embolism. No pleurisy or hemoptysis. No chest pain. He is known to have factor V Leiden mutation/hypercoagulability with a remote history of right lower extremity DVT. Review of Systems Constitutional: Denies chills, Denies fever Eyes: denies as per HPI, denies blurred vision, denies bulging eye, denies decreased vision, denies diplopia, denies discharge, denies dry eye, denies irritation, denies itching, denies pain, denies photophobia, denies loss of peripheral vision, denies loss of vision, denies tunnel vision/blind spots Ears: deny: decreased hearing, ear discharge, earache, tinnitus Ears, nose, mouth and throat: Reports as per HPI Breasts: absent: as per HPI, gynecomastia Cardiovascular: Reports claudication, Reports decreased exercise tolerance Respiratory: Reports dyspnea Gastrointestinal: Reports as per HPI Genitourinary: Reports as per HPI Musculoskeletal: Reports leg numbness/tingling, Reports shooting leg pain Musculoskeletal: right: ankle swelling, absent: ankle pain, ankle stiffness Integumentary: Reports wounds Neurological: Reports as per HPI Psychiatric: Reports as per HPI Endocrine: Reports as per HPI, Reports fatigue Hematologic/Lymphatic: Reports as per HPI Allergic/Immunologic: Reports as per HPI Past Medical History Past Medical History: Deep Vein Thrombosis (DVT), Hyperlipidemia, Vascular Disorder Additional Past Medical History / Comment(s): states "doesn't have the proteins in my blood to prevent it from clotting is why I am taking warfarin"managed by Dr Ortiz [facility] Physician [phone], (Factor V Leiden mutation) thyroid nodules History of Any Multi-Drug Resistant Organisms: None Reported Additional Past Surgical History / Comment(s): stent rt groin Aug 2018,aortogram, thyroid biopsy 2018 Past Anesthesia/Blood Transfusion Reactions: No Reported Reaction Past Psychological History: No Psychological Hx Reported Smoking Status: Former smoker Past Alcohol Use History: None Reported Past Drug Use History: None Reported - Past Family History Mother Family Medical History: No Reported History Sister(s) Family Medical History: Deep Vein Thrombosis (DVT) Father Family Medical History: Deep Vein Thrombosis (DVT) Medications and Allergies Home Medications Medication Instructions Recorded Confirmed Type Ascorbic Acid [Vitamin C] 1,000 mg PO DAILY 11/01/18 02/09/24 History Clopidogrel [Plavix] 75 mg PO DAILY 11/01/18 02/09/24 History Multivitamins, Thera [Multivitamin 1 tab PO DAILY 11/01/18 02/09/24 History (formulary)] Cholecalciferol [Vitamin D3 (25 25 mcg PO DAILY 09/29/20 02/09/24 History Mcg = 1000 Iu)] Warfarin [Coumadin] 1 mg PO HS@1700 10/14/23 02/09/24 History Warfarin [Coumadin] 5 mg PO HS@1700 10/14/23 02/09/24 History Atorvastatin [Lipitor] 40 mg PO HS 02/09/24 02/09/24 History Enoxaparin [Lovenox] 80 mg SQ DIRECTED 02/09/24 02/09/24 History Gabapentin [Neurontin] 300 mg PO TID PRN 02/09/24 02/09/24 History HYDROcodone/APAP 7.5-325MG [[place] 1 tab PO DIRECTED PRN 02/09/24 02/09/24 History 7.5-325] Allergies Allergy/AdvReac Type Severity Reaction Status Date / Time No Known Allergies Allergy Verified 02/09/24 16:16 Physical Exam Calm and comfortable, no acute distress Head exam was generally normal. There was no scleral icterus or corneal arcus. Mucous membranes were moist. Neck was supple and without jugular venous distension, thyromegaly, or carotid bruits. Carotids were easily palpable bilaterally. There was no adenopathy. Lungs Are showing diminished breath sounds bilaterally. Expiratory wheeze. Cardiac exam revealed the PMI to be normally situated and sized. The rhythm was regular and no extrasystoles were noted during several minutes of auscultation. The first and second heart sounds were normal and physiologic splitting of the second heart sound was noted. There were no murmurs, rubs, clicks, or gallops.. Abdominal exam revealed normal bowel sounds. The abdomen was soft, non-tender, and without masses, organomegaly, or appreciable enlargement of the abdominal aorta. Extremities reveal prior amputations of the second, third, and fourth toes. There are gangrenous changes throughout the forefoot and open draining wound. The foot is diffusely swollen. Right lower extremity is also swollen and tender. Neurologically, the patient is awake and alert and the patient does not have any focal neurological deficit. Cranial nerves are essentially intact. Results - Diagnostic Findings Chest x-ray: image reviewed Assessment and Plan Plan: Right foot infection/wound with a previous amputation involving the right third fourth and fifth toes by vascular surgery. Currently the patient is on IV clindamycin.. Noted the patient had traumatic injury to the right foot with secondary gangrenous toes requiring amputation that was completed on 10/29/2023. Right lower extremity popliteal DVT, recurrent last episode was more than 15 years ago Factor V Leiden/hypercoagulability the patient is maintained on long-term anticoagulation with warfarin and INR is currently at 4.2 COPD currently inactive and stable, no clear clinical manifestation of pulm embolism Peripheral vascular disease Hyperlipidemia Plan Pulmonary status is stable. Supplemental oxygen if needed. Put the patient on DuoNeb treatments [id number] Continue anticoagulation with warfarin on outpatient basis. The patient has been transitioned to Lovenox therapeutic doses. No clinical signs or symptoms to indicate pulmonary embolism at this point in time. ID consult Vascular surgery consult Orthopedic consult Continue IV clindamycin Pain control with Dilaudid IV fluids Will continue to follow.
== END | disposition home or self-care (01) ==
LOC: RADUSWWP 10:22
PROVIDERS: ATTEND Podiatrist Foot & Ankle Surgery
DX: M79.661 Pain in right lower leg (principal); R22.41 Localized swelling, mass and lump, right lower limb

== ENCOUNTER 2024-03-27 05:54 | Inpatient (IN) | payer MEDICARE, BC ==
[~2024-03-27 05:54] MED LIST changes: -ALPRAZolam 0.5 MG TAB PO STA; +LIDOCAINE 1% (10MG/ML) FOR IV START INTRADERMA PRN
[2024-03-27] MEDS: IV FLUID CONTINUATION 1,000 ML IV ONE (06:26)
[2024-03-27] MEDS: MIDAZOLAM 2 MG/2 ML VIAL IV ONE (06:56)
[2024-03-27] MEDS: ONDANSETRON 4 MG/2 ML VIAL IVP ONE (06:58)
[2024-03-27] MEDS: LACTATED RINGERS 1,000 ML IV SCH (07:04)
[2024-03-27] MEDS: fentaNYL (PF) 50 MCG/ML 2 ML AMP IVP STA (07:23)
[2024-03-27] MEDS ORDERED: MIDAZOLAM 2 MG/2 ML VIAL ONE (07:25)
[2024-03-27] MEDS ORDERED: PHENYLEPHRINE 10 MG/ML VIAL ONE (07:25)
[2024-03-27] MEDS ORDERED: SUCCINYLCHOLINE CHLORIDE 200 MG/10 ML VIAL IV ONE (07:25)
[2024-03-27] MEDS ORDERED: PROPOFOL 10 MG/ML 20 ML VIAL IV ONE (07:25)
[2024-03-27] MEDS ORDERED: fentaNYL (PF) 50 MCG/ML 2 ML AMP ONE (07:25)
[2024-03-27] MEDS ORDERED: LIDOCAINE 1% INJ 10MG/ML (20 ML MDV) ONE (07:25)
[2024-03-27] MEDS ORDERED: ROCURONIUM 10 MG/ML (5 ML VIAL) IV ONE (07:25)
[2024-03-27] MEDS ORDERED: SUGAMMADEX SODIUM 200 MG/2 ML SDV IV ONE (07:25)
[2024-03-27] MEDS: ceFAZolin 2 GM in SODIUM CHLORIDE 0.9% 500 ML 500 ML IRRIGATION ONE (08:20)
[2024-03-27] MEDS: LACTATED RINGERS 1,000 ML IV ONE ×2 (08:39→14:04)
[2024-03-27] MEDS ORDERED: ONDANSETRON 4 MG/2 ML VIAL IVP PRN (08:49)
--- NOTE | 2024-03-27 08:49 | P.OP ---
Date of Procedure: 03/27/24 Description of Procedure: Preoperative diagnosis: Right lower extremity nonhealing wound, previous below-knee amputation, multiple skin lesions of the right lower extremity, palpable femoral pulse Postoperative diagnosis: Same Procedure: Right above-knee amputation Surgeon: Lexi Smith D.O. Anesthesia: General EBL: [150 cc IV fluids: See records Urine output: Not measured Drains: None Complications: None immediately apparent Condition: Stable to recovery Operative indication and findings: Patient is a 68-year-old male who initially underwent a transmetatarsal amputation that had subsequent issues with nonhealing therefore was converted to below-knee amputation. Blood flow had previously been evaluated by an emulsification operator and reviewed by my partner and was thought to be adequate for wound healing. There appeared to be issues with the flap with ischemia and now evidence of necrosis of the flap without area to allow for revision of the below-knee amputation therefore the decision was made to go forward with above-knee amputation. On the patient's legs through the thigh and at the lateral portion there are multiple areas of ischemic patches and wounds. He does maintain a palpable femoral pulse as well as popliteal pulse. He has a history of factor V and does take anticoagulation for this. He had been on Coumadin with a Lovenox bridge prior to the procedure today. Risks and benefits were discussed with the patient including but not limited to bleeding, infection, cardiopulmonary concerns, poor wound healing and need for further surgeries. He seemingly understood and is willing to proceed. Procedure in detail: The patient was taken to the operative suite and placed in supine position. After adequate anesthesia, the right lower extremity was prepped and draped in usual sterile fashion. A preprocedure timeout was performed, all parties were in agreement. Skin marker was utilized and the incision was marked approximately 5 cm proximal to the knee joint. Skin incision was performed and deepened through the subcutaneous tissues to the muscular fascia. The saphenous vein was identified and ligated with 2-0 silk and divided. The muscle groups of the anterior and medial thigh were divided with electrocautery at the same level of the skin incision. The neurovascular bundle was identified on the medial aspect of the thigh. The artery and veins were isolated and suture ligated using 2-0 silk ligature. The sciatic nerve was pulled on stretch and ligated with 2-0 silk tie and divided. The femur was then cleared of its periosteal tissue is elevated roughly 5 cm proximally and was divided with the oscillating saw. The posterior thigh muscles were then divided with electrocautery. The proximal end of the transected femur was smoothed with a rasp. The amputation site was then copiously irrigated. Hemostasis was controlled with electrocautery. The periosteum was reapproximated using interrupted sutures of 2-0 Vicryl. The fascia was reapproximated with interrupted [id number] sutures of 2-0 Vicryl. The skin was reapproximated with yessica. A dressing with gauze, Kerlix and a bandage were placed. The patient tolerated the procedure well and was transported to PACU in stable condition
[2024-03-27] MEDS: HYDROmorphone 0.5 MG/0.5 ML SYRINGE IVP PRN (09:19)
[2024-03-27 10:10] LABS: INR 1.2 (<1.2); Partial Thromboplastin Time 47.6 sec (22.0-30.0); Prothrombin Time 12.5 sec (10.0-12.5)
[2024-03-27] MEDS: fentaNYL (PF) 50 MCG/ML 2 ML AMP IVP ONE (14:10)
[2024-03-27] MEDS: ENOXAPARIN 60 MG/0.6 ML SYRINGE SQ SCH (14:41)
[2024-03-27] MEDS: MORPHINE SULFATE 4 MG/ML SYRINGE IVP PRN (15:52)
[2024-03-27] MEDS: WARFARIN 5 MG TAB PO SCH (17:13)
[2024-03-27] MEDS: PREGABALIN 100 MG CAP PO SCH (17:41)
[2024-03-27] MEDS: HYDROcodone/APAP 10-325MG 1 EACH TAB PO PRN (18:47)
[2024-03-27] MEDS: ATORVASTATIN 40 MG TAB PO SCH (20:54)
[2024-03-27] MEDS: FAMOTIDINE 20 MG TAB PO SCH (20:54)
[2024-03-27] MEDS: HYDROcodone/APAP 5-325MG 1 EACH TAB PO PRN (23:13)
[2024-03-28 08:46] LABS: Anisocytosis Slight; Basophils % (A) 0 %; Eosinophils % (A) 1 %; HCT 25.4 % (39.0-53.0); HGB 7.9 gm/dL (13.0-17.5); Hypochromasia Marked; INR 1.3 (<1.2); Lymphocytes # (A) 0.6 k/uL (1.0-4.8); Lymphocytes % (A) 12 %; MCH 27.1 pg (25.0-35.0); Mean Platelet Volume 9.3; Monocytes # (A) 0.4 k/uL (0-1.0); Monocytes % (A) 9 %; Neutrophils # (A) 3.5 k/uL (1.3-7.7); Neutrophils % (A) 76 %; Platelet Count 123 k/uL (150-450); Poikilocytosis Slight; Prothrombin Time 13.6 sec (10.0-12.5); RBC 2.91 m/uL (4.30-5.90); RDW 16.1 % (11.5-15.5); WBC 4.6 k/uL (3.8-10.6)
[2024-03-28 08:54] LABS: MCV 87.2 fL (80.0-100.0)
[2024-03-28 09:04] LABS: ALT 25 U/L (4-49); AST 33 U/L (17-59); African American GFR (CKD) >90 (>60 ml/min/1.73 sqM); Albumin 2.8 g/dL (3.5-5.0); Alkaline Phosphatase 56 U/L (38-126); Anion Gap 3 mmol/L; Blood Urea Nitrogen 12 mg/dL (9-20); Calcium 8.5 mg/dL (8.4-10.2); Carbon Dioxide 31 mmol/L (22-30); Chloride 101 mmol/L (98-107); Glucose 135 mg/dL (74-99); Non-African American GFR(CKD) >90 (>60 ml/min/1.73 sqM); Potassium 4.2 mmol/L (3.5-5.1); Sodium 135 mmol/L (137-145); Total Bilirubin 0.5 mg/dL (0.2-1.3); Total Protein 5.8 g/dL (6.3-8.2)
[2024-03-28] MEDS: polyethylene glycoL 3350 17 GM POWD.PACK PO SCH (09:09)
[2024-03-28] MEDS: CHOLECALCIFEROL 25 MCG (1000 IU) TABLET PO SCH (09:09)
[2024-03-28] MEDS: ASCORBIC ACID 500 MG TAB PO SCH (09:09)
[2024-03-28] MEDS: MULTIVITAMINS, THERA 1 EACH TAB PO SCH (09:11)
--- NOTE | 2024-03-28 12:21 | P.PN ---
Subjective Progress Note Date: 03/28/24 Principal diagnosis: Right nonhealing wound Patient seen and examined today as a follow-up. He is postop day #1 for right [id number]-[id number] amputation. He states for the most part pain is now controlled. He was up to the chair with physical therapy today. He has his dressing and clean dry and intact. Hemoglobin today was 7.9. He denies any blood in his stool or black stool. He denies any shortness of breath, chest pain, abdominal pain, nausea or vomiting. He is afebrile. Objective - Vital Signs Vital signs: Vital Signs Temp 97.8 F 03/28/24 09:07 Pulse 81 03/28/24 09:07 Resp 17 03/28/24 09:07 BP 119/54 03/28/24 09:07 Pulse Ox 89 L 03/28/24 09:46 FiO2 Intake & Output 03/27/24 03/28/24 03/28/24 18:59 06:59 18:59 Intake Total 1791 240 Output Total 150 800 Balance 1641 -800 240 Weight 102.5 kg Intake: IV 1551 Oral 240 240 Output: Urine 800 Estimated Blood Loss 150 Other: Voiding Method Urinal Urinal - Exam General appearance: The patient is alert, oriented, appears in no acute distress. HET: Head is normocephalic and atraumatic. Pupils are equal and reactive. Neck: Supple. Heart: Regular. Lungs: Equal expansion, normal respiratory effort. Abdomen: Soft, nontender, nondistended. Extremities: Right yifqh-thh-umyi amputation site with dressing clean dry and intact. Neurological: No focal deficits. Strength and sensation are grossly intact. - Labs CBC & Chem 7: 03/28/24 08:15 03/28/24 08:34 Labs: Abnormal Lab Results - Last 24 Hours (Table) 03/28/24 03/28/24 03/28/24 Range/Units 08:15 08:15 08:34 RBC 2.91 L (4.30-5.90) m/uL Hgb 7.9 L (13.0-17.5) gm/dL Hct 25.4 L (39.0-53.0) % RDW 16.1 H (11.5-15.5) % Plt Count 123 L (150-450) k/uL Lymphocytes # 0.6 L (1.0-4.8) k/uL PT 13.6 H (10.0-12.5) sec INR 1.3 H (<1.2) Sodium 135 L (137-145) mmol/L Carbon Dioxide 31 H (22-30) mmol/L Creatinine 0.61 L (0.66-1.25) mg/dL Glucose 135 H (74-99) mg/dL Total Protein 5.8 L (6.3-8.2) g/dL Albumin 2.8 L (3.5-5.0) g/dL Assessment and Plan Assessment: 1. Postop day #1 right uicax-ely-vnlk amputation 2. Right lower extremity nonhealing wound 3. Previous below-knee amputation 4. Multiple skin lesions of the right lower extremity 5. Pressure ulcers Plan: 1. Stat type and screen and give 1 unit of blood 2. Continue regular diet 3. Physical therapy ordered 4. Stump paperback machine operator and rigid dressing ordered, sent to [facility] 5. Continue with pain medication as needed 6. Repeat labs in the morning 7. Continue Lovenox and Coumadin 8. Medical team following for medical management, bridge Lovenox to Coumadin Anticipate discharge tomorrow [facility] on the depue The impression and plan of care has been dictated as directed. Dr. Smith I performed a history and examination of this patient, discussed the same with the dictator. I agree with the dictator's note ,documented as a scribe. Any additional findings or plans will be noted.
[2024-03-28 12:22] VITALS: BMI 20.5
--- NOTE | 2024-03-28 18:38 | P.CONS ---
History of Present Illness - Reason for Consult Consult date: 03/27/24 - History of Present Illness Femi Case, is a 68-year-old male with known history of peripheral arterial disease and nonhealing ulcers who was recently admitted to [facility] emergency room for right foot gangrene, he underwent right lower extremity below-knee amputation, and was discharged to the correction for rehabilitation, he was reevaluated by vascular surgery and was readmitted on 03/27/2024 and underwent above-knee amputation on the right. Medical consultation was requested for management while hospitalized. 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 Past Medical History Past Medical History: Deep Vein Thrombosis (DVT), Hyperlipidemia, Vascular Disorder Additional Past Medical History / Comment(s): PAD.States "doesn't have the proteins in my blood to prevent it from clotting is why I am taking warfarin"managed by Dr Angel Sanchez Physician [phone], (Factor V Leiden mutation) thyroid nodules History of Any Multi-Drug Resistant Organisms: None Reported Additional Past Surgical History / Comment(s): AMPUTATION OF RIGHT 3 & 4 TOES. Stent rt groin Aug 2018,aortogram, thyroid biopsy 2019 Past Anesthesia/Blood Transfusion Reactions: No Reported Reaction Smoking Status: Former smoker - Past Family History Mother Family Medical History: No Reported History Sister(s) Family Medical History: Deep Vein Thrombosis (DVT) Father Family Medical History: Deep Vein Thrombosis (DVT) Medications and Allergies Home Medications Medication Instructions Recorded Confirmed Type Ascorbic Acid [Vitamin C] 1,000 mg PO DAILY 11/01/18 03/27/24 History Clopidogrel [Plavix] 75 mg PO DAILY 11/01/18 03/27/24 History Multivitamins, Thera [Multivitamin 1 tab PO DAILY 11/01/18 03/27/24 History (formulary)] Cholecalciferol [Vitamin D3 (25 25 mcg PO DAILY 09/29/20 03/27/24 History Mcg = 1000 Iu)] Warfarin [Coumadin] 1 mg PO HS@1700 10/14/23 03/27/24 History Warfarin [Coumadin] 5 mg PO HS@1700 10/14/23 03/27/24 History Atorvastatin [Lipitor] 40 mg PO HS 02/09/24 03/27/24 History Famotidine [Pepcid] 20 mg PO BID tab 02/20/24 03/27/24 Rx HYDROcodone/APAP 10-325MG [[place] 1 each PO Q6HR PRN 3 Days #12 tab 02/20/24 03/27/24 Rx 10-325] polyethylene glycoL 3350 [Miralax] 17 gm PO DAILY packet 02/20/24 03/27/24 Rx Enoxaparin [Lovenox] 60 mg PO BID 03/25/24 03/27/24 History HYDROcodone/APAP 10-325MG [[place] 1 tab PO Q4H PRN 03/25/24 03/27/24 History 10-325] Morphine Sulfate [Eliza] 10 mg PO BID 03/25/24 03/27/24 History Pregabalin [Lyrica] 100 mg PO Q8H 03/25/24 03/27/24 History Allergies Allergy/AdvReac Type Severity Reaction Status Date / Time No Known Allergies Allergy Verified 03/27/24 06:27 Physical Exam Vitals: Vital Signs Temp Pulse Pulse Resp BP Pulse Ox 03/27/24 16:10 69 16 107/51 93 L 03/27/24 15:40 73 16 114/60 98 03/27/24 15:10 98.5 F 75 16 108/57 93 L 03/27/24 14:30 64 16 126/61 96 03/27/24 14:00 71 16 110/58 93 L 03/27/24 13:30 65 16 114/61 94 L 03/27/24 13:00 65 18 110/76 97 03/27/24 12:30 63 16 111/59 97 03/27/24 12:00 62 16 115/57 98 03/27/24 11:30 60 16 109/59 98 03/27/24 11:00 63 16 120/60 97 03/27/24 10:37 64 16 117/58 97 03/27/24 10:07 62 16 122/68 97 03/27/24 09:52 64 16 120/62 96 03/27/24 09:37 69 18 113/59 96 03/27/24 09:22 68 126/68 96 03/27/24 09:07 73 20 126/62 96 03/27/24 08:52 77 20 143/67 96 03/27/24 06:50 97.6 F 73 18 154/79 96 Intake and Output 03/27/24 03/27/24 03/27/24 06:59 14:59 22:59 Intake Total 100 1551 Output Total 150 Balance 100 1401 Intake: IV 100 1551 Output: Estimated Blood Loss 150 Other: Weight 65 kg In general patient is alert and oriented x 3 in no distress HEENT head normocephalic and atraumatic Neck is supple no JVD no goiter no lymphadenopathy no carotid bruit Chest examination is clear to auscultation no crackles no wheezing Cardiac exam reveals regular heart sounds S1 and S2 no gallops no murmurs Abdomen is soft nontender no organomegaly with normal bowel sounds Extremity exam reveals right above-knee amputation, left lower extremity no [place] a with palpable pulses Neurological examination reveals no gross focal deficits Results CBC & Chem 7: 03/28/24 08:15 03/28/24 08:34 Labs: Abnormal Lab Results - Last 24 Hours (Table) 03/27/24 Range/Units 07:00 INR 1.2 H (<1.2) APTT 47.6 H (22.0-30.0) sec Assessment and Plan Plan: Nonhealing ulcer on the right lower extremity status post above-knee amputation this admission Underlying history of factor V disorder Previous history of DVT Underlying history of hyperlipidemia Previous history of smoking Severe right lower extremity pain At this time patient was seen and examined Home medications reviewed and reordered For pain management patient is maintained on IV morphine and oral [place] For DVT prophylaxis subcu Lovenox until Coumadin is therapeutic Recheck labs in a.m. Will follow closely
--- NOTE | 2024-03-28 18:40 | P.PN ---
Subjective Progress Note Date: 03/28/24 Femi Case, is a 68-year-old male with known history of peripheral arterial disease and nonhealing ulcers who was recently admitted to [facility] emergency room for right foot gangrene, he underwent right lower extremity below-knee amputation, and was discharged to the long term for rehabilitation, he was reevaluated by vascular surgery and was readmitted on 03/27/2024 and underwent above-knee amputation on the right. Medical consultation was requested for management while hospitalized. 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 On 03/28/2024 patient was seen and examined on the medical floor he is alert and oriented x 3 in no apparent distress he is complaining of severe pain in the right lower extremity otherwise he denies any complaints there is no fever or chills no headache or dizziness no chest pain no shortness of breath no cough no nausea or vomiting no abdominal pain no diarrhea no urinary symptoms Objective - Vital Signs Vital signs: Vital Signs Temp 98.2 F 03/28/24 13:43 Pulse 67 03/28/24 16:09 Resp 16 03/28/24 16:09 BP 124/62 03/28/24 16:09 Pulse Ox 99 03/28/24 16:09 FiO2 Intake & Output 03/27/24 03/28/24 03/28/24 18:59 06:59 18:59 Intake Total 1791 1150 Output Total 150 800 700 Balance 1641 -800 450 Weight 102.5 kg 64.864 kg Intake: IV 1551 Oral 240 840 Blood Product 310 Rc As-1 Unit 310 [id number] Output: Gastric Drainage 0 Urine 800 700 Stool 0 Urine/Stool Mix 0 Emesis 0 Oral Regurgitation 0 Estimated Blood Loss 150 Other 0 Other: Voiding Method Urinal Urinal # Voids 1 # Bowel Movements 0 - Exam In general patient is alert and oriented x 3 in no distress HEENT head normocephalic and atraumatic Neck is supple no JVD no goiter no lymphadenopathy no carotid bruit Chest examination is clear to auscultation no crackles no wheezing Cardiac exam reveals regular heart sounds S1 and S2 no gallops no murmurs Abdomen is soft nontender no organomegaly with normal bowel sounds Extremity exam reveals right above-knee amputation, left lower extremity no edema with palpable pulses Neurological examination reveals no gross focal deficits - Labs CBC & Chem 7: 03/28/24 08:15 03/28/24 08:34 Labs: Abnormal Lab Results - Last 24 Hours (Table) 03/28/24 03/28/24 03/28/24 Range/Units 08:15 08:15 08:34 RBC 2.91 L (4.30-5.90) m/uL Hgb 7.9 L (13.0-17.5) gm/dL Hct 25.4 L (39.0-53.0) % RDW 16.1 H (11.5-15.5) % Plt Count 123 L (150-450) k/uL Lymphocytes # 0.6 L (1.0-4.8) k/uL PT 13.6 H (10.0-12.5) sec INR 1.3 H (<1.2) Sodium 135 L (137-145) mmol/L Carbon Dioxide 31 H (22-30) mmol/L Creatinine 0.61 L (0.66-1.25) mg/dL Glucose 135 H (74-99) mg/dL Total Protein 5.8 L (6.3-8.2) g/dL Albumin 2.8 L (3.5-5.0) g/dL Crossmatch 03/28/24 Range/Units 11:11 RBC (4.30-5.90) m/uL Hgb (13.0-17.5) gm/dL Hct (39.0-53.0) % RDW (11.5-15.5) % Plt Count (150-450) k/uL Lymphocytes # (1.0-4.8) k/uL PT (10.0-12.5) sec INR (<1.2) Sodium (137-145) mmol/L Carbon Dioxide (22-30) mmol/L Creatinine (0.66-1.25) mg/dL Glucose (74-99) mg/dL Total Protein (6.3-8.2) g/dL Albumin (3.5-5.0) g/dL Crossmatch See Detail Assessment and Plan Plan: Nonhealing ulcer on the right lower extremity status post above-knee amputation this admission Underlying history of factor V disorder Previous history of DVT Underlying history of hyperlipidemia Previous history of smoking Severe right lower extremity pain At this time patient was seen and examined Home medications reviewed and reordered For pain management patient is maintained on IV morphine and oral [place] For DVT prophylaxis subcu Lovenox until Coumadin is therapeutic Recheck labs in a.m. Will follow closely
[2024-03-29 08:04] LABS: HCT 26.5 % (39.0-53.0); HGB 8.7 gm/dL (13.0-17.5); Hypochromasia Marked; MCH 28.4 pg (25.0-35.0); MCHC 32.7 g/dL (31.0-37.0); MCV 86.8 fL (80.0-100.0); Mean Platelet Volume 8.5; Platelet Count 122 k/uL (150-450); Poikilocytosis Slight; RBC 3.05 m/uL (4.30-5.90); RDW 15.9 % (11.5-15.5); WBC 5.4 k/uL (3.8-10.6)
[2024-03-29 08:19] LABS: INR 1.2 (<1.2); Prothrombin Time 12.3 sec (10.0-12.5)
[2024-03-29 08:25] VITALS: TEMP 97.6
[2024-03-29 09:47] LABS: ALT 28 U/L (4-49); AST 35 U/L (17-59); African American GFR (CKD) >90 (>60 ml/min/1.73 sqM); Albumin 2.6 g/dL (3.5-5.0); Alkaline Phosphatase 59 U/L (38-126); Anion Gap 2 mmol/L; Blood Urea Nitrogen 11 mg/dL (9-20); Calcium 8.3 mg/dL (8.4-10.2); Carbon Dioxide 32 mmol/L (22-30); Chloride 101 mmol/L (98-107); Glucose 109 mg/dL (74-99); Non-African American GFR(CKD) >90 (>60 ml/min/1.73 sqM); Potassium 3.9 mmol/L (3.5-5.1); Sodium 135 mmol/L (137-145); Total Bilirubin 0.5 mg/dL (0.2-1.3); Total Protein 5.7 g/dL (6.3-8.2)
--- NOTE | 2024-03-29 10:05 | P.PN ---
Subjective Progress Note Date: 03/29/24 Femi Case, is a 68-year-old male with known history of peripheral arterial disease and nonhealing ulcers who was recently admitted to [facility] emergency room for right foot gangrene, he underwent right lower extremity below-knee amputation, and was discharged to the [place] [facility], he was reevaluated by vascular surgery and was readmitted on 03/27/2024 and underwent above-knee amputation on the right. Medical consultation was requested for management while hospitalized. 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 On 03/28/2024 patient was seen and examined on the medical floor he is alert and oriented x 3 in no apparent distress he is complaining of severe pain in the right lower extremity otherwise he denies any complaints there is no fever or chills no headache or dizziness no chest pain no shortness of breath no cough no nausea or vomiting no abdominal pain no diarrhea no urinary symptoms on 03/29/2024 for patient's alert and oriented 3. Patient denies chest pain or shortness breath. Patient denies nausea vomiting or diarrhea. Patient denies any urinary burning or frequency. INR today 1.2 patient to get 10 mg of Coumadin prior to discharge continue INR checks along with bridging Lovenox until therapeutic it ECF facility Objective - Vital Signs Vital signs: Vital Signs Temp 97.6 F 03/29/24 08:24 Pulse 67 03/29/24 08:24 Resp 15 03/29/24 08:24 BP 104/47 03/29/24 08:24 Pulse Ox 94 L 03/29/24 08:24 FiO2 Intake & Output 03/28/24 03/29/24 03/29/24 18:59 06:59 18:59 Intake Total 1150 10 236 Output Total 700 1450 Balance 450 -1440 236 Weight 64.864 kg Intake: IV 10 Invasive Line 2 10 Oral 840 236 Blood Product 310 Rc As-1 Unit 310 [id number] Output: Gastric Drainage 0 Urine 700 1450 Stool 0 0 Urine/Stool Mix 0 Emesis 0 Oral Regurgitation 0 Other 0 Other: Voiding Method Urinal Urinal Urinal # Voids 1 # Bowel Movements 0 - Exam In general patient is alert and oriented x 3 in no distress HEENT head normocephalic and atraumatic Neck is supple no JVD no goiter no lymphadenopathy no carotid bruit Chest examination is clear to auscultation no crackles no wheezing Cardiac exam reveals regular heart sounds S1 and S2 no gallops no murmurs Abdomen is soft nontender no organomegaly with normal bowel sounds Extremity exam reveals right above-knee amputation, left lower extremity no edema with palpable pulses Neurological examination reveals no gross focal deficits - Labs CBC & Chem 7: 03/29/24 07:45 03/29/24 07:45 Labs: Abnormal Lab Results - Last 24 Hours (Table) 03/28/24 03/29/24 03/29/24 Range/Units 11:11 07:45 07:45 RBC 3.05 L (4.30-5.90) m/uL Hgb 8.7 L (13.0-17.5) gm/dL Hct 26.5 L (39.0-53.0) % RDW 15.9 H (11.5-15.5) % Plt Count 122 L (150-450) k/uL INR 1.2 H (<1.2) Sodium (137-145) mmol/L Carbon Dioxide (22-30) mmol/L Creatinine (0.66-1.25) mg/dL Glucose (74-99) mg/dL Calcium (8.4-10.2) mg/dL Total Protein (6.3-8.2) g/dL Albumin (3.5-5.0) g/dL Crossmatch See Detail 03/29/24 Range/Units 07:45 RBC (4.30-5.90) m/uL Hgb (13.0-17.5) gm/dL Hct (39.0-53.0) % RDW (11.5-15.5) % Plt Count (150-450) k/uL INR (<1.2) Sodium 135 L (137-145) mmol/L Carbon Dioxide 32 H (22-30) mmol/L Creatinine 0.58 L (0.66-1.25) mg/dL Glucose 109 H (74-99) mg/dL Calcium 8.3 L (8.4-10.2) mg/dL Total Protein 5.7 L (6.3-8.2) g/dL Albumin 2.6 L (3.5-5.0) g/dL Crossmatch Assessment and Plan Plan: Nonhealing ulcer on the right lower extremity status post above-knee amputation this admission Underlying history of factor V disorder Previous history of DVT Underlying history of hyperlipidemia Previous history of smoking Severe right lower extremity pain At this time patient was seen and examined Home medications reviewed and reordered For pain management patient is maintained on IV morphine and oral [place] For DVT prophylaxis subcu Lovenox until Coumadin is therapeutic Recheck labs in a.m. Will follow closely
[2024-03-29 11:46] VITALS: BP 120/56; PULSE 63; RESP 16
[2024-03-29] MEDS: WARFARIN 10 MG TAB PO ONE (12:06)
--- NOTE | 2024-03-29 12:27 | P.DS ---
Providers Date of admission: 03/27/24 05:54 Expected date of discharge: 03/29/24 Attending physician: Lexi Smith DO Consults: 03/27/24 08:49 Consult Physician Urgent Consulting Provider: Linda Tubbs Consult Reason/Comments: med mgmnt Do you want consulting provider notified?: Yes Primary care physician: Stated None Hospital Course: 68-year-old male who initially underwent transmetatarsal amputation that had subsequent issues with nonhealing therefore with converted to a below the knee amputation. His past medical history includes deep vein thrombosis, peripheral arterial disease, hyperlipidemia, factor V Leiden, chronic anemia and chronic pressure wounds. His blood flow had previously been evaluated by an installer soft top and reviewed and was thought to be adequate for wound healing there appeared to be issues with the flap with ischemia and no evidence of necrosis of the flap without area to allow for revision of the below the knee amputation therefore decision was made to have [id number]-[id number]-[id number] amputation. He is postop day #2 for right dwpao-mfj-ywco amputation. Patient has history of chronic anemia, postop hemoglobin was 7.9 so he was given 1 unit of blood. Repeat hemoglobin 8.7. Discharge labs WBC 5.4 hemoglobin 8.7 platelet count 122,000 INR 1.2 sodium 135 potassium 3.9 BUN 11 creatinine 0.58 glucose 109 total protein 5.7 and albumin 2.6. He states patient has been well managed. He worked with physical therapy. Dressing was changed, surgical site well-approximated with yessica, surrounding skin pink and warm and dry. He was seen by comfort prosthetics with stump call person application. Recommend ensure for increased protein nourishment. Exam General appearance: The patient is alert, oriented, appears in no acute distr ess. HET: Head is normocephalic and atraumatic. Pupils are equal and reactive. Neck: Supple. Heart: Regular. Lungs: Equal expansion, normal respiratory effort. Abdomen: Soft, nontender, nondistended. Extremities: Palpable right femoral pulse. Izryy-bjy-gejc amputation stump with yessica well-approximated with minimal serosanguineous drainage. Surrounding tissue pink, warm and dry. Skin: Patient with skin rash-like/lesions that are chronic. Pressure ulcers to buttock/sacrum. Neurological: No focal deficits. Strength and sensation are grossly intact. Assessment 1. Right lower extremity nonhealing wound previous below-knee amputation with multiple skin lesions status post tsynz-rwn-klum amputation 2. Chronic anemia 3. Chronic pressure wounds 4. History DVT 5. Factor V Leiden Plan 1. Consult to physical therapy, activity as tolerated 2. Daily dressing change with Adaptic, ABD pad wrapped with Kerlix and secured with tape 3. Keep stump call person in place 4. Comfort prosthetics to continue to follow patient at [facility] 5. May resume anticoagulation 6. Medical management and chronic home medications per primary medical team 7. Plan for discharge to [facility] today. Follow-up with Dr. Smith in 2 weeks. The impression and plan of care has been dictated as directed. I performed a history and examination of this patient, discussed the same with the dictator. I agree with the dictator's note ,documented as a scribe. Any additional findings or plans will be noted. Procedures: Right fczkv-opu-dvka amputation Patient Condition at Discharge: Stable Plan - Discharge Summary Discharge Rx Participant: No New Discharge Prescriptions: New Enoxaparin [Lovenox] 60 mg SQ Q12HR each Continue Multivitamins, Thera [Multivitamin (formulary)] 1 tab PO DAILY Clopidogrel [Plavix] 75 mg PO DAILY Ascorbic Acid [Vitamin C] 1,000 mg PO DAILY Cholecalciferol [Vitamin D3 (25 Mcg = 1000 Iu)] 25 mcg PO DAILY Atorvastatin [Lipitor] 40 mg PO HS HYDROcodone/APAP 10-325MG [[place] 10-325] 1 each PO Q6HR PRN 3 Days #12 tab PRN Reason: Pain Warfarin [Coumadin] 5 mg PO HS@1700 Warfarin [Coumadin] 1 mg PO HS@1700 polyethylene glycoL 3350 [Miralax] 17 gm PO DAILY packet Famotidine [Pepcid] 20 mg PO BID tab Changed Pregabalin [Lyrica] 100 mg PO Q8H #9 cap No Action Morphine Sulfate [Eliza] 10 mg PO BID Enoxaparin [Lovenox] 60 mg PO BID HYDROcodone/APAP 10-325MG [[place] 10-325] 1 tab PO Q4H PRN PRN Reason: RIGHT STUMP PAIN Discharge Medication List Ascorbic Acid [Vitamin C] 1,000 mg PO DAILY 11/01/18 [History] Clopidogrel [Plavix] 75 mg PO DAILY 11/01/18 [History] Multivitamins, Thera [Multivitamin (formulary)] 1 tab PO DAILY 11/01/18 [History] Cholecalciferol [Vitamin D3 (25 Mcg = 1000 Iu)] 25 mcg PO DAILY 09/29/20 [History] Warfarin [Coumadin] 1 mg PO HS@1700 10/14/23 [History] Warfarin [Coumadin] 5 mg PO HS@1700 10/14/23 [History] Atorvastatin [Lipitor] 40 mg PO HS 02/09/24 [History] Famotidine [Pepcid] 20 mg PO BID tab 02/20/24 [Rx] polyethylene glycoL 3350 [Miralax] 17 gm PO DAILY packet 02/20/24 [Rx] Enoxaparin [Lovenox] 60 mg PO BID 03/25/24 [History] HYDROcodone/APAP 10-325MG [[place] 10-325] 1 tab PO Q4H PRN 03/25/24 [History] Morphine Sulfate [Eliza] 10 mg PO BID 03/25/24 [History] Enoxaparin [Lovenox] 60 mg SQ Q12HR each 03/29/24 [Rx] HYDROcodone/APAP 10-325MG [[place] 10-325] 1 each PO Q6HR PRN 3 Days #12 tab 03/29/24 [Rx] Pregabalin [Lyrica] 100 mg PO Q8H #9 cap 03/29/24 [Rx] Follow up Appointment(s)/Referral(s): Lexi Smith DO [STAFF PHYSICIAN] - 2 Weeks Linda Tubbs MD [STAFF PHYSICIAN] - 1 Week Activity/Diet/Wound Care/Special Instructions: Activity as tolerated Dressing changes as needed to right lhneu-mkp-ioxd amputation with Adaptic, Kerlix and apply stump call person Comfort prosthetics to follow patient ECF for rigid dressing continue INR daily checks until therapeutic Continue bridging with Lovenox until INR is therapeutic Continue Ensure 3 times a day between meals Discharge Disposition: TRANSFER TO SNF/ECF
--- NOTE | 2024-03-29 12:31 | CDI ---
Documentation Clarification Form Date: 03/29/2024 12:18:38 PM From: Rhona Lima RN CCDS Phone: [phone] Admit Date: 03/27/2024 05:54:00 AM Patient Name: Femi Case Visit Number: [id number] Discharge Date: ATTENTION: The Clinical Documentation Specialists (CDI) and [facility] Coding Staff appreciate your assistance in clarifying documentation. Please respond to the clarification below the line at the bottom and electronically sign. The CDI & [facility] Coding staff will review the response and follow-up if needed. Please note: Queries are made part of the Legal Health Record. If you have any questions, please contact the author of this message via ITS. TIFFANIE Sarmiento Pressure ulcers is documented in vascular surgery note 03/28. Coccyx pressure injury unstageable is documented in pressure injury assessment, 03/28. Based on this information and the findings below, is there an additional diagnosis that is clinically appropriate for this patient? History/Risk Factors: 68 year old male presented to [facility] for elective above the knee amputation. Medical history: PAD, non-healing ulcers, recent BKA, DVT, Factor V disorder and chronic lower extremity pain. 03/27, Medicine consult Clinical Indicators: Location: Coccyx Wound description: Necrosis amount 76-100%, wound margins necrotic. Sandra wound color mottled pallor, foul odor. Coccyx noted to with a necrotic pressure ulcer. Dressing is dry and intact. Treatment: Primary dressing honey HD sheet. Secondary dressing foam with border. Turn 2QH, Absorbant under pad. Is there an additional diagnosis that is clinically appropriate for this patient? [ x] Coccyx Pressure Ulcer unstageable [ ] Other condition, please specify [ ] Unable to determine Clinical Definitions: Stage 1 Pressure Ulcer: intact skin, non-blanching redness of local area Stage 2 Pressure Ulcer: Partial thickness, loss of dermis, pink wound bed Stage 3 Pressure Ulcer: Full thickness tissue loss Stage 4 Pressure Ulcer: Full thickness tissue loss with exposed bone, tendon, or muscle. Unstageable pressure ulcer: Full thickness tissue loss in which the base of the ulcer is covered by slough (yellow, zapata, kendrick, green or brown) and/or eschar (zapata, brown or black) in the wound bed. (Template Last Revised: October 2020) MTDD
--- NOTE | 2024-03-29 12:33 | CDI ---
Documentation Clarification Form Date: 03/29/2024 11:47:31 AM From: Rhona Lima RN CCDS Phone: [phone] Admit Date: 03/27/2024 05:54:00 AM Patient Name: Femi Case Visit Number: [id number] Discharge Date: ATTENTION: The Clinical Documentation Specialists (CDI) and [facility] Coding Staff appreciate your assistance in clarifying documentation. Please respond to the clarification below the line at the bottom and electronically sign. The CDI & [facility] Coding staff will review the response and follow-up if needed. Please note: Queries are made part of the Legal Health Record. If you have any questions, please contact the author of this message via ITS. TIFFANIE Sarmiento Pressure Ulcers is documented in vascular surgery note 03/28. A right medial hip pressure Injury is documented 03/28, Nursing wound assessment. Based on this information and the findings below, is there an additional diagnosis that is clinically appropriate for this patient? History/Risk Factors: 68 year old male presented to [facility] for elective above the knee amputation. Medical history: PAD, non-healing ulcers, recent BKA, DVT, Factor V disorder and chronic lower extremity pain. 03/27, Medicine consult Clinical Indicators: Location: Right Medial Hip Wound description: Pressure Injury, Eschar. Wound margins Thickened & Rolled Under. Sandra wound dry/scaly, sandra-wound mottled, sandra wound Cool/cold. Sandra wound tenderness on palpation yes. Drainage odor foul Treatment: Honey HD sheet, Turn Q 2 H, Absorbant under pad Is there an additional diagnosis that is clinically appropriate for this patient? [x ] Right Medidal Hip Pressure Ulcer unstageable [ ] Other condition, please specify [ ] Unable to determine Clinical Definitions: Stage 1 Pressure Ulcer: intact skin, non-blanching redness of local area Stage 2 Pressure Ulcer: Partial thickness, loss of dermis, pink wound bed Stage 3 Pressure Ulcer: Full thickness tissue loss Stage 4 Pressure Ulcer: Full thickness tissue loss with exposed bone, tendon, or muscle. Unstageable pressure ulcer: Full thickness tissue loss in which the base of the ulcer is covered by slough (yellow, zapata, kendrick, green or brown) and/or eschar (zapata, brown or black) in the wound bed. (Template Last Revised: October 2020) MTDD
--- NOTE | 2024-03-29 12:39 | CDI ---
Documentation Clarification Form Date: 03/29/2024 11:56:49 AM From: Rhona Lima RN CCDS Phone: [phone] Admit Date: 03/27/2024 05:54:00 AM Patient Name: Femi Case Visit Number: [id number] Discharge Date: ATTENTION: The Clinical Documentation Specialists (CDI) and [facility] Coding Staff appreciate your assistance in clarifying documentation. Please respond to the clarification below the line at the bottom and electronically sign. The CDI & [facility] Coding staff will review the response and follow-up if needed. Please note: Queries are made part of the Legal Health Record. If you have any questions, please contact the author of this message via ITS. TIFFANIE Sarmiento Pressure Ulcers is documented in vascular surgery note 03/28. A Right lateral buttock pressure injury unstageable, Nursing wound assessment 03/28. Based on this information and the findings below, is there an additional diagnosis that is clinically appropriate for this patient? History/Risk Factors: 68 year old male presented to [facility] for elective above the knee amputation. Medical history: PAD, non-healing ulcers, recent BKA, DVT, Factor V disorder and chronic lower extremity pain. 03/27, Medicine consult. Clinical Indicators: Location: Right lateral buttock Wound description: Necrosis amount 26-50% wound margins, thickened and rolled under. Sandra wound moist, sandra wound mottled, cool/cold. Drainage purulent, small amount with foul odor. Treatment: Honey HD Sheet, Turn 2QH, Absorbant under pad Is there an additional diagnosis that is clinically appropriate for this patient? [ x] Right lateral buttock Pressure Ulcer unstageable [ ] Other condition, please specify [ ] Unable to determine Clinical Definitions: Stage 1 Pressure Ulcer: intact skin, non-blanching redness of local area Stage 2 Pressure Ulcer: Partial thickness, loss of dermis, pink wound bed Stage 3 Pressure Ulcer: Full thickness tissue loss Stage 4 Pressure Ulcer: Full thickness tissue loss with exposed bone, tendon, or muscle. Unstageable pressure ulcer: Full thickness tissue loss in which the base of the ulcer is covered by slough (yellow, zapata, kendrick, green or brown) and/or eschar (zapata, brown or black) in the wound bed. (Template Last Revised: October 2020) [facility]
--- NOTE | 2024-03-29 12:41 | CDI ---
Documentation Clarification Form Date: 03/29/2024 12:07:39 PM From: Rhona Lima RN CCDS Phone: [phone] Admit Date: 03/27/2024 05:54:00 AM Patient Name: Femi Case Visit Number: [id number] Discharge Date: ATTENTION: The Clinical Documentation Specialists (CDI) and [facility] Coding Staff appreciate your assistance in clarifying documentation. Please respond to the clarification below the line at the bottom and electronically sign. The CDI & [facility] Coding staff will review the response and follow-up if needed. Please note: Queries are made part of the Legal Health Record. If you have any questions, please contact the author of this message via ITS. TIFFANIE Sarmiento Pressure Ulcers is documented in vascular surgery note 03/28. A right lower buttock unstageable pressure injury documented in wound assessment by nursing. Based on this information and the findings below, is there an additional diagnosis that is clinically appropriate for this patient? History/Risk Factors: 68 year old male presented to [facility] for elective above the knee amputation. Medical history: PAD, non-healing ulcers, recent BKA, DVT, Factor V disorder and chronic lower extremity pain. 03/27, Medicine consult. Clinical Indicators: Location: Right lower buttock Wound description: Necrosis amount 75%- 100%, Wound margins indistinct sandra wound dry/scaly. Sandra wound color mottled with foul odor drainage. Treatment: Dressing, Turn Q2H, Absorbant under pad Is there an additional diagnosis that is clinically appropriate for this patient? [ x ] Right lower buttock Pressure Ulcer unstageable [ ] Other condition, please specify [ ] Unable to determine Clinical Definitions: Stage 1 Pressure Ulcer: intact skin, non-blanching redness of local area Stage 2 Pressure Ulcer: Partial thickness, loss of dermis, pink wound bed Stage 3 Pressure Ulcer: Full thickness tissue loss Stage 4 Pressure Ulcer: Full thickness tissue loss with exposed bone, tendon, or muscle. Unstageable pressure ulcer: Full thickness tissue loss in which the base of the ulcer is covered by slough (yellow, zapata, kendrick, green or brown) and/or eschar (zapata, brown or black) in the wound bed. (Template Last Revised: October 2020) [facility]
--- NOTE | 2024-03-29 12:43 | CDI ---
Documentation Clarification Form Date: 03/29/2024 12:12:41 PM From: Rhona Lima RN CCDS Phone: [phone] Admit Date: 03/27/2024 05:54:00 AM Patient Name: Femi Case Visit Number: [id number] Discharge Date: ATTENTION: The Clinical Documentation Specialists (CDI) and [facility] Coding Staff appreciate your assistance in clarifying documentation. Please respond to the clarification below the line at the bottom and electronically sign. The CDI & [facility] Coding staff will review the response and follow-up if needed. Please note: Queries are made part of the Legal Health Record. If you have any questions, please contact the author of this message via ITS. Mallorie Silva NP-[place] Pressure ulcers is documented in vascular surgery note 03/28. A Bilateral buttock unstageable pressure injury is documented in wound assessment by nursing, 03/28. Based on this information and the findings below, is there an additional diagnosis that is clinically appropriate for this patient? History/Risk Factors: 68 year old male presented to [facility] for elective above the knee amputation. Medical history: PAD, non-healing ulcers, recent BKA, DVT, Factor V disorder and chronic lower extremity pain. 03/27, Medicine consult. Clinical Indicators: Location: Bilateral Buttock just supper to the coccyx site is noted with dry necrosis and indistinct borders. Wound description: Unstageable neurosis amount 76-100% with thickened, rolled under wound margins. Sandra wound Dry/scaly, Sandra wound color Erythema, pallor. Sandra wound cool/cold. Foul odor. Treatment: Dressing, Turn Q2H, Absorbant under pad Is there an additional diagnosis that is clinically appropriate for this patient? [ x] Bilateral buttock Pressure Ulcer unstageable [ ] Other condition, please specify [ ] Unable to determine Clinical Definitions: Stage 1 Pressure Ulcer: intact skin, non-blanching redness of local area Stage 2 Pressure Ulcer: Partial thickness, loss of dermis, pink wound bed Stage 3 Pressure Ulcer: Full thickness tissue loss Stage 4 Pressure Ulcer: Full thickness tissue loss with exposed bone, tendon, or muscle. Unstageable pressure ulcer: Full thickness tissue loss in which the base of the ulcer is covered by slough (yellow, zapata, kendrick, green or brown) and/or eschar (zapata, brown or black) in the wound bed. (Template Last Revised: October 2020) [facility]
[2024-03-29] MEDS ORDERED: WARFARIN 3 MG TAB PO ONE (18:00)
== END 2024-03-29 14:57 | DRG 475 ==
LOC: 2ORMAIN 05:54 → 3SCARD 14:21
PROVIDERS: ADMIT Surgery; ATTEND Surgery
PROC: 0Y6C0Z3 Detachment at Right Upper Leg, Low, Open Approach (ICD-10-PCS; principal; 2024-03-27 07:30)
DX: T87.89 Other complications of amputation stump (principal); D68.51 Activated protein C resistance; D64.9 Anemia, unspecified; E78.5 Hyperlipidemia, unspecified; I73.9 Peripheral vascular disease, unspecified; R21 Rash and other nonspecific skin eruption; E04.2 Nontoxic multinodular goiter; Z71.3 Dietary counseling and surveillance; L89.320 Pressure ulcer of left buttock, unstageable; L89.310 Pressure ulcer of right buttock, unstageable; L89.150 Pressure ulcer of sacral region, unstageable; Z86.718 Personal history of other venous thrombosis and embolism; Z79.01 Long term (current) use of anticoagulants; Z87.891 Personal history of nicotine dependence; Z79.02 Long term (current) use of antithrombotics/antiplatelets; Z79.899 Other long term (current) drug therapy; Z89.519 Acquired absence of unspecified leg below knee
CPT/HCPCS: 80053; 85025; 85027; 85610; 85730; 86850; 86900; 86901; 86920